=== PATIENT | male | born 1940 | race Caucasian/White ===

== ENCOUNTER 2016-09-21 11:23 | Inpatient (IN) | payer OTHER, BC ==
[2016-09-21 11:32] VITALS: BMI 24.7
--- NOTE | 2016-09-21 11:56 | PDOC ---
History of Present Illness - General Chief Complaint: Respiratory Stated Complaint: DIFFICULTY BREATHING (PCP SENT) Time Seen by Provider: 09/21/16 11:55 History Source: Patient, Primary Care Provider Exam Limitations: No Limitations - History of Present Illness Initial Comments: CHIEF COMPLAINT: 76 y/o afebrile male with PMH HTN, HLD, COPD (dependent on home O2 via NC), CHF, a-fib (on Xarelto), polycythemia sent in by Dr. Mccall for admission for increased SOB. HISTORY OF PRESENT ILLNESS: The patient states 2 weeks ago his doctor stopped his Spironalactone medication. He states since that time his legs have become more swollen and his belly is now swollen. He denies f/c, cough, n/v/d, CP, increased SOB, abd pain, back pain, hematuria, dysuria. He does have to sleep in a recliner but states that is normal for him. PCP is Dr. Mccall Vital signs on arrival are notable for pulse of 50 with 92% O2 sat on RA. REVIEW OF SYSTEMS: GENERAL/CONSTITUTIONAL: No fever/chills. No weakness. No weight change. HEAD, EYES, EARS, NOSE AND THROAT: No change in vision. No ear pain or discharge. No sore throat. CARDIOVASCULAR: No chest pain. +SOB RESPIRATORY: No cough, wheezing, or hemoptysis. GASTROINTESTINAL: +abdominal swelling. No nausea, vomiting, diarrhea or abdominal pain. GENITOURINARY: No dysuria, frequency, or change in urination. MUSCULOSKELETAL: +b/l leg swelling. No neck or back pain. SKIN: No rash or easy bruising. PHYSICAL EXAM: GENERAL: The patient is awake, alert, and fully oriented, in no acute distress. He speaks 3-4 words per breath with O2 via NC. Pt is legally blind HEAD: Normal with no signs of trauma. ENT: Pupils equal, round and reactive to light, extraocular movements intact, sclera anicteric, conjunctiva clear. Neck supple. LUNGS: Diminished breath sounds across all gill. Normal excursion. No respiratory distress or use of accessory muscles. CV: Slow rate/regular rhythm, S1/S2, no MRG. Cap refill < 2 sec. ABDOMEN: Soft, patient reported distention. No TTP. No rebound, guarding, rigidity. EXTREMITIES: Normal range of motion. Brawny, 3+ pitting edema b/l LEs up to knees. Open blister draining clear fluid on anterior right distal tibia NEUROLOGICAL: Normal speech, normal gait. CN II-XII grossly intact. PSYCH: Normal mood, normal affect. SKIN: Warm, dry, normal turgor, no rashes or lesions noted. Past History - Past Medical History Allergies/Adverse Reactions: Allergies Allergy/AdvReac Type Severity Reaction Status Date / Time codeine phosphate Allergy Intermediate Verified 09/21/16 11:32 [From Tylenol-Codeine #3] morphine Allergy Intermediate Verified 09/21/16 11:32 Home Medications: Ambulatory Orders Cholecalciferol (Vitamin D3) [Vitamin D] 1,000 unit PO DAILY 06/22/12 Metoprolol Tartrate [Lopressor -] 25 mg PO BID 06/22/12 Tiotropium [place] [Spiriva] 1 inh IH DAILY 06/22/12 Docusate Sodium [Colace -] 100 mg PO DAILY 06/05/14 Fluticasone/Vilanterol [Breo Ellipta 100-25 Mcg INH] 1 each IH DAILY 06/05/14 Nebulizer and Compressor [Comp-Air Elite Comp Nebulizer] 1 each MC DAILY #1 each 06/05/14 Sertraline HCl [Zoloft -] 50 mg PO DAILY 06/05/14 Sodium Chloride Nasal [place] [[place] Nasal [place] -] 2 spray NS BID spraybtl 06/11/14 Furosemide [Lasix -] 80 mg PO BID 09/21/16 Cardiac Disorders: Yes (A FIB) COPD: Yes HTN: Yes Hypercholesterolemia: Yes Liver Disease: Yes (CIRRHOSIS) Other medical history: LEGALLY BLIND - Surgical History Abdominal Surgery: Yes (HERNIA SURGERY) - Immunization History Immunization Up to Date: No - Psycho/Social/Smoking Cessation Hx Anxiety: Yes (depression/anxiety) Suicidal Ideation: No Smoking Status: No Smoking History: Former smoker Have you smoked in the past 12 months: No Number of Cigarettes Smoked Daily: 0 If you are a former smoker, when did you quit?: 5 YRS Information on smoking cessation initiated: No Hx Alcohol Use: No Drug/Substance Use Hx: No Substance Use Type: None Hx Substance Use Treatment: No *Physical Exam - Vital Signs Last Vital Signs Temp Pulse Resp BP Pulse Ox 98.3 F 50 L 20 122/57 92 L 09/21/16 11:27 09/21/16 11:27 09/21/16 11:27 09/21/16 11:27 09/21/16 11:27 Heart Score/ECG Review - History History: Moderately suspicious - Electrocardiogram EKG: Non specific repolarization disturbance - Age Age: >/= 65 - Risk Factors Risk Factors Heart Score: Yes Hx Hypertension, Yes Smoking History Based on the list above the patient has:: >/=3 risk factors or Hx atherosclerotic disease - Troponin Troponin: 1-3x normal limit - Score Heart Score - Total: 7 - ECG Intrepretation Comment:: Twelve-lead EKG was performed and reviewed by Dr. Deutsch. There is sinus bradycardia. The axis is normal. The intervals are normal. Nonspecific ST and T wave changes Impression: Abnormal twelve-lead EKG ED Treatment Course - LABORATORY CBC & Chemistry Diagram: 09/21/16 13:00 09/21/16 13:00 Medical Decision Making - Medical Decision Making A/P: 76 y/o male sent in by Dr. Mccall for admission for probably CHF exacerbation. Plan is as follows: 1. Labs 2. EKG 3. CXR 4. UA/culture Patient in acute CHF based on labs Ordered IV lasix Will admit tele to Dr. Mccall. Spoke with Dr. Mccall and he will admit. Will consult with [facility] for cardio. Patient is aware of the plan. *DC/Admit/Observation/Transfer Diagnosis at time of Disposition: Elevated troponin CHF exacerbation Qualifiers: Congestive heart failure type: unspecified congestive heart failure type Qualified Code(s): I50.9 - Heart failure, unspecified - Discharge Dispostion Admit: Yes - Referrals Referrals: Suraj Mccall MD [Primary Care Provider] -
[2016-09-21 13:22] LABS: BASOPHIL 0.3 % (0-2.0); EOSINOPHIL 0.1 % (0-4.5); MCH 30.1 pg (25.7-33.7); MEAN CELL VOLUME 94.2 fl (80-96); MEAN PLT VOLUME 9.8 fl (7.5-11.1); PLATELET COUNT 99 K/MM3 (134-434); WHITE BLOOD COUNT 8.7 K/mm3 (4.0-10.0)
[2016-09-21 13:24] LABS: URINE APPEARANCE CLEAR; URINE BILIRUBIN NEGATIVE (NEGATIVE); URINE BLOOD NEGATIVE (NEGATIVE); URINE COLOR STRAW; URINE GLUCOSE (UA) NEGATIVE (NEGATIVE); URINE KETONE NEGATIVE (NEGATIVE); URINE LEUK ESTERASE NEGATIVE (NEGATIVE); URINE NITRITE NEGATIVE (NEGATIVE); URINE PROTEIN NEGATIVE (NEGATIVE); URINE UROBILINOGEN NEGATIVE mg/dL (0.2-1.0)
[2016-09-21 13:55] LABS: ANION GAP 8 (8-16); BILIRUBIN,TOTAL 0.9 mg/dL (0.2-1.0); CALCIUM 9.1 mg/dL (8.5-10.1); CO2 33 mmol/L (21-32); CREATININE 1.9 mg/dL (0.7-1.3); GLUCOSE,RANDOM 87 mg/dL (74-106); SGOT/AST 32 U/L (15-37); SGPT/ALT 18 U/L (12-78); TOT PROT 7.8 g/dl (6.4-8.2)
[2016-09-21 13:58] LABS: ALK PHOS 74 U/L (45-117); CPK 78 IU/L (39-308); TROPONIN I 0.11 ng/ml (0.00-0.05)
[2016-09-21] MEDS ORDERED: FUROSEMIDE 40 MG/4 ML INJECTABLE VIAL IVPUSH ONE (14:27)
[2016-09-21] MEDS ORDERED: FUROSEMIDE 40 MG/4 ML INJECTABLE VIAL ONE (14:32)
[2016-09-21] MEDS ORDERED: BACITRACIN 0.9 GM PACKET ONE (16:02)
[2016-09-21 17:46] LABS: ARTERIAL BLD GAS O2 SATURATION 92.5 % (90-98.9); ARTERIAL BLOOD GAS BASE EXCESS 6.9 meq/l (-2-2); ARTERIAL BLOOD GAS HCO3 32.8 meq/L (22-26)
[2016-09-21 17:49] LABS: ALLENS TEST POSITIVE; ART PUNCT SITE RIGHT RADIAL; ARTERIAL BLOOD GAS PO2 64.4 mmHg (70-100); LPM/O2% 3LPM; PT. ON O2? YES; TYPE OF O2 NASAL
[2016-09-21 18:08] LABS: TROPONIN I 0.1 ng/ml (0.00-0.05)
[2016-09-21] MEDS ORDERED: PNEUMOC 13-VAL CONJ-DIP CRM/PF 0.5 ML DISP.SYRIN IM ONE (18:26)
[2016-09-21] MEDS: DEXTROSE 5% IVPB SCH ×2 (18:38→21:40)
[2016-09-21] MEDS: FUROSEMIDE IVPB SCH ×2 (18:38→21:40)
[2016-09-21] MEDS: WATER IVPB SCH ×2 (18:38→21:40)
--- NOTE | 2016-09-21 18:40 | CON.CARD ---
Consult Consult Specialty:: Cardiology Referred by:: Suraj Mccall MD Reason for Consultation:: Dyspnea and anasarca - History of Present Illness Chief Complaint: Dyspnea and anasarca History of Present Illness: Patient is a 76-year-old male with a history of home-O2 dependent COPD, VISHAL, hypertension hyperlipidemia, persistent afib on Xarelto. secondary polycythemia referred for increased dyspnea and anasarca in context of diuretic downtitration , reports progressive dyspnea, abdominal distension and LE edema, denies chest tightness, palpitations, near or true syncope, orthopnea, PND. PCP is Dr. Mccall - History Source History Provided By: Patient Limitations to Obtaining History: No Limitations - Past Medical History Cardio/Vascular: Yes: AFIB (?), CHF (Possibly diastolic), HTN, Murmur, Pulmonary Hypertension Pulmonary: Yes: COPD, O2 Dependent, Sleep Apnea Gastrointestinal: Yes: Constipation. No: Ascites, Cancer Psych: Yes: Depression ENT: Yes: Other (Epistaxis) - Alcohol/Substance Use Hx Alcohol Use: No - Smoking History Smoking history: Former smoker Have you smoked in the past 12 months: No Aproximately how many cigarettes per day: 0 If you are a former smoker, when did you quit?: 5 YRS Home Medications - Allergies Allergies/Adverse Reactions: Allergies Allergy/AdvReac Type Severity Reaction Status Date / Time codeine phosphate Allergy Intermediate Verified 09/21/16 11:32 [From Tylenol-Codeine #3] morphine Allergy Intermediate Verified 09/21/16 11:32 - Home Medications Home Medications: Ambulatory Orders Cholecalciferol (Vitamin D3) [Vitamin D] 1,000 unit PO DAILY 06/22/12 Metoprolol Tartrate [Lopressor -] 25 mg PO BID 06/22/12 Tiotropium [place] [Spiriva] 1 inh IH DAILY 06/22/12 Docusate Sodium [Colace -] 100 mg PO DAILY 06/05/14 Fluticasone/Vilanterol [Breo Ellipta 100-25 Mcg INH] 1 each IH DAILY 06/05/14 Nebulizer and Compressor [Comp-Air Elite Comp Nebulizer] 1 each MC DAILY #1 each 06/05/14 Sertraline HCl [Zoloft -] 50 mg PO DAILY 06/05/14 Sodium Chloride Nasal [place] [[place] Nasal [place] -] 2 spray NS BID spraybtl 06/11/14 Furosemide [Lasix -] 80 mg PO BID 09/21/16 Review of Systems - Review of Systems Cardiovascular: reports: Edema, Shortness of Breath Respiratory: reports: SOB Vital Signs: Vital Signs Temperature 98.2 F 09/21/16 17:55 Pulse Rate 50 L 09/21/16 15:36 Respiratory Rate 22 09/21/16 17:55 Blood Pressure 122/62 09/21/16 15:36 O2 Sat by Pulse Oximetry (%) 96 09/21/16 17:55 Constitutional: Yes: No Distress, Calm Neck: Yes: Supple Respiratory: Yes: Regular, Diminished, On Nasal O2 Gastrointestinal: Yes: Normal Bowel Sounds, Ascites, Distention Cardiovascular: Yes: Regular Rate and Rhythm JVD: Yes Carotid Bruit: No Heart Sounds: Yes: S1, S2 Murmur: Yes: Systolic Murmur, Grade 2 Edema: Yes Edema: LLE: 3+, RLE: 3+ - Other Data Labs, Other Data: Troponin, BNP 09/21/16 17:00 Troponin I 0.10 H B-Natriuretic Peptide 19167.70 H Troponin, BNP 09/21/16 17:00 Troponin I 0.10 H B-Natriuretic Peptide 25579.70 H Atrial tachycardia with 4:1 AV conduction Ejection Fraction %: LVEF > or = 40 % Imaging - Results Chest X-ray: Report Reviewed (No CHF) Problem List - Problems (1) Atrial fibrillation Code(s): I48.91 - UNSPECIFIED ATRIAL FIBRILLATION Qualifiers: Atrial fibrillation type: paroxysmal Qualified Code(s): I48.0 - Paroxysmal atrial fibrillation (2) Cirrhosis Code(s): K74.60 - UNSPECIFIED CIRRHOSIS OF LIVER Qualifiers: Hepatic cirrhosis type: unspecified hepatic cirrhosis Ascites presence : with ascites Qualified Code(s): K74.60 - Unspecified cirrhosis of liver (3) Oxygen dependent Code(s): Z99.81 - DEPENDENCE ON SUPPLEMENTAL OXYGEN (4) Pulmonary HTN Code(s): I27.2 - OTHER SECONDARY PULMONARY HYPERTENSION (5) Sleep apnea Code(s): G47.30 - SLEEP APNEA, UNSPECIFIED Qualifiers: Sleep apnea type: unspecified type Qualified Code(s): G47.30 - Sleep apnea, unspecified (6) Demand ischemia Code(s): I24.8 - OTHER FORMS OF ACUTE ISCHEMIC HEART DISEASE (7) Cor pulmonale (chronic) Code(s): I27.81 - COR PULMONALE (CHRONIC) (8) [id number] kidney injury Code(s): N17.9 - ACUTE KIDNEY FAILURE, UNSPECIFIED N18.9 - CHRONIC KIDNEY DISEASE, UNSPECIFIED (9) Anasarca Code(s): R60.1 - GENERALIZED EDEMA Assessment/Plan echo shows preserved LV fxn with significant RV dilatation and dysfunction, mod TR with RVSP>60 mmHg c/w cor pulmonale. 1. Acute on chronic hypercapneic, hypoxemic respiratory failure with cor pulmonale, severe pulm HTN and RV dysfunction and anasarca 2. 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 OSAS 4. Paroxysmal atrial fibrillation/flutter [id number] with slow ventricular response 5. HTN 7. Hypercholesterolemia 8. Thrombocytopenia 9. Cirrhosis 10. Acute on CKD 11. Demand ischemia PLAN: 1. Resume IV diuresis and aldactone 25 bid with monitor diuretic response, renal fxn and electrolytes 2. Lopressor 25 bid with hold parameters and observe for rate recovery, continue Eliquis 2.5 bid and Lipitor 10 qd 3. Bronchodilators, O2 for saO2>90%, CPAP nightly, f/u echo results 4. Thank you for consultative opportunity
[2016-09-21] MEDS: APIXABAN 2.5 MG TABLET PO SCH (21:39)
[2016-09-21] MEDS: ATORVASTATIN CA 10 MG TABLET (FP) PO SCH (21:39)
[2016-09-21] MEDS: METOPROLOL TARTRATE 25 MG TABLET (FP) PO SCH (21:39)
[2016-09-21] MEDS: SPIRONOLACTONE 25 MG TABLET (FP) PO SCH (21:39)
[2016-09-21] MEDS: ACLIDINIUM BROMIDE 400 MCG/INH AERO.POWD IH SCH (21:40)
[2016-09-21] MEDS: SODIUM CHLORIDE NASAL SPRAY 44 ML BOTTLE NS SCH (21:43)
[2016-09-21] MEDS ORDERED: METOPROLOL TARTRATE 25 MG TABLET (FP) PO SCH (22:00)
[2016-09-21] MEDS ORDERED: SENNOSIDES/DOCUSATE COMBO (SENNA PLUS) TABLET (UD) PO SCH (22:00)
[2016-09-22] MEDS: FUROSEMIDE IVPB SCH (06:02)
[2016-09-22] MEDS: DEXTROSE 5% IVPB SCH (06:02)
[2016-09-22] MEDS: WATER IVPB SCH (06:02)
--- NOTE | 2016-09-22 07:39 | HP ---
Admitting History and Physical - Admission Chief Complaint: 76 y.o M with hx of biventricular CHF, A.FIB, COPD on O2, CIRRHOSIS-was followed regularly in the office for control of CHF, fluid status , electrolytes, respiratory failure.. Within 2 weeks STONER OUT the pt started developing resistant worsening of peripheral edema, renal failure, respiratory status, hyperkalemia despite optimal outpt medical therapy. The patient was admitted to [facility] for further mangement. History of Present Illness: Chronic A.Fib with controlled V rate-on A/C Chronic CHF-predominantly RV Severe VISHAL. HTN. COPD on home O2/CPAP. LE swelling, PAH-severe, Thoracenthesis 2014 Chronic respiratory failure-ventilation, oxygenation. Polycytemia- Stable adrenal mass, Renal cysts. Depression. CKD. Cirrhosis liver with thrombocytopenia. Gout. Chronic back pain, kyphosis, healed compression fractures. History Source: Patient, Family Member, Medical Record Limitations to Obtaining History: No Limitations - Past Medical History Cardiovascular: Yes: AFIB (?), CHF (Possibly diastolic), HTN, Murmur, Pulmonary Hypertension Pulmonary: Yes: COPD, O2 Dependent, Sleep Apnea Gastrointestinal: Yes: Constipation. No: Ascites, Cancer Hepatobiliary: Yes: Cirrhosis Renal/: Yes: Renal Failure, Renal Inusuff Heme/Onc: Yes: Thrombocytopenia, Other (polycytemia-secondary). No: Anemia, B12 Deficiency, Bleeding Disorder, Cancer, Current Chemotherapy, Current Radiation Therapy, Hemochromatosis, Hypercoaguable State, Myeloproliferative Synd, Sickle Cell Disease, Sickle Cell Trait Infectious Disease: No: AIDS, C-Diff, Herpes Zoster, HIV, MRSA, STD's, Tuberculosis, VREF, Other Psych: Yes: Depression Musculoskeletal: Yes: Chronic low back pain Rheumatology: Yes: Gout ENT: Yes: Other (Epistaxis) Endocrine: Yes: Osteopenia - Smoking History Smoking history: Former smoker Have you smoked in the past 12 months: No Aproximately how many cigarettes per day: 0 If you are a former smoker, when did you quit?: 5 YRS - Alcohol/Substance Use Hx Alcohol Use: No History of Substance Use: denies: None, Cocaine, Heroin, Marijuana, Prescription , Tranquilizers - Social History Usual Living Arrangement: Yes: With Spouse ADL: Family Assistance History of Recent Travel: No Home Medications - Allergies Allergies/Adverse Reactions: Allergies Allergy/AdvReac Type Severity Reaction Status Date / Time codeine phosphate Allergy Intermediate Verified 09/21/16 11:32 [From Tylenol-Codeine #3] morphine Allergy Intermediate Verified 09/21/16 11:32 - Home Medications Home Medications: Ambulatory Orders Cholecalciferol (Vitamin D3) [Vitamin D] 1,000 unit PO DAILY 06/22/12 Metoprolol Tartrate [Lopressor -] 25 mg PO BID 06/22/12 Tiotropium [place] [Spiriva] 1 inh IH DAILY 06/22/12 Docusate Sodium [Colace -] 100 mg PO DAILY 06/05/14 Fluticasone/Vilanterol [Breo Ellipta 100-25 Mcg INH] 1 each IH DAILY 06/05/14 Nebulizer and Compressor [Comp-Air Elite Comp Nebulizer] 1 each MC DAILY #1 each 06/05/14 Sertraline HCl [Zoloft -] 50 mg PO DAILY 06/05/14 Sodium Chloride Nasal [place] [[place] Nasal [place] -] 2 spray NS BID spraybtl 06/11/14 Furosemide [Lasix -] 80 mg PO BID 09/21/16 Family Disease History - Family Disease History Family History: Unremarkable Review of Systems - Review of Systems Constitutional: reports: Weakness. denies: Chills, Diaphoresis, Fever, Lethargy , Loss of Appetite, Malaise, Night Sweats, Unintentional Wgt. Loss Eyes: denies: Blind Spots, Blurred Vision, Double Vision, Eye Pain, Floaters, Photophobia, Recent Change in Vision, Other HENT: denies: Difficult Swallowing, Ear Discharge, Ear Pain, Throat Pain, Ringing in Ears Neck: reports: Decreased ROM. denies: Pain on Movement, Swollen Glands, Tenderness Cardiovascular: reports: Edema, Shortness of Breath. denies: Chest Pain Gastrointestinal: reports: Constipation. denies: Abdominal Pain, Bloating, Diarrhea, Melena, Rectal Bleeding, Vomiting, Vomiting Blood Genitourinary: denies: Discharge, Dysuria, Flank Pain, Frequency Breasts: reports: No Symptoms Reported Musculoskeletal: reports: Back Pain, Muscle Weakness Integumentary: reports: Blister (broken right day), Bruising Neurological: denies: Change in LOC, Change in Speech, Confusion, Seizure Endocrine: denies: Excessive Sweating, Flushing, Increased Hunger, Intolerance to Heat Hematology/Lymphatic: denies: Excessive Bleeding, Swollen Glands Psychiatric: reports: Altered Sleep Pattern, Anxiety, Depression. denies: Hallucinations, Panic, Paranoia, Suicidal Physical Examination Vital Signs: Vital Signs Temperature 97.8 F 09/22/16 05:24 Pulse Rate 47 L 09/22/16 05:24 Respiratory Rate 20 09/22/16 05:24 Blood Pressure 137/60 09/22/16 05:24 O2 Sat by Pulse Oximetry (%) 96 09/21/16 21:00 Constitutional: Yes: Anxious, Moderate Distress. No: Pallor, Poor Hygeine Eyes: Yes: Conjunctiva Clear, EOM Intact HENT: Yes: Atraumatic, Normocephalic, Hoarseness. No: Drooling, Epistaxis, Pharyngeal Erythema Neck: Yes: Trachea Midline, Decreased ROM. No: Lymphadenopathy, Tenderness, Thyromegaly Cardiovascular: Yes: Bradycardia, Pulse Irregular, JVD, Murmur, S1, S2, S3 Respiratory: Yes: Accessory Muscle Use, Diminished (B/B), On Nasal O2, Rales (B/ B) Gastrointestinal: Yes: Normal Bowel Sounds, Soft, Ascites, Splenomegaly. No: Abdomen, Obese, Palpable Mass, Pulsatile Mass, Tenderness, Tenderness, Epigastrium, Vomiting ...Rectal Exam: Yes: Deferred Renal/: No: Anuria, Bladder Distention, CVA Tenderness - Left, CVA Tenderness - Right Breast(s): Yes: WNL Musculoskeletal: Yes: Back Pain. No: Joint Stiffness Extremities: Yes: Cool, Cyanosis, Delayed Capillary Refill. No: Amputation, Calf Tenderness Edema: LLE: 3+, RLE: 3+ Peripheral Pulses WNL: No Peripheral Pulses: Left Doralis Pedis: 0, Right Dorsalis Pedis: 0 Integumentary: Yes: Bruising, Petechiae Wound/Incision: Yes: Draining, Reddened (Right anterior day) Neurological: Yes: Alert, Oriented, Cran Nerves II-XII Intact, Unsteady Gait, Weakness. No: Aphasia, Ataxia, Paresthesia, Seizure, Unresponsive Psychiatric: Yes: Alert, Oriented. No: Agitated, Suicidal Ideation Labs: Laboratory Results - last 24 hr 09/21/16 09/21/16 09/21/16 13:00 13:00 13:00 WBC 8.7 RBC 4.47 Hgb 13.5 Hct 42.1 MCV 94.2 MCH 30.1 MCHC 32.0 RDW 16.0 H Plt Count 99 L D MPV 9.8 Neutrophils % 87.0 H Lymphocytes % 4.8 L D Monocytes % 7.8 Eosinophils % 0.1 Basophils % 0.3 Puncture Site ABG pH ABG pCO2 at Pt Temp ABG pO2 at Pt Temp ABG HCO3 ABG O2 Sat (Measured) ABG O2 Content ABG Base Excess [place] Test O2 Delivery Device Oxygen Flow Rate PEEP Sodium 138 Potassium 5.0 Chloride 97 L Carbon Dioxide 33 H Anion Gap 8 BUN 107 H* D Creatinine 1.9 H D Creat Clearance w eGFR 34.83 Random Glucose 87 Calcium 9.1 Total Bilirubin 0.9 AST 32 ALT 18 D Alkaline Phosphatase 74 D Creatine Kinase 78 Troponin I 0.11 H D B-Natriuretic Peptide 77234.86 H Total Protein 7.8 Albumin 4.0 D Urine Color Straw Urine Appearance Clear Urine pH 5.0 Ur Specific [place] 1.010 Urine Protein Negative Urine Glucose (UA) Negative Urine Ketones Negative Urine Blood Negative Urine Nitrite Negative Urine Bilirubin Negative Urine Urobilinogen Negative Ur Leukocyte Esterase Negative 09/21/16 09/21/16 09/22/16 17:00 17:40 05:35 WBC 7.2 RBC 4.38 Hgb 13.5 Hct 41.4 MCV 94.3 MCH 30.7 MCHC 32.5 RDW 15.7 Plt Count 93 L MPV 10.7 Neutrophils % 84.8 H Lymphocytes % 6.0 L D Monocytes % 8.6 Eosinophils % 0.3 D Basophils % 0.3 Puncture Site Right radial ABG pH 7.40 ABG pCO2 at Pt Temp 54.5 H ABG pO2 at Pt Temp 64.4 L ABG HCO3 32.8 H ABG O2 Sat (Measured) 92.5 ABG O2 Content 16.3 ABG Base Excess 6.9 H Gagan Test Positive O2 Delivery Device Nasal Oxygen Flow Rate 3lpm PEEP 0.0 Sodium Potassium Chloride Carbon Dioxide Anion Gap BUN Creatinine Creat Clearance w eGFR Random Glucose Calcium Total Bilirubin AST ALT Alkaline Phosphatase Creatine Kinase 62 Troponin I 0.10 H B-Natriuretic Peptide 03676.70 H Total Protein Albumin Urine Color Urine Appearance Urine pH Ur Specific [place] Urine Protein Urine Glucose (UA) Urine Ketones Urine Blood Urine Nitrite Urine Bilirubin Urine Urobilinogen Ur Leukocyte Esterase Imaging - Results Chest X-ray: Report Reviewed EKG: Image Reviewed (A.FIB/Flutter with VR 46/min, incomlete RBBB) Problem List - Problems (1) [id number] kidney injury Assessment/Plan: Mostly pre-renal on renal, r/o hepato-renal syndrome. Continue f/u labs, renal fx, observe for hyperkalemia Code(s): N17.9 - ACUTE KIDNEY FAILURE, UNSPECIFIED N18.9 - CHRONIC KIDNEY DISEASE, UNSPECIFIED Qualifiers: Acute renal failure type: unspecified Chronic kidney disease stage: stage 3 (moderate) Qualified Code(s): N17.9 - Acute kidney failure, unspecified; N18.3 - Chronic kidney disease, stage 3 (moderate) (2) Anasarca Assessment/Plan: IV diuretics. Spironolactone Daily weights I/s , O/s Code(s): R60.1 - GENERALIZED EDEMA (3) CHF exacerbation Assessment/Plan: F/u with cardiology IV diuretics. BAB with telemetry Code(s): I50.9 - HEART FAILURE, UNSPECIFIED Qualifiers: Congestive heart failure type: combined Qualified Code(s): I50.43 - Acute on chronic combined systolic (congestive) and diastolic (congestive) heart failure (4) Cor pulmonale (chronic) Code(s): I27.81 - COR PULMONALE (CHRONIC) (5) Demand ischemia Assessment/Plan: Follow HR, CHF, Code(s): I24.8 - OTHER FORMS OF ACUTE ISCHEMIC HEART DISEASE (6) Atrial fibrillation Assessment/Plan: AFIB/Flutter-continue NOAC-will change Xarelto to Eliquis due to renal insufficiency Code(s): I48.91 - UNSPECIFIED ATRIAL FIBRILLATION Qualifiers: Atrial fibrillation type: chronic Qualified Code(s): I48.2 - Chronic atrial fibrillation (7) Respiratory failure Assessment/Plan: CPAP, Pulmonary consult Follow O2SAT Code(s): J96.90 - RESPIRATORY FAILURE, UNSP, UNSP W HYPOXIA OR HYPERCAPNIA Qualifiers: Chronicity: acute on chronic
[2016-09-22 07:41] LABS: BASOPHIL 0.3 % (0-2.0); EOSINOPHIL 0.3 % (0-4.5); MCH 30.7 pg (25.7-33.7); MCHC 32.5 g/dl (32.0-35.9); MEAN CELL VOLUME 94.3 fl (80-96); MEAN PLT VOLUME 10.7 fl (7.5-11.1); NEUTROPHILS 84.8 % (42.8-82.8); PLATELET COUNT 93 K/MM3 (134-434); RDW 15.7 % (11.9-15.9); WHITE BLOOD COUNT 7.2 K/mm3 (4.0-10.0)
[2016-09-22 07:51] LABS: INR 1.51 (0.82-1.09); PROTHROMBIN TIME (PATIENT) 16.8 SEC (9.98-11.88)
[2016-09-22 08:41] LABS: ALBUMIN 3.8 g/dl (3.4-5.0); ALK PHOS 64 U/L (45-117); ANION GAP 8 (8-16); BILIRUBIN,TOTAL 1.2 mg/dL (0.2-1.0); CALCIUM 9.2 mg/dL (8.5-10.1); CO2 36 mmol/L (21-32); CREATININE 1.7 mg/dL (0.7-1.3); GLUCOSE,RANDOM 104 mg/dL (74-106); MAGNESIUM 2.6 mg/dL (1.8-2.4); PHOSPHOROUS 3.4 mg/dL (2.5-4.9); SGOT/AST 29 U/L (15-37); SGPT/ALT 15 U/L (12-78); TOT PROT 7.1 g/dl (6.4-8.2)
--- NOTE | 2016-09-22 10:02 | CONSULT ---
Consultation: REQUESTING PROVIDER: CONSULT REQUEST: We have been asked to medically evaluate this patient for ( Nephrology). HISTORY OF PRESENT ILLNESS:76 y.o M with PMH of biventricular CHF, A.FIB, COPD on home O2 2L, Cirrhosis, VISHAL came to ER with complaint of increase in swellining in b/l lower limbs, abdomen and increase in SOB. The patient states 2 weeks ago his doctor stopped his Spironalactone medication. He states since that time his legs have become more swollen and his belly is now swollen. Uses home oxygen and CPAP in night. PMH: HTN, HLD, copd, chf, afib, polycythemia, vishal former smoker Denies fever, chills, cough, orthopnea, paroxysmal nocturnal dyspnea. Denies diarrhoea, constipation. REVIEW OF SYSTEMS: CONSTITUTIONAL: Absent: fever, chills, diaphoresis, generalized weakness, HEENT: Absent: rhinorrhea, nasal congestion, throat pain, CARDIOVASCULAR: Absent: chest pain, syncope, palpitations, irregular heart rate, lightheadedness , peripheral edema RESPIRATORY: Absent: cough, shortness of breath, dyspnea with exertion, orthopnea, wheezing, stridor, hemoptysis GASTROINTESTINAL: Absent: abdominal pain, abdominal distension, nausea, vomiting, diarrhea, constipation, melena, hematochezia, increase in edema in abdominal wall GENITOURINARY: Absent: dysuria, frequency, urgency, hesitancy, hematuria, flank pain, genital pain SKIN: ruptured blister on right lower limb PHYSICAL EXAMINATION Vital Signs - 24 hr 09/21/16 09/21/16 09/21/16 15:36 17:55 18:00 Temperature 98.2 F 98.2 F 98.0 F Pulse Rate 46 L Pulse Rate [ 50 L Apical] Respiratory 22 22 20 Rate Blood Pressure 128/56 Blood Pressure 122/62 [Right Arm] O2 Sat by Pulse 93 L 96 Oximetry (%) 09/21/16 09/21/16 09/21/16 20:29 21:00 22:00 Temperature 97.7 F Pulse Rate 47 L Pulse Rate [ Apical] Respiratory 20 20 20 Rate Blood Pressure 127/58 Blood Pressure [Right Arm] O2 Sat by Pulse 96 96 Oximetry (%) 09/22/16 09/22/16 02:21 05:24 Temperature 97.6 F 97.8 F Pulse Rate 49 L 47 L Pulse Rate [ Apical] Respiratory 20 20 Rate Blood Pressure 134/62 137/60 Blood Pressure [Right Arm] O2 Sat by Pulse Oximetry (%) GENERAL: Awake, alert, and fully oriented, in no acute distress. EYES: sclera anicteric, conjunctiva clear. EARS, NOSE, THROAT: oropharynx clear without exudates. Moist mucous membranes. NECK: Normal range of motion, supple without lymphadenopathy, JVD, or masses. LUNGS: Breath sounds equal, b/l diminished, mild crackle at base, no wheezing HEART: normal S1 and S2 , murmur + ABDOMEN: Soft, nontender, not distended, normoactive bowel sounds, no guarding, no rebound, LOWER EXTREMITIES: 2+ pulses, warm, well-perfused. No calf tenderness. peripheral edema 1+ SKIN: Warm, Laboratory Results - last 24 hr 09/21/16 09/21/16 09/22/16 17:00 17:40 05:35 WBC 7.2 RBC 4.38 Hgb 13.5 Hct 41.4 MCV 94.3 MCH 30.7 MCHC 32.5 RDW 15.7 Plt Count 93 L MPV 10.7 Neutrophils % 84.8 H Lymphocytes % 6.0 L D Monocytes % 8.6 Eosinophils % 0.3 D Basophils % 0.3 INR Puncture Site Right radial ABG pH 7.40 ABG pCO2 at Pt Temp 54.5 H ABG pO2 at Pt Temp 64.4 L ABG HCO3 32.8 H ABG O2 Sat (Measured) 92.5 ABG O2 Content 16.3 ABG Base Excess 6.9 H Gagan Test Positive O2 Delivery Device Nasal Oxygen Flow Rate 3lpm PEEP 0.0 Sodium Potassium Chloride Carbon Dioxide Anion Gap BUN Creatinine Creat Clearance w eGFR Random Glucose Calcium Phosphorus Magnesium Total Bilirubin AST ALT Alkaline Phosphatase Creatine Kinase 62 Troponin I 0.10 H B-Natriuretic Peptide 92656.70 H Total Protein Albumin 09/22/16 09/22/16 05:35 05:35 WBC RBC Hgb Hct MCV MCH MCHC RDW Plt Count MPV Neutrophils % Lymphocytes % Monocytes % Eosinophils % Basophils % INR 1.51 H Puncture Site ABG pH ABG pCO2 at Pt Temp ABG pO2 at Pt Temp ABG HCO3 ABG O2 Sat (Measured) ABG O2 Content ABG Base Excess Gagan Test O2 Delivery Device Oxygen Flow Rate PEEP Sodium 141 Potassium 4.4 Chloride 97 L Carbon Dioxide 36 H Anion Gap 8 BUN 102 H Creatinine 1.7 H Creat Clearance w eGFR 39.60 Random Glucose 104 Calcium 9.2 Phosphorus 3.4 Magnesium 2.6 H D Total Bilirubin 1.2 H D AST 29 ALT 15 Alkaline Phosphatase 64 Creatine Kinase Troponin I B-Natriuretic Peptide Total Protein 7.1 Albumin 3.8 Active Medications Generic Name Dose Route Start Last Admin Trade Name Markq PRN Reason Stop Dose Admin Aclidinium [place] 1 puff 09/21/16 22:00 09/21/16 21:40 Tudorza - IH 1 puff BID TRICIA Administration Apixaban 2.5 mg 09/21/16 22:00 09/21/16 21:39 Eliquis - PO 2.5 mg BID TRICIA Administration Atorvastatin Calcium 10 mg 09/21/16 22:00 09/21/16 21:39 Lipitor - PO 10 mg HS TRICIA Administration Cholecalciferol 1,000 unit 09/22/16 10:00 Vitamin D3 - PO DAILY TRICIA Docusate Sodium 100 mg 09/22/16 10:00 Colace - PO DAILY TRICIA Febuxostat 40 mg 09/22/16 10:00 Uloric - PO DAILY TRICIA Furosemide 100 mg/ Dextrose 60 mls @ 60 mls/hr 09/21/16 18:00 09/22/16 06:02 IVPB 60 mls/hr Q12H TRICIA Administration 100 MG/HR Metoprolol Tartrate 25 mg 09/21/16 22:00 09/21/16 21:39 Lopressor - PO Not Given BID TRICIA Senna/Docusate Sodium 2 tablet 09/21/16 22:00 09/21/16 21:39 Pericolace - PO 09/22/16 16:44 2 tablet HS TRICIA Administration Sertraline HCl 50 mg 09/22/16 10:00 Zoloft - PO DAILY TRICIA Silver Sulfadiazine 1 applic 09/22/16 10:00 Silvadene - TP BID TRICIA Sodium Chloride 2 spray 09/21/16 22:00 09/21/16 21:43 [place] - NS 2 spray BID TRICIA Administration Spironolactone 25 mg 09/21/16 19:00 09/21/16 21:39 Aldactone - PO 25 mg DAILY TRICIA Administration ASSESSMENT/PLAN: [id number] kidney injury could be prerenal CHF exacerbation Cor pulmonale (chronic) Demand ischemia Atrial fibrillation Respiratory failure VISHAL HTN HLD Plan l Will urine electrolytes, pro: cret ration Repeat lab in morning will get renal usg Cr improved from 1.9 to 1.7 on IV lasix 100mg q12h, CR improved on diuretic on spironolatone 25mg daily Daily weight Monitor intake and output. Monitor electrolytes. Broncho dilator, o2 to keep spo2 over 90. Uses CPAP in night Dispo: We will continue to follow the patient. Thank you for this consultative opportunity. Visit type - Emergency Visit Emergency Visit: Yes ED Registration Date: 09/21/16 Care time: The patient presented to the Emergency Department on the above date and was hospitalized for further evaluation of their emergent condition. - New Patient This patient is new to me today: Yes Date on this admission: 09/22/16 - Critical Care Critical Care patient: No
[2016-09-22] MEDS: CHOLECALCIFEROL (VITAMIN D3) 1,000 UNIT TABLET (FP) PO SCH (10:29)
[2016-09-22] MEDS: SERTRALINE HCL 50 MG TABLET (FP) PO SCH (10:29)
[2016-09-22] MEDS: APIXABAN 2.5 MG TABLET PO SCH ×2 (10:30→22:02)
[2016-09-22] MEDS: SPIRONOLACTONE 25 MG TABLET (FP) PO SCH ×2 (10:30→22:02)
[2016-09-22] MEDS: DOCUSATE SODIUM 100 MG CAPSULE (FP) PO SCH (10:30)
[2016-09-22] MEDS: FEBUXOSTAT 40 MG TAB PO SCH (10:31)
[2016-09-22] MEDS: ACLIDINIUM BROMIDE 400 MCG/INH AERO.POWD IH SCH ×2 (10:32→22:13)
[2016-09-22] MEDS: METOPROLOL TARTRATE 25 MG TABLET (FP) PO SCH (10:33)
[2016-09-22] MEDS: SODIUM CHLORIDE NASAL SPRAY 44 ML BOTTLE NS SCH ×2 (10:33→23:11)
--- NOTE | 2016-09-22 10:54 | PN ---
Progress Note, Physician History of Present Illness: Dyspnea, abdominal distension and LE edema improving with diuresis, feels improved. PCP is Dr. Mccall - Current Medication List Current Medications: Active Medications Aclidinium [place] (Tudorza -) 1 puff IH BID [facility] Last Admin: 09/22/16 10:32 Dose: 1 puff Apixaban (Eliquis -) 2.5 mg PO BID [facility] Last Admin: 09/22/16 10:30 Dose: 2.5 mg Atorvastatin Calcium (Lipitor -) 10 mg PO [facility] Last Admin: 09/21/16 21:39 Dose: 10 mg Cholecalciferol (Vitamin D3 -) 1,000 unit PO DAILY [facility] Last Admin: 09/22/16 10:29 Dose: 1,000 unit Docusate Sodium (Colace -) 100 mg PO DAILY [facility] Last Admin: 09/22/16 10:30 Dose: 100 mg Febuxostat (Uloric -) 40 mg PO DAILY [facility] Last Admin: 09/22/16 10:31 Dose: 40 mg Furosemide 100 mg/ Dextrose 60 mls @ 60 mls/hr IVPB Q12H [facility] PRN Reason: 100 MG/HR Last Admin: 09/22/16 06:02 Dose: 60 mls/hr Metoprolol Tartrate (Lopressor -) 25 mg PO BID [facility] Last Admin: 09/22/16 10:33 Dose: Not Given Senna/Docusate Sodium (Pericolace -) 2 tablet PO [facility] Stop: 09/22/16 16:44 Last Admin: 09/21/16 21:39 Dose: 2 tablet Sertraline HCl (Zoloft -) 50 mg PO DAILY [facility] Last Admin: 09/22/16 10:29 Dose: 50 mg Silver Sulfadiazine (Silvadene -) 1 applic TP BID [facility] Sodium Chloride ([place] Nasal [place] -) 2 spray NS BID [facility] Last Admin: 09/22/16 10:33 Dose: 2 spray Spironolactone (Aldactone -) 25 mg PO DAILY [facility] Last Admin: 09/22/16 10:30 Dose: 25 mg - Objective Vital Signs: Vital Signs Temperature 98.2 F 09/22/16 10:00 Pulse Rate 58 L 09/22/16 10:00 Respiratory Rate 16 09/22/16 10:00 Blood Pressure 138/68 09/22/16 10:00 O2 Sat by Pulse Oximetry (%) 96 09/21/16 21:00 Constitutional: Yes: No Distress, Calm Neck: Yes: Supple Cardiovascular: Yes: Regular Rate and Rhythm Respiratory: Yes: Regular, Diminished Gastrointestinal: Yes: Normal Bowel Sounds, Soft, Distention Edema: Yes Edema: LLE: 2+, RLE: 2+ Labs: CBC, BMP 09/22/16 05:35 09/22/16 05:35 INR, PTT INR 1.51 (0.82-1.09) H 09/22/16 05:35 Problem List - Problems (1) Atrial fibrillation Code(s): I48.91 - UNSPECIFIED ATRIAL FIBRILLATION Qualifiers: Qualified Code(s): I48.2 - Chronic atrial fibrillation (2) Cirrhosis Code(s): K74.60 - UNSPECIFIED CIRRHOSIS OF LIVER Qualifiers: Qualified Code(s): K74.60 - Unspecified cirrhosis of liver (3) Oxygen dependent Code(s): Z99.81 - DEPENDENCE ON SUPPLEMENTAL OXYGEN (4) Pulmonary HTN Code(s): I27.2 - OTHER SECONDARY PULMONARY HYPERTENSION (5) Sleep apnea Code(s): G47.30 - SLEEP APNEA, UNSPECIFIED Qualifiers: Qualified Code(s): G47.30 - Sleep apnea, unspecified (6) Demand ischemia Code(s): I24.8 - OTHER FORMS OF ACUTE ISCHEMIC HEART DISEASE (7) Cor pulmonale (chronic) Code(s): I27.81 - COR PULMONALE (CHRONIC) (8) Gjlgd-ts-iuwfiqm kidney injury Code(s): N17.9 - ACUTE KIDNEY FAILURE, UNSPECIFIED N18.9 - CHRONIC KIDNEY DISEASE, UNSPECIFIED Qualifiers: Qualified Code(s): N17.9 - Acute kidney failure, unspecified; N18.9 - Chronic kidney disease, unspecified (9) Anasarca Code(s): R60.1 - GENERALIZED EDEMA Assessment/Plan echo shows preserved LV fxn with significant RV dilatation and dysfunction, mod TR with RVSP>60 mmHg c/w cor pulmonale. 1. Acute on chronic hypercapneic, hypoxemic respiratory failure with cor pulmonale, severe pulm HTN and RV dysfunction and anasarca improving 2. 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 OSAS 4. Paroxysmal atrial fibrillation/flutter [id number] with slow ventricular response 5. HTN 7. Hypercholesterolemia 8. Thrombocytopenia 9. Cirrhosis 10. Acute on CKD referable to #1 improving 11. Demand ischemia PLAN: 1. Decrease Lasix 80 IV bid and increase aldactone 25 bid with monitor diuretic response, renal fxn and electrolytes 2. Decrease Toprol XL 25 qd with hold parameters and observe for rate recovery, continue Eliquis 2.5 bid and Lipitor 10 qd 3. Bronchodilators, O2 for saO2>90%, CPAP nightly, f/u echo results
--- NOTE | 2016-09-22 10:54 | EKG ---
Test Reason : Blood Pressure : / mmHG Vent. Rate : 046 BPM Atrial Rate : 187 BPM P-R Int : 000 ms QRS Dur : 112 ms QT Int : 486 ms P-R-T Axes : 000 037 023 degrees QTc Int : 425 ms ATRIAL FIBRILLATION WITH SLOW VENTRICULAR RESPONSE INCOMPLETE RIGHT BUNDLE BRANCH BLOCK NONSPECIFIC ST AND T WAVE ABNORMALITY ABNORMAL ECG Confirmed by MG KOCH, DORINDA ([id number]) on 09/22/2016 10:54:28 AM Referred By: Confirmed By:DORINDA HOLLIDAY MD
--- NOTE | 2016-09-22 11:21 | EKG ---
Test Reason : Blood Pressure : / mmHG Vent. Rate : 052 BPM Atrial Rate : 241 BPM P-R Int : 000 ms QRS Dur : 112 ms QT Int : 474 ms P-R-T Axes : 000 005 063 degrees QTc Int : 440 ms ATRIAL FIBRILLATION WITH SLOW VENTRICULAR RESPONSE RIGHT BUNDLE BRANCH BLOCK ABNORMAL ECG WHEN COMPARED WITH ECG OF 21-SEP-2016 12:59, ATRIAL FIBRILLATION HAS REPLACED SINUS RHYTHM RIGHT BUNDLE BRANCH BLOCK IS NOW PRESENT Confirmed by MG KOCH, DORINDA ([id number]) on 09/22/2016 11:20:58 AM Referred By: NADEEM GONZALES Confirmed By:DORINDA HOLLIDAY MD
[2016-09-22] MEDS: SILVER SULFADIAZINE 1% TOP CREAM 50 GM JAR TP SCH ×2 (11:52→22:04)
[2016-09-22 12:44] LABS: URINE CREATININE 13.5 mg/dL (20-370)
--- NOTE | 2016-09-22 12:45 | CON.PULM ---
Consult Consult Specialty:: PULMONARY Referred by:: Dr. Mccall Reason for Consultation:: shortness of breath - History of Present Illness Chief Complaint: shortness of breath History of Present Illness: 76yo male with h/o HTN, hyperlipidemia, COPD, chronic hypoxic respiratory failure on home O2, pulmonary HTN, atrial fibrillation who was admitted with worsening shortness of breath and increasing leg swelling. He denies any cough or wheezing. No palpitations, nausea or vomiting but with increasing abdominal girth. No fevers or chills. - Past Medical History Cardio/Vascular: Yes: AFIB (?), CHF (Possibly diastolic), HTN, Murmur, Pulmonary Hypertension Pulmonary: Yes: COPD, O2 Dependent, Sleep Apnea Gastrointestinal: Yes: Constipation. No: Ascites, Cancer Hepatobiliary: Yes: Cirrhosis Renal/: Yes: Renal Failure, Renal Inusuff Infectious Disease: No: AIDS, C-Diff, Herpes Zoster, HIV, MRSA, STD's, Tuberculosis, VREF, Other Psych: Yes: Depression Musculoskeletal: Yes: Chronic low back pain Rheumatology: Yes: Gout ENT: Yes: Other (Epistaxis) Endocrine: Yes: Osteopenia - Alcohol/Substance Use Hx Alcohol Use: No History of Substance Use: denies: None, Cocaine, Heroin, Marijuana, Prescription , Tranquilizers - Smoking History Smoking history: Former smoker Have you smoked in the past 12 months: No Aproximately how many cigarettes per day: 0 If you are a former smoker, when did you quit?: 5 YRS - Social History ADL: Family Assistance History of Recent Travel: No Home Medications - Allergies Allergies/Adverse Reactions: Allergies Allergy/AdvReac Type Severity Reaction Status Date / Time codeine phosphate Allergy Intermediate Verified 09/21/16 11:32 [From Tylenol-Codeine #3] morphine Allergy Intermediate Verified 09/21/16 11:32 - Home Medications Home Medications: Ambulatory Orders Cholecalciferol (Vitamin D3) [Vitamin D] 1,000 unit PO DAILY 06/22/12 Metoprolol Tartrate [Lopressor -] 25 mg PO BID 06/22/12 Tiotropium [place] [Spiriva] 1 inh IH DAILY 06/22/12 Docusate Sodium [Colace -] 100 mg PO DAILY 06/05/14 Fluticasone/Vilanterol [Breo Ellipta 100-25 Mcg INH] 1 each IH DAILY 06/05/14 Nebulizer and Compressor [Comp-Air Elite Comp Nebulizer] 1 each MC DAILY #1 each 06/05/14 Sertraline HCl [Zoloft -] 50 mg PO DAILY 06/05/14 Sodium Chloride Nasal [place] Nas[place] -] 2 spray NS BID spraybtl 06/11/14 Furosemide [Lasix -] 80 mg PO BID 09/21/16 Review of Systems - Review of Systems Constitutional: denies: Chills, Fever Eyes: denies: Recent Change in Vision HENT: denies: Nasal Congestion, Throat Pain Neck: denies: Stiffness, Tenderness Cardiovascular: reports: Edema, Shortness of Breath. denies: Chest Pain, Palpitations Respiratory: reports: Exercise Intolerance, SOB, SOB on Exertion. denies: Cough , Hemoptysis, Wheezing Gastrointestinal: denies: Abdominal Pain, Nausea, Vomiting Genitourinary: denies: Dysuria, Hematuria Neurological: denies: Dizziness, Headache Physical Exam Vital Sings: Vital Signs Temperature 98.2 F 09/22/16 10:00 Pulse Rate 58 L 09/22/16 10:00 Respiratory Rate 16 09/22/16 10:00 Blood Pressure 138/68 09/22/16 10:00 O2 Sat by Pulse Oximetry (%) 96 09/21/16 21:00 Constitutional: Yes: Calm Eyes: Yes: Conjunctiva Clear, EOM Intact HENT: Yes: Atraumatic, Normocephalic Neck: Yes: Supple, Trachea Midline Cardiovascular: Yes: Pulse Irregular Respiratory: Yes: Rales (scattered basilar rales) ...Clubbing: No Gastrointestinal: Yes: Normal Bowel Sounds, Soft. No: Tenderness Edema: Yes Neurological: Yes: Alert, Oriented Labs: CBC, BMP 09/22/16 05:35 09/22/16 05:35 ABG Results ABG pH 7.40 (7.35-7.45) 09/21/16 17:40 ABG pCO2 at Pt Temp 54.5 mmHg (35-45) H 09/21/16 17:40 ABG pO2 at Pt Temp 64.4 mmHg (70-100) L 09/21/16 17:40 ABG HCO3 32.8 meq/L (22-26) H 09/21/16 17:40 ABG O2 Sat (Measured) 92.5 % (90-98.9) 09/21/16 17:40 ABG O2 Content 16.3 % vol (15-22) 09/21/16 17:40 ABG Base Excess 6.9 meq/l (-2-2) H 09/21/16 17:40 Imaging - Results Chest X-ray: Report Reviewed, Image Reviewed (cardiomegaly) Problem List - Problems (1) Vqcvl-[id number] kidney injury Code(s): N17.9 - ACUTE KIDNEY FAILURE, UNSPECIFIED N18.9 - CHRONIC KIDNEY DISEASE, UNSPECIFIED Qualifiers: Acute renal failure type: unspecified Chronic kidney disease stage: stage 3 (moderate) Qualified Code(s): N17.9 - Acute kidney failure, unspecified; N18.9 - Chronic kidney disease, unspecified (2) CHF exacerbation Code(s): I50.9 - HEART FAILURE, UNSPECIFIED Qualifiers: Congestive heart failure type: combined Qualified Code(s): I50.43 - Acute on chronic combined systolic (congestive) and diastolic (congestive) heart failure (3) Cor pulmonale (chronic) Code(s): I27.81 - COR PULMONALE (CHRONIC) (4) Elevated troponin Code(s): R74.8 - ABNORMAL LEVELS OF OTHER SERUM ENZYMES (5) Oxygen dependent Code(s): Z99.81 - DEPENDENCE ON SUPPLEMENTAL OXYGEN (6) Pleural effusion Code(s): J90 - PLEURAL EFFUSION, NOT ELSEWHERE CLASSIFIED (7) Pulmonary HTN Code(s): I27.2 - OTHER SECONDARY PULMONARY HYPERTENSION (8) Sleep apnea Code(s): G47.30 - SLEEP APNEA, UNSPECIFIED Qualifiers: Sleep apnea type: unspecified type Qualified Code(s): G47.30 - Sleep apnea, unspecified Assessment/Plan Chronic Hypoxic and Hypercapneic Respiratory Failure COPD Severe Pulmonary HTN Cor Pulmonale Atrial Fibrillation Acute on Chronic Renal Failure Obstructive Sleep Apnea +Troponins - IV lasix, aldactone - monitor urine output, creatinine - rate controlled - continue anticoagulation - inhaled bronchodilators - can defer systemic steroids at this time - CPAP at night - echocardiogram Thank you for this consult Octavio Graves MD
[2016-09-22] MEDS: FUROSEMIDE 100 MG/10 ML INJECTABLE VIAL IVPB SCH (15:00)
--- NOTE | 2016-09-22 17:44 | PN ---
Teaching Attending Note Name of Resident: Amol Sommer (Nephrology) ATTENDING PHYSICIAN STATEMENT I saw and evaluated the patient. I reviewed the resident's note and discussed the case with the resident. I agree with the resident's findings and plan as documented. Nephrology Consult Please see consult filled out by resident. Pt is a 76 year old male with pmhx of CHF, a-fib, liver cirrhosis and COPD who presents to the ER with increased shortness of breath. He also complains of lower extremity edema. He has gained over ten pounds over last several weeks. He was on diuretics which had been stopped. He denies dysuria or hematuria. He denies nsaid use. PMHx chf a fib copd cirrhosis allergies codein and morphine family hx denies ros lower ext edema Current Medications Generic Name Dose Route Start Last Admin Trade Name Freq PRN Reason Stop Dose Admin Aclidinium [place] 1 puff 09/21/16 22:00 09/22/16 10:32 [place]orza - IH 1 puff BID TRICIA Administration Apixaban 2.5 mg 09/21/16 22:00 09/22/16 10:30 Eliquis - PO 2.5 mg BID TRICIA Administration Atorvastatin Calcium 10 mg 09/21/16 22:00 09/21/16 21:39 Lipitor - PO 10 mg HS TRICIA Administration Cholecalciferol 1,000 unit 09/22/16 10:00 09/22/16 10:29 Vitamin D3 - PO 1,000 unit DAILY TRICIA Administration Docusate Sodium 100 mg 09/22/16 10:00 09/22/16 10:30 Colace - PO 100 mg DAILY TRICIA Administration Febuxostat 40 mg 09/22/16 10:00 09/22/16 10:31 Uloric - PO 40 mg DAILY TRICIA Administration Furosemide 80 mg 09/22/16 14:00 09/22/16 15:00 Lasix Injection - IVPB 80 mg BID@0600,1400 TRICIA Administration Metoprolol [place]cc[place] 25 mg 09/23/16 10:00 Toprol Xl - PO DAILY TRICIA Sertraline HCl 50 mg 09/22/16 10:00 09/22/16 10:29 Zoloft - PO 50 mg DAILY TRICIA Administration Silver Sulfadiazine 1 applic 09/22/16 10:00 09/22/16 11:52 Silvadene - TP 1 applic BID TRICIA Administration Sodium Chloride 2 spray 09/21/16 22:00 09/22/16 10:33 [place] Nasal [place] - NS 2 spray BID TRICIA Administration Spironolactone 25 mg 09/22/16 22:00 Aldactone - PO BID [facility] Last Vital Signs Temp Pulse Resp BP Pulse Ox 98.2 F 62 18 98/5 96 09/22/16 15:11 09/22/16 15:11 09/22/16 15:11 09/22/16 15:11 09/22/16 09:00 Current Active Problems [id number]-[id number] kidney injury (Acute) Anasarca (Acute) CHF exacerbation (Acute) Cor pulmonale (chronic) (Acute) Laboratory Tests 06/07/14 06/08/14 06/09/14 05:40 05:40 05:35 WBC Hgb Plt Count INR Sodium Potassium Chloride Carbon Dioxide Anion Gap BUN Creatinine 1.0 1.1 1.0 B-Natriuretic Peptide Urine Color Urine Appearance Urine pH Ur Specific [place] Urine Protein Urine Glucose (UA) Urine Ketones Urine Blood Urine Nitrite Urine Bilirubin Urine Urobilinogen Ur Leukocyte Esterase 06/10/14 08/13/14 09/21/16 05:35 10:30 13:00 WBC Hgb Plt Count 99 L D INR Sodium Potassium Chloride Carbon Dioxide Anion Gap BUN Creatinine 1.1 1.0 B-Natriuretic Peptide Urine Color Urine Appearance Urine pH Ur Specific [place] Urine Protein Urine Glucose (UA) Urine Ketones Urine Blood Urine Nitrite Urine Bilirubin Urine Urobilinogen Ur Leukocyte Esterase 09/21/16 09/21/16 09/21/16 13:00 13:00 17:00 WBC Hgb Plt Count INR Sodium 138 Potassium 5.0 Chloride 97 L Carbon Dioxide 33 H Anion Gap 8 BUN 107 H* D Creatinine 1.9 H D B-Natriuretic Peptide 07270.86 H 89388.70 H Urine Color Straw Urine Appearance Clear Urine pH 5.0 Ur Specific [place] 1.010 Urine Protein Negative Urine Glucose (UA) Negative Urine Ketones Negative Urine Blood Negative Urine Nitrite Negative Urine Bilirubin Negative Urine Urobilinogen Negative Ur Leukocyte Esterase Negative 09/22/16 09/22/16 09/22/16 05:35 05:35 05:35 WBC 7.2 Hgb 13.5 Plt Count 93 L INR 1.51 H Sodium 141 Potassium 4.4 Chloride 97 L Carbon Dioxide 36 H Anion Gap 8 BUN 102 H Creatinine 1.7 H B-Natriuretic Peptide Urine Color Urine Appearance Urine pH Ur Specific [place] Urine Protein Urine Glucose (UA) Urine Ketones Urine Blood Urine Nitrite Urine Bilirubin Urine Urobilinogen Ur Leukocyte Esterase cardio s1s2 pulm crackles GI soft ext plus 2 edema neuro awake skin venous stasis changes Impression 1. [place] 2. CHF 3. volume overload 4. a-fib 5. cirrhosis 6. VISHAL Plan - cont with diuretics - renal function is improving - follow renal ultrasound - likely cardiorenal - monitor lytes closely
[2016-09-22 17:45] LABS: TROPONIN I 0.11 ng/ml (0.00-0.05)
[2016-09-22] MEDS: ATORVASTATIN CA 10 MG TABLET (FP) PO SCH (22:02)
[2016-09-23] MEDS: FUROSEMIDE 100 MG/10 ML INJECTABLE VIAL IVPB SCH ×2 (06:49→14:24)
--- NOTE | 2016-09-23 07:41 | PN ---
Progress Note, Physician Chief Complaint: C/o SOB, LUGO, LE andriy. History of Present Illness: Chronic A.Fib with controlled V rate-on A/C Chronic CHF-predominantly RV. Cor pulmonale -chronic. Severe PAH. Severe VISHAL. HTN. COPD on home O2/CPAP. LE swelling, PAH-severe, Thoracenthesis 2015 Chronic respiratory failure-ventilation, oxygenation. Polycytemia- Stable adrenal mass, Renal cysts. Depression. CKD. Cirrhosis liver with thrombocytopenia. Gout. Chronic back pain, kyphosis, healed compression fractures. - Current Medication List Current Medications: Active Medications Aclidinium [place] (Tudorza -) 1 puff IH BID [facility] Last Admin: 09/22/16 22:13 Dose: 1 puff Apixaban (Eliquis -) 2.5 mg PO BID [facility] Last Admin: 09/22/16 22:02 Dose: 2.5 mg Atorvastatin Calcium (Lipitor -) 10 mg PO HS [facility] Last Admin: 09/22/16 22:02 Dose: 10 mg Cholecalciferol (Vitamin D3 -) 1,000 unit PO DAILY [facility] Last Admin: 09/22/16 10:29 Dose: 1,000 unit Docusate Sodium (Colace -) 100 mg PO DAILY [facility] Last Admin: 09/22/16 10:30 Dose: 100 mg Febuxostat (Uloric -) 40 mg PO DAILY [facility] Last Admin: 09/22/16 10:31 Dose: 40 mg Furosemide (Lasix Injection -) 80 mg IVPB BID@0600,1400 [facility] Last Admin: 09/23/16 06:49 Dose: 80 mg Metoprolol Succinate (Toprol Xl -) 25 mg PO DAILY [facility] Sertraline HCl (Zoloft -) 50 mg PO DAILY [facility] Last Admin: 09/22/16 10:29 Dose: 50 mg Silver Sulfadiazine (Silvadene -) 1 applic TP BID [facility] Last Admin: 09/22/16 22:04 Dose: 1 applic Sodium Chloride ([place] Nasal [place] -) 2 spray NS BID [facility] Last Admin: 09/22/16 23:11 Dose: Not Given Spironolactone (Aldactone -) 25 mg PO BID [facility] Last Admin: 09/22/16 22:02 Dose: 25 mg - Objective Vital Signs: Vital Signs Temperature 97.8 F 09/23/16 01:39 Pulse Rate 48 L 09/23/16 01:39 Respiratory Rate 18 09/23/16 01:39 Blood Pressure 163/82 09/23/16 01:39 O2 Sat by Pulse Oximetry (%) 90 L 09/23/16 03:49 Constitutional: Yes: Anxious, Moderate Distress Eyes: Yes: Conjunctiva Clear, EOM Intact HENT: Yes: Atraumatic, Normocephalic. No: Drooling, Epistaxis Neck: Yes: Supple, Trachea Midline. No: Decreased ROM, Lymphadenopathy Cardiovascular: Yes: Regular Rate and Rhythm, Bradycardia Respiratory: Yes: Regular, Diminished (RLL), Dullness (RLL), On Nasal O2, SOB, SOB on Exertion. No: Rhonchi Gastrointestinal: Yes: Normal Bowel Sounds, Soft. No: Abdomen, Obese, Distention, Tenderness, Tenderness, Epigastrium, Vomiting ...Rectal Exam: Yes: Deferred Genitourinary: No: Anuria, Bladder Distention, CVA Tenderness - Left, CVA Tenderness - Right Breast(s): Yes: WNL Musculoskeletal: Yes: Back Pain, Muscle Weakness. No: Joint Swelling Extremities: Yes: Cool, Cyanosis, Delayed Capillary Refill. No: Amputation, Calf Tenderness, Shortened Edema: Yes Edema: LLE: 3+, RLE: 3+ Peripheral Pulses WNL: No Peripheral Pulses: Left Doralis Pedis: 0, Right Dorsalis Pedis: 0 Integumentary: Yes: Bruising, Pressure Ulcer (Right anterior day) ...Motor Strength: WNL Labs: CBC, BMP 09/22/16 05:35 09/22/16 05:35 INR, PTT INR 1.51 (0.82-1.09) H 09/22/16 05:35 Problem List - Problems (1) Piquf-wo-sasbawk kidney injury Assessment/Plan: Mostly pre-renal on renal, r/o hepato-renal syndrome. Continue f/u labs, renal fx, observe for hyperkalemia Code(s): N17.9 - ACUTE KIDNEY FAILURE, UNSPECIFIED N18.9 - CHRONIC KIDNEY DISEASE, UNSPECIFIED Qualifiers: Acute renal failure type: unspecified Chronic kidney disease stage: stage 3 (moderate) Qualified Code(s): N17.9 - Acute kidney failure, unspecified; N18.9 - Chronic kidney disease, unspecified (2) Anasarca Assessment/Plan: IV diuretics. Spironolactone Daily weights I/s , O/s Code(s): R60.1 - GENERALIZED EDEMA (3) CHF exacerbation Assessment/Plan: F/u with cardiology IV diuretics. BAB with telemetry Code(s): I50.9 - HEART FAILURE, UNSPECIFIED Qualifiers: Congestive heart failure type: combined Qualified Code(s): I50.43 - Acute on chronic combined systolic (congestive) and diastolic (congestive) heart failure (4) Cor pulmonale (chronic) Code(s): I27.81 - COR PULMONALE (CHRONIC) (5) Demand ischemia Assessment/Plan: Follow HR, CHF, Code(s): I24.8 - OTHER FORMS OF ACUTE ISCHEMIC HEART DISEASE (6) Atrial fibrillation Assessment/Plan: AFIB/Flutter-continue NOAC-will change Xarelto to Eliquis due to renal insufficiency Code(s): I48.91 - UNSPECIFIED ATRIAL FIBRILLATION Qualifiers: Atrial fibrillation type: chronic Qualified Code(s): I48.2 - Chronic atrial fibrillation (7) Respiratory failure Assessment/Plan: CPAP, Pulmonary consult Follow O2SAT Code(s): J96.90 - RESPIRATORY FAILURE, UNSP, UNSP W HYPOXIA OR HYPERCAPNIA Qualifiers: Chronicity: acute on chronic (8) Pulmonary arterial hypertension Assessment/Plan: cONTINUE DIURETICS. Code(s): I27.2 - OTHER SECONDARY PULMONARY HYPERTENSION
[2016-09-23 08:36] LABS: ALBUMIN 3.9 g/dl (3.4-5.0); ANION GAP 5 (8-16); CALCIUM 9.7 mg/dL (8.5-10.1); CO2 41 mmol/L (21-32); GLUCOSE,RANDOM 91 mg/dL (74-106); SGPT/ALT 18 U/L (12-78)
[2016-09-23 08:39] LABS: ALK PHOS 72 U/L (45-117); BILIRUBIN,TOTAL 1.4 mg/dL (0.2-1.0); CREATININE 1.8 mg/dL (0.7-1.3); SGOT/AST 28 U/L (15-37); TOT PROT 7.5 g/dl (6.4-8.2)
[2016-09-23] MEDS ORDERED: PT OWN MED DRAWER 7, Y5N ONE (09:39)
[2016-09-23] MEDS: APIXABAN 2.5 MG TABLET PO SCH ×2 (09:52→21:13)
[2016-09-23] MEDS: CHOLECALCIFEROL (VITAMIN D3) 1,000 UNIT TABLET (FP) PO SCH (09:52)
[2016-09-23] MEDS: DOCUSATE SODIUM 100 MG CAPSULE (FP) PO SCH (09:52)
[2016-09-23] MEDS: SERTRALINE HCL 50 MG TABLET (FP) PO SCH (09:53)
[2016-09-23] MEDS: SPIRONOLACTONE 25 MG TABLET (FP) PO SCH ×2 (09:53→21:13)
[2016-09-23] MEDS: SILVER SULFADIAZINE 1% TOP CREAM 50 GM JAR TP SCH ×2 (09:59→21:18)
[2016-09-23] MEDS: SODIUM CHLORIDE NASAL SPRAY 44 ML BOTTLE NS SCH ×2 (09:59→21:18)
[2016-09-23] MEDS: METOPROLOL SUCCINATE 25 MG TAB.SR.24H (FP) PO SCH (10:01)
[2016-09-23] MEDS: ACLIDINIUM BROMIDE 400 MCG/INH AERO.POWD IH SCH ×2 (10:02→21:18)
[2016-09-23] MEDS: FEBUXOSTAT 40 MG TAB PO SCH (10:02)
--- NOTE | 2016-09-23 10:47 | PN ---
Progress Note, Physician History of Present Illness: Dyspnea, abdominal distension and LE edema improving with diuresis, feels improved, significant weight reduction achieved. PCP is Dr. Mccall - Current Medication List Current Medications: Active Medications Aclidinium [place] (Tudorza -) 1 puff IH BID [facility] Last Admin: 09/23/16 10:02 Dose: 1 puff Apixaban (Eliquis -) 2.5 mg PO BID [facility] Last Admin: 09/23/16 09:52 Dose: 2.5 mg Atorvastatin Calcium (Lipitor -) 10 mg PO HS [facility] Last Admin: 09/22/16 22:02 Dose: 10 mg Cholecalciferol (Vitamin D3 -) 1,000 unit PO DAILY [facility] Last Admin: 09/23/16 09:52 Dose: 1,000 unit Docusate Sodium (Colace -) 100 mg PO DAILY [facility] Last Admin: 09/23/16 09:52 Dose: 100 mg Febuxostat (Uloric -) 40 mg PO DAILY [facility] Last Admin: 09/23/16 10:02 Dose: 40 mg Furosemide (Lasix Injection -) 80 mg IVPB BID@0600,1400 [facility] Last Admin: 09/23/16 06:49 Dose: 80 mg Metoprolol Succinate (Toprol Xl -) 25 mg PO DAILY [facility] Last Admin: 09/23/16 10:01 Dose: Not Given Sertraline HCl (Zoloft -) 50 mg PO DAILY [facility] Last Admin: 09/23/16 09:53 Dose: 50 mg Silver Sulfadiazine (Silvadene -) 1 applic TP BID [facility] Last Admin: 09/23/16 09:59 Dose: 1 applic Sodium Chloride ([place] Nasal [place] -) 2 spray NS BID [facility] Last Admin: 09/23/16 09:59 Dose: 2 spray Spironolactone (Aldactone -) 25 mg PO BID [facility] Last Admin: 09/23/16 09:53 Dose: 25 mg - Objective Vital Signs: Vital Signs Temperature 98.2 F 09/23/16 08:20 Pulse Rate 60 09/23/16 08:20 Respiratory Rate 16 09/23/16 08:20 Blood Pressure 138/68 09/23/16 08:20 O2 Sat by Pulse Oximetry (%) 90 L 09/23/16 03:49 Constitutional: Yes: No Distress, Calm Neck: Yes: Supple Cardiovascular: Yes: Regular Rate and Rhythm, JVD Respiratory: Yes: Regular, Diminished Gastrointestinal: Yes: Normal Bowel Sounds, Soft, Ascites Edema: Yes Edema: LLE: Trace, RLE: Trace Labs: CBC, BMP 09/22/16 05:35 09/23/16 05:35 INR, PTT INR 1.51 (0.82-1.09) H 09/22/16 05:35 - ....Imaging Ultrasound: Report Reviewed (Bilateral renal cysts w/o hydronephrosis) EKG: Report Reviewed (Tele: SR 60's) Problem List - Problems (1) Atrial fibrillation Code(s): I48.91 - UNSPECIFIED ATRIAL FIBRILLATION Qualifiers: Atrial fibrillation type: chronic Qualified Code(s): I48.2 - Chronic atrial fibrillation (2) Cirrhosis Code(s): K74.60 - UNSPECIFIED CIRRHOSIS OF LIVER Qualifiers: Hepatic cirrhosis type: unspecified hepatic cirrhosis Ascites presence : with ascites Qualified Code(s): K74.60 - Unspecified cirrhosis of liver (3) Oxygen dependent Code(s): Z99.81 - DEPENDENCE ON SUPPLEMENTAL OXYGEN (4) Pulmonary HTN Code(s): I27.2 - OTHER SECONDARY PULMONARY HYPERTENSION (5) Sleep apnea Code(s): G47.30 - SLEEP APNEA, UNSPECIFIED Qualifiers: Sleep apnea type: unspecified type Qualified Code(s): G47.30 - Sleep apnea, unspecified (6) Demand ischemia Code(s): I24.8 - OTHER FORMS OF ACUTE ISCHEMIC HEART DISEASE (7) Cor pulmonale (chronic) Code(s): I27.81 - COR PULMONALE (CHRONIC) (8) [id number] kidney injury Code(s): N17.9 - ACUTE KIDNEY FAILURE, UNSPECIFIED N18.9 - CHRONIC KIDNEY DISEASE, UNSPECIFIED Qualifiers: Acute renal failure type: unspecified Chronic kidney disease stage: stage 3 (moderate) Qualified Code(s): N17.9 - Acute kidney failure, unspecified; N18.9 - Chronic kidney disease, unspecified (9) Anasarca Code(s): R60.1 - GENERALIZED EDEMA (10) Thrombocytopenia Code(s): D69.6 - THROMBOCYTOPENIA, UNSPECIFIED Assessment/Plan 09/22/16 Echo shows preserved LV fxn with significant RV dilatation and systolic dysfunction, mod TR with RVSP>60 mmHg c/w cor pulmonale 1. Acute on chronic hypercapneic, hypoxemic respiratory failure with cor pulmonale, severe pulm HTN and RV dysfunction and anasarca improving 2. 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 OSAS 4. Paroxysmal atrial fibrillation/flutter [id number] with improved ventricular response 5. HTN 7. Hypercholesterolemia 8. Thrombocytopenia 9. Cirrhosis 10. Acute on CKD referable to #1 improving 11. Demand ischemia PLAN: 1. Decrease Lasix 40 IV bid and continue aldactone 25 bid with monitor diuretic response, renal fxn and electrolytes 2. Continue Toprol XL 25 qd with hold parameters and observe for rate recovery, continue Eliquis 2.5 bid and Lipitor 10 qd 3. Bronchodilators, O2 for saO2>90%, CPAP nightly
--- NOTE | 2016-09-23 10:50 | PN ---
Progress Note, Physician History of Present Illness: pulmonary alert,feeling better,less dyspneic,-cp - Current Medication List Current Medications: Active Medications Aclidinium [place] (Tudorza -) 1 puff IH BID [facility] Last Admin: 09/23/16 10:02 Dose: 1 puff Apixaban (Eliquis -) 2.5 mg PO BID [facility] Last Admin: 09/23/16 09:52 Dose: 2.5 mg Atorvastatin Calcium (Lipitor -) 10 mg PO HS [facility] Last Admin: 09/22/16 22:02 Dose: 10 mg Cholecalciferol (Vitamin D3 -) 1,000 unit PO DAILY [facility] Last Admin: 09/23/16 09:52 Dose: 1,000 unit Docusate Sodium (Colace -) 100 mg PO DAILY [facility] Last Admin: 09/23/16 09:52 Dose: 100 mg Febuxostat (Uloric -) 40 mg PO DAILY [facility] Last Admin: 09/23/16 10:02 Dose: 40 mg Furosemide (Lasix Injection -) 80 mg IVPB BID@0600,1400 [facility] Last Admin: 09/23/16 06:49 Dose: 80 mg Metoprolol Succinate (Toprol Xl -) 25 mg PO DAILY [facility] Last Admin: 09/23/16 10:01 Dose: Not Given Sertraline HCl (Zoloft -) 50 mg PO DAILY [facility] Last Admin: 09/23/16 09:53 Dose: 50 mg Silver Sulfadiazine (Silvadene -) 1 applic TP BID [facility] Last Admin: 09/23/16 09:59 Dose: 1 applic Sodium Chloride ([place] Nasal [place] -) 2 spray NS BID [facility] Last Admin: 09/23/16 09:59 Dose: 2 spray Spironolactone (Aldactone -) 25 mg PO BID [facility] Last Admin: 09/23/16 09:53 Dose: 25 mg - Objective Vital Signs: Vital Signs Temperature 98.2 F 09/23/16 08:20 Pulse Rate 60 09/23/16 08:20 Respiratory Rate 16 09/23/16 08:20 Blood Pressure 138/68 09/23/16 08:20 O2 Sat by Pulse Oximetry (%) 90 L 09/23/16 03:49 Constitutional: Yes: Well Nourished, Calm Eyes: Yes: WNL HENT: Yes: WNL Neck: Yes: WNL Cardiovascular: Yes: Pulse Irregular, S1, S2 Respiratory: Yes: Rales (bibsilar rales) Gastrointestinal: Yes: Normal Bowel Sounds, Soft Extremities: Yes: WNL Edema: Yes Labs: CBC, BMP 09/22/16 05:35 09/23/16 05:35 INR, PTT INR 1.51 (0.82-1.09) H 09/22/16 05:35 Problem List - Problems (1) Chronic respiratory failure with hypoxia and hypercapnia Code(s): J96.11 - CHRONIC RESPIRATORY FAILURE WITH HYPOXIA J96.12 - CHRONIC RESPIRATORY FAILURE WITH HYPERCAPNIA Assessment/Plan Problem List - Problems (1) Rmcmu-sa-lwbgcqu kidney injury Code(s): N17.9 - ACUTE KIDNEY FAILURE, UNSPECIFIED N18.9 - CHRONIC KIDNEY DISEASE, UNSPECIFIED Qualifiers: Acute renal failure type: unspecified Chronic kidney disease stage: stage 3 (moderate) Qualified Code(s): N17.9 - Acute kidney failure, unspecified; N18.9 - Chronic kidney disease, unspecified (2) CHF exacerbation Code(s): I50.9 - HEART FAILURE, UNSPECIFIED Qualifiers: Congestive heart failure type: combined Qualified Code(s): I50.43 - Acute on chronic combined systolic (congestive) and diastolic (congestive) heart failure (3) Cor pulmonale (chronic) Code(s): I27.81 - COR PULMONALE (CHRONIC) (4) Elevated troponin Code(s): R74.8 - ABNORMAL LEVELS OF OTHER SERUM ENZYMES (5) Oxygen dependent Code(s): Z99.81 - DEPENDENCE ON SUPPLEMENTAL OXYGEN (6) Pleural effusion Code(s): J90 - PLEURAL EFFUSION, NOT ELSEWHERE CLASSIFIED (7) Pulmonary HTN Code(s): I27.2 - OTHER SECONDARY PULMONARY HYPERTENSION (8) Sleep apnea Code(s): G47.30 - SLEEP APNEA, UNSPECIFIED Qualifiers: Sleep apnea type: unspecified type Qualified Code(s): G47.30 - Sleep apnea, unspecified Assessment/Plan Chronic Hypoxic and Hypercapneic Respiratory Failure COPD Severe Pulmonary HTN Cor Pulmonale Atrial Fibrillation Acute on Chronic Renal Failure Obstructive Sleep Apnea +Troponins - IV lasix, aldactone - monitor urine output, creatinine - continue anticoagulation - inhaled bronchodilators - CPAP at night - daily wts DR OLGUIN
--- NOTE | 2016-09-23 14:37 | PN ---
Physical Exam: SUBJECTIVE: Patient seen and examined. sitting comfortably in bed states breathing has improved swelling in legs decreased. Creatinine increased from 1.7 to 1.8 OBJECTIVE: Vital Signs Period Temp Pulse Resp BP Sys/Gama Pulse Ox Last 24 Hr 97.8 F-98.2 F 48-62 16-18 98-163/5-82 90-96 GENERAL: Awake, alert, and fully oriented, in no acute distress. EYES: sclera anicteric, conjunctiva clear. EARS, NOSE, THROAT: oropharynx clear without exudates. Moist mucous membranes. NECK: Normal range of motion, supple without lymphadenopathy, JVD, or masses. LUNGS: Breath sounds equal, b/l diminished, mild crackle at base, no wheezing HEART: normal S1 and S2 , murmur + ABDOMEN: Soft, nontender, not distended, normoactive bowel sounds, no guarding, no rebound, LOWER EXTREMITIES: 2+ pulses, warm, well-perfused. No calf tenderness. peripheral edema 1+ SKIN: Warm, Laboratory Results - last 24 hr 09/22/16 09/23/16 16:55 05:35 Sodium 141 Potassium 4.7 Chloride 95 L Carbon Dioxide 41 H Anion Gap 5 L BUN 88 H Creatinine 1.8 H Creat Clearance w eGFR 37.07 Random Glucose 91 Calcium 9.7 Total Bilirubin 1.4 H AST 28 ALT 18 Alkaline Phosphatase 72 Creatine Kinase 58 Troponin I 0.11 H Total Protein 7.5 Albumin 3.9 Active Medications Generic Name Dose Route Start Last Admin Trade Name Freq PRN Reason Stop Dose Admin Aclidinium [place] 1 puff 09/21/16 22:00 09/23/16 10:02 Tudorza - IH 1 puff BID [facility] Administration Apixaban 2.5 mg 09/21/16 22:00 09/23/16 09:52 Eliquis - PO 2.5 mg BID [facility] Administration Atorvastatin Calcium 10 mg 09/21/16 22:00 09/22/16 22:02 Lipitor - PO 10 mg HS [facility] Administration Cholecalciferol 1,000 unit 09/22/16 10:00 09/23/16 09:52 Vitamin D3 - PO 1,000 unit DAILY [facility] Administration Docusate Sodium 100 mg 09/22/16 10:00 09/23/16 09:52 Colace - PO 100 mg DAILY [facility] Administration Febuxostat 40 mg 09/22/16 10:00 09/23/16 10:02 Uloric - PO 40 mg DAILY [facility] Administration Furosemide 40 mg 09/23/16 14:00 09/23/16 14:24 Lasix Injection - IVPB 40 mg BID@0600,1400 [facility] Administration Metoprolol Succinate 25 mg 09/23/16 10:00 09/23/16 10:01 Toprol Xl - PO Not Given DAILY [facility] Sertraline HCl 50 mg 09/22/16 10:00 09/23/16 09:53 Zoloft - PO 50 mg DAILY [facility] Administration Silver Sulfadiazine 1 applic 09/22/16 10:00 09/23/16 09:59 Silvadene - TP 1 applic BID [facility] Administration Sodium Chloride 2 spray 09/21/16 22:00 09/23/16 09:59 [place] Nasal [place] - NS 2 spray BID [facility] Administration Spironolactone 25 mg 09/22/16 22:00 09/23/16 09:53 Aldactone - PO 25 mg BID [facility] Administration Intake & Output 09/20/16 09/21/16 09/22/16 09/23/16 23:59 23:59 23:59 23:59 Intake Total 150 600 220 Output Total 600 2620 950 Balance -450 730 Weight 76.204 kg 73.142 kg 71.838 kg ASSESSMENT/PLAN: [id number]-lr-euaaxir kidney injury could be prerenal CHF exacerbation Cor pulmonale (chronic) Demand ischemia Atrial fibrillation Respiratory failure VISHAL HTN HLD Plan l Creatnine slightly increased to 1.8 from 1.7 Lasix decreased to 40 bid IV on spironolatone 25mg bid Repeat lab in morning Daily weight 73--> 71.8 Monitor intake and output. Monitor electrolytes. Dispo: We will continue to follow the patient. Thank you for this consultative opportunity. Visit type - Emergency Visit Emergency Visit: Yes ED Registration Date: 09/21/16 Care time: The patient presented to the Emergency Department on the above date and was hospitalized for further evaluation of their emergent condition. - New Patient This patient is new to me today: No - Critical Care Critical Care patient: No
--- NOTE | 2016-09-23 18:07 | PN ---
Teaching Attending Note Name of Resident: Amol Sommer (Nephrology) ATTENDING PHYSICIAN STATEMENT I saw and evaluated the patient. I reviewed the resident's note and discussed the case with the resident. I agree with the resident's findings and plan as documented. Nephrology Follow Up Pt seen and examined at bedside. He says his breathing is improving. Current Medications Generic Name Dose Route Start Last Admin Trade Name Freq PRN Reason Stop Dose Admin Aclidinium [place] 1 puff 09/21/16 22:00 09/23/16 10:02 [place]orza - IH 1 puff BID [facility] Administration Apixaban 2.5 mg 09/21/16 22:00 09/23/16 09:52 Eliquis - PO 2.5 mg BID [facility] Administration Atorvastatin Calcium 10 mg 09/21/16 22:00 09/22/16 22:02 Lipitor - PO 10 mg HS [facility] Administration Cholecalciferol 1,000 unit 09/22/16 10:00 09/23/16 09:52 Vitamin D3 - PO 1,000 unit DAILY [facility] Administration Docusate Sodium 100 mg 09/22/16 10:00 09/23/16 09:52 Colace - PO 100 mg DAILY [facility] Administration Febuxostat 40 mg 09/22/16 10:00 09/23/16 10:02 Uloric - PO 40 mg DAILY [facility] Administration Furosemide 40 mg 09/23/16 14:00 09/23/16 14:24 Lasix Injection - IVPB 40 mg BID@0600,1400 [facility] Administration Metoprolol Succinate 25 mg 09/23/16 10:00 09/23/16 10:01 Toprol Xl - PO Not Given DAILY [facility] Sertraline HCl 50 mg 09/22/16 10:00 09/23/16 09:53 Zoloft - PO 50 mg DAILY [facility] Administration Silver Sulfadiazine 1 applic 09/22/16 10:00 09/23/16 09:59 Silvadene - TP 1 applic BID [facility] Administration Sodium Chloride 2 spray 09/21/16 22:00 09/23/16 09:59 [place] Nasal [place] - NS 2 spray BID [facility] Administration Spironolactone 25 mg 09/22/16 22:00 09/23/16 09:53 Aldactone - PO 25 mg BID [facility] Administration Last Vital Signs Temp Pulse Resp BP Pulse Ox 98.2 F 60 16 138/68 93 L 09/23/16 08:20 09/23/16 08:20 09/23/16 09:00 09/23/16 08:20 09/23/16 17:28 cardio s1s2 pulm crackles, on o2 GI soft ext plus 2 edema neuro awake skin venous stasis changes Impression 1. [place]ACE 2. CHF 3. volume overload 4. a-fib 5. cirrhosis 6. VISHAL Plan - agree with decreasing dose of diuretics - monitor renal function closely - bicarb is rising, may need to adjust diuretics further in am - weight is improving, cont to monitor - bilateral renal cysts - likely cardiorenal - monitor lytes closely
[2016-09-23] MEDS: ATORVASTATIN CA 10 MG TABLET (FP) PO SCH (21:13)
--- NOTE | 2016-09-24 05:45 | PN ---
Progress Note, Physician Chief Complaint: C/o SOB on NC O2 now, cannot use CPAP due to nasal pressure-discussed with patient. Improvement of BUN noted. IV diuretics were decreased by nephrology. Bicarbonate level is being monitored. History of Present Illness: Chronic A.Fib with controlled V rate-on A/C Chronic CHF-predominantly RV. Cor pulmonale -chronic. Severe PAH. Severe VISHAL. HTN. COPD on home O2/CPAP. LE swelling, PAH-severe, Thoracenthesis 2015 Chronic respiratory failure-ventilation, oxygenation. Polycytemia- Stable adrenal mass, Renal cysts. Depression. CKD. Cirrhosis liver with thrombocytopenia. Gout. Chronic back pain, kyphosis, healed compression fractures. - Current Medication List Current Medications: Active Medications Aclidinium [place] (Tudorza -) 1 puff IH BID [facility] Last Admin: 09/23/16 21:18 Dose: 1 puff Apixaban (Eliquis -) 2.5 mg PO BID [facility] Last Admin: 09/23/16 21:13 Dose: 2.5 mg Atorvastatin Calcium (Lipitor -) 10 mg PO HS [facility] Last Admin: 09/23/16 21:13 Dose: 10 mg Cholecalciferol (Vitamin D3 -) 1,000 unit PO DAILY [facility] Last Admin: 09/23/16 09:52 Dose: 1,000 unit Docusate Sodium (Colace -) 100 mg PO DAILY [facility] Last Admin: 09/23/16 09:52 Dose: 100 mg Febuxostat (Uloric -) 40 mg PO DAILY [facility] Last Admin: 09/23/16 10:02 Dose: 40 mg Furosemide (Lasix Injection -) 40 mg IVPB BID@0600,1400 [facility] Last Admin: 09/23/16 14:24 Dose: 40 mg Metoprolol Succinate (Toprol Xl -) 25 mg PO DAILY [facility] Last Admin: 09/23/16 10:01 Dose: Not Given Sertraline HCl (Zoloft -) 50 mg PO DAILY [facility] Last Admin: 09/23/16 09:53 Dose: 50 mg Silver Sulfadiazine (Silvadene -) 1 applic TP BID [facility] Last Admin: 09/23/16 21:18 Dose: Not Given Sodium Chloride ([place] Nasal [place] -) 2 spray NS BID [facility] Last Admin: 09/23/16 21:18 Dose: Not Given Spironolactone (Aldactone -) 25 mg PO BID [facility] Last Admin: 09/23/16 21:13 Dose: 25 mg - Objective Vital Signs: Vital Signs Temperature 97.5 F L 09/24/16 02:00 Pulse Rate 645 H 09/24/16 02:00 Respiratory Rate 18 09/24/16 02:00 Blood Pressure 137/66 09/24/16 02:00 O2 Sat by Pulse Oximetry (%) 94 L 09/24/16 00:11 Constitutional: Yes: Anxious, Moderate Distress. No: Ashen, Cachectic, Diaphoresis, Pallor, Poor Hygeine Eyes: Yes: Conjunctiva Clear, EOM Intact, PERRL. No: Ptosis HENT: Yes: Atraumatic, Normocephalic. No: Drooling, Epistaxis, Pharyngeal Erythema Neck: Yes: Supple, Trachea Midline. No: Lymphadenopathy, Tenderness, Thyromegaly Cardiovascular: Yes: Bradycardia, Pulse Irregular, JVD, Murmur, S1, S2, S3. No : Rub Respiratory: Yes: Accessory Muscle Use, Diminished (b/b), On Nasal O2, SOB, SOB on Exertion Gastrointestinal: Yes: Normal Bowel Sounds, Soft. No: Abdomen, Obese, Distention, Hematemesis, Hyperactive Bowel Sounds, Palpable Mass, Tenderness, Tenderness, Rebound, Vomiting ...Rectal Exam: Yes: Deferred Genitourinary: No: Anuria, Bladder Distention, CVA Tenderness - Left, CVA Tenderness - Right Breast(s): Yes: WNL Musculoskeletal: Yes: Back Pain. No: Joint Stiffness, Joint Swelling Edema: LLE: 2+, RLE: 2+ Peripheral Pulses WNL: No Peripheral Pulses: Left Doralis Pedis: 0, Right Dorsalis Pedis: 0 Integumentary: Yes: Pressure Ulcer (right front day-) Neurological: Yes: Alert, Oriented. No: Aphasia, Confusion, Dysarthria, Facial Droop, Seizure ...Motor Strength: WNL Psychiatric: Yes: WNL Labs: CBC, BMP 09/22/16 05:35 09/23/16 05:35 INR, PTT INR 1.51 (0.82-1.09) H 09/22/16 05:35 Problem List - Problems (1) Abbul-fq-ltulysq kidney injury Assessment/Plan: Continue f/u labs, renal fx, observe for hyperkalemia Code(s): N17.9 - ACUTE KIDNEY FAILURE, UNSPECIFIED N18.9 - CHRONIC KIDNEY DISEASE, UNSPECIFIED Qualifiers: Acute renal failure type: unspecified Chronic kidney disease stage: stage 3 (moderate) Qualified Code(s): N17.9 - Acute kidney failure, unspecified; N18.9 - Chronic kidney disease, unspecified (2) Anasarca Assessment/Plan: IV diuretics. Spironolactone Daily weights I/s , O/s Code(s): R60.1 - GENERALIZED EDEMA (3) CHF exacerbation Assessment/Plan: Predominantly RV, PAH. Normal LV systolic function. F/u with cardiology IV diuretics. BAB with telemetry Code(s): I50.9 - HEART FAILURE, UNSPECIFIED Qualifiers: Congestive heart failure type: combined Qualified Code(s): I50.43 - Acute on chronic combined systolic (congestive) and diastolic (congestive) heart failure (4) Cor pulmonale (chronic) Code(s): I27.81 - COR PULMONALE (CHRONIC) (5) Demand ischemia Assessment/Plan: Follow HR, CHF, Code(s): I24.8 - OTHER FORMS OF ACUTE ISCHEMIC HEART DISEASE (6) Atrial fibrillation Assessment/Plan: AFIB/Flutter-continue NOAC-will change Xarelto to Eliquis due to renal insufficiency Code(s): I48.91 - UNSPECIFIED ATRIAL FIBRILLATION Qualifiers: Atrial fibrillation type: chronic Qualified Code(s): I48.2 - Chronic atrial fibrillation (7) Respiratory failure Assessment/Plan: CPAP, Pulmonary consult Follow O2SAT Code(s): J96.90 - RESPIRATORY FAILURE, UNSP, UNSP W HYPOXIA OR HYPERCAPNIA Qualifiers: Chronicity: acute on chronic (8) Pulmonary arterial hypertension Assessment/Plan: cONTINUE DIURETICS. Code(s): I27.2 - OTHER SECONDARY PULMONARY HYPERTENSION
[2016-09-24] MEDS: FUROSEMIDE 100 MG/10 ML INJECTABLE VIAL IVPB SCH ×2 (06:32→13:03)
--- NOTE | 2016-09-24 08:26 | PN ---
Progress Note, Physician History of Present Illness: PULMONARY ALERT ,FEELING BETTER LESS DYSPNEIC. - Current Medication List Current Medications: Active Medications Aclidinium [place] (Tudorza -) 1 puff IH BID [facility] Last Admin: 09/23/16 21:18 Dose: 1 puff Apixaban (Eliquis -) 2.5 mg PO BID [facility] Last Admin: 09/23/16 21:13 Dose: 2.5 mg Atorvastatin Calcium (Lipitor -) 10 mg PO HS [facility] Last Admin: 09/23/16 21:13 Dose: 10 mg Cholecalciferol (Vitamin D3 -) 1,000 unit PO DAILY [facility] Last Admin: 09/23/16 09:52 Dose: 1,000 unit Docusate Sodium (Colace -) 100 mg PO DAILY [facility] Last Admin: 09/23/16 09:52 Dose: 100 mg Febuxostat (Uloric -) 40 mg PO DAILY [facility] Last Admin: 09/23/16 10:02 Dose: 40 mg Furosemide (Lasix Injection -) 40 mg IVPB BID@0600,1400 [facility] Last Admin: 09/24/16 06:32 Dose: 40 mg Metoprolol Succinate (Toprol Xl -) 25 mg PO DAILY [facility] Last Admin: 09/23/16 10:01 Dose: Not Given Sertraline HCl (Zoloft -) 50 mg PO DAILY [facility] Last Admin: 09/23/16 09:53 Dose: 50 mg Silver Sulfadiazine (Silvadene -) 1 applic TP BID [facility] Last Admin: 09/23/16 21:18 Dose: Not Given Sodium Chloride ([place] Nasal [place] -) 2 spray NS BID [facility] Last Admin: 09/23/16 21:18 Dose: Not Given Spironolactone (Aldactone -) 25 mg PO BID [facility] Last Admin: 09/23/16 21:13 Dose: 25 mg - Objective Vital Signs: Vital Signs Temperature 98 F 09/24/16 06:00 Pulse Rate 57 L 09/24/16 06:00 Respiratory Rate 18 09/24/16 06:00 Blood Pressure 119/50 09/24/16 06:00 O2 Sat by Pulse Oximetry (%) 94 L 09/24/16 06:45 Constitutional: Yes: Well Nourished, Calm Eyes: Yes: WNL HENT: Yes: WNL Neck: Yes: WNL Cardiovascular: Yes: Pulse Irregular, S1, S2 Respiratory: Yes: Rales (BIBASILAR CRACKLES) Gastrointestinal: Yes: Normal Bowel Sounds, Soft Extremities: Yes: WNL Edema: Yes Problem List - Problems (1) Chronic respiratory failure with hypoxia and hypercapnia Code(s): J96.11 - CHRONIC RESPIRATORY FAILURE WITH HYPOXIA J96.12 - CHRONIC RESPIRATORY FAILURE WITH HYPERCAPNIA Assessment/Plan Problem List - Problems (1) Gfrlk-lt-nztqryy kidney injury Code(s): N17.9 - ACUTE KIDNEY FAILURE, UNSPECIFIED N18.9 - CHRONIC KIDNEY DISEASE, UNSPECIFIED Qualifiers: Acute renal failure type: unspecified Chronic kidney disease stage: stage 3 (moderate) Qualified Code(s): N17.9 - Acute kidney failure, unspecified; N18.9 - Chronic kidney disease, unspecified (2) CHF exacerbation Code(s): I50.9 - HEART FAILURE, UNSPECIFIED Qualifiers: Congestive heart failure type: combined Qualified Code(s): I50.43 - Acute on chronic combined systolic (congestive) and diastolic (congestive) heart failure (3) Cor pulmonale (chronic) Code(s): I27.81 - COR PULMONALE (CHRONIC) (4) Elevated troponin Code(s): R74.8 - ABNORMAL LEVELS OF OTHER SERUM ENZYMES (5) Oxygen dependent Code(s): Z99.81 - DEPENDENCE ON SUPPLEMENTAL OXYGEN (6) Pleural effusion Code(s): J90 - PLEURAL EFFUSION, NOT ELSEWHERE CLASSIFIED (7) Pulmonary HTN Code(s): I27.2 - OTHER SECONDARY PULMONARY HYPERTENSION (8) Sleep apnea Code(s): G47.30 - SLEEP APNEA, UNSPECIFIED Qualifiers: Sleep apnea type: unspecified type Qualified Code(s): G47.30 - Sleep apnea, unspecified Assessment/Plan Chronic Hypoxic and Hypercapneic Respiratory Failure COPD clinically improving Severe Pulmonary HTN Cor Pulmonale Atrial Fibrillation Acute on Chronic Renal Failure Obstructive Sleep Apnea +Troponins - continue IV lasix, aldactone - monitor urine output, creatinine - anticoagulation - inhaled bronchodilators - CPAP at night - daily wts DR OLGUIN
[2016-09-24 08:50] LABS: ALBUMIN 3.8 g/dl (3.4-5.0); ANION GAP 5 (8-16); CALCIUM 9.4 mg/dL (8.5-10.1); CO2 42 mmol/L (21-32); GLUCOSE,RANDOM 100 mg/dL (74-106)
[2016-09-24 09:00] LABS: ALK PHOS 73 U/L (45-117); BILIRUBIN,TOTAL 1.1 mg/dL (0.2-1.0); CREATININE 1.7 mg/dL (0.7-1.3); MAGNESIUM 2.6 mg/dL (1.8-2.4); SGOT/AST 29 U/L (15-37); SGPT/ALT 14 U/L (12-78); TOT PROT 7.5 g/dl (6.4-8.2)
[2016-09-24] MEDS: SERTRALINE HCL 50 MG TABLET (FP) PO SCH (09:25)
[2016-09-24] MEDS: APIXABAN 2.5 MG TABLET PO SCH ×2 (09:25→21:04)
[2016-09-24] MEDS: CHOLECALCIFEROL (VITAMIN D3) 1,000 UNIT TABLET (FP) PO SCH (09:25)
[2016-09-24] MEDS: SPIRONOLACTONE 25 MG TABLET (FP) PO SCH ×2 (09:25→21:06)
[2016-09-24] MEDS: DOCUSATE SODIUM 100 MG CAPSULE (FP) PO SCH (09:25)
[2016-09-24] MEDS: METOPROLOL SUCCINATE 25 MG TAB.SR.24H (FP) PO SCH (09:25)
[2016-09-24] MEDS: ACLIDINIUM BROMIDE 400 MCG/INH AERO.POWD IH SCH ×2 (09:29→21:06)
[2016-09-24] MEDS: SODIUM CHLORIDE NASAL SPRAY 44 ML BOTTLE NS SCH ×2 (09:30→21:06)
[2016-09-24] MEDS: SILVER SULFADIAZINE 1% TOP CREAM 50 GM JAR TP SCH ×2 (09:30→21:06)
--- NOTE | 2016-09-24 10:00 | PN ---
Progress Note, Physician History of Present Illness: Renal f/u Patient in no distress and states he feels better He did not use the BiPAP last night - Current Medication List Current Medications: Active Medications Aclidinium [place] (Tudorza -) 1 puff IH BID [facility] Last Admin: 09/24/16 09:29 Dose: 1 puff Apixaban (Eliquis -) 2.5 mg PO BID [facility] Last Admin: 09/24/16 09:25 Dose: 2.5 mg Atorvastatin Calcium (Lipitor -) 10 mg PO HS [facility] Last Admin: 09/23/16 21:13 Dose: 10 mg Cholecalciferol (Vitamin D3 -) 1,000 unit PO DAILY [facility] Last Admin: 09/24/16 09:25 Dose: 1,000 unit Docusate Sodium (Colace -) 100 mg PO DAILY [facility] Last Admin: 09/24/16 09:25 Dose: 100 mg Febuxostat (Uloric -) 40 mg PO DAILY [facility] Last Admin: 09/23/16 10:02 Dose: 40 mg Furosemide (Lasix Injection -) 40 mg IVPB BID@0600,1400 [facility] Last Admin: 09/24/16 06:32 Dose: 40 mg Metoprolol Succinate (Toprol Xl -) 25 mg PO DAILY [facility] Last Admin: 09/24/16 09:25 Dose: 25 mg Sertraline HCl (Zoloft -) 50 mg PO DAILY [facility] Last Admin: 09/24/16 09:25 Dose: 50 mg Silver Sulfadiazine (Silvadene -) 1 applic TP BID [facility] Last Admin: 09/24/16 09:30 Dose: 1 applic Sodium Chloride ([place] Nasal [place] -) 2 spray NS BID [facility] Last Admin: 09/24/16 09:30 Dose: 2 spray Spironolactone (Aldactone -) 25 mg PO BID [facility] Last Admin: 09/24/16 09:25 Dose: 25 mg - Objective Vital Signs: Vital Signs Temperature 98 F 09/24/16 06:00 Pulse Rate 57 L 09/24/16 06:00 Respiratory Rate 18 09/24/16 06:00 Blood Pressure 119/50 09/24/16 06:00 O2 Sat by Pulse Oximetry (%) 94 L 09/24/16 06:45 Constitutional: Yes: No Distress Cardiovascular: Yes: S1, S2 Respiratory: Yes: Diminished (Decreased BS bilaterally without wheezing or rales ) Gastrointestinal: Yes: Soft. No: Distention Extremities: Yes: Other (DRESSING WITH DISCHARGE OVER THE RIGHT ORDAZ) Edema: Yes Labs: CBC, BMP 09/22/16 05:35 09/24/16 05:55 INR, PTT INR 1.51 (0.82-1.09) H 09/22/16 05:35 Laboratory Tests 09/21/16 09/22/16 13:00 11:00 Urine Color Straw Urine Appearance Clear Urine pH 5.0 Ur Specific [place] 1.010 Urine Protein Negative Urine Glucose (UA) Negative Urine Ketones Negative Urine Blood Negative Urine Bilirubin Negative Urine Urobilinogen Negative Ur Leukocyte Esterase Negative Urine Creatinine 13.5 L Protein/Creatinin Ratio 0.36 - ....Imaging Chest X-ray: Report Reviewed Ultrasound: Report Reviewed Assessment/Plan Impression [facility]- Pre Renal and improving CHF Volume overload A-fib Cirrhosis VISHAL RLE wound Plan Consider reducing Lasix to once a day lonnie if the HCO3 continues to rise Daily WTs Rpt labs in am Dr Ivey
--- NOTE | 2016-09-24 11:13 | PN ---
Progress Note, Physician Chief Complaint: Events noted Feels better History of Present Illness: Patient was seen and examined. Awake and alert. Chart was reviewed Denies chest pain, less SOB and no palpitations - Current Medication List Current Medications: Active Medications Aclidinium [place] (Tudorza -) 1 puff IH BID [facility] Last Admin: 09/24/16 09:29 Dose: 1 puff Apixaban (Eliquis -) 2.5 mg PO BID [facility] Last Admin: 09/24/16 09:25 Dose: 2.5 mg Atorvastatin Calcium (Lipitor -) 10 mg PO HS [facility] Last Admin: 09/23/16 21:13 Dose: 10 mg Cholecalciferol (Vitamin D3 -) 1,000 unit PO DAILY [facility] Last Admin: 09/24/16 09:25 Dose: 1,000 unit Docusate Sodium (Colace -) 100 mg PO DAILY [facility] Last Admin: 09/24/16 09:25 Dose: 100 mg Febuxostat (Uloric -) 40 mg PO DAILY [facility] Last Admin: 09/23/16 10:02 Dose: 40 mg Furosemide (Lasix Injection -) 40 mg IVPB BID@0600,1400 [facility] Last Admin: 09/24/16 06:32 Dose: 40 mg Metoprolol Succinate (Toprol Xl -) 25 mg PO DAILY [facility] Last Admin: 09/24/16 09:25 Dose: 25 mg Sertraline HCl (Zoloft -) 50 mg PO DAILY [facility] Last Admin: 09/24/16 09:25 Dose: 50 mg Silver Sulfadiazine (Silvadene -) 1 applic TP BID [facility] Last Admin: 09/24/16 09:30 Dose: 1 applic Sodium Chloride ([place] Nasal [place] -) 2 spray NS BID [facility] Last Admin: 09/24/16 09:30 Dose: 2 spray Spironolactone (Aldactone -) 25 mg PO BID [facility] Last Admin: 09/24/16 09:25 Dose: 25 mg - Objective Vital Signs: Vital Signs Temperature 97.8 F 09/24/16 10:00 Pulse Rate 60 09/24/16 10:00 Respiratory Rate 22 09/24/16 10:00 Blood Pressure 125/58 09/24/16 10:00 O2 Sat by Pulse Oximetry (%) 94 L 09/24/16 06:45 Neck: Yes: Supple Cardiovascular: Yes: Regular Rate and Rhythm, S1, S2 Respiratory: Yes: Diminished Gastrointestinal: Yes: Normal Bowel Sounds, Soft. No: Tenderness Edema: Yes Edema: LLE: Trace, RLE: Trace Additional Findings/Remarks: - Review of Systems Constitutional: denies: Chills, Fever Cardiovascular: denies: Chest Pain, Palpitations, (+) Shortness of Breath Respiratory: denies: Cough, Hemoptysis, Orthopnea, (+) SOB, SOB on Exertion Gastrointestinal: denies: Abdominal Pain, Constipation, Diarrhea, Melena, Nausea , Rectal Bleeding, Vomiting Neurological: denies: Seizure, Syncope Labs: CBC, BMP 09/22/16 05:35 09/24/16 05:55 INR, PTT INR 1.51 (0.82-1.09) H 09/22/16 05:35 Problem List - Problems (1) Tbdqy-ed-xfteeay kidney injury Code(s): N17.9 - ACUTE KIDNEY FAILURE, UNSPECIFIED N18.9 - CHRONIC KIDNEY DISEASE, UNSPECIFIED Qualifiers: Acute renal failure type: unspecified Chronic kidney disease stage: stage 3 (moderate) Qualified Code(s): N17.9 - Acute kidney failure, unspecified; N18.9 - Chronic kidney disease, unspecified (2) Chronic respiratory failure with hypoxia and hypercapnia Code(s): J96.11 - CHRONIC RESPIRATORY FAILURE WITH HYPOXIA J96.12 - CHRONIC RESPIRATORY FAILURE WITH HYPERCAPNIA (3) Cor pulmonale (chronic) Code(s): I27.81 - COR PULMONALE (CHRONIC) (4) Demand ischemia Code(s): I24.8 - OTHER FORMS OF ACUTE ISCHEMIC HEART DISEASE (5) Pulmonary arterial hypertension Code(s): I27.2 - OTHER SECONDARY PULMONARY HYPERTENSION (6) Thrombocytopenia Code(s): D69.6 - THROMBOCYTOPENIA, UNSPECIFIED (7) Atrial fibrillation Code(s): I48.91 - UNSPECIFIED ATRIAL FIBRILLATION Qualifiers: Atrial fibrillation type: chronic Qualified Code(s): I48.2 - Chronic atrial fibrillation (8) Sleep apnea Code(s): G47.30 - SLEEP APNEA, UNSPECIFIED Qualifiers: Sleep apnea type: unspecified type Qualified Code(s): G47.30 - Sleep apnea, unspecified Assessment/Plan 1. Acute on chronic hypercapneic, hypoxemic respiratory failure with cor pulmonale, severe pulmonary HTN and RV dysfunction and anasarca 2. 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 OSAS 4. Paroxysmal atrial fibrillation/flutter [id number] score of 3 5. HTN 7. Hypercholesterolemia 8. Thrombocytopenia 9. Cirrhosis 10. Acute on CKD 11. Demand ischemia PLAN: 1. Continue Lasix 40 IV bid and continue Aldactone 25 bid with monitor renal function and electrolytes 2. Continue Toprol XL 25 qd and continue Eliquis 2.5 bid and Lipitor 10 qd 3. Continue bronchodilators, O2 and CPAP nightly Further plans are to follow Irineo Phipps MD
[2016-09-24] MEDS: FEBUXOSTAT 40 MG TAB PO SCH (13:03)
[2016-09-24] MEDS: ATORVASTATIN CA 10 MG TABLET (FP) PO SCH (21:04)
[2016-09-25] MEDS: FUROSEMIDE 100 MG/10 ML INJECTABLE VIAL IVPB SCH (05:47)
--- NOTE | 2016-09-25 05:49 | PN ---
Progress Note, Physician Chief Complaint: Still sits at night in bed, difficulty with CPAP. LUOG, SOB. Anasarca is improving. Isidra from 168 to [id number] History of Present Illness: Chronic A.Fib with controlled V rate-on A/C Chronic CHF-predominantly RV. Cor pulmonale -chronic. Severe PAH. Severe VISHAL. HTN. COPD on home O2/CPAP. LE swelling, PAH-severe, Thoracenthesis 2015 Chronic respiratory failure-ventilation, oxygenation. Polycytemia- Stable adrenal mass, Renal cysts. Depression. CKD. Cirrhosis liver with thrombocytopenia. Gout. Chronic back pain, kyphosis, healed compression fractures. - Current Medication List Current Medications: Active Medications Aclidinium [place] (Tudorza -) 1 puff IH BID [facility] Last Admin: 09/24/16 21:06 Dose: 1 puff Apixaban (Eliquis -) 2.5 mg PO BID [facility] Last Admin: 09/24/16 21:04 Dose: 2.5 mg Atorvastatin Calcium (Lipitor -) 10 mg PO HS [facility] Last Admin: 09/24/16 21:04 Dose: 10 mg Cholecalciferol (Vitamin D3 -) 1,000 unit PO DAILY [facility] Last Admin: 09/24/16 09:25 Dose: 1,000 unit Docusate Sodium (Colace -) 100 mg PO DAILY [facility] Last Admin: 09/24/16 09:25 Dose: 100 mg Febuxostat (Uloric -) 40 mg PO DAILY [facility] Last Admin: 09/24/16 13:03 Dose: 40 mg Furosemide (Lasix Injection -) 40 mg IVPB BID@0600,1400 [facility] Last Admin: 09/24/16 13:03 Dose: 40 mg Metoprolol Succinate (Toprol Xl -) 25 mg PO DAILY [facility] Last Admin: 09/24/16 09:25 Dose: 25 mg Sertraline HCl (Zoloft -) 50 mg PO DAILY [facility] Last Admin: 09/24/16 09:25 Dose: 50 mg Silver Sulfadiazine (Silvadene -) 1 applic TP BID [facility] Last Admin: 09/24/16 21:06 Dose: 1 applic Sodium Chloride ([place] Nasal [place] -) 2 spray NS BID [facility] Last Admin: 09/24/16 21:06 Dose: Not Given Spironolactone (Aldactone -) 25 mg PO BID [facility] Last Admin: 09/24/16 21:06 Dose: 25 mg - Objective Vital Signs: Vital Signs Temperature 97.7 F 09/25/16 02:00 Pulse Rate 42 L 09/25/16 02:00 Respiratory Rate 16 09/25/16 02:00 Blood Pressure 105/49 09/25/16 02:00 O2 Sat by Pulse Oximetry (%) 92 L 09/25/16 00:05 Constitutional: Yes: Anxious, Moderate Distress. No: Pallor Eyes: Yes: Conjunctiva Clear, EOM Intact, PERRL. No: Diplopia, Sclera Icterus, Tearing HENT: Yes: Atraumatic, Normocephalic, Nasal Congestion. No: Drooling, Epistaxis , Rhinnorhea, Thrush Neck: Yes: Supple, Trachea Midline. No: Lymphadenopathy, Rigid, Thyromegaly Cardiovascular: Yes: Bradycardia, Pulse Irregular Respiratory: Yes: Diminished (B/B), On Nasal O2, SOB, SOB on Exertion. No: Rales, Rhonchi, Stridor, Wheezes Gastrointestinal: Yes: Normal Bowel Sounds, Soft. No: Distention, Palpable Mass , Tenderness ...Rectal Exam: Yes: Deferred Genitourinary: No: Anuria, Bladder Distention, CVA Tenderness - Left, CVA Tenderness - Right Breast(s): Yes: WNL Musculoskeletal: Yes: Back Pain. No: Joint Stiffness, Joint Swelling Extremities: Yes: Cyanosis. No: Amputation, Calf Tenderness Edema: LLE: 1+, RLE: 1+ Peripheral Pulses WNL: No Peripheral Pulses: Left Doralis Pedis: 0, Right Dorsalis Pedis: 0 Integumentary: Yes: Bruising, Petechiae, Pressure Ulcer (right anterior day) Neurological: Yes: Alert, Oriented. No: Aphasia, Asterixis, Ataxia, Confusion, Dysarthria, Seizure, Tremors, Unresponsive ...Motor Strength: WNL Psychiatric: Yes: WNL Labs: CBC, BMP 09/22/16 05:35 09/24/16 05:55 INR, PTT INR 1.51 (0.82-1.09) H 09/22/16 05:35 Problem List - Problems (1) Emfia-gl-hwpradk kidney injury Assessment/Plan: Improving BUN/Creat Continue f/u labs, renal fx, observe for hyperkalemia Code(s): N17.9 - ACUTE KIDNEY FAILURE, UNSPECIFIED N18.9 - CHRONIC KIDNEY DISEASE, UNSPECIFIED Qualifiers: Acute renal failure type: unspecified Chronic kidney disease stage: stage 3 (moderate) Qualified Code(s): N17.9 - Acute kidney failure, unspecified; N18.9 - Chronic kidney disease, unspecified (2) Anasarca Assessment/Plan: Improving weight IV diuretics. Spironolactone Daily weights I/s , O/s Code(s): R60.1 - GENERALIZED EDEMA (3) CHF exacerbation Assessment/Plan: Predominantly RV, PAH. Normal LV systolic function. F/u with cardiology IV diuretics. BAB with telemetry-pt has AFIB/FLUTTER on monitor with slow Vrate Code(s): I50.9 - HEART FAILURE, UNSPECIFIED Qualifiers: Congestive heart failure type: combined Qualified Code(s): I50.43 - Acute on chronic combined systolic (congestive) and diastolic (congestive) heart failure (4) Cor pulmonale (chronic) Code(s): I27.81 - COR PULMONALE (CHRONIC) (5) Demand ischemia Assessment/Plan: Follow HR, CHF, Code(s): I24.8 - OTHER FORMS OF ACUTE ISCHEMIC HEART DISEASE (6) Atrial fibrillation Assessment/Plan: AFIB/Flutter-continue NOAC-continue Eliquis Code(s): I48.91 - UNSPECIFIED ATRIAL FIBRILLATION Qualifiers: Atrial fibrillation type: chronic Qualified Code(s): I48.2 - Chronic atrial fibrillation (7) Respiratory failure Assessment/Plan: CPAP, Pulmonary consult Follow O2SAT Code(s): J96.90 - RESPIRATORY FAILURE, UNSP, UNSP W HYPOXIA OR HYPERCAPNIA Qualifiers: Chronicity: acute on chronic (8) Pulmonary arterial hypertension Assessment/Plan: CONTINUE DIURETICS. Code(s): I27.2 - OTHER SECONDARY PULMONARY HYPERTENSION
[2016-09-25 07:54] LABS: BASOPHIL 0.5 % (0-2.0); EOSINOPHIL 0.8 % (0-4.5); MCH 30.6 pg (25.7-33.7); MCHC 32.1 g/dl (32.0-35.9); MEAN CELL VOLUME 95.4 fl (80-96); MEAN PLT VOLUME 10.2 fl (7.5-11.1); NEUTROPHILS 79.9 % (42.8-82.8); PLATELET COUNT 100 K/MM3 (134-434); RDW 16.6 % (11.9-15.9); WHITE BLOOD COUNT 7.3 K/mm3 (4.0-10.0)
[2016-09-25 08:36] LABS: ALBUMIN 3.8 g/dl (3.4-5.0); ALK PHOS 75 U/L (45-117); ANION GAP 6 (8-16); CALCIUM 9.1 mg/dL (8.5-10.1); CO2 42 mmol/L (21-32); CREATININE 1.7 mg/dL (0.7-1.3); GLUCOSE,RANDOM 121 mg/dL (74-106); SGOT/AST 26 U/L (15-37); SGPT/ALT 15 U/L (12-78); TOT PROT 7.4 g/dl (6.4-8.2)
--- NOTE | 2016-09-25 08:49 | PN ---
Progress Note, Physician History of Present Illness: PULMONARY ALERT,SITTING UP IN BED ,COMFORTABLE,SOB IMPROVED - Current Medication List Current Medications: Active Medications Aclidinium [place] (Tudorza -) 1 puff IH BID [facility] Last Admin: 09/24/16 21:06 Dose: 1 puff Apixaban (Eliquis -) 2.5 mg PO BID [facility] Last Admin: 09/24/16 21:04 Dose: 2.5 mg Atorvastatin Calcium (Lipitor -) 10 mg PO HS [facility] Last Admin: 09/24/16 21:04 Dose: 10 mg Cholecalciferol (Vitamin D3 -) 1,000 unit PO DAILY [facility] Last Admin: 09/24/16 09:25 Dose: 1,000 unit Docusate Sodium (Colace -) 100 mg PO DAILY [facility] Last Admin: 09/24/16 09:25 Dose: 100 mg Febuxostat (Uloric -) 40 mg PO DAILY [facility] Last Admin: 09/24/16 13:03 Dose: 40 mg Furosemide (Lasix Injection -) 40 mg IVPB BID@0600,1400 [facility] Last Admin: 09/25/16 05:47 Dose: 40 mg Metoprolol Succinate (Toprol Xl -) 25 mg PO DAILY [facility] Last Admin: 09/24/16 09:25 Dose: 25 mg Sertraline HCl (Zoloft -) 50 mg PO DAILY [facility] Last Admin: 09/24/16 09:25 Dose: 50 mg Silver Sulfadiazine (Silvadene -) 1 applic TP BID [facility] Last Admin: 09/24/16 21:06 Dose: 1 applic Sodium Chloride ([place] Nasal [place] -) 2 spray NS BID [facility] Last Admin: 09/24/16 21:06 Dose: Not Given Spironolactone (Aldactone -) 25 mg PO BID [facility] Last Admin: 09/24/16 21:06 Dose: 25 mg - Objective Vital Signs: Vital Signs Temperature 98.2 F 09/25/16 05:49 Pulse Rate 58 L 09/25/16 05:49 Respiratory Rate 18 09/25/16 05:49 Blood Pressure 144/59 09/25/16 05:49 O2 Sat by Pulse Oximetry (%) 92 L 09/25/16 00:05 Constitutional: Yes: Well Nourished, Calm Eyes: Yes: WNL HENT: Yes: WNL Neck: Yes: WNL Cardiovascular: Yes: Regular Rate and Rhythm, S1, S2 Respiratory: Yes: Rales (BIBASILAR CRACKLES) Gastrointestinal: Yes: Normal Bowel Sounds, Soft Extremities: Yes: WNL Edema: Yes Labs: CBC, BMP 09/25/16 05:50 09/25/16 05:50 INR, PTT INR 1.51 (0.82-1.09) H 09/22/16 05:35 Problem List - Problems (1) Chronic respiratory failure with hypoxia and hypercapnia Code(s): J96.11 - CHRONIC RESPIRATORY FAILURE WITH HYPOXIA J96.12 - CHRONIC RESPIRATORY FAILURE WITH HYPERCAPNIA Assessment/Plan Problem List - Problems (1) Bbkmo-fm-wdvulaf kidney injury Code(s): N17.9 - ACUTE KIDNEY FAILURE, UNSPECIFIED N18.9 - CHRONIC KIDNEY DISEASE, UNSPECIFIED Qualifiers: Acute renal failure type: unspecified Chronic kidney disease stage: stage 3 (moderate) Qualified Code(s): N17.9 - Acute kidney failure, unspecified; N18.9 - Chronic kidney disease, unspecified (2) CHF exacerbation Code(s): I50.9 - HEART FAILURE, UNSPECIFIED Qualifiers: Congestive heart failure type: combined Qualified Code(s): I50.43 - Acute on chronic combined systolic (congestive) and diastolic (congestive) heart failure (3) Cor pulmonale (chronic) Code(s): I27.81 - COR PULMONALE (CHRONIC) (4) Elevated troponin Code(s): R74.8 - ABNORMAL LEVELS OF OTHER SERUM ENZYMES (5) Oxygen dependent Code(s): Z99.81 - DEPENDENCE ON SUPPLEMENTAL OXYGEN (6) Pleural effusion Code(s): J90 - PLEURAL EFFUSION, NOT ELSEWHERE CLASSIFIED (7) Pulmonary HTN Code(s): I27.2 - OTHER SECONDARY PULMONARY HYPERTENSION (8) Sleep apnea Code(s): G47.30 - SLEEP APNEA, UNSPECIFIED Qualifiers: Sleep apnea type: unspecified type Qualified Code(s): G47.30 - Sleep apnea, unspecified Assessment/Plan Chronic Hypoxic and Hypercapneic Respiratory Failure clinically improving COPD clinically improving Severe Pulmonary HTN Cor Pulmonale Atrial Fibrillation Acute on Chronic Renal Failure Obstructive Sleep Apnea +Troponins - continue IV lasix, aldactone - monitor urine output, creatinine - anticoagulation - inhaled bronchodilators - CPAP at night - daily wts - chest x-ray am DR OLGUIN
--- NOTE | 2016-09-25 09:06 | PN ---
Progress Note, Physician Chief Complaint: Not in distress Feels better History of Present Illness: Patient was seen and examined. Awake and alert. Chart was reviewed Denies chest pain, less SOB and no palpitations - Current Medication List Current Medications: Active Medications Aclidinium [place] (Tudorza -) 1 puff IH BID [facility] Last Admin: 09/24/16 21:06 Dose: 1 puff Apixaban (Eliquis -) 2.5 mg PO BID [facility] Last Admin: 09/24/16 21:04 Dose: 2.5 mg Atorvastatin Calcium (Lipitor -) 10 mg PO HS [facility] Last Admin: 09/24/16 21:04 Dose: 10 mg Cholecalciferol (Vitamin D3 -) 1,000 unit PO DAILY [facility] Last Admin: 09/24/16 09:25 Dose: 1,000 unit Docusate Sodium (Colace -) 100 mg PO DAILY [facility] Last Admin: 09/24/16 09:25 Dose: 100 mg Febuxostat (Uloric -) 40 mg PO DAILY [facility] Last Admin: 09/24/16 13:03 Dose: 40 mg Furosemide (Lasix Injection -) 40 mg IVPB BID@0600,1400 [facility] Last Admin: 09/25/16 05:47 Dose: 40 mg Metoprolol Succinate (Toprol Xl -) 25 mg PO DAILY [facility] Last Admin: 09/24/16 09:25 Dose: 25 mg Sertraline HCl (Zoloft -) 50 mg PO DAILY [facility] Last Admin: 09/24/16 09:25 Dose: 50 mg Silver Sulfadiazine (Silvadene -) 1 applic TP BID [facility] Last Admin: 09/24/16 21:06 Dose: 1 applic Sodium Chloride ([place] Nasal [place] -) 2 spray NS BID [facility] Last Admin: 09/24/16 21:06 Dose: Not Given Spironolactone (Aldactone -) 25 mg PO BID [facility] Last Admin: 09/24/16 21:06 Dose: 25 mg - Objective Vital Signs: Vital Signs Temperature 98.2 F 09/25/16 05:49 Pulse Rate 58 L 09/25/16 05:49 Respiratory Rate 18 09/25/16 05:49 Blood Pressure 144/59 09/25/16 05:49 O2 Sat by Pulse Oximetry (%) 92 L 09/25/16 00:05 Neck: Yes: Supple Cardiovascular: Yes: Regular Rate and Rhythm, S1, S2 Respiratory: Yes: Diminished Gastrointestinal: Yes: Normal Bowel Sounds, Soft. No: Tenderness Edema: Yes Edema: LLE: Trace, RLE: Trace Additional Findings/Remarks: - Review of Systems Constitutional: denies: Chills, Fever Cardiovascular: denies: Chest Pain, Palpitations, (+) Shortness of Breath Respiratory: denies: Cough, Hemoptysis, Orthopnea, (+) SOB, SOB on Exertion Gastrointestinal: denies: Abdominal Pain, Constipation, Diarrhea, Melena, Nausea , Rectal Bleeding, Vomiting Neurological: denies: Seizure, Syncope Labs: CBC, BMP 09/25/16 05:50 09/25/16 05:50 Problem List - Problems (1) Yfokx-ak-cocnrer kidney injury Code(s): N17.9 - ACUTE KIDNEY FAILURE, UNSPECIFIED N18.9 - CHRONIC KIDNEY DISEASE, UNSPECIFIED Qualifiers: Acute renal failure type: unspecified Chronic kidney disease stage: stage 3 (moderate) Qualified Code(s): N17.9 - Acute kidney failure, unspecified; N18.9 - Chronic kidney disease, unspecified (2) Chronic respiratory failure with hypoxia and hypercapnia Code(s): J96.11 - CHRONIC RESPIRATORY FAILURE WITH HYPOXIA J96.12 - CHRONIC RESPIRATORY FAILURE WITH HYPERCAPNIA (3) Cor pulmonale (chronic) Code(s): I27.81 - COR PULMONALE (CHRONIC) (4) Demand ischemia Code(s): I24.8 - OTHER FORMS OF ACUTE ISCHEMIC HEART DISEASE (5) Pulmonary arterial hypertension Code(s): I27.2 - OTHER SECONDARY PULMONARY HYPERTENSION (6) Thrombocytopenia Code(s): D69.6 - THROMBOCYTOPENIA, UNSPECIFIED (7) Atrial fibrillation Code(s): I48.91 - UNSPECIFIED ATRIAL FIBRILLATION Qualifiers: Atrial fibrillation type: chronic Qualified Code(s): I48.2 - Chronic atrial fibrillation (8) Sleep apnea Code(s): G47.30 - SLEEP APNEA, UNSPECIFIED Qualifiers: Sleep apnea type: unspecified type Qualified Code(s): G47.30 - Sleep apnea, unspecified Assessment/Plan 1. Acute on chronic hypercapneic, hypoxemic respiratory failure with cor pulmonale, severe pulmonary HTN and RV dysfunction and anasarca 2. 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 OSAS 4. Paroxysmal atrial fibrillation/flutter [id number] score of 3 5. HTN 7. Hypercholesterolemia 8. Thrombocytopenia 9. Cirrhosis 10. Acute on CKD 11. Demand ischemia PLAN: 1. Switch Lasix to 40 PO bid and then reduce dose as needed and continue Aldactone 25 bid with monitor renal function and electrolytes 2. Continue Toprol XL 25 qd and continue Eliquis 2.5 bid and Lipitor 10 qd 3. Continue bronchodilators, O2 and CPAP nightly Further plans are to follow Irineo Phipps MD
--- NOTE | 2016-09-25 10:13 | PN ---
Progress Note, Physician History of Present Illness: Renal f/u He did not use the BiPAP last night again because of the pain the mask causes He is in no distress with the NC O2 in place Wt has decreased from 155 to 147 since yesterday - Current Medication List Current Medications: Active Medications Aclidinium [place] (Tudorza -) 1 puff IH BID [facility] Last Admin: 09/24/16 21:06 Dose: 1 puff Apixaban (Eliquis -) 2.5 mg PO BID [facility] Last Admin: 09/24/16 21:04 Dose: 2.5 mg Atorvastatin Calcium (Lipitor -) 10 mg PO HS [facility] Last Admin: 09/24/16 21:04 Dose: 10 mg Cholecalciferol (Vitamin D3 -) 1,000 unit PO DAILY [facility] Last Admin: 09/24/16 09:25 Dose: 1,000 unit Docusate Sodium (Colace -) 100 mg PO DAILY [facility] Last Admin: 09/24/16 09:25 Dose: 100 mg Febuxostat (Uloric -) 40 mg PO DAILY [facility] Last Admin: 09/24/16 13:03 Dose: 40 mg Furosemide (Lasix Injection -) 40 mg IVPB BID@0600,1400 [facility] Last Admin: 09/25/16 05:47 Dose: 40 mg Metoprolol Succinate (Toprol Xl -) 25 mg PO DAILY [facility] Last Admin: 09/24/16 09:25 Dose: 25 mg Sertraline HCl (Zoloft -) 50 mg PO DAILY [facility] Last Admin: 09/24/16 09:25 Dose: 50 mg Silver Sulfadiazine (Silvadene -) 1 applic TP BID [facility] Last Admin: 09/24/16 21:06 Dose: 1 applic Sodium Chloride ([place] Nasal [place] -) 2 spray NS BID [facility] Last Admin: 09/24/16 21:06 Dose: Not Given Spironolactone (Aldactone -) 25 mg PO BID [facility] Last Admin: 09/24/16 21:06 Dose: 25 mg - Objective Vital Signs: Vital Signs Temperature 98.2 F 09/25/16 05:49 Pulse Rate 58 L 09/25/16 05:49 Respiratory Rate 18 09/25/16 05:49 Blood Pressure 144/59 09/25/16 05:49 O2 Sat by Pulse Oximetry (%) 92 L 09/25/16 00:05 Selected Entries 09/24/16 09/25/16 06:00 06:00 Weight 155 lb 3.2 oz 147 lb Constitutional: Yes: No Distress Cardiovascular: Yes: S1, S2 Respiratory: Yes: Diminished Gastrointestinal: Yes: Soft. No: Tenderness, Rebound Edema: Yes (Dressing over the RLE) Labs: CBC, BMP 09/25/16 05:50 09/25/16 05:50 INR, PTT INR 1.51 (0.82-1.09) H 09/22/16 05:35 Assessment/Plan Impression PEACE- Pre Renal and from reduced EF CHF Volume overload A-fib Cirrhosis VISHAL RLE wound Plan Consider reducing Lasix Daily WTs Wound care for the RLE as per PMD Rpt labs in am Discussed with cardiology Dr Ivey
[2016-09-25] MEDS ORDERED: PT OWN MED DRAWER 7, Y5N ONE (10:16)
[2016-09-25] MEDS: SERTRALINE HCL 50 MG TABLET (FP) PO SCH (10:17)
[2016-09-25] MEDS: SPIRONOLACTONE 25 MG TABLET (FP) PO SCH ×2 (10:17→22:59)
[2016-09-25] MEDS: SODIUM CHLORIDE NASAL SPRAY 44 ML BOTTLE NS SCH ×2 (10:17→22:59)
[2016-09-25] MEDS: DOCUSATE SODIUM 100 MG CAPSULE (FP) PO SCH (10:17)
[2016-09-25] MEDS: APIXABAN 2.5 MG TABLET PO SCH ×2 (10:17→23:00)
[2016-09-25] MEDS: METOPROLOL SUCCINATE 25 MG TAB.SR.24H (FP) PO SCH (10:18)
[2016-09-25] MEDS: CHOLECALCIFEROL (VITAMIN D3) 1,000 UNIT TABLET (FP) PO SCH (10:18)
[2016-09-25] MEDS: SILVER SULFADIAZINE 1% TOP CREAM 50 GM JAR TP SCH ×2 (10:18→23:01)
[2016-09-25] MEDS: FEBUXOSTAT 40 MG TAB PO SCH (10:18)
[2016-09-25] MEDS: ACLIDINIUM BROMIDE 400 MCG/INH AERO.POWD IH SCH ×2 (10:21→22:59)
[2016-09-25] MEDS: FUROSEMIDE 40 MG TABLET (FP) PO SCH (16:10)
[2016-09-25] MEDS: ATORVASTATIN CA 10 MG TABLET (FP) PO SCH (22:59)
[2016-09-26] MEDS: FUROSEMIDE 40 MG TABLET (FP) PO SCH (06:14)
--- NOTE | 2016-09-26 07:01 | PN ---
Progress Note, Physician Chief Complaint: Wt 147-? error. C/o leaky wound right day. SOB, LUGO. History of Present Illness: Chronic A.Fib with controlled V rate-on A/C Chronic CHF-predominantly RV. Cor pulmonale -chronic. Severe PAH. Severe VISHAL. HTN. COPD on home O2/CPAP. LE swelling, PAH-severe, Thoracenthesis 2015 Chronic respiratory failure-ventilation, oxygenation. Polycytemia- Stable adrenal mass, Renal cysts. Depression. CKD. Cirrhosis liver with thrombocytopenia. Gout. Chronic back pain, kyphosis, healed compression fractures. - Current Medication List Current Medications: Active Medications Aclidinium [place] (Tudorza -) 1 puff IH BID [facility] Last Admin: 09/25/16 22:59 Dose: 1 puff Apixaban (Eliquis -) 2.5 mg PO BID [facility] Last Admin: 09/25/16 23:00 Dose: 2.5 mg Atorvastatin Calcium (Lipitor -) 10 mg PO HS [facility] Last Admin: 09/25/16 22:59 Dose: 10 mg Cholecalciferol (Vitamin D3 -) 1,000 unit PO DAILY [facility] Last Admin: 09/25/16 10:18 Dose: 1,000 unit Docusate Sodium (Colace -) 100 mg PO DAILY [facility] Last Admin: 09/25/16 10:17 Dose: 100 mg Febuxostat (Uloric -) 40 mg PO DAILY [facility] Last Admin: 09/25/16 10:18 Dose: 40 mg Furosemide (Lasix -) 40 mg PO BIDLASIX [facility] Last Admin: 09/26/16 06:14 Dose: 40 mg Metoprolol Succinate (Toprol Xl -) 25 mg PO DAILY [facility] Last Admin: 09/25/16 10:18 Dose: 25 mg Sertraline HCl (Zoloft -) 50 mg PO DAILY [facility] Last Admin: 09/25/16 10:17 Dose: 50 mg Silver Sulfadiazine (Silvadene -) 1 applic TP BID [facility] Last Admin: 09/25/16 23:01 Dose: 1 applic Sodium Chloride ([place] Nasal [place] -) 2 spray NS BID [facility] Last Admin: 09/25/16 22:59 Dose: 2 spray Spironolactone (Aldactone -) 25 mg PO BID [facility] Last Admin: 09/25/16 22:59 Dose: 25 mg - Objective Vital Signs: Vital Signs Temperature 98.4 F 09/26/16 02:00 Pulse Rate 43 L 09/26/16 02:00 Respiratory Rate 18 09/26/16 02:00 Blood Pressure 120/54 09/26/16 02:00 O2 Sat by Pulse Oximetry (%) 98 09/25/16 22:44 Constitutional: Yes: Anxious, Moderate Distress. No: Cachectic, Pallor, Thin Eyes: Yes: Conjunctiva Clear, EOM Intact, Other (Decreased vision) HENT: Yes: Atraumatic, Normocephalic. No: Drooling Neck: Yes: Supple, Trachea Midline. No: Lymphadenopathy, Tenderness, Thyromegaly Cardiovascular: Yes: Bradycardia, Pulse Irregular, JVD, S1, S2, S3 (RV S3) Respiratory: Yes: Accessory Muscle Use, Diminished (B/B), On Nasal O2, Rales ( LLL), SOB, SOB on Exertion Gastrointestinal: Yes: Normal Bowel Sounds, Soft, Hepatomegaly. No: Abdomen, Obese, Distention, Hyperactive Bowel Sounds, Hypoactive Bowel Sounds, Tenderness , Epigastrium, Tenderness, Rebound, Vomiting ...Rectal Exam: Yes: Deferred Genitourinary: No: Anuria, Bladder Distention, CVA Tenderness - Left, CVA Tenderness - Right Breast(s): Yes: WNL Musculoskeletal: Yes: WNL Extremities: Yes: Cyanosis Edema: Yes Edema: LLE: 1+, RLE: 2+ Peripheral Pulses WNL: No Integumentary: Yes: Pressure Ulcer (Unterior day after broken blister) Neurological: Yes: Alert, Oriented. No: Aphasia, Asterixis, Ataxia, Dysarthria ...Motor Strength: WNL Psychiatric: Yes: WNL Labs: CBC, BMP 09/25/16 05:50 09/25/16 05:50 INR, PTT INR 1.51 (0.82-1.09) H 09/22/16 05:35 Problem List - Problems (1) Mymsw-cr-mdmnjyw kidney injury Assessment/Plan: Slowly Improving BUN/Creat. Previously poor response to oral diouretics-continue IV diuretics and follow lytes, BUN, Cr Continue f/u labs, renal fx, observe for hyperkalemia Code(s): N17.9 - ACUTE KIDNEY FAILURE, UNSPECIFIED N18.9 - CHRONIC KIDNEY DISEASE, UNSPECIFIED Qualifiers: Acute renal failure type: unspecified Chronic kidney disease stage: stage 3 (moderate) Qualified Code(s): N17.9 - Acute kidney failure, unspecified; N18.9 - Chronic kidney disease, unspecified (2) Anasarca Assessment/Plan: Improving weight IV diuretics. Spironolactone Daily weights I/s , O/s Code(s): R60.1 - GENERALIZED EDEMA (3) CHF exacerbation Assessment/Plan: Predominantly RV, PAH. Normal LV systolic function. F/u with cardiology IV diuretics. BAB with telemetry-pt has AFIB/FLUTTER on monitor with slow Vrate Code(s): I50.9 - HEART FAILURE, UNSPECIFIED Qualifiers: Congestive heart failure type: combined Qualified Code(s): I50.43 - Acute on chronic combined systolic (congestive) and diastolic (congestive) heart failure (4) Cor pulmonale (chronic) Code(s): I27.81 - COR PULMONALE (CHRONIC) (5) Demand ischemia Assessment/Plan: Follow HR, CHF, Code(s): I24.8 - OTHER FORMS OF ACUTE ISCHEMIC HEART DISEASE (6) Atrial fibrillation Assessment/Plan: AFIB/Flutter-continue NOAC-continue Eliquis Code(s): I48.91 - UNSPECIFIED ATRIAL FIBRILLATION Qualifiers: Atrial fibrillation type: chronic Qualified Code(s): I48.2 - Chronic atrial fibrillation (7) Respiratory failure Assessment/Plan: CPAP, Pulmonary consult Follow O2SAT Code(s): J96.90 - RESPIRATORY FAILURE, UNSP, UNSP W HYPOXIA OR HYPERCAPNIA Qualifiers: Chronicity: acute on chronic (8) Pulmonary arterial hypertension Assessment/Plan: CONTINUE DIURETICS. Code(s): I27.2 - OTHER SECONDARY PULMONARY HYPERTENSION
[2016-09-26 07:20] LABS: BASOPHIL 0.4 % (0-2.0); MCH 30.6 pg (25.7-33.7); MCHC 32.2 g/dl (32.0-35.9); MEAN CELL VOLUME 95.3 fl (80-96); MEAN PLT VOLUME 10.4 fl (7.5-11.1); NEUTROPHILS 80.2 % (42.8-82.8); PLATELET COUNT 93 K/MM3 (134-434); RDW 16.1 % (11.9-15.9); WHITE BLOOD COUNT 6.8 K/mm3 (4.0-10.0)
[2016-09-26 07:30] LABS: ALBUMIN 3.6 g/dl (3.4-5.0); ANION GAP 1 (8-16); BILIRUBIN,TOTAL 1.1 mg/dL (0.2-1.0); CALCIUM 8.9 mg/dL (8.5-10.1); CO2 42 mmol/L (21-32); CREATININE 1.8 mg/dL (0.7-1.3); GLUCOSE,RANDOM 98 mg/dL (74-106); SGPT/ALT 13 U/L (12-78); TOT PROT 7.1 g/dl (6.4-8.2)
[2016-09-26 07:32] LABS: ALK PHOS 73 U/L (45-117)
[2016-09-26 07:42] LABS: SGOT/AST 29 U/L (15-37)
--- NOTE | 2016-09-26 09:15 | PN ---
Physical Exam: SUBJECTIVE: Patient seen and examined Renal follow up. Sitting comfortably in bed. states breathing has improved. Did not use CPAP in night due to discomfort from mask. Creatnine is stable between 1.7 to 1.9 Intake & Output 09/23/16 09/24/16 09/25/16 09/26/16 23:59 23:59 23:59 23:59 Intake Total 520 790 420 250 Output Total 3350 2195 375 450 Balance -2830 -1405 45 -200 Weight 71.838 kg 70.398 kg 71.214 kg 71.486 kg OBJECTIVE: GENERAL: Awake, alert, and fully oriented, in no acute distress. EYES: sclera anicteric, conjunctiva clear. EARS, NOSE, THROAT: oropharynx clear without exudates. Moist mucous membranes. NECK: Normal range of motion, supple without lymphadenopathy, JVD, or masses. LUNGS: Breath sounds equal, b/l diminished, no crackles, no wheezing HEART: normal S1 and S2 , murmur + ABDOMEN: Soft, nontender, not distended, normoactive bowel sounds, no guarding, no rebound, LOWER EXTREMITIES: 2+ pulses, warm, well-perfused. No calf tenderness. wrinkles present on b/l lower extremity skin. SKIN: Warm, Vital Signs Period Temp Pulse Resp BP Sys/Gama Pulse Ox Last 24 Hr 98.1 F-98.7 F 43-67 18-22 109-149/54-66 92-98 Laboratory Results - last 24 hr 09/26/16 09/26/16 09/26/16 05:35 05:35 05:35 WBC 6.8 RBC 4.38 Hgb 13.4 Hct 41.7 MCV 95.3 MCH 30.6 MCHC 32.2 RDW 16.1 H Plt Count 93 L MPV 10.4 Neutrophils % 80.2 Lymphocytes % 8.3 Monocytes % 10.1 Eosinophils % 1.0 Basophils % 0.4 Sodium 139 Cancelled Potassium 5.0 Cancelled Chloride 96 L Cancelled Carbon Dioxide 42 H Cancelled Anion Gap 1 L Cancelled BUN 88 H Cancelled Creatinine 1.8 H Cancelled Creat Clearance w eGFR 37.07 Random Glucose 98 Cancelled Calcium 8.9 Cancelled Total Bilirubin 1.1 H AST 29 ALT 13 Alkaline Phosphatase 73 B-Natriuretic Peptide 89755.44 H Cancelled Total Protein 7.1 Albumin 3.6 Active Medications Generic Name Dose Route Start Last Admin Trade Name Paul PRN Reason Stop Dose Admin Aclidinium [place] 1 puff 09/21/16 22:00 09/25/16 22:59 Tudorza - IH 1 puff BID [facility] Administration Apixaban 2.5 mg 09/21/16 22:00 09/25/16 23:00 Eliquis - PO 2.5 mg BID [facility] Administration Atorvastatin Calcium 10 mg 09/21/16 22:00 09/25/16 22:59 Lipitor - PO 10 mg HS [facility] Administration Cholecalciferol 1,000 unit 09/22/16 10:00 09/25/16 10:18 Vitamin D3 - PO 1,000 unit DAILY [facility] Administration Docusate Sodium 100 mg 09/22/16 10:00 09/25/16 10:17 Colace - PO 100 mg DAILY [facility] Administration Febuxostat 40 mg 09/22/16 10:00 09/25/16 10:18 Uloric - PO 40 mg DAILY [facility] Administration Furosemide 40 mg 09/25/16 15:15 09/26/16 06:14 Lasix - PO 40 mg BIDLASIX [facility] Administration Metoprolol Succinate 25 mg 09/23/16 10:00 09/25/16 10:18 Toprol Xl - PO 25 mg DAILY [facility] Administration Sertraline HCl 50 mg 09/22/16 10:00 09/25/16 10:17 Zoloft - PO 50 mg DAILY [facility] Administration Silver Sulfadiazine 1 applic 09/22/16 10:00 09/25/16 23:01 Silvadene - TP 1 applic BID [facility] Administration Sodium Chloride 2 spray 09/21/16 22:00 09/25/16 22:59 [place] Nasal [place] - NS 2 spray BID [facility] Administration Spironolactone 25 mg 09/22/16 22:00 09/25/16 22:59 Aldactone - PO 25 mg BID [facility] Administration ASSESSMENT/PLAN: 1. PEACE 2. CHF 3. volume overload 4. a-fib 5. cirrhosis 6. VISHAL Plan - Continue with diuretics. - Monitor renal function - bicarb has increased from 33 to 42, consider adjusting dose of diuretic. - weight monitor - bilateral renal cysts - likely cardiorenal - monitor electrolytes. - Monitor intake and output. - Avoid nephrotoxic drugs Visit type - Emergency Visit Emergency Visit: Yes ED Registration Date: 09/21/16 Care time: The patient presented to the Emergency Department on the above date and was hospitalized for further evaluation of their emergent condition. - New Patient This patient is new to me today: No - Critical Care Critical Care patient: No
[2016-09-26] MEDS: CHOLECALCIFEROL (VITAMIN D3) 1,000 UNIT TABLET (FP) PO SCH (09:16)
[2016-09-26] MEDS: APIXABAN 2.5 MG TABLET PO SCH ×2 (09:16→22:13)
[2016-09-26] MEDS: SODIUM CHLORIDE NASAL SPRAY 44 ML BOTTLE NS SCH ×2 (09:17→22:12)
[2016-09-26] MEDS: SILVER SULFADIAZINE 1% TOP CREAM 50 GM JAR TP SCH ×2 (09:17→22:12)
[2016-09-26] MEDS: SERTRALINE HCL 50 MG TABLET (FP) PO SCH (09:17)
[2016-09-26] MEDS: DOCUSATE SODIUM 100 MG CAPSULE (FP) PO SCH (09:17)
[2016-09-26] MEDS: METOPROLOL SUCCINATE 25 MG TAB.SR.24H (FP) PO SCH (09:17)
[2016-09-26] MEDS: SPIRONOLACTONE 25 MG TABLET (FP) PO SCH ×2 (09:17→22:13)
[2016-09-26] MEDS: FEBUXOSTAT 40 MG TAB PO SCH (09:19)
[2016-09-26] MEDS: ACLIDINIUM BROMIDE 400 MCG/INH AERO.POWD IH SCH ×2 (09:22→22:13)
--- NOTE | 2016-09-26 10:05 | PN ---
Progress Note, Physician Chief Complaint: Not in distress Not in distress History of Present Illness: Patient was seen and examined. Awake and alert. Chart was reviewed Denies chest pain, less SOB and no palpitations Lasix switched back to IV as per PMD - Current Medication List Current Medications: Active Medications Aclidinium [place] (Tudorza -) 1 puff IH BID [facility] Last Admin: 09/26/16 09:22 Dose: 1 puff Apixaban (Eliquis -) 2.5 mg PO BID [facility] Last Admin: 09/26/16 09:16 Dose: 2.5 mg Atorvastatin Calcium (Lipitor -) 10 mg PO HS [facility] Last Admin: 09/25/16 22:59 Dose: 10 mg Cholecalciferol (Vitamin D3 -) 1,000 unit PO DAILY [facility] Last Admin: 09/26/16 09:16 Dose: 1,000 unit Docusate Sodium (Colace -) 100 mg PO DAILY [facility] Last Admin: 09/26/16 09:17 Dose: 100 mg Febuxostat (Uloric -) 40 mg PO DAILY [facility] Last Admin: 09/26/16 09:19 Dose: 40 mg Furosemide (Lasix -) 40 mg PO BIDLASIX [facility] Last Admin: 09/26/16 06:14 Dose: 40 mg Metoprolol Succinate (Toprol Xl -) 25 mg PO DAILY [facility] Last Admin: 09/26/16 09:17 Dose: 25 mg Sertraline HCl (Zoloft -) 50 mg PO DAILY [facility] Last Admin: 09/26/16 09:17 Dose: 50 mg Silver Sulfadiazine (Silvadene -) 1 applic TP BID [facility] Last Admin: 09/26/16 09:17 Dose: 1 applic Sodium Chloride ([place] Nasal [place] -) 2 spray NS BID [facility] Last Admin: 09/26/16 09:17 Dose: 2 spray Spironolactone (Aldactone -) 25 mg PO BID [facility] Last Admin: 09/26/16 09:17 Dose: 25 mg - Objective Vital Signs: Vital Signs Temperature 98.7 F 09/26/16 06:00 Pulse Rate 50 L 09/26/16 06:00 Respiratory Rate 19 09/26/16 06:00 Blood Pressure 109/65 09/26/16 06:00 O2 Sat by Pulse Oximetry (%) 98 09/25/16 22:44 Cardiovascular: Yes: Regular Rate and Rhythm, S1, S2 Respiratory: Yes: Diminished Gastrointestinal: Yes: Normal Bowel Sounds, Soft. No: Palpable Mass Edema: Yes Edema: LLE: Trace, RLE: Trace Additional Findings/Remarks: - Review of Systems Constitutional: denies: Chills, Fever Cardiovascular: denies: Chest Pain, Palpitations, (+) Shortness of Breath - improving Respiratory: denies: Cough, Hemoptysis, Orthopnea, (+) SOB, SOB on Exertion Gastrointestinal: denies: Abdominal Pain, Constipation, Diarrhea, Melena, Nausea , Rectal Bleeding, Vomiting Neurological: denies: Seizure, Syncope Labs: CBC, BMP 09/26/16 05:35 09/26/16 05:35 Problem List - Problems (1) Xiknk-[id number] kidney injury Code(s): N17.9 - ACUTE KIDNEY FAILURE, UNSPECIFIED N18.9 - CHRONIC KIDNEY DISEASE, UNSPECIFIED Qualifiers: Acute renal failure type: unspecified Chronic kidney disease stage: stage 3 (moderate) Qualified Code(s): N17.9 - Acute kidney failure, unspecified; N18.9 - Chronic kidney disease, unspecified (2) Chronic respiratory failure with hypoxia and hypercapnia Code(s): J96.11 - CHRONIC RESPIRATORY FAILURE WITH HYPOXIA J96.12 - CHRONIC RESPIRATORY FAILURE WITH HYPERCAPNIA (3) Cor pulmonale (chronic) Code(s): I27.81 - COR PULMONALE (CHRONIC) (4) Demand ischemia Code(s): I24.8 - OTHER FORMS OF ACUTE ISCHEMIC HEART DISEASE (5) Pulmonary arterial hypertension Code(s): I27.2 - OTHER SECONDARY PULMONARY HYPERTENSION (6) Thrombocytopenia Code(s): D69.6 - THROMBOCYTOPENIA, UNSPECIFIED (7) Atrial fibrillation Code(s): I48.91 - UNSPECIFIED ATRIAL FIBRILLATION Qualifiers: Atrial fibrillation type: chronic Qualified Code(s): I48.2 - Chronic atrial fibrillation (8) Sleep apnea Code(s): G47.30 - SLEEP APNEA, UNSPECIFIED Qualifiers: Sleep apnea type: unspecified type Qualified Code(s): G47.30 - Sleep apnea, unspecified Assessment/Plan 1. Acute on chronic hypercapneic, hypoxemic respiratory failure with cor pulmonale, severe pulmonary HTN and RV dysfunction and anasarca 2. 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 OSAS 4. Paroxysmal atrial fibrillation/flutter [id number] score of 3 5. HTN 7. Hypercholesterolemia 8. Thrombocytopenia 9. Cirrhosis 10. Acute on CKD 11. Demand ischemia PLAN: 1. Continue Lasix 40 IV bid and then reduce dose when deemed appropriate and continue Aldactone 25 bid with monitor renal function and electrolytes. Will follow with PMD recommendation 2. Continue Toprol XL 25 qd and continue Eliquis 2.5 bid and Lipitor 10 qd 3. Continue bronchodilators, O2 and CPAP nightly Further plans are to follow Irineo Phipps MD
[2016-09-26] MEDS ORDERED: FUROSEMIDE 40 MG/4 ML INJECTABLE VIAL ONE (10:30)
[2016-09-26] MEDS: FUROSEMIDE 40 MG/4 ML INJECTABLE VIAL IVPUSH SCH ×2 (10:33→15:19)
--- NOTE | 2016-09-26 10:56 | PN ---
Progress Note, Physician History of Present Illness: pulmonary alert,feelng better dyspnea improving, oob-chair. - Current Medication List Current Medications: Active Medications Aclidinium [place] (Tudorza -) 1 puff IH BID [facility] Last Admin: 09/26/16 09:22 Dose: 1 puff Apixaban (Eliquis -) 2.5 mg PO BID [facility] Last Admin: 09/26/16 09:16 Dose: 2.5 mg Atorvastatin Calcium (Lipitor -) 10 mg PO HS [facility] Last Admin: 09/25/16 22:59 Dose: 10 mg Cholecalciferol (Vitamin D3 -) 1,000 unit PO DAILY [facility] Last Admin: 09/26/16 09:16 Dose: 1,000 unit Docusate Sodium (Colace -) 100 mg PO DAILY [facility] Last Admin: 09/26/16 09:17 Dose: 100 mg Febuxostat (Uloric -) 40 mg PO DAILY [facility] Last Admin: 09/26/16 09:19 Dose: 40 mg Furosemide (Lasix Injection -) 40 mg IVPUSH BIDLASIX [facility] Last Admin: 09/26/16 10:33 Dose: 40 mg Metoprolol Succinate (Toprol Xl -) 25 mg PO DAILY [facility] Last Admin: 09/26/16 09:17 Dose: 25 mg Sertraline HCl (Zoloft -) 50 mg PO DAILY [facility] Last Admin: 09/26/16 09:17 Dose: 50 mg Silver Sulfadiazine (Silvadene -) 1 applic TP BID [facility] Last Admin: 09/26/16 09:17 Dose: 1 applic Sodium Chloride ([place] Nasal [place] -) 2 spray NS BID [facility] Last Admin: 09/26/16 09:17 Dose: 2 spray Spironolactone (Aldactone -) 25 mg PO BID [facility] Last Admin: 09/26/16 09:17 Dose: 25 mg - Objective Vital Signs: Vital Signs Temperature 98.7 F 09/26/16 06:00 Pulse Rate 50 L 09/26/16 06:00 Respiratory Rate 19 09/26/16 06:00 Blood Pressure 109/65 09/26/16 06:00 O2 Sat by Pulse Oximetry (%) 98 09/25/16 22:44 Constitutional: Yes: Well Nourished, Calm Eyes: Yes: WNL HENT: Yes: WNL Neck: Yes: WNL Cardiovascular: Yes: Pulse Irregular, S1, S2 Respiratory: Yes: Rales (crackles left base) Gastrointestinal: Yes: Normal Bowel Sounds, Soft Extremities: Yes: WNL Edema: Yes Labs: CBC, BMP 09/26/16 05:35 09/26/16 05:35 INR, PTT INR 1.51 (0.82-1.09) H 09/22/16 05:35 Problem List - Problems (1) Chronic respiratory failure with hypoxia and hypercapnia Code(s): J96.11 - CHRONIC RESPIRATORY FAILURE WITH HYPOXIA J96.12 - CHRONIC RESPIRATORY FAILURE WITH HYPERCAPNIA Assessment/Plan Problem List - Problems (1) Emkoa-wr-jqetfhd kidney injury Code(s): N17.9 - ACUTE KIDNEY FAILURE, UNSPECIFIED N18.9 - CHRONIC KIDNEY DISEASE, UNSPECIFIED Qualifiers: Acute renal failure type: unspecified Chronic kidney disease stage: stage 3 (moderate) Qualified Code(s): N17.9 - Acute kidney failure, unspecified; N18.9 - Chronic kidney disease, unspecified (2) CHF exacerbation Code(s): I50.9 - HEART FAILURE, UNSPECIFIED Qualifiers: Congestive heart failure type: combined Qualified Code(s): I50.43 - Acute on chronic combined systolic (congestive) and diastolic (congestive) heart failure (3) Cor pulmonale (chronic) Code(s): I27.81 - COR PULMONALE (CHRONIC) (4) Elevated troponin Code(s): R74.8 - ABNORMAL LEVELS OF OTHER SERUM ENZYMES (5) Oxygen dependent Code(s): Z99.81 - DEPENDENCE ON SUPPLEMENTAL OXYGEN (6) Pleural effusion Code(s): J90 - PLEURAL EFFUSION, NOT ELSEWHERE CLASSIFIED (7) Pulmonary HTN Code(s): I27.2 - OTHER SECONDARY PULMONARY HYPERTENSION (8) Sleep apnea Code(s): G47.30 - SLEEP APNEA, UNSPECIFIED Qualifiers: Sleep apnea type: unspecified type Qualified Code(s): G47.30 - Sleep apnea, unspecified Assessment/Plan Chronic Hypoxic and Hypercapneic Respiratory Failure clinically improving COPD clinically improving Severe Pulmonary HTN Cor Pulmonale Atrial Fibrillation Acute on Chronic Renal Failure Obstructive Sleep Apnea +Troponins - continue IV lasix, aldactone - monitor urine output, creatinine - anticoagulation - inhaled bronchodilators - CPAP at night - daily wts DR OLGUIN
--- NOTE | 2016-09-26 12:22 | PN ---
Teaching Attending Note Name of Resident: Amol Sommer (Nephrology) ATTENDING PHYSICIAN STATEMENT I saw and evaluated the patient. I reviewed the resident's note and discussed the case with the resident. I agree with the resident's findings and plan as documented. Renal Follow up Current Medications Generic Name Dose Route Start Last Admin Trade Name Paul PRN Reason Stop Dose Admin Aclidinium [place] 1 puff 09/21/16 22:00 09/26/16 09:22 Tudorza - IH 1 puff BID [facility] Administration Apixaban 2.5 mg 09/21/16 22:00 09/26/16 09:16 Eliquis - PO 2.5 mg BID [facility] Administration Atorvastatin Calcium 10 mg 09/21/16 22:00 09/25/16 22:59 Lipitor - PO 10 mg HS [facility] Administration Cholecalciferol 1,000 unit 09/22/16 10:00 09/26/16 09:16 Vitamin D3 - PO 1,000 unit DAILY [facility] Administration Docusate Sodium 100 mg 09/22/16 10:00 09/26/16 09:17 Colace - PO 100 mg DAILY [facility] Administration Febuxostat 40 mg 09/22/16 10:00 09/26/16 09:19 Uloric - PO 40 mg DAILY [facility] Administration Furosemide 40 mg 09/26/16 14:00 09/26/16 10:33 Lasix Injection - IVPUSH 40 mg BIDLASIX [facility] Administration Metoprolol Succinate 25 mg 09/23/16 10:00 09/26/16 09:17 Toprol Xl - PO 25 mg DAILY [facility] Administration Sertraline HCl 50 mg 09/22/16 10:00 09/26/16 09:17 Zoloft - PO 50 mg DAILY [facility] Administration Silver Sulfadiazine 1 applic 09/22/16 10:00 09/26/16 09:17 Silvadene - TP 1 applic BID [facility] Administration Sodium Chloride 2 spray 09/21/16 22:00 09/26/16 09:17 [place] Nasal [place] - NS 2 spray BID [facility] Administration Spironolactone 25 mg 09/22/16 22:00 09/26/16 09:17 Aldactone - PO 25 mg BID [facility] Administration Last Vital Signs Temp Pulse Resp BP Pulse Ox 97.8 F 56 L 22 127/49 98 09/26/16 10:00 09/26/16 10:00 09/26/16 10:00 09/26/16 10:00 09/25/16 22:44 Selected Entries 09/21/16 09/26/16 11:27 06:00 Weight 168 lb 157 lb 9.6 oz Laboratory Tests 09/23/16 05:35 Carbon Dioxide 41 H Creatinine 1.8 H cardio s1s2 pulm crackles, on o2 GI soft ext edema neuro awake skin venous stasis changes Impression 1. PEACE 2. CHF 3. volume overload 4. a-fib 5. cirrhosis 6. VISHAL 7. bilateral renal cysts Plan - pt has lost about 11 pounds so far - consider decreasing dose of diuretics - monitor bicarb as it is rising - cont to monitor renal function - bilateral renal cysts - likely cardiorenal - monitor lytes closely Dr Barajas
[2016-09-26] MEDS: ATORVASTATIN CA 10 MG TABLET (FP) PO SCH (22:13)
[2016-09-27] MEDS: FUROSEMIDE 40 MG/4 ML INJECTABLE VIAL IVPUSH SCH ×2 (06:54→13:58)
[2016-09-27 07:49] LABS: ALBUMIN 3.7 g/dl (3.4-5.0); ALK PHOS 75 U/L (45-117); ANION GAP 3 (8-16); BILIRUBIN,TOTAL 0.9 mg/dL (0.2-1.0); CALCIUM 8.9 mg/dL (8.5-10.1); CO2 40 mmol/L (21-32); CREATININE 1.8 mg/dL (0.7-1.3); GLUCOSE,RANDOM 101 mg/dL (74-106); SGOT/AST 27 U/L (15-37); SGPT/ALT 14 U/L (12-78); TOT PROT 7.4 g/dl (6.4-8.2)
--- NOTE | 2016-09-27 08:59 | PN ---
Progress Note (short form) - Note Progress Note: Chief Complaint: Seen and examined. Denies any chest pain or dyspnea History of Present Illness: Seen and examined on telemetry. Denies any chest pain or dyspnea - Current Medication List Current Medications Aclidinium [place] (Tudorza -) 1 puff IH BID [facility] Last Admin: 09/26/16 22:13 Dose: 1 puff Apixaban (Eliquis -) 2.5 mg PO BID [facility] Last Admin: 09/26/16 22:13 Dose: 2.5 mg Atorvastatin Calcium (Lipitor -) 10 mg PO HS [facility] Last Admin: 09/26/16 22:13 Dose: 10 mg Cholecalciferol (Vitamin D3 -) 1,000 unit PO DAILY [facility] Last Admin: 09/26/16 09:16 Dose: 1,000 unit Docusate Sodium (Colace -) 100 mg PO DAILY [facility] Last Admin: 09/26/16 09:17 Dose: 100 mg Febuxostat (Uloric -) 40 mg PO DAILY [facility] Last Admin: 09/26/16 09:19 Dose: 40 mg Furosemide (Lasix Injection -) 40 mg IVPUSH BIDLASIX [facility] Last Admin: 09/27/16 06:54 Dose: 40 mg Metoprolol Succinate (Toprol Xl -) 25 mg PO DAILY [facility] Last Admin: 09/26/16 09:17 Dose: 25 mg Sertraline HCl (Zoloft -) 50 mg PO DAILY [facility] Last Admin: 09/26/16 09:17 Dose: 50 mg Silver Sulfadiazine (Silvadene -) 1 applic TP BID [facility] Last Admin: 09/26/16 22:12 Dose: 1 applic Sodium Chloride ([place] Nasal [place] -) 2 spray NS BID [facility] Last Admin: 09/26/16 22:12 Dose: 2 spray Spironolactone (Aldactone -) 25 mg PO BID [facility] Last Admin: 09/26/16 22:13 Dose: 25 mg Review of Systems Cardiovascular: As noted above Respiratory: denies: Cough or Sputum Production Gastrointestinal: denies: Nausea, Vomiting, Diarrhea, Constipation or Abdominal Discomfort Musculoskeletal: No Symptoms Reported Endocrine: No Symptoms Reported - Objective Vital Signs: Last Vital Signs Temp Pulse Resp BP Pulse Ox 98.5 F 57 L 19 156/61 97 09/27/16 06:00 09/27/16 06:00 09/27/16 06:00 09/27/16 06:00 09/26/16 21:00 Intake & Output 09/24/16 09/25/16 09/26/16 09/27/16 23:59 23:59 23:59 23:59 Intake Total 790 420 470 250 Output Total 2195 375 1250 300 Balance -1405 45 -780 -50 Weight 155 lb 3.2 oz 157 lb 157 lb 9.6 oz 156 lb 2 oz Neck: Supple Negative JVD No Bruit Cardiovascular: S1 S2 Regular Rate and Rhythm Respiratory: Diminished at the Bases Gastrointestinal: Soft Benign Normal Bowel Sounds Ext: Trace Edema Labs: CBC, BMP 09/26/16 05:35 09/27/16 05:35 Hepatic Panel Total Bilirubin 0.9 mg/dL (0.2-1.0) 09/27/16 05:35 AST 27 U/L (15-37) 09/27/16 05:35 ALT 14 U/L (12-78) 09/27/16 05:35 Alkaline Phosphatase 75 U/L (45-117) 09/27/16 05:35 Albumin 3.7 g/dl (3.4-5.0) 09/27/16 05:35 Assessment/Plan ASSESSMENT: 1. Acute on chronic hypercapneic, hypoxemic respiratory failure with cor pulmonale, severe pulmonary HTN and RV dysfunction 2. 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 OSAS 4. CAD angina pectoris with evidence of demand ischemic injury 5. Diastolic LV dysfunction with chronic class I-II NYHA classification LV failure, compensated 6. Paroxysmal atrial fibrillation/flutter [id number] score of 3 on NOAC's 7. HTN 8. Hypercholesterolemia 9. Thrombocytopenia 10. Cirrhosis 11. Acute on CKD PLAN: 1. Continue Lasix with close monitoring of renal function 2. Continue Aldactone with close monitoring of renal function 3. Continue Toprol XL 4. Continue Eliquis with caution considering the above noted chronic liver disease and thrombocytopenia 5. Continue Lipitor 6. Continue bronchodilators, O2 and CPAP nightly as per the primary team Rita Montero MD
[2016-09-27] MEDS ORDERED: PT OWN MED DRAWER 7, Y5N ONE (09:48)
[2016-09-27] MEDS: SILVER SULFADIAZINE 1% TOP CREAM 50 GM JAR TP SCH ×2 (09:52→21:33)
[2016-09-27] MEDS: ACLIDINIUM BROMIDE 400 MCG/INH AERO.POWD IH SCH ×2 (09:52→21:33)
[2016-09-27] MEDS: DOCUSATE SODIUM 100 MG CAPSULE (FP) PO SCH (09:52)
[2016-09-27] MEDS: SPIRONOLACTONE 25 MG TABLET (FP) PO SCH (09:52)
[2016-09-27] MEDS: APIXABAN 2.5 MG TABLET PO SCH ×2 (09:52→21:32)
[2016-09-27] MEDS: METOPROLOL SUCCINATE 25 MG TAB.SR.24H (FP) PO SCH (09:52)
[2016-09-27] MEDS: SERTRALINE HCL 50 MG TABLET (FP) PO SCH (09:52)
[2016-09-27] MEDS: SODIUM CHLORIDE NASAL SPRAY 44 ML BOTTLE NS SCH ×2 (09:52→21:33)
[2016-09-27] MEDS: CHOLECALCIFEROL (VITAMIN D3) 1,000 UNIT TABLET (FP) PO SCH (09:52)
[2016-09-27] MEDS: FEBUXOSTAT 40 MG TAB PO SCH (09:53)
--- NOTE | 2016-09-27 11:18 | PN ---
Progress Note, Physician History of Present Illness: PULMONARY ALERT,FEELING BETTER,COMFORTABLE,-RESP DISTRESS - Current Medication List Current Medications: Active Medications Aclidinium [place] (Tudorza -) 1 puff IH BID [facility] Last Admin: 09/27/16 09:52 Dose: 1 puff Apixaban (Eliquis -) 2.5 mg PO BID [facility] Last Admin: 09/27/16 09:52 Dose: 2.5 mg Atorvastatin Calcium (Lipitor -) 10 mg PO HS [facility] Last Admin: 09/26/16 22:13 Dose: 10 mg Cholecalciferol (Vitamin D3 -) 1,000 unit PO DAILY [facility] Last Admin: 09/27/16 09:52 Dose: 1,000 unit Docusate Sodium (Colace -) 100 mg PO DAILY [facility] Last Admin: 09/27/16 09:52 Dose: 100 mg Febuxostat (Uloric -) 40 mg PO DAILY [facility] Last Admin: 09/27/16 09:53 Dose: 40 mg Furosemide (Lasix Injection -) 40 mg IVPUSH BIDLASIX [facility] Last Admin: 09/27/16 06:54 Dose: 40 mg Metoprolol Succinate (Toprol Xl -) 25 mg PO DAILY [facility] Last Admin: 09/27/16 09:52 Dose: 25 mg Sertraline HCl (Zoloft -) 50 mg PO DAILY [facility] Last Admin: 09/27/16 09:52 Dose: 50 mg Silver Sulfadiazine (Silvadene -) 1 applic TP BID [facility] Last Admin: 09/27/16 09:52 Dose: 1 applic Sodium Chloride ([place] Nasal [place] -) 2 spray NS BID [facility] Last Admin: 09/27/16 09:52 Dose: Not Given Spironolactone (Aldactone -) 25 mg PO BID [facility] Last Admin: 09/27/16 09:52 Dose: 25 mg - Objective Vital Signs: Vital Signs Temperature 98.5 F 09/27/16 06:00 Pulse Rate 57 L 09/27/16 06:00 Respiratory Rate 19 09/27/16 06:00 Blood Pressure 156/61 09/27/16 06:00 O2 Sat by Pulse Oximetry (%) 97 09/26/16 21:00 Constitutional: Yes: Well Nourished, Calm Eyes: Yes: WNL HENT: Yes: WNL Neck: Yes: WNL Cardiovascular: Yes: Pulse Irregular, S1, S2 Respiratory: Yes: Rales (BIBASILAR RALES) Gastrointestinal: Yes: Normal Bowel Sounds, Soft Labs: 09/27/16 05:35 INR, PTT INR 1.51 (0.82-1.09) H 09/22/16 05:35 - ....Imaging Chest X-ray: Report Reviewed, Image Reviewed (MILD CONGESTION ,PLEURAL EFFUSION) Problem List - Problems (1) Chronic respiratory failure with hypoxia and hypercapnia Code(s): J96.11 - CHRONIC RESPIRATORY FAILURE WITH HYPOXIA J96.12 - CHRONIC RESPIRATORY FAILURE WITH HYPERCAPNIA Assessment/Plan Problem List - Problems (1) Djyhw-it-pmhqolh kidney injury Code(s): N17.9 - ACUTE KIDNEY FAILURE, UNSPECIFIED N18.9 - CHRONIC KIDNEY DISEASE, UNSPECIFIED Qualifiers: Acute renal failure type: unspecified Chronic kidney disease stage: stage 3 (moderate) Qualified Code(s): N17.9 - Acute kidney failure, unspecified; N18.9 - Chronic kidney disease, unspecified (2) CHF exacerbation Code(s): I50.9 - HEART FAILURE, UNSPECIFIED Qualifiers: Congestive heart failure type: combined Qualified Code(s): I50.43 - Acute on chronic combined systolic (congestive) and diastolic (congestive) heart failure (3) Cor pulmonale (chronic) Code(s): I27.81 - COR PULMONALE (CHRONIC) (4) Elevated troponin Code(s): R74.8 - ABNORMAL LEVELS OF OTHER SERUM ENZYMES (5) Oxygen dependent Code(s): Z99.81 - DEPENDENCE ON SUPPLEMENTAL OXYGEN (6) Pleural effusion Code(s): J90 - PLEURAL EFFUSION, NOT ELSEWHERE CLASSIFIED (7) Pulmonary HTN Code(s): I27.2 - OTHER SECONDARY PULMONARY HYPERTENSION (8) Sleep apnea Code(s): G47.30 - SLEEP APNEA, UNSPECIFIED Qualifiers: Sleep apnea type: unspecified type Qualified Code(s): G47.30 - Sleep apnea, unspecified Assessment/Plan Chronic Hypoxic and Hypercapneic Respiratory Failure clinically improving COPD clinically improving Severe Pulmonary HTN Cor Pulmonale Atrial Fibrillation Acute on Chronic Renal Failure Obstructive Sleep Apnea +Troponins - continue IV lasix, aldactone - monitor urine output, creatinine - anticoagulation - inhaled bronchodilators - CPAP at night - daily wts DR OLGUIN
--- NOTE | 2016-09-27 12:41 | PN ---
Progress Note (short form) - Note Progress Note: C/o SOB, LE swelling. Hyperkalemia noted. Intake & Output 09/25/16 09/26/16 09/27/16 09/28/16 11:59 11:59 11:59 11:59 Intake Total 570 500 710 Output Total 7672 189 1038 Balance -850 -125 -565 Weight 157 lb 157 lb 9.6 oz 156 lb 2 oz Vital Signs - 24 hr 09/26/16 09/26/16 09/26/16 18:00 21:00 22:00 Temperature 98.4 F 98.2 F Pulse Rate 55 L 53 L Respiratory 19 19 Rate Blood Pressure 128/57 123/57 O2 Sat by Pulse 97 Oximetry (%) 09/27/16 09/27/16 02:45 06:00 Temperature 97.4 F L 98.5 F Pulse Rate 55 L 57 L Respiratory 20 19 Rate Blood Pressure 140/79 156/61 O2 Sat by Pulse Oximetry (%) Awake, alert JVD Lungs b/l diminished.Few crackles Heart S1s2S3 irregular irregular abdome soft, NT RLE wound dressing clean. Laboratory Results - last 24 hr 09/27/16 05:35 Sodium 139 Potassium 5.3 H Chloride 96 L Carbon Dioxide 40 H Anion Gap 3 L BUN 88 H Creatinine 1.8 H Creat Clearance w eGFR 37.07 Random Glucose 101 Calcium 8.9 Total Bilirubin 0.9 AST 27 ALT 14 Alkaline Phosphatase 75 Total Protein 7.4 Albumin 3.7 Current Active Problems Problem Status Diagnosed Cifti-ae-xhupmdi kidney injury Acute Anasarca Acute CHF exacerbation Acute Chronic respiratory failure with hypoxia and hypercapnia Acute Cor pulmonale (chronic) Acute Demand ischemia Acute Elevated troponin Acute Pulmonary arterial hypertension Acute Respiratory failure Acute Thrombocytopenia Acute Plan D/C Spironolactone due to Hyperkalemia. Increase Lasix 80 mg BID IV Follow CMP, mg Problem List - Problems (1) Yjpdn-js-opvswjh kidney injury Code(s): N17.9 - ACUTE KIDNEY FAILURE, UNSPECIFIED N18.9 - CHRONIC KIDNEY DISEASE, UNSPECIFIED Qualifiers: Qualified Code(s): N17.9 - Acute kidney failure, unspecified; N18.9 - Chronic kidney disease, unspecified (2) Anasarca Code(s): R60.1 - GENERALIZED EDEMA (3) CHF exacerbation Code(s): I50.9 - HEART FAILURE, UNSPECIFIED Qualifiers: Qualified Code(s): I50.43 - Acute on chronic combined systolic ( congestive) and diastolic (congestive) heart failure (4) Cor pulmonale (chronic) Code(s): I27.81 - COR PULMONALE (CHRONIC) (5) Demand ischemia Code(s): I24.8 - OTHER FORMS OF ACUTE ISCHEMIC HEART DISEASE (6) Atrial fibrillation Code(s): I48.91 - UNSPECIFIED ATRIAL FIBRILLATION Qualifiers: Qualified Code(s): I48.2 - Chronic atrial fibrillation (7) Respiratory failure Code(s): J96.90 - RESPIRATORY FAILURE, UNSP, UNSP W HYPOXIA OR HYPERCAPNIA (8) Pulmonary arterial hypertension Code(s): I27.2 - OTHER SECONDARY PULMONARY HYPERTENSION
--- NOTE | 2016-09-27 14:05 | PN ---
Physical Exam: SUBJECTIVE: Patient seen and examined Nephrology follow up. patient sitting comfortably in chair. Having lunch. states that his swelling in leg has increased. Denies sob, chest pain OBJECTIVE: Vital Signs Period Temp Pulse Resp BP Sys/Gama Pulse Ox Last 24 Hr 97.4 F-98.5 F 53-57 19-20 123-156/57-79 97 GENERAL: Awake, alert, and fully oriented, in no acute distress. EYES: sclera anicteric, conjunctiva clear. EARS, NOSE, THROAT: oropharynx clear without exudates. Moist mucous membranes. LUNGS: Breath sounds equal b/l , no crackles, no wheezing HEART: normal S1 and S2 , murmur + ABDOMEN: Soft, nontender, not distended, normoactive bowel sounds, no guarding, no rebound, LOWER EXTREMITIES: , warm, well-perfused. No calf tenderness. SKIN: Warm, Laboratory Results - last 24 hr 09/27/16 05:35 Sodium 139 Potassium 5.3 H Chloride 96 L Carbon Dioxide 40 H Anion Gap 3 L BUN 88 H Creatinine 1.8 H Creat Clearance w eGFR 37.07 Random Glucose 101 Calcium 8.9 Total Bilirubin 0.9 AST 27 ALT 14 Alkaline Phosphatase 75 Total Protein 7.4 Albumin 3.7 Active Medications Generic Name Dose Route Start Last Admin Trade Name Freq PRN Reason Stop Dose Admin Aclidinium [place] 1 puff 09/21/16 22:00 09/27/16 09:52 Tudorza - IH 1 puff BID [facility] Administration Apixaban 2.5 mg 09/21/16 22:00 09/27/16 09:52 Eliquis - PO 2.5 mg BID [facility] Administration Atorvastatin Calcium 10 mg 09/21/16 22:00 09/26/16 22:13 Lipitor - PO 10 mg HS [facility] Administration Cholecalciferol 1,000 unit 09/22/16 10:00 09/27/16 09:52 Vitamin D3 - PO 1,000 unit DAILY [facility] Administration Docusate Sodium 100 mg 09/22/16 10:00 09/27/16 09:52 Colace - PO 100 mg DAILY [facility] Administration Febuxostat 40 mg 09/22/16 10:00 09/27/16 09:53 Uloric - PO 40 mg DAILY [facility] Administration Furosemide 80 mg 09/27/16 12:21 09/27/16 13:58 Lasix Injection - IVPUSH 80 mg BIDLASIX [facility] Administration Metoprolol Succinate 25 mg 09/23/16 10:00 09/27/16 09:52 Toprol Xl - PO 25 mg DAILY [facility] Administration Sertraline HCl 50 mg 09/22/16 10:00 09/27/16 09:52 Zoloft - PO 50 mg DAILY [facility] Administration Silver Sulfadiazine 1 applic 09/22/16 10:00 09/27/16 09:52 Silvadene - TP 1 applic BID [facility] Administration Sodium Chloride 2 spray 09/21/16 22:00 09/27/16 09:52 [place] - NS Not Given BID [facility] ASSESSMENT/PLAN: 1. PEACE 2. CHF 3. volume overload 4. a-fib 5. cirrhosis 6. VISHAL Plan - On iV lasix 80 mg bid - Spironolactone stopped due to hyperkalemia. - Monitor renal function - weight monitor, wt decreased from 76kg to 70.8 - bilateral renal cysts - likely cardiorenal - monitor electrolytes. - Monitor intake and output. - Avoid nephrotoxic drugs Visit type - Emergency Visit Emergency Visit: Yes ED Registration Date: 09/21/16 Care time: The patient presented to the Emergency Department on the above date and was hospitalized for further evaluation of their emergent condition. - New Patient This patient is new to me today: No - Critical Care Critical Care patient: No
--- NOTE | 2016-09-27 16:17 | PN ---
Teaching Attending Note Name of Resident: Amol Sommer (Nephrology) ATTENDING PHYSICIAN STATEMENT I saw and evaluated the patient. I reviewed the resident's note and discussed the case with the resident. I agree with the resident's findings and plan as documented. Renal Follow Up Pt seen and examined at bedside. He feels that his breathing is improving. Current Medications Generic Name Dose Route Start Last Admin Trade Name Freq PRN Reason Stop Dose Admin Aclidinium [place] 1 puff 09/21/16 22:00 09/27/16 09:52 Tudorza - IH 1 puff BID TRICIA Administration Apixaban 2.5 mg 09/21/16 22:00 09/27/16 09:52 Eliquis - PO 2.5 mg BID TRICIA Administration Atorvastatin Calcium 10 mg 09/21/16 22:00 09/26/16 22:13 Lipitor - PO 10 mg HS TRICIA Administration Cholecalciferol 1,000 unit 09/22/16 10:00 09/27/16 09:52 Vitamin D3 - PO 1,000 unit DAILY TRICIA Administration Docusate Sodium 100 mg 09/22/16 10:00 09/27/16 09:52 Colace - PO 100 mg DAILY TRICIA Administration Febuxostat 40 mg 09/22/16 10:00 09/27/16 09:53 Uloric - PO 40 mg DAILY TRICIA Administration Furosemide 80 mg 09/27/16 12:21 09/27/16 13:58 Lasix Injection - IVPUSH 80 mg BIDLASIX TRICIA Administration Metoprolol Succinate 25 mg 09/23/16 10:00 09/27/16 09:52 Toprol Xl - PO 25 mg DAILY TRICIA Administration Sertraline HCl 50 mg 09/22/16 10:00 09/27/16 09:52 Zoloft - PO 50 mg DAILY TRICIA Administration Silver Sulfadiazine 1 applic 09/22/16 10:00 09/27/16 09:52 Silvadene - TP 1 applic BID TRICIA Administration Sodium Chloride 2 spray 09/21/16 22:00 09/27/16 09:[address] [place] Nasal [place] - NS Not Given BID TRICIA Last Vital Signs Temp Pulse Resp BP Pulse Ox 98.3 F 55 L 19 144/61 97 09/27/16 15:49 09/27/16 15:49 09/27/16 06:00 09/27/16 15:49 09/26/16 21:00 Selected Entries 09/21/16 09/27/16 11:27 06:00 Weight 168 lb 156 lb 2 oz cardio s1s2 pulm crackles, on o2 GI soft ext edema neuro awake skin venous stasis changes Impression 1. PEACE 2. CHF 3. volume overload 4. a-fib 5. cirrhosis 6. VISHAL 7. bilateral renal cysts Plan - stop spironolactone as potassium is elevatd - cont lasix - repeat labs in am, - weight is decreasing - bilateral renal cysts - monitor lytes closely
[2016-09-27] MEDS: ATORVASTATIN CA 10 MG TABLET (FP) PO SCH (21:32)
[2016-09-28] MEDS: FUROSEMIDE 40 MG/4 ML INJECTABLE VIAL IVPUSH SCH (06:42)
[2016-09-28 08:03] LABS: ALBUMIN 3.7 g/dl (3.4-5.0); ANION GAP 4 (8-16); BILIRUBIN,TOTAL 0.9 mg/dL (0.2-1.0); CALCIUM 9.2 mg/dL (8.5-10.1); CO2 41 mmol/L (21-32); CREATININE 1.8 mg/dL (0.7-1.3); GLUCOSE,RANDOM 99 mg/dL (74-106); SGOT/AST 27 U/L (15-37); SGPT/ALT 13 U/L (12-78); TOT PROT 7.4 g/dl (6.4-8.2)
[2016-09-28 08:04] LABS: ALK PHOS 77 U/L (45-117)
--- NOTE | 2016-09-28 08:07 | PN ---
Progress Note (short form) - Note Progress Note: Feels better , less swelling LE. LUGO improved. Intake & Output 09/25/16 09/26/16 09/27/16 09/28/16 11:59 11:59 11:59 11:59 Intake Total 570 500 710 270 Output Total 7990 680 7339 375 Balance -850 -125 -565 -105 Weight 157 lb 157 lb 9.6 oz 156 lb 2 oz 154 lb Vital Signs - 24 hr 09/27/16 09/27/16 09/27/16 09:00 10:00 15:49 Temperature 97.4 F L 98.3 F Pulse Rate 52 L 55 L Respiratory 19 22 Rate Blood Pressure 111/46 144/61 O2 Sat by Pulse 93 L Oximetry (%) 09/27/16 09/27/16 09/28/16 21:00 22:00 02:12 Temperature 98.5 F 97.8 F Pulse Rate 58 L 44 L Respiratory 20 20 Rate Blood Pressure 138/68 119/55 O2 Sat by Pulse 97 Oximetry (%) 09/28/16 06:00 Temperature 97.9 F Pulse Rate 59 L Respiratory 20 Rate Blood Pressure 131/74 O2 Sat by Pulse Oximetry (%) Lungs-B/L BS, LLL rales. Heart s1s2 regular. Monitor episode of asymptomatic bradicardia, no meds change advised by cardiology today. Abdomen soft, NT Ex- improved LE edema Current Active Problems Problem Status Diagnosed Fklye-jx-chkzppr kidney injury Acute Anasarca Acute CHF exacerbation Acute Chronic respiratory failure with hypoxia and hypercapnia Acute Cor pulmonale (chronic) Acute Demand ischemia Acute Elevated troponin Acute Pulmonary arterial hypertension Acute Respiratory failure Acute Thrombocytopenia Acute Plan D/c Home on PO Furosemide 80 mg BID Close f/u in the office OFF spironolactone for now. Fluid restriction discussed. Problem List - Problems (1) Gqych-xv-nzlyqmb kidney injury Code(s): N17.9 - ACUTE KIDNEY FAILURE, UNSPECIFIED N18.9 - CHRONIC KIDNEY DISEASE, UNSPECIFIED Qualifiers: Acute renal failure type: unspecified Chronic kidney disease stage: stage 3 (moderate) Qualified Code(s): N17.9 - Acute kidney failure, unspecified; N18.9 - Chronic kidney disease, unspecified (2) Anasarca Code(s): R60.1 - GENERALIZED EDEMA (3) CHF exacerbation Code(s): I50.9 - HEART FAILURE, UNSPECIFIED Qualifiers: Congestive heart failure type: combined Qualified Code(s): I50.43 - Acute on chronic combined systolic (congestive) and diastolic (congestive) heart failure (4) Cor pulmonale (chronic) Code(s): I27.81 - COR PULMONALE (CHRONIC) (5) Demand ischemia Code(s): I24.8 - OTHER FORMS OF ACUTE ISCHEMIC HEART DISEASE (6) Atrial fibrillation Code(s): I48.91 - UNSPECIFIED ATRIAL FIBRILLATION Qualifiers: Atrial fibrillation type: chronic Qualified Code(s): I48.2 - Chronic atrial fibrillation (7) Respiratory failure Code(s): J96.90 - RESPIRATORY FAILURE, UNSP, UNSP W HYPOXIA OR HYPERCAPNIA Qualifiers: Chronicity: acute on chronic (8) Pulmonary arterial hypertension Code(s): I27.2 - OTHER SECONDARY PULMONARY HYPERTENSION
--- NOTE | 2016-09-28 08:10 | DS ---
Physical Examination Vital Signs: Vital Signs Temperature 97.9 F 09/28/16 06:00 Pulse Rate 59 L 09/28/16 06:00 Respiratory Rate 20 09/28/16 06:00 Blood Pressure 131/74 09/28/16 06:00 O2 Sat by Pulse Oximetry (%) 97 09/27/16 21:00 Constitutional: Yes: Calm, Mild Distress Eyes: Yes: Conjunctiva Clear, EOM Intact HENT: Yes: Atraumatic, Normocephalic Neck: Yes: Supple, Trachea Midline. No: Lymphadenopathy Cardiovascular: Yes: Regular Rate and Rhythm Respiratory: Yes: Regular, Diminished (B/B), On Nasal O2, Rales (LLL), SOB Gastrointestinal: Yes: Normal Bowel Sounds, Soft. No: Abdomen, Obese ...Rectal Exam: Yes: Deferred Renal/: No: Anuria, Bladder Distention, CVA Tenderness - Left, CVA Tenderness - Right Musculoskeletal: Yes: Back Pain Edema: LLE: 1+, RLE: 1+ Peripheral Pulses WNL: No Integumentary: Yes: Pressure Ulcer (Right anterior day) ...Motor Strength: WNL Psychiatric: Yes: Alert, Oriented. No: Agitated, Suicidal Ideation Labs: CBC, BMP 09/26/16 05:35 09/28/16 05:48 Discharge Summary Reason For Visit: ACUTE ON CHRONIC CHF,ELEVATED TROPONIN LEVEL Current Active Problems Upecp-qh-tnjafgk kidney injury (Acute) Anasarca (Acute) CHF exacerbation (Acute) Chronic respiratory failure with hypoxia and hypercapnia (Acute) Cor pulmonale (chronic) (Acute) Demand ischemia (Acute) Elevated troponin (Acute) Pulmonary arterial hypertension (Acute) Respiratory failure (Acute) Thrombocytopenia (Acute) Condition: Improved - Instructions Referrals: Suraj Mccall MD [Primary Care Provider] - Disposition: HOME - Home Medications Comprehensive Discharge Medication List: Ambulatory Orders Cholecalciferol (Vitamin D3) [Vitamin D] 1,000 unit PO DAILY 06/22/12 Metoprolol Tartrate [Lopressor -] 25 mg PO BID 06/22/12 Tiotropium [place] [Spiriva] 1 inh IH DAILY 06/22/12 Docusate Sodium [Colace -] 100 mg PO DAILY 06/05/14 Fluticasone/Vilanterol [Breo Ellipta 100-25 Mcg INH] 1 each IH DAILY 06/05/14 Nebulizer and Compressor [Comp-Air Elite Comp Nebulizer] 1 each MC DAILY #1 each 06/05/14 Sertraline HCl [Zoloft -] 50 mg PO DAILY 06/05/14 Sodium Chloride Nasal [place] [[place] Nas[place] -] 2 spray NS BID spraybtl 06/11/14 Furosemide [Lasix -] 80 mg PO BID 09/21/16
--- NOTE | 2016-09-28 09:22 | PN ---
Progress Note (short form) - Note Progress Note: Chief Complaint: Events noted notes reviewed. Denies any chest pain or dyspnea, [facility] office with Dr. Venkatesh Multani History of Present Illness: Seen and examined on telemetry. Events noted notes reviewed. Denies any chest pain or dyspnea, [facility]U in the office with Dr. Venkatesh Multani Recommend decreasing dose of Lasix and continuation of Aldactone therapy Asymptomatic bradycardia noted - Current Medication List Current Medications Aclidinium [place] (Tudorza -) 1 puff IH BID [facility] Last Admin: 09/27/16 21:33 Dose: 1 puff Apixaban (Eliquis -) 2.5 mg PO BID [facility] Last Admin: 09/27/16 21:32 Dose: 2.5 mg Atorvastatin Calcium (Lipitor -) 10 mg PO HS [facility] Last Admin: 09/27/16 21:32 Dose: 10 mg Cholecalciferol (Vitamin D3 -) 1,000 unit PO DAILY [facility] Last Admin: 09/27/16 09:52 Dose: 1,000 unit Docusate Sodium (Colace -) 100 mg PO DAILY [facility] Last Admin: 09/27/16 09:52 Dose: 100 mg Febuxostat (Uloric -) 40 mg PO DAILY [facility] Last Admin: 09/27/16 09:53 Dose: 40 mg Furosemide (Lasix Injection -) 80 mg IVPUSH BIDLASIX [facility] Last Admin: 09/28/16 06:42 Dose: 80 mg Metoprolol Succinate (Toprol Xl -) 25 mg PO DAILY [facility] Last Admin: 09/27/16 09:52 Dose: 25 mg Sertraline HCl (Zoloft -) 50 mg PO DAILY [facility] Last Admin: 09/27/16 09:52 Dose: 50 mg Silver Sulfadiazine (Silvadene -) 1 applic TP BID [facility] Last Admin: 09/27/16 21:33 Dose: 1 applic Sodium Chloride ([place] Nasal [place] -) 2 spray NS BID [facility] Last Admin: 09/27/16 21:33 Dose: 2 spray Review of Systems Cardiovascular: As noted above Respiratory: denies: Cough or Sputum Production Gastrointestinal: denies: Nausea, Vomiting, Diarrhea, Constipation or Abdominal Discomfort Musculoskeletal: No Symptoms Reported Endocrine: No Symptoms Reported - Objective Vital Signs: Last Vital Signs Temp Pulse Resp BP Pulse Ox 97.9 F 59 L 20 131/74 97 09/28/16 06:00 09/28/16 06:00 09/28/16 06:00 09/28/16 06:00 09/27/16 21:00 Intake & Output 09/25/16 09/26/16 09/27/16 09/28/16 23:59 23:59 23:59 23:59 Intake Total 420 470 610 150 Output Total 375 1250 675 175 Balance 45 -780 -65 -25 Weight 157 lb 157 lb 9.6 oz 156 lb 2 oz 154 lb Neck: Supple Negative JVD No Bruit Cardiovascular: S1 S2 Regular Rate and Rhythm Respiratory: Diminished at the Bases Gastrointestinal: Soft Benign Normal Bowel Sounds Ext: Trace Edema Labs: CBC, BMP 09/26/16 05:35 09/28/16 05:48 Hepatic Panel Total Bilirubin 0.9 mg/dL (0.2-1.0) 09/28/16 05:48 AST 27 U/L (15-37) 09/28/16 05:48 ALT 13 U/L (12-78) 09/28/16 05:48 Alkaline Phosphatase 77 U/L (45-117) 09/28/16 05:48 Albumin 3.7 g/dl (3.4-5.0) 09/28/16 05:48 INR, PTT INR 1.51 (0.82-1.09) H 09/22/16 05:35 Assessment/Plan ASSESSMENT: 1. Acute on chronic hypercapneic, hypoxemic respiratory failure with cor pulmonale, severe pulmonary HTN and RV dysfunction, resolved 2. 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 OSAS 4. CAD angina pectoris with evidence of demand ischemic injury 5. Diastolic LV dysfunction with chronic class I-II NYHA classification LV failure, compensated 6. Paroxysmal atrial fibrillation/flutter [id number] score of 3 on NOAC's, asymptomatic bradycardia noted 7. HTN 8. Hypercholesterolemia 9. Thrombocytopenia 10. Cirrhosis 11. Acute on CKD PLAN: 1. Continue Lasix with close monitoring of renal function, decrease dosage as outlined above 2. Continue Aldactone with close monitoring of renal function 3. Continue Toprol XL with caution 4. Continue Eliquis with caution considering the above noted chronic liver disease and thrombocytopenia 5. Continue Lipitor 6. Continue bronchodilators, O2 and CPAP nightly as per the primary team 7. Plan to D/C home and F/U in the office Rita Montero MD
[2016-09-28] MEDS: DOCUSATE SODIUM 100 MG CAPSULE (FP) PO SCH (09:27)
[2016-09-28] MEDS: ACLIDINIUM BROMIDE 400 MCG/INH AERO.POWD IH SCH (09:28)
[2016-09-28] MEDS: SERTRALINE HCL 50 MG TABLET (FP) PO SCH (09:28)
[2016-09-28] MEDS: APIXABAN 2.5 MG TABLET PO SCH (09:28)
[2016-09-28] MEDS: METOPROLOL SUCCINATE 25 MG TAB.SR.24H (FP) PO SCH (09:28)
[2016-09-28] MEDS: CHOLECALCIFEROL (VITAMIN D3) 1,000 UNIT TABLET (FP) PO SCH (09:28)
[2016-09-28] MEDS: FEBUXOSTAT 40 MG TAB PO SCH (09:29)
[2016-09-28] MEDS: SODIUM CHLORIDE NASAL SPRAY 44 ML BOTTLE NS SCH (12:06)
[2016-09-28] MEDS: SILVER SULFADIAZINE 1% TOP CREAM 50 GM JAR TP SCH (12:06)
[2016-09-28 12:29] VITALS: BP 128/59; PULSE 58; TEMP 98.2
--- NOTE | 2016-09-28 13:46 | PN ---
Progress Note, Physician History of Present Illness: Pt seen and examined at bedside. He is awake and alert. He says he feels his breathing is improved. - Current Medication List Current Medications: Active Medications Aclidinium [place] (Tudorza -) 1 puff IH BID [facility] Last Admin: 09/28/16 09:28 Dose: 1 puff Apixaban (Eliquis -) 2.5 mg PO BID [facility] Last Admin: 09/28/16 09:28 Dose: 2.5 mg Atorvastatin Calcium (Lipitor -) 10 mg PO HS [facility] Last Admin: 09/27/16 21:32 Dose: 10 mg Cholecalciferol (Vitamin D3 -) 1,000 unit PO DAILY [facility] Last Admin: 09/28/16 09:28 Dose: 1,000 unit Docusate Sodium (Colace -) 100 mg PO DAILY [facility] Last Admin: 09/28/16 09:27 Dose: 100 mg Febuxostat (Uloric -) 40 mg PO DAILY [facility] Last Admin: 09/28/16 09:29 Dose: 40 mg Furosemide (Lasix Injection -) 80 mg IVPUSH BIDLASIX [facility] Last Admin: 09/28/16 06:42 Dose: 80 mg Metoprolol Succinate (Toprol Xl -) 25 mg PO DAILY [facility] Last Admin: 09/28/16 09:28 Dose: Not Given Sertraline HCl (Zoloft -) 50 mg PO DAILY [facility] Last Admin: 09/28/16 09:28 Dose: 50 mg Silver Sulfadiazine (Silvadene -) 1 applic TP BID [facility] Last Admin: 09/28/16 12:06 Dose: 1 applic Sodium Chloride ([place] Nasal [place] -) 2 spray NS BID [facility] Last Admin: 09/28/16 12:06 Dose: 2 spray - Objective Vital Signs: Vital Signs Temperature 98.2 F 09/28/16 10:00 Pulse Rate 58 L 09/28/16 10:00 Respiratory Rate 20 09/28/16 10:00 Blood Pressure 128/59 09/28/16 10:00 O2 Sat by Pulse Oximetry (%) 96 09/28/16 10:00 Constitutional: Yes: Calm Eyes: Yes: Conjunctiva Clear HENT: Yes: Atraumatic Cardiovascular: Yes: S1, S2 Respiratory: Yes: On Nasal O2 Gastrointestinal: Yes: Soft Genitourinary: Yes: WNL Edema: Yes Edema: LLE: 1+, RLE: 1+ Integumentary: Yes: Skin Tear Neurological: Yes: Oriented Psychiatric: Yes: Oriented Labs: CBC, BMP 09/26/16 05:35 09/28/16 05:48 INR, PTT INR 1.51 (0.82-1.09) H 09/22/16 05:35 Problem List - Problems (1) Ggrmk-lv-rlwgido kidney injury Code(s): N17.9 - ACUTE KIDNEY FAILURE, UNSPECIFIED N18.9 - CHRONIC KIDNEY DISEASE, UNSPECIFIED Qualifiers: Acute renal failure type: unspecified Chronic kidney disease stage: stage 3 (moderate) Qualified Code(s): N17.9 - Acute kidney failure, unspecified; N18.9 - Chronic kidney disease, unspecified (2) Anasarca Code(s): R60.1 - GENERALIZED EDEMA (3) CHF exacerbation Code(s): I50.9 - HEART FAILURE, UNSPECIFIED Qualifiers: Congestive heart failure type: combined Qualified Code(s): I50.43 - Acute on chronic combined systolic (congestive) and diastolic (congestive) heart failure Assessment/Plan Impression 1. [place] 2. CHF 3. volume overload 4. a-fib 5. cirrhosis 6. VISHAL 7. bilateral renal cysts Plan - potassium improved - cont with lasix - can restart lower dose spironolactone of potassium improves further - will need monitoring of lytes - can see in office - monitor daily weights at home - bilateral renal cysts - monitor lytes closely
== END 2016-09-28 13:42 | disposition home or self-care (01) | DRG 189 ==
LOC: JER 11:23 → JERBED 14:31 → J4W 16:38
PROVIDERS: ADMIT Internal Medicine; ATTEND Internal Medicine
PROC: 3E0F7GC Introduction of Other Therapeutic Substance into Respiratory Tract, Via Natural or Artificial Opening (ICD-10-PCS; principal; 2016-09-21)
PROC: 5A09557 Assistance with Respiratory Ventilation, Greater than 96 Consecutive Hours, Continuous Positive Airway Pressure (ICD-10-PCS; 2016-09-21)
DX: J96.22 Acute and chronic respiratory failure with hypercapnia (principal); I50.43 Acute on chronic combined systolic (congestive) and diastolic (congestive) heart failure; N17.9 Acute kidney failure, unspecified; I13.0 Hypertensive heart and chronic kidney disease with heart failure and stage 1 through stage 4 chronic kidney disease, or unspecified chronic kidney disease; I48.92 Unspecified atrial flutter; I48.0 Paroxysmal atrial fibrillation; K74.60 Unspecified cirrhosis of liver; I27.2 Other secondary pulmonary hypertension; E87.70 Fluid overload, unspecified; G47.33 Obstructive sleep apnea (adult) (pediatric); N28.1 Cyst of kidney, acquired; J96.21 Acute and chronic respiratory failure with hypoxia; J44.9 Chronic obstructive pulmonary disease, unspecified; R60.1 Generalized edema; I27.81 Cor pulmonale (chronic); Z99.81 Dependence on supplemental oxygen; Z87.891 Personal history of nicotine dependence; E78.5 Hyperlipidemia, unspecified; D69.6 Thrombocytopenia, unspecified; I25.119 Atherosclerotic heart disease of native coronary artery with unspecified angina pectoris
CPT/HCPCS: 36415; 36600; 71010-TC; 71020-TC; 76775-TC; 80048; 80053; 81003; 82436; 82570; 82803; 83735; 83880; 84100; 84133; 84156; 84300; 84484; 85025; 85610; 93005; 93010; 93306-TC; 94660; 97116-GP; 97161-GP; 99283-25

== ENCOUNTER 2017-10-16 18:38 | Inpatient (IN) | payer OTHER, BC ==
--- NOTE | 2017-10-16 18:54 | PDOC ---
History of Present Illness - General Stated Complaint: SYNCOPE Time Seen by Provider: 10/16/17 18:53 - History of Present Illness Initial Comments: 10/16/17 20:00 The patient is a 77 year old male with a history of HTN, HLD, CHF, COPD, Afib who presents for evaluation of syncope. The patient is accompanied by family and EMS who assist in providing the history. They note that the patient was in the bathroom when he was found squating and then fell over caught by his family with a short episode of LOC lasting a few seconds. The patient reports that he is asymptomatic on presentation to the ED. He otherwise denies fevers, chills, chest pain, nausea, vomiting, abdominal pain, or changes with urination or bowel movements. The patient uses home O2 and has SOB at baseline associated with his severe COPD and CHF. Past History - Past Medical History Allergies/Adverse Reactions: Allergies Allergy/AdvReac Type Severity Reaction Status Date / Time codeine phosphate Allergy Intermediate Verified 10/16/17 18:56 [From Tylenol-Codeine #3] morphine Allergy Intermediate Verified 10/16/17 18:56 Home Medications: Ambulatory Orders Cholecalciferol (Vitamin D3) [Vitamin D] 1,000 unit PO DAILY 06/22/12 Tiotropium [place] [Spiriva] 1 inh IH DAILY 06/22/12 Fluticasone/Vilanterol [Breo Ellipta 100-25 Mcg INH] 1 each IH DAILY 06/05/14 Sertraline HCl [Zoloft -] 50 mg PO DAILY 06/05/14 Sodium Chloride Nasal [place] [[place] Nasal [place] -] 2 spray NS BID spraybtl 06/11/14 Furosemide [Lasix -] 80 mg PO BID 09/21/16 Febuxostat [Uloric] 40 mg PO DAILY 10/16/17 Rivaroxaban [Xarelto -] 15 mg PO DAILY 10/16/17 Sertraline HCl [Zoloft -] 50 mg PO DAILY 10/16/17 Spironolactone [Aldactone] 25 mg PO BID 10/16/17 Metolazone 2.5 mg PO WEEKLY 10/17/17 Cardiac Disorders: Yes (A FIB (XARELTO)) COPD: Yes CHF: Yes HTN: Yes Hypercholesterolemia: Yes Liver Disease: Yes (CIRRHOSIS) - Surgical History Abdominal Surgery: Yes (HERNIA SURGERY) - Immunization History Immunization Up to Date: No - Suicide/Smoking/Psychosocial Hx Smoking Status: No Smoking History: Former smoker Have you smoked in the past 12 months: No Number of Cigarettes Smoked Daily: 0 If you are a former smoker, when did you quit?: 5 YRS Hx Alcohol Use: No Drug/Substance Use Hx: No Substance Use Type: None Hx Substance Use Treatment: No Review of Systems - Review of Systems Comments:: 10/16/17 20:06 Constitutional: No fevers, chills, fatigue, malaise HEENT: No Rhinorrhea, nasal congestion, visual changes Cardiovascular: Syncope. No chest pain, palpitations, lightheadedness Respiratory: SOB. No Cough, Hemoptysis, Gastrointestinal: No Abdominal pain, Nausea, Vomiting, Constipation, Diarrhea, Melena Genitourinary: No Dysuria, Frequency, Urgency, Hesitancy, Hematuria, Flank pain Musculoskeletal: No Myalgia, arthralgia Skin: No rashes, itching, bruising, pallor Neurologic: No Headache, Dizziness, Numbness, Weakness, or Tingling Psychiatric: No Hallucinations. No SI or HI *Physical Exam - Physical Exam Comments: 10/16/17 20:06 General Appearance: Nourished. No Apparent Distress HEENT: EOMI, MARISA. No Pharyngeal Erythema, Tonsillar Exudate, Tonsillar Erythema Neck: No Cervical Lymphadenopathy Respiratory/Chest: Lungs Clear, Normal Breath Sounds. No Crackles, Rales, Rhonchi, Cardiovascular: Regular Rhythm, Regular Rate. 3/6 Systolic murmur noted on exam. No Gallops, Rubs Gastrointestinal/Abdominal: Normal Bowel Sounds, Soft. No Guarding, Rebound, Tenderness Musculoskeletal: No CVA Tenderness Extremity: 2+ pitting edema in the lower extremities bilaterally. 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 Differential includes but is not limited to: ACS, COPD, CHF, Arrhythmia, Infections, Metabolic Derangement. Given the patient's history and physical exam, we will obtain a cbc, cmp, troponin, bnp, ekg, chest plain film, head ct to evaluate further for possible etiologies. We will treat the patient with duonebs here in the ED and continue to monitor and reassess in the meantime. He will likely require observation admission given this episode the patient experienced and his significant co- morbidities. 10/16/17 22:35 CBC, cmp are unremarkable. BNP is elevated. Head CT is unremarkable as read by our radiologist. We discussed the case with the admitting team who accepted the patient for admission. *DC/Admit/Observation/Transfer Diagnosis at time of Disposition: CHF exacerbation Qualifiers: Heart failure type: unspecified Qualified Code(s): I50.9 - Heart failure, unspecified Syncope Qualifiers: Syncope type: unspecified Qualified Code(s): R55 - Syncope and collapse - Discharge Dispostion Condition at time of disposition: Stable Decision to Admit order: Yes - Referrals - Patient Instructions - Post Discharge Activity
[2017-10-16] MEDS ORDERED: ALBUTEROL SO4 2.5/IPRATROPIUM 0.5 INH SOL 3 ML VIAL.NEB. NEB ONE ×2 (19:34→19:46)
[2017-10-16 19:46] LABS: BASO % 0.4 % (0-2.0); EOS % 0.1 % (0-4.5); HEMATOCRIT 32.1 % (35.4-49); LYMPH % 3.7 % (8-40); MCHC 31.2 g/dl (32.0-35.9); MEAN CELL VOLUME 83.4 fl (80-96); MEAN PLT VOLUME 8.4 fl (7.5-11.1); MONO % 7.8 % (3.8-10.2); PLATELET COUNT 131 K/MM3 (134-434); RBC 3.85 M/mm3 (4.00-5.60); RDW 16.3 % (11.9-15.9); WHITE BLOOD COUNT 7.4 K/mm3 (4.0-10.0)
[2017-10-16 19:57] LABS: ARTERIAL BLOOD GAS BASE EXCESS 8.7 meq/l (-2-2); ARTERIAL BLOOD GAS pH 7.32 (7.35-7.45); CARBOXYHEMOGLOBIN 3.1 gm% (0.5-2.0)
[2017-10-16 19:58] LABS: ALLENS TEST POSITIVE
[2017-10-16 20:00] LABS: ARTERIAL BLOOD GAS PCO2 73.4 mmHg (35-45)
[2017-10-16 20:01] LABS: ARTERIAL BLD GAS O2 SATURATION 99.7 % (90-98.9)
[2017-10-16 20:13] LABS: ALBUMIN 3.6 g/dl (3.4-5.0); ANION GAP 7 MMOL/L (8-16); BLOOD UREA NITROGEN 91 mg/dL (7-18); CALCIUM 8.9 mg/dL (8.5-10.1); CHLORIDE 98 mmol/L (98-107); CO2 38 mmol/L (21-32); CREATININE 2.3 mg/dL (0.7-1.3); GLUCOSE,RANDOM 126 mg/dL (74-106); POTASSIUM 4.8 mmol/L (3.5-5.1); SGOT/AST 26 U/L (15-37); SGPT/ALT 13 U/L (12-78); SODIUM 143 mmol/L (136-145)
[2017-10-16 20:17] LABS: ALK PHOS 71 U/L (45-117); BILIRUBIN,TOTAL 0.5 mg/dL (0.2-1.0); N-TERMINAL BNP 23386.17 pg/ml (5-450); TOT PROT 7.1 g/dl (6.4-8.2)
[2017-10-16] MEDS ORDERED: FUROSEMIDE 40 MG/4 ML INJECTABLE VIAL IVPUSH ONE (20:53)
--- NOTE | 2017-10-16 21:23 | PN ---
Teaching Attending Note Name of Resident: Jael Hanna ATTENDING PHYSICIAN STATEMENT I saw and evaluated the patient. I reviewed the resident's note and discussed the case with the resident. I agree with the resident's findings and plan as documented. SUBJECTIVE: Patient is a 77 year old man with a history of HTN, HLD, CHF (?right heart failure), COPD, Afib (on Xarelto), VISHAL and Gout who presents for evaluation of syncope. The family notes that the patient was in the bathroom when he was found squatting and then fell over and caught by his family with a short episode of LOC lasting a few seconds. The patient reports that he is asymptomatic on presentation to the ER. He otherwise denies fevers, chills, chest pain, nausea, vomiting, abdominal pain, or changes with urination or bowel movements. The patient uses home O2/CPAP and has SOB at baseline associated with his severe COPD and CHF. OBJECTIVE: Alert. Not orthostatic. Vital Signs Period Temp Pulse Resp BP Sys/Gama Pulse Ox Last 24 Hr 98.2 F 62 20 121/64 85-100 HEENT: No Jaundice, eye redness or discharge, PERRLA, EOMI. Normocephalic, atraumatic. External ears are normal and hearing is grossly intact. No nasal discharge. Neck: Supple, nontender. No palpable adenopathy or thyromegaly. No JVD Chest: Good effort. Clear to auscultation and percussion. Heart: Regular. No S3, rub or murmur Abdomen: Not distended, soft, nontender and no HSM. No rebound or guarding. Normoactive bowel sounds. Ext: Peripheral pulses intact. Leg edema. Skin: Warm and dry. No petechiae, rash or ecchymosis. Neuro: Alert. Oriented x3. CN 2-12 grossly intact. Sensation grossly intact in all four extremities and DTR are symmetric. Home Medications Medication Instructions Recorded Cholecalciferol (Vitamin D3) 1,000 unit PO DAILY 06/22/12 [Vitamin D] Tiotropium [place] [Spiriva] 1 inh IH DAILY 06/22/12 Fluticasone/Vilanterol [Breo 1 each IH DAILY 06/05/14 Ellipta 100-25 Mcg INH] Sertraline HCl [Zoloft -] 50 mg PO DAILY 04/16/15 Sodium Chloride Nasal [place] [[place] 2 spray NS BID spraybtl 06/11/14 [place] Nasal [place] -] Furosemide [Lasix -] 80 mg PO BID 09/21/16 Febuxostat [Uloric] 40 mg PO DAILY 10/16/17 Rivaroxaban [Xarelto -] 15 mg PO DAILY 10/16/17 Sertraline HCl [Zoloft -] 50 mg PO DAILY 10/16/17 Spironolactone [Aldactone] 25 mg PO BID 10/16/17 Abnormal Lab Results 10/16/17 10/16/17 10/16/17 19:27 19:27 19:49 RBC 3.85 L Hgb 10.0 L Hct 32.1 L D MCHC 31.2 L RDW 16.3 H Plt Count 131 L D Neutrophils % 88.0 H Lymphocytes % 3.7 L D ABG pH 7.32 L ABG pCO2 at Pt Temp 73.4 H* D ABG pO2 at Pt Temp 158.0 H* D ABG HCO3 36.4 H ABG O2 Sat (Measured) 99.7 H* ABG O2 Content 13.8 L ABG Base Excess 8.7 H Carboxyhemoglobin 3.1 H Methemoglobin 1.6 H Carbon Dioxide 38 H Anion Gap 7 L BUN 91 H Creatinine 2.3 H Random Glucose 126 H D Troponin I 0.12 H B-Natriuretic Peptide 67823.17 H ASSESSMENT AND PLAN: 1. Syncope - Etiology is unclear. Metolazone was added to his regimen by his PCP today, so he may have had a bout of hypotension. Patient had LVEF of 55% and normal LV function on ECHO from 09/22/16, but poor RV function. Peripheral edema may be multifactorial including contributions from hypercarbia, CKD, venous stasis and cirrhosis - so escalating doses of oral "diuretics" may not be accomplishing the desired goal of reducing leg edema. Will give 80 mg IV lasix and guage his response. Treat with inhalational bronchodilators. UA pending. Consult cardiology and pulmonary. Serial EKG and troponin to rule out ACS - monitor on telemetry. Consider therapeutic and diagnostic thoracentesis of right pleural effusion - no new infiltrates on CXR. Get brain MRI, ECHO and carotid doppler to complete syncope work up. Implement fall precautions. 2. CKD - Cause unclear. Will consult nephrology and avoid nephrotoxic agents such as NSAIDS, aminoglycosides, contrast dyes and certain Alternative medicine products. 3. Anemia - Likely multifactorial. Do basic anemia work up including serial stool guaiacs, reticulocyte count and iron studies. Would benefit from Procrit therapy once iron replete. 4. Afib - rate controlled and on xarelto. 5. DVT prophylaxis - On xarelto 6. Advance directives - Full code
[2017-10-16] MEDS ORDERED: FUROSEMIDE 40 MG/4 ML INJECTABLE VIAL ONE (21:36)
--- NOTE | 2017-10-17 01:44 | PDOC ---
Attending Attestation - [facility] HPI: 10/17/17 01:50 Patient is a 77 year old female with a significant past medical history of HTN, HLD, CHF, COPD, Afib, who presents to the ED with complaints of a syncopal episode. As per EMS patient was found by his family in the restroom, squatting in a corner when he suddenly fell forward onto the floor and loss consciousness that they states lasted a few seconds. Patient denies experiencing any symptoms while in the ED. Denies chest pain, Sob. Denies nausea, vomiting. Denies fevers, chills. Denies contact with sick individuals, out of state travelling. Denies any other symptoms. Allergies: codeine phosphate, morphine. Social history: No smoking. No alcohol. No illicit drugs. Surgical history: Hernia Surgery. PMD: Dr. Mccall. - Physicial Exam PE: 10/17/17 01:50 GENERAL: +Mild distress. +Cachectic. +Thin. Awake and alert. In no acute distress. HEENT: Normocephalic, atraumatic. PERRLA, EOMI. No conjunctival pallor. Sclerae are non -icteric. Moist mucous membranes. Oropharynx is clear. NECK: Supple. Full ROM. No JVD. Carotid pulses 2+ and symmetric, without bruits. No thyromegaly. No lymphadenopathy. CARDIOVASCULAR: Regular rate and rhythm. No murmurs, rubs, or gallops. Distal pulses are 2+ and symmetric. PULMONARY: +tachypnea. +chronic supplemental O2 No evidence of respiratory distress. Lungs clear to auscultation bilaterally. No wheezing, rales or rhonchi. ABDOMINAL: Soft. Non-tender. Non-distended. No rebound or guarding. No organomegaly. Normoactive bowel sounds. MUSCULOSKELETAL Normal range of motion at all joints. No bony deformities or tenderness. No CVA tenderness. EXTREMITIES: +Mild pitting edema. No cyanosis. No clubbing. No calf tenderness. SKIN: Warm and dry. Normal capillary refill. No rashes. No jaundice. NEUROLOGICAL: Alert, awake, appropriate. Cranial nerves 2-12 intact. No deficits to light touch and temperature in face, upper extremities and lower extremities. No motor deficits in the in face, upper extremities and lower extremities. Normoreflexic in the upper and lower extremities. Normal speech. Toes are downgoing bilaterally. Gait is normal without ataxia. PSYCHIATRIC: Cooperative. Good eye contact. Appropriate mood and affect. <Evgeny Griggs - Last Filed: 10/17/17 01:50> - Resident Resident Name: Blaze Marshall - ED Attending Attestation I have performed the following: I have examined & evaluated the patient, The case was reviewed & discussed with the resident, I agree w/resident's findings & plan, Exceptions are as noted - HPI HPI: 10/17/17 01:43 77 yo male BIBA for syncopal episode - Physicial Exam PE: pt admitte imp syncope,copd 10/17/17 23:25 - Medical Decision Making 10/17/17 23:25 pr admitted for syncope,copd <Carla Baker - Last Filed: 10/17/17 23:26>
--- NOTE | 2017-10-17 01:56 | HP ---
CHIEF COMPLAINT: Syncopal episode at home and CHF exacerbation PCP: Dr Mccall HISTORY OF PRESENT ILLNESS: Mr. Garcia is a 77 y/o male with a PMH of HTN, HLD, CHF, COPD, Afib (on xarelto ), cirrhosis, gout, presents to the ED after a syncopal episode at home. He was at home wiht his when she heard a thump in the bathroom and found him crouched over and he was not responding to her voice.. He began to respond shortly before the ambulance had came. Of note, patient had went to his PCP Dr. Mccall today who added metolazone to his medication regimen as he has been much more dyspneic lately and has been retaining more fluids in his extremities. Patient is also on home O2 and uses CPAP at night for VISHAL Patient uses In the ED patient was given 40 IV push of lasix in addition to duonebs . ER course was notable for: (1)Hgb 10.0, which is a drop from 13.4 it was a year ago (2)Cr 2.3, which is elevated from the 1.8 it was a year ago (3)Troponin 0.12, BNP 23,386 Recent Travel: none PAST MEDICAL HISTORY: see HPI PAST SURGICAL HISTORY: hernia surgery does not recall year Social History: Smoking: denies Alcohol:denies Drugs: denies Family History:unknown Allergies codeine phosphate [From Tylenol-Codeine #3] Allergy (Intermediate, Verified 18:56) morphine Allergy (Intermediate, Verified 10/16/17 18:56) HOME MEDICATIONS: Home Medications Medication Instructions Recorded Cholecalciferol (Vitamin D3) 1,000 unit PO DAILY 06/22/12 [Vitamin D] Tiotropium [place] [Spiriva] 1 inh IH DAILY 06/22/12 Fluticasone/Vilanterol [Breo 1 each IH DAILY 06/05/14 Ellipta 100-25 Mcg INH] Sertraline HCl [Zoloft -] 50 mg PO DAILY 06/05/14 Sodium Chloride Nasal [place] [[place] 2 spray NS BID spraybtl 06/11/14 [place] Nasal [place] -] Furosemide [Lasix -] 80 mg PO BID 09/21/16 Febuxostat [Uloric] 40 mg PO DAILY 10/16/17 Rivaroxaban [Xarelto -] 15 mg PO DAILY 10/16/17 Sertraline HCl [Zoloft -] 50 mg PO DAILY 10/16/17 Spironolactone [Aldactone] 25 mg PO BID 10/16/17 REVIEW OF SYSTEMS CONSTITUTIONAL: Absent: fever, chills, diaphoresis, generalized weakness, malaise, loss of appetite, weight change HEENT: Absent: rhinorrhea, nasal congestion, throat pain, throat swelling, difficulty swallowing, mouth swelling, ear pain, eye pain, visual changes CARDIOVASCULAR: Absent: chest pain, syncope, palpitations, irregular heart rate, lightheadedness , peripheral edema RESPIRATORY: Present: cough, shortness of breath, dyspnea with exertion, Absent: orthopnea, wheezing, stridor, hemoptysis GASTROINTESTINAL: Absent: abdominal pain, abdominal distension, nausea, vomiting, diarrhea, constipation, melena, hematochezia GENITOURINARY: Absent: dysuria, frequency, urgency, hesitancy, hematuria, flank pain, genital pain MUSCULOSKELETAL: Absent: myalgia, arthralgia, joint swelling, back pain, neck pain SKIN: Absent: rash, itching, pallor HEMATOLOGIC/IMMUNOLOGIC: Absent: easy bleeding, easy bruising, lymphadenopathy, frequent infections ENDOCRINE: Absent: unexplained weight gain, unexplained weight loss, heat intolerance, cold intolerance NEUROLOGIC: Absent: headache, focal weakness or paresthesias, dizziness, unsteady gait, seizure, mental status changes, bladder or bowel incontinence PSYCHIATRIC: Absent: anxiety, depression, suicidal or homicidal ideation, hallucinations. PHYSICAL EXAMINATION Vital Signs - 24 hr 10/16/17 10/16/17 10/16/17 18:54 19:51 22:33 Temperature 98.2 F Pulse Rate 62 Pulse Rate [ 65 Apical] Respiratory 20 24 Rate Blood Pressure 121/64 Blood Pressure 146/60 [Right Arm] O2 Sat by Pulse 85 L 100 100 Oximetry (%) GENERAL: Awake, alert, tachypneic. NECK: no lymphadenopathy or JVD appreciated, slight abrasion on bottom of chin LUNGS: clear to auscultation B/L; no rales,rhonchi, wheezing, tachypneic on non -rebreather . HEART: irregularly irregular, normal S1 and S2 without murmur, rub or gallop. ABDOMEN: Soft, nontender, not distended, normoactive bowel sounds, no guarding, no rebound, no masses. No hepatomegaly or splenomegaly. EXTREMITIES: abrasion on right knee; 2+ pitting edema B/L; cool extremities PSYCHIATRIC: Cooperative. Good eye contact. Appropriate mood and affect. SKIN: cool, dry, normal turgor, no rashes or lesions noted, normal capillary refill. Laboratory Results - last 24 hr 10/16/17 10/16/17 10/16/17 19:27 19:27 19:49 WBC 7.4 RBC 3.85 L Hgb 10.0 L Hct 32.1 L D MCV 83.4 MCH 26.0 D MCHC 31.2 L RDW 16.3 H Plt Count 131 L D MPV 8.4 D Absolute Neuts (auto) 6.5 Neutrophils % 88.0 H Lymphocytes % 3.7 L D Monocytes % 7.8 Eosinophils % 0.1 D Basophils % 0.4 Nucleated RBC % 0 Anticoagulation Therapy No Result Required. Puncture Site Right radial ABG pH 7.32 L ABG pCO2 at Pt Temp 73.4 H* D ABG pO2 at Pt Temp 158.0 H* D ABG HCO3 36.4 H ABG O2 Sat (Measured) 99.7 H* ABG O2 Content 13.8 L ABG Base Excess 8.7 H Gagan Test Positive Carboxyhemoglobin 3.1 H Methemoglobin 1.6 H O2 Delivery Device Nm breather Oxygen Flow Rate Yes Vent Mode No Result Required. Vent Rate No Result Required. Mechanical Rate No Result Required. Pressure Support Vent No Result Required. Sodium 143 Potassium 4.8 Chloride 98 Carbon Dioxide 38 H Anion Gap 7 L BUN 91 H Creatinine 2.3 H Creat Clearance w eGFR 27.86 Random Glucose 126 H D Calcium 8.9 Total Bilirubin 0.5 AST 26 ALT 13 Alkaline Phosphatase 71 Creatine Kinase 80 Troponin I 0.12 H B-Natriuretic Peptide 89787.17 H Total Protein 7.1 Albumin 3.6 ASSESSMENT/PLAN: 77 y/o male with PMH of HTN, HLD, CHF, COPD, Afib(on xarelto), cirrhosis who presents to the ED after having a syncopal episode at home in addition to having an exacerbation of his heart failure. Syncope: possibly 2/2 vasovagal vs. orthostatic hypotension or taking too much BP medications or poor RV function -repeat echo -trend troponins- possibly 2/2 CKD - fall precautions -monitor on telemetry -carotid dopplers -cardiology consulted CHF: pateints most recent echo showed LVEF 55%, normal LV function, poor RV function -patient was given 40 IV push of lasix in the ED -ordered for lasix 80 IV BID -possible diagnostic thoracocentesis -repeat echo -inhaled bronchodilators -monitor I's and O's -daily weights -pulmonology consulted CKD: patients most Cr was 2.3 and was 1.8 a year ago possibly 2/2 demand ischemia/ poor perfusion -U/A pending -nephrology consult -avoid nephrotoxic agents Anemia: patient Hgb dropped from 13.4 to 10.0 possibly 2/2 chronic inflammation -FOBT -anemia workup pending Afib: on xarelto DVT Prophyalxis: xarelto Problem List - Problem (1) CHF exacerbation Code(s): I50.9 - HEART FAILURE, UNSPECIFIED Qualifiers: Heart failure type: unspecified Qualified Code(s): I50.9 - Heart failure, unspecified (2) Syncope Code(s): R55 - SYNCOPE AND COLLAPSE Qualifiers: Syncope type: unspecified Qualified Code(s): R55 - Syncope and collapse (3) Hrrqd-te-ezucwmt kidney injury Code(s): N17.9 - ACUTE KIDNEY FAILURE, UNSPECIFIED; N18.9 - CHRONIC KIDNEY DISEASE, UNSPECIFIED Qualifiers: Acute renal failure type: unspecified Chronic kidney disease stage: stage 3 (moderate) Qualified Code(s): N17.9 - Acute kidney failure, unspecified Visit type - Emergency Visit Emergency Visit: Yes ED Registration Date: 10/16/17 Care time: The patient presented to the Emergency Department on the above date and was hospitalized for further evaluation of their emergent condition. - New Patient This patient is new to me today: Yes Date on this admission: 10/17/17 - Critical Care Critical Care patient: No Hospitalist Screening - Colonoscopy Questionnaire Colonoscopy Questionnaire: Colonoscopy Questionnaire - Patient: 50 - 75 years old and never had a screening colonoscopy: Unknown History of colon or rectal polyps, or CA: Unknown History of IBD, Crohn's disease or UC: Unknown History of abdominal radiation therapy as a child: Unknown - Relative: 1 with colon or rectal CA, or polyps at age 60 or younger: Unknown Colon or rectal CA diagnosed at age 45 or younger: Unknown Multiple relatives with colon or rectal CA: Unknown - Outcome: Screening Result: Negative Screen
[2017-10-17 07:01] LABS: HEMATOCRIT 33.5 % (35.4-49); HEMOGLOBIN 10.2 GM/dL (11.7-16.9); MCH 25.5 pg (25.7-33.7); MCHC 30.5 g/dl (32.0-35.9); MEAN CELL VOLUME 83.6 fl (80-96); MEAN PLT VOLUME 9.7 fl (7.5-11.1); PLATELET COUNT 124 K/MM3 (134-434); RBC 4.01 M/mm3 (4.00-5.60); RDW 16.3 % (11.9-15.9); WHITE BLOOD COUNT 11.1 K/mm3 (4.0-10.0)
[2017-10-17 07:19] LABS: INR 1.32 (0.83-1.09); PROTHROMBIN TIME (PATIENT) 14.9 SEC (9.7-13.0)
[2017-10-17 07:48] LABS: CHLORIDE 97 mmol/L (98-107); POTASSIUM 4.9 mmol/L (3.5-5.1); SODIUM 141 mmol/L (136-145)
[2017-10-17 07:58] LABS: ANION GAP 6 MMOL/L (8-16); BLOOD UREA NITROGEN 91 mg/dL (7-18); CALCIUM 8.9 mg/dL (8.5-10.1); CO2 38 mmol/L (21-32); CREATININE 2.3 mg/dL (0.7-1.3); GLUCOSE,RANDOM 127 mg/dL (74-106); PHOSPHOROUS 5.6 mg/dL (2.5-4.9)
--- NOTE | 2017-10-17 09:34 | CON.CARD ---
Consult Consult Specialty:: Cardiology Reason for Consultation:: CHF exacerbation - History of Present Illness Chief Complaint: syncope History of Present Illness: 77M h/o home-O2 dependent COPD, VISHAL, HTN, HLD, afib on Xarelto, cirrhosis p/w syncope. Was found unresponsive by after hearing him fall. Has had more dyspnea as well, lower ext edema, saw PCP Dr. Mccall who added metolazone and spironolactone day of admission, which were taken a few hours before syncopal episode. He had been taking those before but were held for a couple of weeks. In ED was given lasix 40 mg IV x 1, trop 0.12->0.64, BNP 23,386, Cr 2.3 (1.3 in 09/2016). Healthcare Receptionist Dr. Lindsey. Patient with this morning, said he was unconscious for a few minutes. Prior to blacking out he felt short of breath. - Past Medical History Cardio/Vascular: Yes: AFIB (?), CHF (Possibly diastolic), HTN, Murmur, Pulmonary Hypertension Pulmonary: Yes: COPD, O2 Dependent, Sleep Apnea Gastrointestinal: Yes: Constipation. No: Ascites, Cancer Hepatobiliary: Yes: Cirrhosis Renal/: Yes: Renal Failure, Renal Inusuff Psych: Yes: Depression Musculoskeletal: Yes: Chronic low back pain Rheumatology: Yes: Gout ENT: Yes: Other (Epistaxis) Endocrine: Yes: Osteopenia - Alcohol/Substance Use Hx Alcohol Use: No - Smoking History Smoking history: Former smoker Have you smoked in the past 12 months: No Aproximately how many cigarettes per day: 0 If you are a former smoker, when did you quit?: 5 YRS - Social History ADL: Family Assistance History of Recent Travel: No Home Medications - Allergies Allergies/Adverse Reactions: Allergies Allergy/AdvReac Type Severity Reaction Status Date / Time codeine phosphate Allergy Intermediate Verified 10/16/17 18:56 [From Tylenol-Codeine #3] morphine Allergy Intermediate Verified 10/16/17 18:56 - Home Medications Home Medications: Ambulatory Orders Cholecalciferol (Vitamin D3) [Vitamin D] 1,000 unit PO DAILY 06/22/12 Tiotropium [place] [Spiriva] 1 inh IH DAILY 06/22/12 Fluticasone/Vilanterol [Breo Ellipta 100-25 Mcg INH] 1 each IH DAILY 06/05/14 Sertraline HCl [Zoloft -] 50 mg PO DAILY 06/05/14 Sodium Chloride Nasal [place] [[place] Nasal [place] -] 2 spray NS BID spraybtl 06/11/14 Furosemide [Lasix -] 80 mg PO BID 09/21/16 Febuxostat [Uloric] 40 mg PO DAILY 10/16/17 Rivaroxaban [Xarelto -] 15 mg PO DAILY 10/16/17 Sertraline HCl [Zoloft -] 50 mg PO DAILY 10/16/17 Spironolactone [Aldactone] 25 mg PO BID 10/16/17 Family Disease History - Family Disease History Family History: Unremarkable Review of Systems - Review of Systems Constitutional: reports: No Symptoms Eyes: reports: No Symptoms HENT: reports: No Symptoms Neck: reports: No Symptoms Cardiovascular: reports: Shortness of Breath Respiratory: reports: No Symptoms Gastrointestinal: reports: No Symptoms Genitourinary: reports: No Symptoms Musculoskeletal: reports: No Symptoms Integumentary: reports: No Symptoms Neurological: reports: No Symptoms Endocrine: reports: No Symptoms Hematology/Lymphatic: reports: No Symptoms Psychiatric: reports: No Symptoms Vital Signs: Vital Signs Temperature 97.2 F L 10/17/17 09:19 Pulse Rate 57 L 10/17/17 09:19 Respiratory Rate 22 10/17/17 09:19 Blood Pressure 131/59 10/17/17 09:19 O2 Sat by Pulse Oximetry (%) 98 10/17/17 06:31 Constitutional: Yes: Well Nourished, No Distress, Calm Eyes: Yes: Conjunctiva Clear, EOM Intact HENT: Yes: Atraumatic, Normocephalic Neck: Yes: Supple, Trachea Midline Respiratory: Yes: Regular, Rales (bilateral bases) Gastrointestinal: Yes: Normal Bowel Sounds, Soft Cardiovascular: Yes: Regular Rate and Rhythm Heart Sounds: Yes: S1, S2 Edema: No Peripheral Pulses: 2+ Left Doralis Pedis, 2+ Right Dorsalis Pedis Neurological: Yes: Alert, Oriented Psychiatric: Yes: Alert, Oriented - Other Data Labs, Other Data: CBC, BMP 10/17/17 05:30 10/17/17 05:30 INR, PTT INR 1.32 (0.83-1.09) H 10/17/17 05:30 Troponin, BNP 10/16/17 10/17/17 10/17/17 19:27 05:30 05:30 Troponin I 0.12 H 0.64 H* D Cancelled B-Natriuretic Peptide 61347.17 H Troponin, BNP 10/16/17 10/17/17 10/17/17 19:27 05:30 05:30 Troponin I 0.12 H 0.64 H* D Cancelled B-Natriuretic Peptide 89229.17 H Assessment/Plan echo 09/2016 shows preserved LV fxn with significant RV dilatation and dysfunction, mod TR with RVSP>60 mmHg c/w cor pulmonale. Tele junctional rhythm, RBBB 77M h/o home-O2 dependent COPD, VISHAL, HTN, HLD, afib on Xarelto, cirrhosis p/w syncope, CHF exacerbation syncope - may have been in setting of feeling short of breath, vasovagal (felt very hot) - monitoring on tele, managing CHF exac as below - repeat echo acute on chronic diastolic HF - per patient's he has gained weight, she thinks about 10 lbs, had edema which has improved since yesterday, breathing improved with IV lasix - diuresis with IV lasix - holding spironolactone - received metolazone yesterday - echo - monitor daily standing weight, I/O COPD - receiving nebs, CPAP at night - appreciate Dr. Samuel shane HTN - controlled afib - continue xarelto PEACE on CKD - 1.8 a year ago, now 2.3 - diuresis as above
--- NOTE | 2017-10-17 09:46 | EKG ---
Test Reason : Blood Pressure : / mmHG Vent. Rate : 061 BPM Atrial Rate : 062 BPM P-R Int : 000 ms QRS Dur : 118 ms QT Int : 436 ms P-R-T Axes : 000 047 078 degrees QTc Int : 438 ms POOR DATA QUALITY, INTERPRETATION MAY BE ADVERSELY AFFECTED JUNCTIONAL RHYTHM RIGHT BUNDLE BRANCH BLOCK ABNORMAL ECG Confirmed by Lane Munguia MD ([id number]) on 10/17/2017 9:46:16 AM Referred By: Confirmed By:Lane Munguia MD
[2017-10-17] MEDS ORDERED: FUROSEMIDE 40 MG/4 ML INJECTABLE VIAL IVPUSH SCH (11:15)
--- NOTE | 2017-10-17 11:29 | PN ---
Progress Note (short form) - Note Progress Note: PULMONARY CONSULTATION DICTATED 10/17/17 IMP ACUTE ON CHRONIC HYPOXEMIC/HYPERCAPNEIC RESPIRATORY FAILURE ACUTE ON CHRONIC CHF COPD O2 DEPENDENT AFIB SEVERE PULMONARY HTN SYNCOPE ACUTE ON CHRONIC KIDNEY FAILURE OSAS HTN ANEMIA GOUT + TROPONIN PLAN LASIX O2 TO MAINTAIN O2 SAT 90% OR GREATER BIPAP AT NIGHT AND PRN FOR INCREASED RESPIRATORY DISTRESS MONITOR LYTES,RENAL FUNCTION,H+H DAILY WT F/U CHEST X-RAYS AC ECHO TREND TROPONIN DR OLGUIN Problem List - Problems (1) Acute on chronic respiratory failure with hypoxia and hypercapnia Code(s): J96.21 - ACUTE AND CHRONIC RESPIRATORY FAILURE WITH HYPOXIA; J96.22 - ACUTE AND CHRONIC RESPIRATORY FAILURE WITH HYPERCAPNIA (2) CHF exacerbation Code(s): I50.9 - HEART FAILURE, UNSPECIFIED Qualifiers: Heart failure type: unspecified Qualified Code(s): I50.9 - Heart failure, unspecified (3) Syncope Code(s): R55 - SYNCOPE AND COLLAPSE Qualifiers: Syncope type: unspecified Qualified Code(s): R55 - Syncope and collapse (4) [id number] kidney injury Code(s): N17.9 - ACUTE KIDNEY FAILURE, UNSPECIFIED; N18.9 - CHRONIC KIDNEY DISEASE, UNSPECIFIED Qualifiers: Acute renal failure type: unspecified Chronic kidney disease stage: stage 3 (moderate) Qualified Code(s): N17.9 - Acute kidney failure, unspecified; N18.3 - Chronic kidney disease, stage 3 (moderate) (5) Atrial fibrillation Code(s): I48.91 - UNSPECIFIED ATRIAL FIBRILLATION Qualifiers: Atrial fibrillation type: chronic Qualified Code(s): I48.2 - Chronic atrial fibrillation (6) Cirrhosis Code(s): K74.60 - UNSPECIFIED CIRRHOSIS OF LIVER Qualifiers: Hepatic cirrhosis type: unspecified hepatic cirrhosis Ascites presence: with ascites Qualified Code(s): K74.60 - Unspecified cirrhosis of liver; R18.8 - Other ascites (7) Cor pulmonale (chronic) Code(s): I27.81 - COR PULMONALE (CHRONIC) (8) Pulmonary arterial hypertension Code(s): I27.2 - OTHER SECONDARY PULMONARY HYPERTENSION * DO NOT USE * (9) Respiratory failure Code(s): J96.90 - RESPIRATORY FAILURE, UNSP, UNSP W HYPOXIA OR HYPERCAPNIA Qualifiers: Chronicity: acute on chronic (10) Sleep apnea Code(s): G47.30 - SLEEP APNEA, UNSPECIFIED Qualifiers: Sleep apnea type: unspecified type Qualified Code(s): G47.30 - Sleep apnea , unspecified (11) COPD (chronic obstructive pulmonary disease) Code(s): J44.9 - CHRONIC OBSTRUCTIVE PULMONARY DISEASE, UNSPECIFIED (12) Troponin I above reference range Code(s): R74.8 - ABNORMAL LEVELS OF OTHER SERUM ENZYMES
[2017-10-17] MEDS: TIOTROPIUM BROMIDE 2.5 MCG (SPIRIVA) RESPIMAT INHALER IH SCH (12:05)
--- NOTE | 2017-10-17 12:17 | CONS ---
DATE OF CONSULTATION: 10/17/2017 REFERRING PHYSICIAN: Lima Layton MD HISTORY: The patient is a 77-year-old male known to me from previous hospitalizations as well as office follow up with a past medical history of COPD on home O2 with chronic hypoxemic respiratory failure, hyperlipidemia, hypertension , pulmonary hypertension, atrial fibrillation, chronic right pleural effusion, gout, epistaxis, osteopenia admitted to [facility] on October 16 status post an episode of unresponsiveness. Apparently, the patient had a syncopal episode. The patient was at home with his when she heard a thump in the bathroom and found him crouched over and not responding to voice. EMS was called. Shortly after the ambulance arrived, the patient started responding. The patient apparently stopped his diuretics and resumed them yesterday taking metolazone and Aldactone. He also was noted recently to have increasing shortness of breath with exertion, increasing lower extremity edema. He denied any chest pain, nausea, vomiting, diaphoresis. Denied any hemoptysis. He was sent to the emergency room as above. In the emergency room, he was given IV Lasix and DuoNebs and transferred to the medical floor for further management. He was also placed on BiPAP secondary to hypercapnic, hypoxemic respiratory failure. The patient denies any recent travel. There is no history of DVT or PE in the past. He has a longstanding history of tobacco use , 1-2 packs a day for many years. He quit 12 years ago. He was previously employed by [employer]. PAST MEDICAL HISTORY: Again, includes atrial fibrillation on Xarelto, cirrhosis , gout, COPD, CHF, hyperlipidemia, hypertension, chronic hypoxemic respiratory failure on O2, obstructive sleep apnea on CPAP. REVIEW OF SYSTEMS: Positive orthopnea, positive dyspnea, positive syncope. No chest pain, no palpitations. Positive cough. No sputum, no hemoptysis, no abdominal pain. Positive lower extremity edema. CURRENT MEDICATIONS: Include Xarelto, Breo Ellipta, Spiriva, and Lasix. PHYSICAL EXAMINATION: General: The patient is a well-developed, well-nourished male awake, alert mildly dyspneic in no acute distress. Vital Signs: He is currently afebrile. Heart rate is 62, blood pressure 131/59 , O2 saturation is 100%. HEENT: Normocephalic and atraumatic. Neck: Supple. Heart: Irregular S1, S2. Chest: Bibasilar crackles as well as diminished breath sounds at the right base. Abdomen: Soft. Bowel sounds are positive. Extremities: Trace right lower extremity edema. LABORATORIES: WBC is 11.1, hemoglobin 10.2, hematocrit 33.5 with a platelet count of 124,000. INR 1.32. Blood gas: PH 7.32, PCO2 of 73, PO2 of 158, bicarbonate of 36, and a saturation at 99. That was on 100% nonrebreather. Chemistries: BUN 91, creatinine 2.3. Head CT reveals moderate T3 vertebral compression. There is no evidence on CT of acute intracranial pathology. Chest x-ray reveals chronic right pleural effusion, atelectasis right base. IMPRESSION: 1. Acute on chronic hypoxemic, hypercapnic respiratory failure secondary to progressive decompensated congestive heart failure. 2. Chronic obstructive pulmonary disease. 3. Syncope possibly secondary to medications. 4. Atrial fibrillation on Xarelto. 5. Pulmonary hypertension. 6. Chronic right pleural effusion. 7. Obstructive sleep apnea. 8. Hyperlipidemia. 9. Hypertension. 10. Gout. 11. Acute on chronic kidney disease. 12. + Troponin PLAN: Lasix. Supplemental O2. Inhaled bronchodilators. BiPAP at night as well as during the day as neede for increasing shortness of breath. Follow up arterial blood gas. Daily weights. Monitor renal function. Nephrology evaluation. Trend troponins,Echo ANGEL OLGUIN M.D. PRAVIN/[id number] MTDD
--- NOTE | 2017-10-17 14:43 | PN ---
Teaching Attending Note Name of Resident: Rylan Middleton ATTENDING PHYSICIAN STATEMENT I saw and evaluated the patient. I reviewed the resident's note and discussed the case with the resident. I agree with the resident's findings and plan as documented. SUBJECTIVE: No fever or chills . No CP or SOB. potter snot have any palpitations . does remember having any SOB, PC , or palpitations befor eor after the event. he remembers feeling dizzy, getting on his knees and calling his . Now he feels his breathing is much better after lasix last night OBJECTIVE: NAD. awake, alert and cooperative CV: RRR, 3/6 Sm at [place], with possible radiation to L axilla . JVD Lungs: L base crackles ,. R base decreased breath sounds. Abd: soft, NT, ND , NL BS Ext: trace pitting edema , varicose veins . eschar on Lateral aspect of L 5th toe. D p2+ R, can't feel it on R ASSESSMENT AND PLAN: 77 y/o man with h/o CHF, cirrhosis, gout , COPD, VISHAL, cor pulmonale, a fib, HTN , HLP, and CKD who presented after a syncopal episode 1- Syncope: hypoxia, vs vasovagal, vs arrhythmias - monitor on tele - EKG reviewed .RBBB with no acute ischemic changes - carotid US 2- Acute on chronic hypoxi hypercapnic resp failure , due to acute diastolic CHF exacerbation. - give lasix 60 dailly - echo pending - will likely resume spironolactone tomorrow - appreciate card eval - Nebs and inhalers for CopD - CT of neck with pulm view and Cxray reviewed. R pleural effusion . Monitor at this time with diuresis ( chronic ) . No evidence of PNA - Off BIAPP , cont face mask and then NC if possible 3- H/O COPD: cont Nebs and inhalers. - appreciate pulm Recs 4- PEACE on CKD: likely due to heart failure - cont to monitor renal function with diuresis - BL 1.8 5- A fib: on xarelto at home. - cont dose now, withclose monitoring of his renal function. if worse , might need to change 6- HLOC
[2017-10-17] MEDS ORDERED: ALBUTEROL SO4 2.5/IPRATROPIUM 0.5 INH SOL 3 ML VIAL.NEB. NEB PRN (14:44)
--- NOTE | 2017-10-17 15:04 | CONSULT ---
- Consultation REQUESTING PROVIDER: CONSULT REQUEST: We have been asked to surgically evaluate this patient for ( specify). PCP: MD Cal HPI: 77 yo male with PMHx noted below. BIBA secondary to unwitnessed syncopal episode at home. Asked to evaluate patient for LE ischemia. Patient in bed resting comfortably without complaint. at bedside. Patient states his legs never bother him. Denies rest pain, numbness, tingling. Denies rash, itching or pallor to LE. PMHx: MAT VS A.Fib with controlled V rate., Severe VISHAL. HTN. COPD. LE swelling, pulm HTN. COPD on home O2/CPAP. Polycythemia-on periodic phlebotomy-followed by Dr. Orta. Stable adrenal mass. Depression. CHF (RV). CKD. Cirrhosis liver with thrombocytopenia. Gout. Chronic back pain, kyphosis, healed compression fractures. PSHx: Thoracenthesis 2014. Hernia surgery ( doesn't remember when) Home Meds: Cholecalciferol (Vitamin D3) [Vitamin D] 1,000 unit PO DAILY 06/22/12 Metoprolol Tartrate [Lopressor -] 25 mg PO BID 06/22/12 Tiotropium [place] [Spiriva] 1 inh IH DAILY 06/22/12 Docusate Sodium [Colace -] 100 mg PO DAILY 06/05/14 Fluticasone/Vilanterol [Breo Ellipta 100-25 Mcg INH] 1 each IH DAILY 06/05/14 Nebulizer and Compressor [Comp-Air Elite Comp Nebulizer] 1 each MC DAILY #1 each 06/05/14 Sertraline HCl [Zoloft -] 50 mg PO DAILY 06/05/14 Sodium Chloride Nasal [place] [[place] Nasal [place] -] 2 spray NS BID spraybtl 06/11/14 Furosemide [Lasix -] 80 mg PO BID 09/21/16 Allergies: Codeine (Intermediate, Verified 10/16/17 18:56) Morphine (Intermediate, Verified 10/16/17 18:56) ROS: CONSTITUTIONAL: Absent: generalized weakness, malaise, loss of appetite, weight change CARDIOVASCULAR: Absent: palpitations, irregular heart rate, lightheadedness, peripheral edema RESPIRATORY: Absent: cough, shortness of breath, dyspnea with exertion, wheezing , stridor, hemoptysis GASTROINTESTINAL:Absent: abdominal pain, abdominal distension, nausea, vomiting , diarrhea, constipation, melena, hematochezia GENITOURINARY: Absent: hesitancy, hematuria, flank pain, genital pain MUSCULOSKELETAL: Absent: myalgia, arthralgia, joint swelling, neck pain SKIN: Absent: HEMATOLOGIC/IMMUNOLOGIC: Absent: easy bleeding, easy bruising, lymphadenopathy NEUROLOGIC: Absent: headache, focal weakness, dizziness, unsteady gait, seizure , mental status changes, bladder or bowel incontinence PSYCHIATRIC: Absent: anxiety, suicidal or homicidal ideation, hallucinations. PE: GENERAL: Awake, alert, nad. HEAD: NC. AT. EYES: PERRL, sclera anicteric, conjunctiva clear. NECK: Normal ROM, supple without lymphadenopathy, JVD, or masses. HEART: afib ABD: Soft, NT. ND MUSCULOSKELETAL: No CVAT bilat. UE: 2+ pulses, warm, well-perfused. No cyanosis. Cap refill <2 seconds. No peripheral edema. LE: Chronic venous stasis (bronzing of tissues from mid-calf down). Negative pain with movement of toes. Dopplerable DP & PT bilat. Feet cool bilat. No calf tenderness. No peripheral edema. Heels intact. Left foot/ 5th digit with eschar to lateral aspect (not infected) PSYCH: Cooperative. Last Vital Signs Temp Pulse Resp BP Pulse Ox 97.2 F L 62 22 131/59 99 10/17/17 09:19 10/17/17 09:53 10/17/17 09:19 10/17/17 09:19 10/17/17 09:53 CBC, BMP 10/17/17 05:30 10/17/17 05:30 INR, PTT INR 1.32 (0.83-1.09) H 10/17/17 05:30 Problem List - Problems (1) Chronic venous stasis Assessment/Plan: No evidence of ischemic rest pain. Patient and instructed to have patient f/u with Dr. Pichardo in [facility] as out-patient. No further vascualr work-up warranted Compression stockings bilat. Offload all pressure sensitive areas. Frequent repositioning. Cont care per medicine. Above plan discussed with Dr. Pichardo and agrees. On behalf of Dr. Pichardo, thank you for the opportunity to participate in your patient's care Code(s): I87.8 - OTHER SPECIFIED DISORDERS OF VEINS (2) CHF exacerbation Code(s): I50.9 - HEART FAILURE, UNSPECIFIED Qualifiers: Heart failure type: unspecified Qualified Code(s): I50.9 - Heart failure, unspecified (3) COPD (chronic obstructive pulmonary disease) Code(s): J44.9 - CHRONIC OBSTRUCTIVE PULMONARY DISEASE, UNSPECIFIED (4) Syncope Code(s): R55 - SYNCOPE AND COLLAPSE Qualifiers: Syncope type: unspecified Qualified Code(s): R55 - Syncope and collapse Visit type - Case Type Case Type: ED Admission - Emergency Emergency Visit: Yes ED Registration Date: 10/16/17 Care time: The patient presented to the Emergency Department on the above date and was hospitalized for further evaluation of their emergent condition. - New patient This patient is new to me today: Yes Date on this admission: 10/17/17
--- NOTE | 2017-10-17 15:45 | CONSULT ---
Consult Consult Specialty:: Nephrology Reason for Consultation:: CKD - History of Present Illness Chief Complaint: syncope History of Present Illness: Pt is a 77 year old male with pmhx of CKD, HTN, CHF, COPD and a-fib who presented to the ER after an episode of syncope. He did have LOC for a few seconds. He went to the doctor earlier in the day as he had increased edema. He was restarted on diuretics. He does have history of CKD and follows with Dr Dave. He is awake but appears fatigued. His family are at bedside and assisted with history. He does have chronic SOB and used home oxygen. 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 His basline is about 1.8 and he was found to be at about 2.3. 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 - History Source History Provided By: Patient, Family Member, Medical Record Limitations to Obtaining History: Clinical Condition - Past Medical History Cardio/Vascular: Yes: AFIB (?), CHF (Possibly diastolic), HTN, Murmur, Pulmonary Hypertension Pulmonary: Yes: COPD, O2 Dependent, Sleep Apnea Gastrointestinal: Yes: Constipation Hepatobiliary: Yes: Cirrhosis Renal/: Yes: Renal Failure, Renal Inusuff Psych: Yes: Depression Musculoskeletal: Yes: Chronic low back pain Rheumatology: Yes: Gout ENT: Yes: Other (Epistaxis) Endocrine: Yes: Osteopenia - Alcohol/Substance Use Hx Alcohol Use: No - Smoking History Smoking history: Former smoker Have you smoked in the past 12 months: No Aproximately how many cigarettes per day: 0 If you are a former smoker, when did you quit?: 5 YRS - Social History ADL: Family Assistance History of Recent Travel: No Home Medications - Allergies Allergies/Adverse Reactions: Allergies Allergy/AdvReac Type Severity Reaction Status Date / Time codeine phosphate Allergy Intermediate Verified 10/16/17 18:56 [From Tylenol-Codeine #3] morphine Allergy Intermediate Verified 10/16/17 18:56 - Home Medications Home Medications: Ambulatory Orders Cholecalciferol (Vitamin D3) [Vitamin D] 1,000 unit PO DAILY 06/22/12 Tiotropium [place] [Spiriva] 1 inh IH DAILY 06/22/12 Fluticasone/Vilanterol [Breo Ellipta 100-25 Mcg INH] 1 each IH DAILY 06/05/14 Sertraline HCl [Zoloft -] 50 mg PO DAILY 06/05/14 Sodium Chloride Nasal [place] [[place] Nasal [place] -] 2 spray NS BID spraybtl 06/11/14 Furosemide [Lasix -] 80 mg PO BID 09/21/16 Febuxostat [Uloric] 40 mg PO DAILY 10/16/17 Rivaroxaban [Xarelto -] 15 mg PO DAILY 10/16/17 Sertraline HCl [Zoloft -] 50 mg PO DAILY 10/16/17 Spironolactone [Aldactone] 25 mg PO BID 10/16/17 Metolazone 2.5 mg PO WEEKLY 10/17/17 Family Disease History - Family Disease History Family History: Denies Review of Systems - Review of Systems Constitutional: reports: Malaise, Weakness Eyes: reports: No Symptoms HENT: reports: No Symptoms Neck: reports: No Symptoms Cardiovascular: reports: Edema, Shortness of Breath Respiratory: reports: SOB, SOB on Exertion Genitourinary: reports: No Symptoms Musculoskeletal: reports: No Symptoms Integumentary: reports: No Symptoms Neurological: reports: Change in LOC, Syncope Endocrine: reports: No Symptoms Hematology/Lymphatic: reports: No Symptoms Psychiatric: reports: No Symptoms Physical Exam Vital Signs: Vital Signs Temperature 98.1 F 10/17/17 14:00 Pulse Rate 58 L 10/17/17 14:00 Respiratory Rate 22 10/17/17 09:19 Blood Pressure 130/51 10/17/17 14:00 O2 Sat by Pulse Oximetry (%) 98 10/17/17 15:00 Constitutional: Yes: Calm Eyes: Yes: Conjunctiva Clear HENT: Yes: Atraumatic Cardiovascular: Yes: S1, S2 Respiratory: Yes: On Venti-Mask, Rhonchi Gastrointestinal: Yes: Soft Renal/: Yes: WNL Musculoskeletal: Yes: WNL Edema: Yes Edema: LLE: 1+, RLE: 1+ Neurological: Yes: Oriented Psychiatric: Yes: Oriented Labs: CBC, BMP 10/17/17 05:30 10/17/17 05:30 Laboratory Tests 09/27/16 09/28/16 10/16/17 05:35 05:48 19:27 Creatinine 1.8 H 1.8 H 2.3 H 10/17/17 05:30 Creatinine 2.3 H Imaging - Results Chest X-ray: Report Reviewed Cat Scan: Report Reviewed Problem List - Problems (1) CKD (chronic kidney disease) Code(s): N18.9 - CHRONIC KIDNEY DISEASE, UNSPECIFIED (2) COPD (chronic obstructive pulmonary disease) Code(s): J44.9 - CHRONIC OBSTRUCTIVE PULMONARY DISEASE, UNSPECIFIED (3) Syncope Code(s): R55 - SYNCOPE AND COLLAPSE Qualifiers: Syncope type: unspecified Qualified Code(s): R55 - Syncope and collapse Assessment/Plan Current Medications Generic Name Dose Route Start Last Admin Trade Name Freq PRN Reason Stop Dose Admin Albuterol/Ipratropium 1 amp 10/17/17 14:44 Duoneb - NEB Q6H PRN SHORTNESS OF BREATH Albuterol/Ipratropium 1 amp 10/17/17 16:00 10/17/17 16:40 Duoneb - NEB 1 amp RQID TRICIA Administration Furosemide 80 mg 10/18/17 10:00 Lasix Injection - IVPUSH DAILY TRICIA Rivaroxaban 15 mg 10/17/17 18:00 10/17/17 18:06 Xarelto - PO Not Given DAILY@1800 TRICIA Fluticasone/Salmeterol 1 puff 10/17/17 22:00 Advair 100mcg/50mcg - IH BID TRICIA Sertraline HCl 50 mg 10/18/17 10:00 Zoloft - PO DAILY TRICIA Tiotropium [place] 2 puff 10/17/17 10:00 10/17/17 12:05 Spiriva Respimat IH 2 puff DAILY TRICIA Administration Impression 1. PEACE 2. CHF 3. volume overload 4. a-fib 5. cirrhosis 6. VISHAL 7. bilateral renal cysts 8. syncope 9. hypoxia Plan - check ua - check renal ultrasound - obtain outpt labs, peace vs progression of kidney disease - cont lasix - monitor volume status - monitor pulse ox - syncope workup in progress
[2017-10-17] MEDS: ALBUTEROL SO4 2.5/IPRATROPIUM 0.5 INH SOL 3 ML VIAL.NEB. NEB SCH ×2 (16:40→20:33)
[2017-10-17] MEDS ORDERED: FUROSEMIDE 20 MG TABLET (FP) PO ONE (16:41)
[2017-10-17 17:11] LABS: ARTERIAL BLD GAS O2 SATURATION 96.1 % (90-98.9); ARTERIAL BLOOD GAS PO2 84.2 mmHg (70-100); ARTERIAL BLOOD GAS pH 7.29 (7.35-7.45)
[2017-10-17 17:18] LABS: ARTERIAL BLOOD GAS PCO2 80.1 mmHg (35-45)
--- NOTE | 2017-10-17 17:26 | ECHO ---
Name: JAROD LICONA Exam:Adult Echocardiogram Study Date: 10/17/2017 01:15 PM Age: 77 yrs Reason For Study: CHF Height: 66 in Weight: 153 lb BSA: 1.8 m2 MMode/2D Measurements & Calculations IVSd: 0.79 cm Ao root diam: 2.4 cm LVIDd: 4.7 cm LA dimension: 4.8 cm LVIDs: 3.5 cm LVPWd: 0.80 cm EDV(Teich): 101.8 ml TAPSE: 1.8 cm ESV(Teich): 49.3 ml RV S Jamal: 8.3 cm/sec Doppler Measurements & Calculations MV E max jaaml: 69.6 cm/sec Ao V2 max: 171.6 cm/sec MV A max jamal: 59.2 cm/sec Ao max P.8 mmHg MV E/A: 1.2 AI P1/2t: 592.1 msec MV dec time: 0.12 sec AI max jamal: 392.6 cm/sec LV V1 max P.6 mmHg AI max P.7 mmHg LV V1 mean P.2 mmHg LV V1 max: 81.4 cm/sec AI dec slope: 194.2 cm/sec2 LV V1 mean: 50.9 cm/sec LV V1 VTI: 15.9 cm MR max jamal: 353.1 cm/sec TR max jamal: 383.0 cm/sec MR max P.5 mmHg TR max P.3 mmHg PI end-d jamal: 63.9 cm/sec Med Peak E' Jamal: 6.2 cm/sec Med E/e': 11.2 Lat Peak E' Jamal: 12.2 cm/sec Lat E/e': 5.7 Procedure A complete two-dimensional transthoracic echocardiogram was performed (2D, M-mode, Doppler and color flow Doppler). Study Quality: Fair. Left Ventricle The left ventricular size, thickness and function are normal. Flattened septum is consistent with RV volume overload. Right Ventricle The right ventricle is normal size. The right ventricular systolic function is moderately reduced. Atria The left atrial size is normal. Right atrial size is normal. Mitral Valve The mitral valve is normal. Tricuspid Valve The tricuspid valve is normal in structure and function. There is moderate tricuspid regurgitation. R ight ventricular systolic pressure is elevated at 90 mmhg. There is severe pulmonary hypertension. Assumin g the RA pressure is 20 mmHg. Aortic Valve There is mild aortic sclerosis.;. Pulmonic Valve The pulmonic valve is not well seen, but is grossly normal. Great Vessels The aortic root is normal size. Pericardium/Pleura There is no pericardial effusion. Interpretation Summary The left ventricular size, thickness and function are normal Flattened septum is consistent with RV volume overload. The right ventricular systolic function is moderately reduced. There is moderate tricuspid regurgitation. There is severe pulmonary hypertension. Luis Ramirez 10/17/2017 04:16 PM
[2017-10-17] MEDS: RIVAROXABAN 15 MG TABLET PO SCH (18:06)
--- NOTE | 2017-10-17 19:19 | PN ---
Physical Exam: SUBJECTIVE: Patient is a 77 year old male with history of hypertension, hyperlipidemia, congestive heart failure, Afib (on xarelto) COPD,cirrhosis, presents after an unwitnessed syncopal episode. Occurred in the bathroom and was heard by who found him unresponsive until EMS arrival. On day of arrival he had taken Metolazone and Spironolactone together for first time today as per his PCP Dr. Mccall. Today denies any acute complaints. Seen at bedside around 6Am comfortably sleeping with CPAP. Deneis headaches, dizziness, changes in vision, fevers, chills, shortness of breath, chest pain, palpitaitons, abdominal pain, nausea, vomiting, diarrhea. OBJECTIVE: Vital Signs Period Temp Pulse Resp BP Sys/Gama Pulse Ox Last 24 Hr 97.2 F-98.2 F 57-65 20-25 128-146/51-73 95-100 GENERAL: The patient is awake, alert, and fully oriented, in no acute distress. HEAD: Normocephalic atraumatic EYES: PERRL, extraocular movements intact, sclera anicteric. ENT: Oropharynx clear without exudates, moist mucous membranes. NECK: Supple without lymphadenopathy LUNGS: On CPAP, mechanical breath sounds auscultated. equal. unable to appreciate any wheezing or rhonchi. HEART: S1, S2 auscultated, holosystolic murmur auscultated at left sternal border, without rub or gallop. ABDOMEN: Soft, nontender, nondistended, normoactive bowel sounds X4 quadrants, no guarding, no rebound, no hepatosplenomegaly. EXTREMITIES: 2+ pulses, 1+ B/L lower extremity pitting edema. Bandaged wound noted at left 5th toe. B/L lower extremity discoloration with hemosiderin deposts. NEUROLOGICAL: No gross focal deficits. PSYCH: Appropriate mood and affect. Laboratory Results - last 24 hr 10/16/17 10/16/17 10/16/17 19:27 19:27 19:49 WBC 7.4 RBC 3.85 L Hgb 10.0 L Hct 32.1 L D MCV 83.4 MCH 26.0 D MCHC 31.2 L RDW 16.3 H Plt Count 131 L D MPV 8.4 D Absolute Neuts (auto) 6.5 Neutrophils % 88.0 H Lymphocytes % 3.7 L D Monocytes % 7.8 Eosinophils % 0.1 D Basophils % 0.4 Nucleated RBC % 0 Retic Count PT with INR INR Anticoagulation Therapy No Result Required. Puncture Site Right radial ABG pH 7.32 L ABG pCO2 at Pt Temp 73.4 H* D ABG pO2 at Pt Temp 158.0 H* D ABG HCO3 36.4 H ABG O2 Sat (Measured) 99.7 H* ABG O2 Content 13.8 L ABG Base Excess 8.7 H Gagan Test Positive Carboxyhemoglobin 3.1 H Methemoglobin 1.6 H O2 Delivery Device Nm breather Oxygen Flow Rate Yes Vent Mode No Result Required. Vent Rate No Result Required. Mechanical Rate No Result Required. Pressure Support Vent No Result Required. Sodium 143 Potassium 4.8 Chloride 98 Carbon Dioxide 38 H Anion Gap 7 L BUN 91 H Creatinine 2.3 H Creat Clearance w eGFR 27.86 Random Glucose 126 H D Calcium 8.9 Phosphorus Magnesium Ferritin Total Bilirubin 0.5 AST 26 ALT 13 Alkaline Phosphatase 71 Creatine Kinase 80 Troponin I 0.12 H B-Natriuretic Peptide 25236.17 H Total Protein 7.1 Albumin 3.6 10/17/17 10/17/17 10/17/17 05:30 05:30 05:30 WBC 11.1 H RBC 4.01 Hgb 10.2 L Hct 33.5 L MCV 83.6 MCH 25.5 L MCHC 30.5 L RDW 16.3 H Plt Count 124 L MPV 9.7 D Absolute Neuts (auto) Neutrophils % Lymphocytes % Monocytes % Eosinophils % Basophils % Nucleated RBC % Retic Count PT with INR 14.90 H INR 1.32 H Anticoagulation Therapy Puncture Site ABG pH ABG pCO2 at Pt Temp ABG pO2 at Pt Temp ABG HCO3 ABG O2 Sat (Measured) ABG O2 Content ABG Base Excess Gagan Test Carboxyhemoglobin Methemoglobin O2 Delivery Device Oxygen Flow Rate Vent Mode Vent Rate Mechanical Rate Pressure Support Vent Sodium 141 Potassium 4.9 Chloride 97 L Carbon Dioxide 38 H Anion Gap 6 L BUN 91 H Creatinine 2.3 H Creat Clearance w eGFR 27.86 Random Glucose 127 H Calcium 8.9 Phosphorus 5.6 H D Magnesium 3.0 H Ferritin 26.5 Total Bilirubin AST ALT Alkaline Phosphatase Creatine Kinase Troponin I 0.64 H* D B-Natriuretic Peptide Total Protein Albumin 10/17/17 10/17/17 10/17/17 05:30 05:30 05:30 WBC RBC Hgb Hct MCV MCH MCHC RDW Plt Count MPV Absolute Neuts (auto) Neutrophils % Lymphocytes % Monocytes % Eosinophils % Basophils % Nucleated RBC % Retic Count 1.78 H PT with INR INR Anticoagulation Therapy Puncture Site ABG pH ABG pCO2 at Pt Temp ABG pO2 at Pt Temp ABG HCO3 ABG O2 Sat (Measured) ABG O2 Content ABG Base Excess Gagan Test Carboxyhemoglobin Methemoglobin O2 Delivery Device Oxygen Flow Rate Vent Mode Vent Rate Mechanical Rate Pressure Support Vent Sodium Potassium Chloride Carbon Dioxide Anion Gap BUN Creatinine Creat Clearance w eGFR Random Glucose Calcium Phosphorus Magnesium Ferritin Cancelled Total Bilirubin AST ALT Alkaline Phosphatase Creatine Kinase Troponin I Cancelled B-Natriuretic Peptide Total Protein Albumin 10/17/17 10/17/17 16:00 16:53 WBC RBC Hgb Hct MCV MCH MCHC RDW Plt Count MPV Absolute Neuts (auto) Neutrophils % Lymphocytes % Monocytes % Eosinophils % Basophils % Nucleated RBC % Retic Count PT with INR INR Anticoagulation Therapy No Result Required. Puncture Site No Result Required. ABG pH 7.29 L ABG pCO2 at Pt Temp 80.1 H* ABG pO2 at Pt Temp 84.2 D ABG HCO3 37.3 H ABG O2 Sat (Measured) 96.1 ABG O2 Content 13.0 L ABG Base Excess 9.0 H Gagan Test No Result Required. Carboxyhemoglobin Methemoglobin O2 Delivery Device No Result Required. Oxygen Flow Rate No Result Required. Vent Mode No Result Required. Vent Rate No Result Required. Mechanical Rate No Result Required. Pressure Support Vent No Result Required. Sodium Potassium Chloride Carbon Dioxide Anion Gap BUN Creatinine Creat Clearance w eGFR Random Glucose Calcium Phosphorus Magnesium Ferritin Total Bilirubin AST ALT Alkaline Phosphatase Creatine Kinase Troponin I 0.72 H* B-Natriuretic Peptide Total Protein Albumin Active Medications Generic Name Dose Route Start Last Admin Trade Name Freq PRN Reason Stop Dose Admin Albuterol/Ipratropium 1 amp 10/17/17 14:44 Duoneb - NEB Q6H PRN SHORTNESS OF BREATH Albuterol/Ipratropium 1 amp 10/17/17 16:00 10/17/17 16:40 Duoneb - NEB 1 amp RQID TRICIA Administration Furosemide 80 mg 10/18/17 10:00 Lasix Injection - IVPUSH DAILY TRICIA Rivaroxaban 15 mg 10/17/17 18:00 10/17/17 18:06 Xarelto - PO Not Given DAILY@1800 [facility] Fluticasone/Salmeterol 1 puff 10/17/17 22:00 Advair 100mcg/50mcg - IH BID TRICIA Sertraline HCl 50 mg 10/18/17 10:00 Zoloft - PO DAILY [facility] Tiotropium [place] 2 puff 10/17/17 10:00 10/17/17 12:05 Spiriva Respimat IH 2 puff DAILY [facility] Administration ASSESSMENT/PLAN: Patient is a 77 year old male with history of hypertension, hyperlipidemia, congestive heart failure, Afib (on xarelto) COPD,cirrhosis, presents after an unwitnessed syncopal episode. Syncopal Episode -Considering vasovagal d/t combined use of spironolactone and metolazone vs. arrhythmia. -CXR showed chronic pleural fluid with atelectasis/ infiltrate at right lung base -EKG showed junctional rhythm with RBBB. No ischemic ST changes noted. -ECHO showed normal LV function and size, moderately diminished RV function, moderate tricuspid insufficiency, severe pulmonary hypertension. -CT head was negative for intracranial injury or cerebral fracture -Cervical CT showed no cervical vertebral fractures, and degenerative C4-C5 stenosis. -Carotid US showed moderate atherosclerosis left > right stenosis 60-79% with internal carotid involvement. -Arterial Duplex showed extensive atherosclerotic disease without occlusion or stenosis. -Cardiology consult appreciated: may be vasovagal as patient felt hot and short of breath before passing out. Diuresis with IV lasix, holding spironolactone for now, monitor daily weights intake and output. -F/U MRA neck -F/U vascular surgery consult- Dr. Pichardo -Telemetry monitoring to R/O arrhythmia Acute Hypoxemic Respiratory Distress -Patient received Lasix 60mg IV today. -Lasix 80mg IV tomorrow. -Duonebs 1amp Q6H PRn, Tiotropium 2 puffs IH daily, Advair 1 puff BID, -Pulmonary consult appreciated: Will maintain O2 saturation at greater than 90% . Continue BiPAP at night. -CXR showed chronic pleural fluid with atelectasis/ infiltrate at right lung base Acute on Chronic kidney disease -Cr 2.3 increased from 1.8 a year ago on previous admission. -Nephrology consult appreciated: will F/U UA, urine electrolytes, renal US, bladder US, and obtain outpatient information to obtain baseline kidney function. Afib -Continue Xarelto FEN -No IV fluids -Will follow CMP -Sodium controlled diet. Prophylaxis -On Xarelto Disposition: Continue monitoring on telemetry floor. Visit type - Emergency Visit Emergency Visit: No - New Patient This patient is new to me today: Yes Date on this admission: 10/17/17 - Critical Care Critical Care patient: No - Discharge Referral Referred to [facility] Med P.C.: No
[2017-10-17 23:03] LABS: ARTERIAL BLOOD GAS pH 7.15 (7.35-7.45)
[2017-10-17 23:04] LABS: ALLENS TEST POSITIVE; ARTERIAL BLD GAS O2 SATURATION 83.5 % (90-98.9); ARTERIAL BLOOD GAS BASE EXCESS 1.6 meq/l (-2-2); ARTERIAL BLOOD GAS PO2 62.8 mmHg (70-100)
[2017-10-17 23:05] LABS: ARTERIAL BLOOD GAS PCO2 98.4 mmHg (35-45)
[2017-10-17] MEDS ORDERED: PROPOFOL 1,000,000 MCG/100 ML VIAL ONE (23:23)
[2017-10-17] MEDS ORDERED: PROPOFOL 20 ML ONE (23:23)
[2017-10-17] MEDS ORDERED: PHENYLEPHRINE HCL 10 MG/1 ML SINGLE DOSE VIAL ONE (23:30)
[2017-10-17] MEDS ORDERED: FUROSEMIDE 40 MG/4 ML INJECTABLE VIAL IVPUSH ONE (23:30)
--- NOTE | 2017-10-17 23:37 | PN ---
Progress Note (short form) - Note Progress Note: Called to intubate this 77y/o male in respiratory distress. After sedating with 30mg of propofol in divided doses, patient was intubated under direct laryngoscopy using a #8.0 endotracheal tube. Endotracheal tube position confirmed and secured. Continue current critical care management.
[2017-10-18] MEDS ORDERED: SODIUM CHLORIDE 250 ML IV STA (00:01)
[2017-10-18 00:33] LABS: ALLENS TEST POSITIVE; ARTERIAL BLD GAS O2 SATURATION 97.8 % (90-98.9); ARTERIAL BLOOD GAS BASE EXCESS 5.6 meq/l (-2-2)
[2017-10-18 00:35] LABS: ARTERIAL BLOOD GAS PCO2 79.7 mmHg (35-45); ARTERIAL BLOOD GAS pH 7.26 (7.35-7.45)
[2017-10-18] MEDS: PHENYLEPHRINE HCL 20,000 MCG in SODIUM CHLORIDE 248 ML IVPB SCH (01:00)
[2017-10-18] MEDS: PROPOFOL 1,000,000 MCG/100 ML VIAL IVPB SCH (01:02)
[2017-10-18] MEDS: FLUTICASONE/SALMETEROL 100 MCG/50 MCG DISKUS IH SCH ×3 (01:03→21:34)
--- NOTE | 2017-10-18 01:27 | CONSULT ---
Consultation: CONSULT REQUEST: We have been asked to medically evaluate this patient for critical care. HISTORY OF PRESENT ILLNESS: 77 y/o M w/PMH of HTN, HLD, CHF, COPD (on home O2), Afib (on xarelto), cirrhosis , gout initially presented to ER with syncope. Pt was being investigated for cause of syncope and being treated for acute on chronic diastolic CHF exacerbation. Pt was coming up from [facility]S and was noted to be unresponsive and rapid response was called. Pt was brought to his room and was noted to be pulseless and code 99 was called and ROSC was achieved in approximately 1 min w / CPR before initial rhythm could be determined. Pt was subsequently brought to the ICU and intubated in the ICU. Pt was able to follow basic commands while intubated in ICU. Propofol was initiated and pt became hypotensive into the 60s and 250 cc bolus NS was given and phenylepherine was started with good effect and phenylephrine soon after was titrated off with MAP staying at approximately 70. Labs ordered (CBC, CMP, Mg, Phos, Lactic acid, Trops). ABG s/p intubation ordered. Of note ABGs leading up to today showed increasing pCO2 (with last pCO2 at 98.4). Initial vent settings: 100% FiO2/ 14 RR/ PEEP 0/ TV 450 and ABG showing: pH 7.26, pCO2 79.7, pO2 113. Vent settings changed to FiO2 50%/ 16 RR/ PEEP 5/ TV 450. REVIEW OF SYSTEMS: Unable to perform. Pt currently intubated and sedated. PHYSICAL EXAMINATION Vital Signs Temperature 97.6 F 10/17/17 21:00 Pulse Rate 66 10/18/17 00:00 Respiratory Rate 14 10/18/17 00:00 Blood Pressure 123/55 10/18/17 00:00 O2 Sat by Pulse Oximetry (%) 100 10/17/17 23:37 GENERAL: Sedated and intubated. Was following basic commands while intubated before sedation. HEAD: Normal with no signs of trauma. EYES: Pupils equal, round and reactive to light but miotic. EARS, NOSE, THROAT: Ears normal, nares patent. OG tube in place. Intubated. LUNGS:Decreased breath sounds at R base compared to L. HEART: Regular rate and rhythm, normal S1 and S2. Systolic murmur best heard at L sternal border tricuspid region. ABDOMEN: Soft, nontender, not distended, normoactive bowel sounds. LOWER EXTREMITIES: warm, well-perfused. No peripheral edema. NEUROLOGICAL: Sedated. PSYCHIATRIC: Sedated. SKIN: Warm, dry Laboratory Results - last 24 hr 10/17/17 10/17/17 10/17/17 05:30 05:30 05:30 WBC 11.1 H RBC 4.01 Hgb 10.2 L Hct 33.5 L MCV 83.6 MCH 25.5 L MCHC 30.5 L RDW 16.3 H Plt Count 124 L MPV 9.7 D Retic Count PT with INR 14.90 H INR 1.32 H Anticoagulation Therapy Puncture Site ABG pH ABG pCO2 at Pt Temp ABG pO2 at Pt Temp ABG HCO3 ABG O2 Sat (Measured) ABG O2 Content ABG Base Excess Gagan Test O2 Delivery Device Oxygen Flow Rate Vent Mode Vent Rate Mechanical Rate PEEP Pressure Support Vent Sodium 141 Potassium 4.9 Chloride 97 L Carbon Dioxide 38 H Anion Gap 6 L BUN 91 H Creatinine 2.3 H Creat Clearance w eGFR 27.86 Random Glucose 127 H Calcium 8.9 Phosphorus 5.6 H D Magnesium 3.0 H Ferritin 26.5 Troponin I 0.64 H* D 10/17/17 10/17/17 10/17/17 05:30 05:30 05:30 WBC RBC Hgb Hct MCV MCH MCHC RDW Plt Count MPV Retic Count 1.78 H PT with INR INR Anticoagulation Therapy Puncture Site ABG pH ABG pCO2 at Pt Temp ABG pO2 at Pt Temp ABG HCO3 ABG O2 Sat (Measured) ABG O2 Content ABG Base Excess Gagan Test O2 Delivery Device Oxygen Flow Rate Vent Mode Vent Rate Mechanical Rate PEEP Pressure Support Vent Sodium Potassium Chloride Carbon Dioxide Anion Gap BUN Creatinine Creat Clearance w eGFR Random Glucose Calcium Phosphorus Magnesium Ferritin Cancelled Troponin I Cancelled 10/17/17 10/17/17 10/17/17 16:00 16:53 20:30 WBC RBC Hgb Hct MCV MCH MCHC RDW Plt Count MPV Retic Count PT with INR INR Anticoagulation Therapy No Result Required. Puncture Site No Result Required. ABG pH 7.29 L ABG pCO2 at Pt Temp 80.1 H* ABG pO2 at Pt Temp 84.2 D ABG HCO3 37.3 H ABG O2 Sat (Measured) 96.1 ABG O2 Content 13.0 L ABG Base Excess 9.0 H Gagan Test No Result Required. O2 Delivery Device No Result Required. Oxygen Flow Rate No Result Required. Vent Mode No Result Required. Vent Rate No Result Required. Mechanical Rate No Result Required. PEEP Pressure Support Vent No Result Required. Sodium Potassium Chloride Carbon Dioxide Anion Gap BUN Creatinine Creat Clearance w eGFR Random Glucose Calcium Phosphorus Magnesium Ferritin Troponin I 0.72 H* 0.63 H* 10/17/17 22:49 WBC RBC Hgb Hct MCV MCH MCHC RDW Plt Count MPV Retic Count PT with INR INR Anticoagulation Therapy No Result Required. Puncture Site Right radial ABG pH 7.15 L* ABG pCO2 at Pt Temp 98.4 H* D ABG pO2 at Pt Temp 62.8 L D ABG HCO3 32.7 H ABG O2 Sat (Measured) 83.5 L ABG O2 Content 12.2 L ABG Base Excess 1.6 Gagan Test Positive O2 Delivery Device Ambu bag Oxygen Flow Rate 100% Vent Mode No Result Required. Vent Rate No Result Required. Mechanical Rate No Result Required. PEEP 0.0 Pressure Support Vent No Result Required. Sodium Potassium Chloride Carbon Dioxide Anion Gap BUN Creatinine Creat Clearance w eGFR Random Glucose Calcium Phosphorus Magnesium Ferritin Troponin I Active Medications Generic Name Dose Route Start Last Admin Trade Name Freq PRN Reason Stop Dose Admin Albuterol/Ipratropium 1 amp 10/17/17 14:44 Duoneb - NEB Q6H PRN SHORTNESS OF BREATH Albuterol/Ipratropium 1 amp 10/17/17 16:00 10/17/17 20:33 Duoneb - NEB 1 amp RQID [facility] Administration Furosemide 80 mg 10/18/17 10:00 Lasix Injection - IVPUSH DAILY [facility] Phenylephrine HCl 20,000 mcg/ 250 mls @ 75 mls/hr 10/18/17 00:15 Sodium Chloride IVPB ASDIR [facility] Protocol 100 MCG/MIN Propofol 1,000,000 mcg in 100 mls @ 2.082 mls/hr 10/18/17 00:15 Diprivan - IVPB TITR [facility] Protocol 5 MCG/KG/MIN Sodium Chloride 250 mls @ 250 mls/hr 10/18/17 00:01 Normal Saline - IV 10/18/17 01:00 ASDIR STA Rivaroxaban 15 mg 10/17/17 18:00 10/17/17 18:06 Xarelto - PO Not Given DAILY@1800 [facility] Fluticasone/Salmeterol 1 puff 10/17/17 22:00 Advair 100mcg/50mcg - IH BID [facility] Sertraline HCl 50 mg 10/18/17 10:00 Zoloft - PO DAILY [facility] Tiotropium [place] 2 puff 10/17/17 10:00 10/17/17 12:05 Spiriva Respimat IH 2 puff DAILY [facility] Administration ASSESSMENT/PLAN: 77 y/o M w/PMH of HTN, HLD, CHF, COPD (on home O2), Afib (on xarelto), cirrhosis , gout initially presented to ER with syncope and was being treated for CHF exacerbation. Admitted to ICU after code 99 called and ROSC achieved in approximately 1 min and pt subsequently intubated. -s/p Cardiac arrest -possibly due to hypoxia/hypercapenia vs NM -will not initiate hypothermia protocol at this time as pt was following basic commands and ROSC achieved in 1 min -f/u labs - CBC, CMP, Mg, Phos, Lactic acid, Trops -sedated with propofol -daily sedation vacations to assess mental status -Acute on chronic hypercapneic respiratory failure -sedated with propofol -intubated 10/17 (at approx 11:30 pm) -likely secondary to CHF exacerbation and COPD -Vent currently at FiO2 50%, PEEP 5, RR 16, TV 450. (ideal/predicted body weight is approx 64 kg and is currently at TV of 7 mL/kg) -wean as tolerated. Keep O2 sat >90% -Syncope -vasovagal vs orthostatics (from diuretic use) vs arrhythmia -ECHO 10/[address] head neg (10/16), Carotid US - L>R stenosis at 60 -79% with internal carotid involvement -vascular surgery consulted -cardio consulted -can do neck MRA once off vent -Acute on chronic diastolic CHF exacerbation -c/w lasix iv 80 mg qd -f/u cxr in AM -monitor I/Os -to keep at net negative -COPD -c/w spiriva, advair, duonebs qid standing, duonebs q6h prn -Acute on chronic kidney disease -f/u renal u/s -f/u UA, calculate fractional excretion of urea for better picture of cause of PEACE (as pt is on lasix), UCx -nephrology consulted -Afib -c/w xarelto (pt has OG tube, med can be crushed) -DVT ppx -on xarelto -FEN -no fluids at this time -monitor lytes -NPO currently Dispo: We will continue to follow the patient. Thank you for this consultative opportunity. Visit type - Emergency Visit Emergency Visit: Yes ED Registration Date: 10/17/17 Care time: The patient presented to the Emergency Department on the above date and was hospitalized for further evaluation of their emergent condition. - New Patient This patient is new to me today: Yes Date on this admission: 10/18/17 - Critical Care Critical Care patient: Yes Total Critical Care Time (in minutes): 75 Critical Care Statement: The care of this patient involved high complexity decision making to prevent further life threatening deterioration of the patient 's condition and/or to evaluate & treat vital organ system(s) failure or risk of failure.
[2017-10-18 01:42] LABS: BASO % 0.3 % (0-2.0); HEMATOCRIT 31.7 % (35.4-49); HEMOGLOBIN 9.6 GM/dL (11.7-16.9); LYMPH % 1.2 % (8-40); MCH 25.5 pg (25.7-33.7); MCHC 30.2 g/dl (32.0-35.9); MEAN CELL VOLUME 84.3 fl (80-96); MEAN PLT VOLUME 9.9 fl (7.5-11.1); MONO % 8.5 % (3.8-10.2); PLATELET COUNT 149 K/MM3 (134-434); RBC 3.76 M/mm3 (4.00-5.60); RDW 16.4 % (11.9-15.9)
[2017-10-18 01:46] LABS: URINE APPEARANCE SLCLOUDY; URINE BILIRUBIN NEGATIVE (<2.0 mg/dL); URINE COLOR LTYELLOW; URINE GLUCOSE (UA) NEGATIVE (NEGATIVE); URINE KETONE NEGATIVE (NEGATIVE); URINE LEUK ESTERASE NEGATIVE (NEGATIVE); URINE NITRITE NEGATIVE (NEGATIVE); URINE PROTEIN NEGATIVE (NEGATIVE); URINE UROBILINOGEN NEGATIVE mg/dL (0.2-1.0)
[2017-10-18 01:48] LABS: EPI CELLS RARE /HPF (FEW); URINE HYALINE CAST 4 /lpf; URINE MUCUS RARE
[2017-10-18 01:49] LABS: URINE SPERM RARE
--- NOTE | 2017-10-18 01:51 | RAPID ---
Physical Examination Vital Signs: Vital Signs Temperature 98.2 F 10/18/17 00:22 Pulse Rate 70 10/18/17 01:00 Respiratory Rate 20 10/18/17 01:06 Blood Pressure 114/59 10/18/17 01:00 O2 Sat by Pulse Oximetry (%) 100 10/17/17 23:37 Constitutional: Yes: Moderate Distress Cardiovascular: Yes: Tachycardia Respiratory: Yes: Accessory Muscle Use, On Venti-Mask, Tachypnea Labs: CBC, BMP 10/18/17 01:25 Rapid Response - Rapid Response Assessment: At approx. 10:40 PM, Code 99 was called. On arrival, patient was apneic and being ventilated via BVM. No pulses could be felt and compressions were in progress. ACLS protocol was followed. ROSC was achieved after 1 minute prior to administration of medications. Patient noted to be desaturating to mid 70's on 100% NRB. Patient transferred to ICU and intubated. Please see code sheet for full details. Critical Care Total Critical Care Time (in minutes): 60 Critical Care Statement: The care of this patient involved high complexity decision making to prevent further life threatening deterioration of the patient 's condition and/or to evaluate & treat vital organ system(s) failure or risk of failure.
[2017-10-18 02:05] LABS: MAGNESIUM 2.8 mg/dL (1.8-2.4); PHOSPHOROUS 6.9 mg/dL (2.5-4.9)
[2017-10-18 02:07] LABS: ALBUMIN 3.3 g/dl (3.4-5.0); ALK PHOS 68 U/L (45-117); ANION GAP 9 MMOL/L (8-16); BILIRUBIN,TOTAL 0.9 mg/dL (0.2-1.0); BLOOD UREA NITROGEN 96 mg/dL (7-18); CALCIUM 8.7 mg/dL (8.5-10.1); CHLORIDE 98 mmol/L (98-107); CO2 36 mmol/L (21-32); CREATININE 2.5 mg/dL (0.7-1.3); GLUCOSE,RANDOM 146 mg/dL (74-106); SGOT/AST 35 U/L (15-37); SGPT/ALT 15 U/L (12-78); SODIUM 143 mmol/L (136-145); TOT PROT 6.6 g/dl (6.4-8.2)
[2017-10-18 06:17] LABS: BASO % 0.3 % (0-2.0); HEMATOCRIT 30.3 % (35.4-49); HEMOGLOBIN 9.1 GM/dL (11.7-16.9); LYMPH % 1.5 % (8-40); MCH 25.4 pg (25.7-33.7); MCHC 30.2 g/dl (32.0-35.9); MEAN PLT VOLUME 9.2 fl (7.5-11.1); MONO % 8.5 % (3.8-10.2); NEUT % 89.7 % (42.8-82.8); PLATELET COUNT 107 K/MM3 (134-434); RBC 3.61 M/mm3 (4.00-5.60); RDW 16.5 % (11.9-15.9)
[2017-10-18 06:21] LABS: INR 1.28 (0.83-1.09); PROTHROMBIN TIME (PATIENT) 14.5 SEC (9.7-13.0)
[2017-10-18 06:24] LABS: ACTIVATED PTT 29.1 SECONDS (25.2-36.5)
[2017-10-18 06:49] LABS: ALBUMIN 3.2 g/dl (3.4-5.0); ANION GAP 8 MMOL/L (8-16); BLOOD UREA NITROGEN 97 mg/dL (7-18); CALCIUM 8.8 mg/dL (8.5-10.1); CHLORIDE 98 mmol/L (98-107); CO2 37 mmol/L (21-32); GLUCOSE,RANDOM 116 mg/dL (74-106); MAGNESIUM 2.9 mg/dL (1.8-2.4); POTASSIUM 5.1 mmol/L (3.5-5.1); SODIUM 143 mmol/L (136-145)
[2017-10-18 07:00] LABS: ALK PHOS 62 U/L (45-117); BILIRUBIN,TOTAL 0.7 mg/dL (0.2-1.0); CREATININE 2.4 mg/dL (0.7-1.3); PHOSPHOROUS 5.1 mg/dL (2.5-4.9); SGOT/AST 32 U/L (15-37); SGPT/ALT 13 U/L (12-78); TOT PROT 6.2 g/dl (6.4-8.2)
[2017-10-18 08:08] LABS: SERUM IRON SATURATION 6 % (15-55); TOTAL IRON BINDING CAPACITY 423 ug/dL (250-450); UIBC 396 ug/dL (111-343)
[2017-10-18] MEDS: ALBUTEROL SO4 2.5/IPRATROPIUM 0.5 INH SOL 3 ML VIAL.NEB. NEB SCH ×4 (08:15→20:18)
[2017-10-18 08:49] LABS: ARTERIAL BLD GAS O2 SATURATION 95.5 % (90-98.9); ARTERIAL BLOOD GAS BASE EXCESS 9.9 meq/l (-2-2); ARTERIAL BLOOD GAS PCO2 58.5 mmHg (35-45); ARTERIAL BLOOD GAS PO2 74.7 mmHg (70-100)
[2017-10-18 08:51] LABS: ALLENS TEST POSITIVE
--- NOTE | 2017-10-18 09:12 | PN ---
Progress Note (short form) - Note Progress Note: cc: CHF exacerbation, syncope s: had respiratory distress after ultrasound, tachycardia, patient was intubated , CPR for two min with ROSC, following commands. pt intubated, alert off sedation, responds to commands Current Medications Albuterol/Ipratropium (Duoneb -) 1 amp NEB Q6H PRN PRN Reason: SHORTNESS OF BREATH Albuterol/Ipratropium (Duoneb -) 1 amp NEB RQID [facility] Last Admin: 10/17/17 20:33 Dose: 1 amp Furosemide (Lasix Injection -) 80 mg IVPUSH DAILY [facility] Phenylephrine HCl 20,000 mcg/ (Sodium Chloride) 250 mls @ 75 mls/hr IVPB TITR [facility]; Protocol Last Admin: 10/18/17 01:00 Dose: 100 mcg/min, 75 mls/hr Propofol (Diprivan -) 1,000,000 mcg in 100 mls @ 2.082 mls/hr IVPB TITR [facility]; Protocol Last Admin: 10/18/17 01:02 Dose: 5 mcg/kg/min, 2.082 mls/hr Rivaroxaban (Xarelto -) 15 mg PO DAILY@1800 [facility] Last Admin: 10/17/17 18:06 Dose: Not Given Fluticasone/Salmeterol (Advair 100mcg/50mcg -) 1 puff IH BID [facility] Last Admin: 10/18/17 01:03 Dose: Not Given Sertraline HCl (Zoloft -) 50 mg PO DAILY [facility] Tiotropium [place] (Spiriva Respimat) 2 puff IH DAILY [facility] Last Admin: 10/17/17 12:05 Dose: 2 puff Vital Signs Period Temp Pulse Resp BP Sys/Gama Pulse Ox Last 24 Hr 97.2 F-98.6 F 52-71 14-27 106-145/44-96 90-100 Constitutional: Yes:intubated, sedated Eyes: Yes: Conjunctiva Clear, EOM Intact HENT: Yes: Atraumatic, Normocephalic Neck: Yes: Supple, Trachea Midline Respiratory: Yes: Regular, Rales (bilateral bases) Gastrointestinal: Yes: Normal Bowel Sounds, Soft Cardiovascular: Yes: Regular Rate and Rhythm Heart Sounds: Yes: S1, S2 Edema: No Peripheral Pulses: 2+ Left Doralis Pedis, 2+ Right Dorsalis Pedis Neurological: Yes: Alert, Oriented Psychiatric: Yes: Alert, Oriented Assessment/Plan echo 09/2016 shows preserved LV fxn with significant RV dilatation and dysfunction, mod TR with RVSP>60 mmHg c/w cor pulmonale. echo 09/2017 nl LV size/function, RV function moderately reduced, moderate TR, severe pulm HTN carotid u/s 09/2017 mod atherosclerotic dz L>R 60-79% internal carotids, rec CTA or MRA neck for further eval Tele junctional rhythm, RBBB 77M h/o home-O2 dependent COPD, VISHAL, HTN, HLD, afib on Xarelto, cirrhosis p/w syncope, CHF exacerbation Acute respiratory distress - likely in setting of COPD, CHF exacerbation - intubated, on vent, manage per ICU - treatment of CHF exac as below syncope - may have been in setting of feeling short of breath, vasovagal, receiving spironolactone/metolazone - monitoring on tele, managing CHF exac/ COPD as below - trop trend c/w demand - echo stable compared to prior - carotid ultrasound with bilateral stenosis, vascular consulted (+) troponin - 0.12->0.64->0.72 - trend consistent with demand, less likely ACS acute on chronic diastolic HF - per patient's he has gained weight, she thinks about 10 lbs, had edema which has improved since yesterday, breathing improved with IV lasix - diuresis with IV lasix, increase to 80 mg IV BID - holding spironolactone, metolazone - monitor daily standing weight, I/O - echo stable, nl LV function with cor pulmonale, severe pulm HTN COPD - receiving nebs, now intubated - appreciate pulm recs, Dr. Baker HTN - controlled afib - continue xarelto PEACE on CKD - 1.8 a year ago, 2.4 now - diuresis as above - nephrology consulted
--- NOTE | 2017-10-18 09:30 | PN ---
Teaching Attending Note Name of Resident: Blaze Pierce ATTENDING PHYSICIAN STATEMENT I saw and evaluated the patient. I reviewed the resident's note and discussed the case with the resident. I agree with the resident's findings and plan as documented. SUBJECTIVE: pATIENT IS INTUBATED IN icu, ONE pHENYLEPHERINE CONTINUE OBJECTIVE: Vital Signs Temperature 98.6 F 10/18/17 06:00 Pulse Rate 52 L 10/18/17 08:00 Respiratory Rate 27 H 10/18/17 08:00 Blood Pressure 117/44 10/18/17 08:00 O2 Sat by Pulse Oximetry (%) 100 10/17/17 23:37 CBCD WBC 13.0 K/mm3 (4.0-10.0) H 10/18/17 05:30 RBC 3.61 M/mm3 (4.00-5.60) L 10/18/17 05:30 Hgb 9.1 GM/dL (11.7-16.9) L 10/18/17 05:30 Hct 30.3 % (35.4-49) L 10/18/17 05:30 MCV 84.0 fl (80-96) 10/18/17 05:30 MCHC 30.2 g/dl (32.0-35.9) L 10/18/17 05:30 RDW 16.5 % (11.9-15.9) H 10/18/17 05:30 Plt Count 107 K/MM3 (134-434) L D 10/18/17 05:30 MPV 9.2 fl (7.5-11.1) 10/18/17 05:30 CMP Sodium 143 mmol/L (136-145) 10/18/17 05:30 Potassium 5.1 mmol/L (3.5-5.1) 10/18/17 05:30 Chloride 98 mmol/L (98-107) 10/18/17 05:30 Carbon Dioxide 37 mmol/L (21-32) H 10/18/17 05:30 Anion Gap 8 MMOL/L (8-16) 10/18/17 05:30 BUN 97 mg/dL (7-18) H 10/18/17 05:30 Creatinine 2.4 mg/dL (0.7-1.3) H 10/18/17 05:30 Creat Clearance w eGFR 26.52 (>60) 10/18/17 05:30 Random Glucose 116 mg/dL (74-106) H D 10/18/17 05:30 Calcium 8.8 mg/dL (8.5-10.1) 10/18/17 05:30 Total Bilirubin 0.7 mg/dL (0.2-1.0) 10/18/17 05:30 AST 32 U/L (15-37) 10/18/17 05:30 ALT 13 U/L (12-78) 10/18/17 05:30 Alkaline Phosphatase 62 U/L (45-117) 10/18/17 05:30 Total Protein 6.2 g/dl (6.4-8.2) L 10/18/17 05:30 Albumin 3.2 g/dl (3.4-5.0) L 10/18/17 05:30 CARDIAC ENZYMES Creatine Kinase 146 IU/L (39-308) 10/18/17 05:30 Troponin I 1.45 ng/ml (0.00-0.05) H* D 10/18/17 05:30 Current Medications Generic Name Dose Route Start Last Admin Trade Name Freq PRN Reason Stop Dose Admin Albuterol/Ipratropium 1 amp 10/17/17 14:44 Duoneb - NEB Q6H PRN SHORTNESS OF BREATH Albuterol/Ipratropium 1 amp 10/17/17 16:00 10/17/17 20:33 Duoneb - NEB 1 amp RQID [facility] Administration Furosemide 80 mg 10/18/17 10:00 Lasix Injection - IVPUSH DAILY [facility] Phenylephrine HCl 20,000 mcg/ 250 mls @ 75 mls/hr 10/18/17 00:15 10/18/17 01: 00 Sodium Chloride IVPB 100 mcg/min TITR [facility] 75 mls/hr Administration Protocol 100 MCG/MIN Propofol 1,000,000 mcg in 100 mls @ 2.082 mls/hr 10/18/17 00:15 10/18/17 01: 02 Diprivan - IVPB 5 mcg/kg/min TITR [facility] 2.082 mls/hr Administration Protocol 5 MCG/KG/MIN Rivaroxaban 15 mg 10/17/17 18:00 10/17/17 18:06 Xarelto - PO Not Given DAILY@1800 [facility] Fluticasone/Salmeterol 1 puff 08/28/18 22:00 10/18/17 01:03 Advair 100mcg/50mcg - IH Not Given BID [facility] Sertraline HCl 50 mg 10/18/17 10:00 Zoloft - PO DAILY [facility] Tiotropium [place] 2 puff 10/17/17 10:00 10/17/17 12:05 Spiriva Respimat IH 2 puff DAILY [facility] Administration Home Medications Medication Instructions Recorded Cholecalciferol (Vitamin D3) 1,000 unit PO DAILY 06/22/12 [Vitamin D] Tiotropium [place] [Spiriva] 1 inh IH DAILY 06/22/12 Fluticasone/Vilanterol [Breo 1 each IH DAILY 06/05/14 Ellipta 100-25 Mcg INH] Sertraline HCl [Zoloft -] 50 mg PO DAILY 06/05/14 Sodium Chloride Nasal [place] [[place] 2 spray NS BID spraybtl 06/11/14 [place] Nasal [place] -] Furosemide [Lasix -] 80 mg PO BID 09/21/16 Febuxostat [Uloric] 40 mg PO DAILY 10/16/17 Rivaroxaban [Xarelto -] 15 mg PO DAILY 10/16/17 Sertraline HCl [Zoloft -] 50 mg PO DAILY 10/16/17 Spironolactone [Aldactone] 25 mg PO BID 10/16/17 Metolazone 2.5 mg PO WEEKLY 10/17/17 Intake & Output 10/15/17 10/16/17 10/17/17 10/18/17 23:59 23:59 23:59 23:59 Intake Total 785 340 Output Total 850 100 Balance -65 240 Weight 69.4 kg 66.2 kg PE:intubated sedated. in ICu rest of PE per resident's note EKG reviewed .RBBB with no acute ischemic changes ASSESSMENT AND PLAN: Patient is a 77 y/o man with PMHx of CHF,liver cirrhosis, gout , COPD, VISHAL, cor pulmonale, a fib, HTN, HLP, and CKD who presented to ED after having a syncopal episode. # Acute on chronic hypoxic hypercapnic respiratory failure with hx of COPD: patient is intubated sedated in ICU further care per ICU team. Continue nebs treatment. # H/O COPD: cont Nebs and inhalers : continue nebulizer treatments. # acute diastolic CHF exacerbation on IV Lasix continue, follow Echo, # Syncope: hypoxia, vs vasovagal, vs arrhythmias ; carotid US # PEACE on CKD: likely due to heart failure ,continue to monitor renal function # A fib: on xarelto at home. monitor renal function, if worsens will adjust the dose accordingly DVT Px: Xarelto
[2017-10-18] MEDS ORDERED: FUROSEMIDE 40 MG/4 ML INJECTABLE VIAL IVPUSH SCH (10:00)
[2017-10-18] MEDS: SERTRALINE HCL 50 MG TABLET (FP) PO SCH (10:40)
--- NOTE | 2017-10-18 10:46 | EKG ---
Test Reason : Blood Pressure : / mmHG Vent. Rate : 075 BPM Atrial Rate : 075 BPM P-R Int : 366 ms QRS Dur : 112 ms QT Int : 342 ms P-R-T Axes : 000 098 -29 degrees QTc Int : 381 ms SINUS RHYTHM WITH 1ST DEGREE A-V BLOCK RIGHTWARD AXIS ABNORMAL ECG WHEN COMPARED WITH ECG OF 16-OCT-2017 19:00, SINUS RHYTHM HAS REPLACED JUNCTIONAL RHYTHM RIGHT BUNDLE BRANCH BLOCK IS NO LONGER PRESENT Confirmed by SANDRINE KOCH, CAILIN ([id number]) on 10/18/2017 10:46:29 AM Referred By: Confirmed By:CAILIN DELUCA MD
--- NOTE | 2017-10-18 10:46 | EKG ---
Test Reason : Blood Pressure : / mmHG Vent. Rate : 056 BPM Atrial Rate : 079 BPM P-R Int : 000 ms QRS Dur : 112 ms QT Int : 454 ms P-R-T Axes : 000 067 -41 degrees QTc Int : 438 ms NORMAL SINUS RHYTHM WITH 1ST DEGREE A-V BLOCK RIGHT BUNDLE BRANCH BLOCK ABNORMAL ECG Confirmed by CAILIN DELUCA MD ([id number]) on 10/18/2017 10:46:00 AM Referred By: Confirmed By:CAILIN DELUCA MD
[2017-10-18] MEDS: TIOTROPIUM BROMIDE 2.5 MCG (SPIRIVA) RESPIMAT INHALER IH SCH (10:48)
--- NOTE | 2017-10-18 12:26 | PN ---
Teaching Attending Note Name of Resident: Janet Sparks ATTENDING PHYSICIAN STATEMENT I saw and evaluated the patient. I reviewed the resident's note and discussed the case with the resident. I agree with the resident's findings and plan as documented. SUBJECTIVE: Pt seen and examined in the ICU. Remains intubated, sedated. Off phenylephrine gtt. OBJECTIVE: Vital Signs Period Temp Pulse Resp BP Sys/Gama Pulse Ox Last 24 Hr 97.6 F-98.6 F 52-71 14-27 106-145/44-96 90-100 Intake & Output 10/15/17 10/16/17 10/17/17 10/18/17 23:59 23:59 23:59 23:59 Intake Total 785 340 Output Total 850 100 Balance -65 240 Weight 69.4 kg 66.2 kg Gen: intubated, sedated Heart: RRR Lung: decreased breath sounds at the bases Abd: soft, nontender Ext: no edema CBC, BMP 10/18/17 05:30 10/18/17 05:30 Active Medications Albuterol/Ipratropium (Duoneb -) 1 amp NEB Q6H PRN PRN Reason: SHORTNESS OF BREATH Albuterol/Ipratropium (Duoneb -) 1 amp NEB RQID [facility] Last Admin: 10/18/17 12:03 Dose: 1 amp Furosemide (Lasix Injection -) 80 mg IVPB BID@0600,1400 [facility] Phenylephrine HCl 20,000 mcg/ (Sodium Chloride) 250 mls @ 75 mls/hr IVPB TITR [facility]; Protocol Last Admin: 10/18/17 01:00 Dose: 100 mcg/min, 75 mls/hr Propofol (Diprivan -) 1,000,000 mcg in 100 mls @ 2.082 mls/hr IVPB TITR [facility]; Protocol Last Titration: 10/18/17 10:00 Dose: 0 mcg/kg/min, 0 mls/hr Rivaroxaban (Xarelto -) 15 mg PO DAILY@1800 [facility] Last Admin: 10/17/17 18:06 Dose: Not Given Fluticasone/Salmeterol (Advair 100mcg/50mcg -) 1 puff IH BID [facility] Last Admin: 10/18/17 10:47 Dose: Not Given Sertraline HCl (Zoloft -) 50 mg PO DAILY [facility] Last Admin: 10/18/17 10:40 Dose: 50 mg Tiotropium [place] (Spiriva Respimat) 2 puff IH DAILY [facility] Last Admin: 10/18/17 10:48 Dose: Not Given ASSESSMENT AND PLAN: s/p Cardiopulmonary Arrest Acute on Chronic Hypoxic and Hypercapneic Respiratory Failure Acute on Chronic Diastolic Heart Failure Acute on Chronic Renal Failure Severe Pulmonary HTN Atrial Fibrillation Carotid Stenosis Syncope HTN Hyperlipidemia - continue lasix - monitor urine output, creatinine - inhaled bronchodilators - taper FiO2 to keep SpO2>90% - LE dopplers - trend lactate, cardiac enzymes - send urine studies - rate control - continue anticoagulation - monitor telemetry for pauses - hold sedation to assess mental status - spontaneous breathing trials as tolerated - DVT/GI prophylaxis - continue ICU monitoring critical care time spent in reviewing chart, evaluating patient and formulating plan 35 min
--- NOTE | 2017-10-18 13:14 | PN ---
Progress Note, Physician History of Present Illness: Pt seen and examined at bedside. Pt is now in the ICU. He had a cardiopulmonary arrest yesterday. CPR was administered for about 1 minute. He is now intubated. Pt was hypotensive and required fluids and pressors. - Current Medication List Current Medications: Active Medications Albuterol/Ipratropium (Duoneb -) 1 amp NEB Q6H PRN PRN Reason: SHORTNESS OF BREATH Albuterol/Ipratropium (Duoneb -) 1 amp NEB RQID [facility] Last Admin: 10/18/17 12:03 Dose: 1 amp Furosemide (Lasix Injection -) 80 mg IVPB BID@0600,1400 [facility] Phenylephrine HCl 20,000 mcg/ (Sodium Chloride) 250 mls @ 75 mls/hr IVPB TITR [facility]; Protocol Last Admin: 10/18/17 01:00 Dose: 100 mcg/min, 75 mls/hr Propofol (Diprivan -) 1,000,000 mcg in 100 mls @ 2.082 mls/hr IVPB TITR [facility]; Protocol Last Titration: 10/18/17 12:47 Dose: 10 mcg/kg/min, 4.164 mls/hr Rivaroxaban (Xarelto -) 15 mg PO DAILY@1800 [facility] Last Admin: 10/17/17 18:06 Dose: Not Given Fluticasone/Salmeterol (Advair 100mcg/50mcg -) 1 puff IH BID [facility] Last Admin: 10/18/17 10:47 Dose: Not Given Sertraline HCl (Zoloft -) 50 mg PO DAILY [facility] Last Admin: 10/18/17 10:40 Dose: 50 mg Tiotropium Chrisman (Spiriva Respimat) 2 puff IH DAILY [facility] Last Admin: 10/18/17 10:48 Dose: Not Given - Objective Vital Signs: Vital Signs Temperature 98.6 F 10/18/17 06:00 Pulse Rate 52 L 10/18/17 08:00 Respiratory Rate 16 10/18/17 09:30 Blood Pressure 117/44 10/18/17 08:00 O2 Sat by Pulse Oximetry (%) 100 10/17/17 23:37 Constitutional: Yes: Calm Eyes: Yes: Conjunctiva Clear Cardiovascular: Yes: S1, S2 Respiratory: Yes: Mechanically Ventilated Gastrointestinal: Yes: Soft Genitourinary: Yes: Briceno Present Musculoskeletal: Yes: Muscle Weakness Edema: Yes Edema: LLE: Trace, RLE: Trace Integumentary: Yes: Venous Stasis Changes Neurological: Yes: Lethargy Labs: CBC, BMP 10/18/17 05:30 10/18/17 05:30 INR, PTT INR 1.28 (0.83-1.09) H 10/18/17 05:30 - ....Imaging Chest X-ray: Report Reviewed Ultrasound: Report Reviewed Problem List - Problems (1) CKD (chronic kidney disease) Code(s): N18.9 - CHRONIC KIDNEY DISEASE, UNSPECIFIED (2) COPD (chronic obstructive pulmonary disease) Code(s): J44.9 - CHRONIC OBSTRUCTIVE PULMONARY DISEASE, UNSPECIFIED (3) Syncope Code(s): R55 - SYNCOPE AND COLLAPSE Qualifiers: Syncope type: unspecified Qualified Code(s): R55 - Syncope and collapse Assessment/Plan Current Medications Generic Name Dose Route Start Last Admin Trade Name Freq PRN Reason Stop Dose Admin Albuterol/Ipratropium 1 amp 10/17/17 14:44 Duoneb - NEB Q6H PRN SHORTNESS OF BREATH Albuterol/Ipratropium 1 amp 10/17/17 16:00 10/18/17 12:03 Duoneb - NEB 1 amp RQID [facility] Administration Furosemide 80 mg 10/18/17 14:00 Lasix Injection - IVPB BID@0600,1400 [facility] Phenylephrine HCl 20,000 mcg/ 250 mls @ 75 mls/hr 10/18/17 00:15 10/18/17 01: 00 Sodium Chloride IVPB 100 mcg/min TITR [facility] 75 mls/hr Administration Protocol 100 MCG/MIN Propofol 1,000,000 mcg in 100 mls @ 2.082 mls/hr 10/18/17 00:15 10/18/17 12: 47 Diprivan - IVPB 10 mcg/kg/min TITR [facility] 4.164 mls/hr Titration Protocol 5 MCG/KG/MIN Rivaroxaban 15 mg 10/17/17 18:00 10/17/17 18:06 Xarelto - PO Not Given DAILY@1800 [facility] Fluticasone/Salmeterol 1 puff 10/17/17 22:00 10/18/17 10:47 Advair 100mcg/50mcg - IH Not Given BID [facility] Sertraline HCl 50 mg 10/18/17 10:00 10/18/17 10:40 Zoloft - PO 50 mg DAILY [facility] Administration Tiotropium Chrisman 2 puff 10/17/17 10:00 10/18/17 10:48 Spiriva Respimat IH Not Given DAILY [facility] Impression 1. PEACE 2. CHF 3. volume overload 4. a-fib 5. cirrhosis 6. VISHAL 7. bilateral renal cysts 8. syncope 9. hypoxia 10. cardiopulmonary arrest 11. congesion on cxr 12. severe pulmonary HTN Plan - vent support - cont pressors to a map of 65 - monitor urine output - cxr reviewed - maintain briceno - discussed with ICU team - renal function may worsen as he had an episode of hypotension - monitor pulse ox - pt presented with syncope, workup in progress - cardiology follow up - monitor in ICU
--- NOTE | 2017-10-18 13:38 | EKG ---
Test Reason : Blood Pressure : / mmHG Vent. Rate : 062 BPM Atrial Rate : 288 BPM P-R Int : 000 ms QRS Dur : 114 ms QT Int : 502 ms P-R-T Axes : 000 070 022 degrees QTc Int : 509 ms a fluter with 5;1 block INCOMPLETE RIGHT BUNDLE BRANCH BLOCK NONSPECIFIC ST AND T WAVE ABNORMALITY PROLONGED QT ABNORMAL ECG Confirmed by CAILIN DELUCA MD ([id number]) on 10/18/2017 1:37:48 PM Referred By: SHAYLEE HARVEY Confirmed By:CAILIN DELUCA MD
[2017-10-18] MEDS ORDERED: ASPIRIN 325 MG TABLET PO ONE (13:43)
--- NOTE | 2017-10-18 14:19 | PN ---
Physical Exam: SUBJECTIVE: Patient is a 77 y/o male with a history of HTN, HLD, CHF, COPD, afib, and cirrhosis who came to the ICU after being found pulseless. Patient is admitted for CHF exacerbation. One minute of cardiac compressions was done and ROSC was obtained. Patient intubated and saturating well. Patient responsive to name. OBJECTIVE: Vital Signs Temperature 98.6 F 10/18/17 06:00 Pulse Rate 59 L 10/18/17 12:00 Respiratory Rate 16 10/18/17 13:00 Blood Pressure 169/52 10/18/17 12:00 O2 Sat by Pulse Oximetry (%) 100 10/17/17 23:37 GENERAL: The patient somolent and intubated and on vent EYES: PERRL LUNGS: Breath sounds equal, clear to auscultation bilaterally HEART: regular rate and rhythm , no murmurs, rubs, or gallops ABDOMEN: Soft, nontender, nondistended, normoactive bowel sounds EXTREMITIES: 2+ dp pulses, warm, well-perfused, no edema. SKIN: Warm, dry, normal turgor, no rashes or lesions noted CBCD WBC 13.0 K/mm3 (4.0-10.0) H 10/18/17 05:30 RBC 3.61 M/mm3 (4.00-5.60) L 10/18/17 05:30 Hgb 9.1 GM/dL (11.7-16.9) L 10/18/17 05:30 Hct 30.3 % (35.4-49) L 10/18/17 05:30 MCV 84.0 fl (80-96) 10/18/17 05:30 MCHC 30.2 g/dl (32.0-35.9) L 10/18/17 05:30 RDW 16.5 % (11.9-15.9) H 10/18/17 05:30 Plt Count 107 K/MM3 (134-434) L D 10/18/17 05:30 MPV 9.2 fl (7.5-11.1) 10/18/17 05:30 CMP Sodium 143 mmol/L (136-145) 10/18/17 05:30 Potassium 5.1 mmol/L (3.5-5.1) 10/18/17 05:30 Chloride 98 mmol/L (98-107) 10/18/17 05:30 Carbon Dioxide 37 mmol/L (21-32) H 10/18/17 05:30 Anion Gap 8 MMOL/L (8-16) 10/18/17 05:30 BUN 97 mg/dL (7-18) H 10/18/17 05:30 Creatinine 2.4 mg/dL (0.7-1.3) H 10/18/17 05:30 Creat Clearance w eGFR 26.52 (>60) 10/18/17 05:30 Calcium 8.8 mg/dL (8.5-10.1) 10/18/17 05:30 Total Bilirubin 0.7 mg/dL (0.2-1.0) 10/18/17 05:30 AST 32 U/L (15-37) 10/18/17 05:30 ALT 13 U/L (12-78) 10/18/17 05:30 Alkaline Phosphatase 62 U/L (45-117) 10/18/17 05:30 Total Protein 6.2 g/dl (6.4-8.2) L 10/18/17 05:30 Albumin 3.2 g/dl (3.4-5.0) L 10/18/17 05:30 ABG Results ABG pH 7.40 (7.35-7.45) 10/18/17 08:20 ABG pCO2 at Pt Temp 58.5 mmHg (35-45) H D 10/18/17 08:20 ABG pO2 at Pt Temp 74.7 mmHg (70-100) D 10/18/17 08:20 ABG HCO3 35.7 meq/L (22-26) H 10/18/17 08:20 ABG O2 Sat (Measured) 95.5 % (90-98.9) 10/18/17 08:20 ABG O2 Content 12.0 % vol (15-22) L 10/18/17 08:20 ABG Base Excess 9.9 meq/l (-2-2) H 10/18/17 08:20 Active Medications Albuterol/Ipratropium (Duoneb -) 1 amp NEB Q6H PRN PRN Reason: SHORTNESS OF BREATH Albuterol/Ipratropium (Duoneb -) 1 amp NEB RQID [facility] Last Admin: 10/18/17 12:03 Dose: 1 amp Aspirin (Asa -) 325 mg PO ONCE ONE Stop: 10/18/17 13:44 Furosemide (Lasix Injection -) 80 mg IVPB BID@0600,1400 [facility] Phenylephrine HCl 20,000 mcg/ (Sodium Chloride) 250 mls @ 75 mls/hr IVPB TITR [facility]; Protocol Last Admin: 10/18/17 01:00 Dose: 100 mcg/min, 75 mls/hr Propofol (Diprivan -) 1,000,000 mcg in 100 mls @ 2.082 mls/hr IVPB TITR [facility]; Protocol Last Titration: 10/18/17 12:47 Dose: 10 mcg/kg/min, 4.164 mls/hr Rivaroxaban (Xarelto -) 15 mg PO DAILY@1800 [facility] Last Admin: 10/17/17 18:06 Dose: Not Given Fluticasone/Salmeterol (Advair 100mcg/50mcg -) 1 puff IH BID [facility] Last Admin: 10/18/17 10:47 Dose: Not Given Sertraline HCl (Zoloft -) 50 mg PO DAILY [facility] Last Admin: 10/18/17 10:40 Dose: 50 mg Tiotropium Keene (Spiriva Respimat) 2 puff IH DAILY [facility] Last Admin: 10/18/17 10:48 Dose: Not Given ASSESSMENT/PLAN: Patient is a 77 y/o male with a history of HTN, HLD, CHF, COPD, afib, and cirrhosis who came to the ICU after being found pulseless. Patient is admitted for CHF exacerbation. #Neurology syncope - vasovagal vs osthostatic vs arrythmia - EKG non specific st changes, aflutter 5:1 blcok, incomplete RBB - Echo: LV size thickness and function normal, flattened septum with RV overload, RV systolic fxn reduced, severe pulmonary htn, moderate tricuspid regurg, EF : 55% from echo one year ago - carotid doppler: moderate atherosclerotic disease 60-70 %, left greater then right - cervical spine CT: moderate chronic T 3 compression #Cardiology demand ischemia - troponin increasing 1.45> 2.23 - per cardio Dr. Vogel, give aspiring now, if repeat troponin @ 6 increases start heparin drip - f/u LE doppler - CXR: large heart, unfolded aorta, increasing pleural effusion, congestive changes diatolic CHF - furosemide 80 mg IV afib - Xarelto 15 mg po daily #Pulmonology acute on chronic hypercapnic respiratory failure - patient intubated - on propofol drip - ABG ph : 7.40 CO2:58.5 O 2: 74.7 HCO3: 35.7 - Vent TV: 450, Rate 16, PF 50, PEEP 5 O2 60% COPD - duonebs 1 amp q6h - spiriva 2 puff daily #Nephrology PEACE on CKD - f/u Dr. Dave for baseline Cr - f/u Urine lytes - f/u Dr. Barajas for acute management FEN - NPO Dispo: monitor, add GI ppx if intubated tomorrow Visit type - Emergency Visit Emergency Visit: No - New Patient This patient is new to me today: No - Critical Care Critical Care patient: No
[2017-10-18] MEDS: FUROSEMIDE 100 MG/10 ML INJECTABLE VIAL IVPB SCH (15:00)
[2017-10-18] MEDS ORDERED: PT OWN MED DRAWER 7, Y5N ONE (17:28)
[2017-10-18] MEDS: RIVAROXABAN 15 MG TABLET PO SCH (18:22)
--- NOTE | 2017-10-18 19:53 | PN ---
Physical Exam: SUBJECTIVE: Patient is a 77 year old male with history of hypertension, hyperlipidemia, congestive heart failure, Afib (on xarelto) COPD,cirrhosis, presents after an unwitnessed syncopal episode. Occurred in the bathroom and was heard by who found him unresponsive until EMS arrival. On day of arrival he had taken Metolazone and Spironolactone together for first time today as per his PCP Dr. Mccall. Overnight Code 99 was called. Patient achieved ROSC in approx. 1 minute with chest compression and bag valve mask ventilation. Patient was intubated and transferred to ICU. Patient seen in ICU this morning. Patient is intubated, opens his eyes responding to name and nods to answer questions. Denies any pain today. OBJECTIVE: Vital Signs Period Temp Pulse Resp BP Sys/Gama Pulse Ox Last 24 Hr 97.6 F-99.1 F 52-71 14-29 106-169/44-96 98-100 GENERAL: The patient is sedated, no acute distress. HEAD: Normal with no signs of trauma. EYES: PERRL, sclera anicteric, conjunctiva clear. NECK: Supple. LUNGS: Intubated. Breath sounds equal, clear to auscultation bilaterally, no wheezes, faint crackles auscultated B/L HEART: Regular rate and rhythm, S1, S2 with murmur auscultated over left sternal border ABDOMEN: Soft, nontender, nondistended, hypoactive bowel sounds. EXTREMITIES: 2+ pulses, warm, well-perfused, 1+ pitting edema NEUROLOGICAL: Unable to assess as patient is sedated. SKIN: Warm, dry. Laboratory Results - last 24 hr 10/17/17 10/17/17 10/17/17 05:30 20:30 22:49 WBC RBC Hgb Hct MCV MCH MCHC RDW Plt Count MPV Absolute Neuts (auto) Neutrophils % Lymphocytes % Monocytes % Eosinophils % Basophils % Nucleated RBC % PT with INR INR PTT (Actin FS) Anticoagulation Therapy No Result Required. Puncture Site Right radial ABG pH 7.15 L* ABG pCO2 at Pt Temp 98.4 H* D ABG pO2 at Pt Temp 62.8 L D ABG HCO3 32.7 H ABG O2 Sat (Measured) 83.5 L ABG O2 Content 12.2 L ABG Base Excess 1.6 Gagan Test Positive O2 Delivery Device Ambu bag Oxygen Flow Rate 100% Vent Mode No Result Required. Vent Rate No Result Required. Mechanical Rate No Result Required. PEEP 0.0 Pressure Support Vent No Result Required. Sodium Potassium Chloride Carbon Dioxide Anion Gap BUN Creatinine Creat Clearance w eGFR Random Glucose Lactic Acid Calcium Phosphorus Magnesium Iron 27 L TIBC 423 Iron Saturation 6 L Total Bilirubin AST ALT Alkaline Phosphatase Creatine Kinase CK-MB (CK-2) Troponin I 0.63 H* Total Protein Albumin TSH Urine Color Urine Appearance Urine pH Ur Specific [place] Urine Protein Urine Glucose (UA) Urine Ketones Urine Blood Urine Nitrite Urine Bilirubin Urine Urobilinogen Ur Leukocyte Esterase Urine WBC (Auto) Urine RBC (Auto) Ur Epithelial Cells Hyaline Casts Urine Mucus Ur Random Sodium Ur Random Potassium Ur Random Chloride Urine Creatinine 10/18/17 10/18/17 10/18/17 00:14 01:25 01:25 WBC RBC Hgb Hct MCV MCH MCHC RDW Plt Count MPV Absolute Neuts (auto) Neutrophils % Lymphocytes % Monocytes % Eosinophils % Basophils % Nucleated RBC % PT with INR INR PTT (Actin FS) Anticoagulation Therapy No Result Required. Puncture Site Right radial ABG pH 7.26 L ABG pCO2 at Pt Temp 79.7 H* ABG pO2 at Pt Temp 113.0 H D ABG HCO3 34.2 H ABG O2 Sat (Measured) 97.8 ABG O2 Content 13.1 L ABG Base Excess 5.6 H Gagan Test Positive O2 Delivery Device Vent Oxygen Flow Rate 100 Vent Mode 100 Vent Rate 14 Mechanical Rate Yes PEEP 0.0 Pressure Support Vent 450 Sodium Potassium Chloride Carbon Dioxide Anion Gap BUN Creatinine Creat Clearance w eGFR Random Glucose Lactic Acid Calcium Phosphorus Magnesium Iron TIBC Iron Saturation Total Bilirubin AST ALT Alkaline Phosphatase Creatine Kinase CK-MB (CK-2) Troponin I Total Protein Albumin TSH Urine Color Ltyellow Urine Appearance Slcloudy Urine pH 5.0 Ur Specific [place] 1.009 Urine Protein Negative Urine Glucose (UA) Negative Urine Ketones Negative Urine Blood 1+ H Urine Nitrite Negative Urine Bilirubin Negative Urine Urobilinogen Negative Ur Leukocyte Esterase Negative Urine WBC (Auto) 1 Urine RBC (Auto) 21 Ur Epithelial Cells Rare Hyaline Casts 4 Urine Mucus Rare Ur Random Sodium 62 Ur Random Potassium 33.1 Ur Random Chloride 79 Urine Creatinine 10/18/17 10/18/17 10/18/17 01:25 01:25 01:25 WBC 14.0 H RBC 3.76 L Hgb 9.6 L Hct 31.7 L MCV 84.3 MCH 25.5 L MCHC 30.2 L RDW 16.4 H Plt Count 149 D MPV 9.9 Absolute Neuts (auto) 12.6 H Neutrophils % 90.0 H Lymphocytes % 1.2 L D Monocytes % 8.5 Eosinophils % 0.0 D Basophils % 0.3 Nucleated RBC % 0 PT with INR INR PTT (Actin FS) Anticoagulation Therapy Puncture Site ABG pH ABG pCO2 at Pt Temp ABG pO2 at Pt Temp ABG HCO3 ABG O2 Sat (Measured) ABG O2 Content ABG Base Excess Gagan Test O2 Delivery Device Oxygen Flow Rate Vent Mode Vent Rate Mechanical Rate PEEP Pressure Support Vent Sodium 143 Potassium 5.0 Chloride 98 Carbon Dioxide 36 H Anion Gap 9 BUN 96 H Creatinine 2.5 H Creat Clearance w eGFR 25.30 Random Glucose 146 H Lactic Acid Calcium 8.7 Phosphorus Magnesium Iron TIBC Iron Saturation Total Bilirubin 0.9 AST 35 D ALT 15 Alkaline Phosphatase 68 Creatine Kinase CK-MB (CK-2) Troponin I Total Protein 6.6 Albumin 3.3 L TSH Urine Color Urine Appearance Urine pH Ur Specific [place] Urine Protein Urine Glucose (UA) Urine Ketones Urine Blood Urine Nitrite Urine Bilirubin Urine Urobilinogen Ur Leukocyte Esterase Urine WBC (Auto) Urine RBC (Auto) Ur Epithelial Cells Hyaline Casts Urine Mucus Ur Random Sodium Ur Random Potassium Ur Random Chloride Urine Creatinine 54.6 10/18/17 10/18/17 10/18/17 01:25 01:25 01:25 WBC RBC Hgb Hct MCV MCH MCHC RDW Plt Count MPV Absolute Neuts (auto) Neutrophils % Lymphocytes % Monocytes % Eosinophils % Basophils % Nucleated RBC % PT with INR INR PTT (Actin FS) Anticoagulation Therapy Puncture Site ABG pH ABG pCO2 at Pt Temp ABG pO2 at Pt Temp ABG HCO3 ABG O2 Sat (Measured) ABG O2 Content ABG Base Excess Gagan Test O2 Delivery Device Oxygen Flow Rate Vent Mode Vent Rate Mechanical Rate PEEP Pressure Support Vent Sodium Potassium Chloride Carbon Dioxide Anion Gap BUN Creatinine Creat Clearance w eGFR Random Glucose Lactic Acid 2.3 H* Calcium Phosphorus 6.9 H D Magnesium 2.8 H Iron TIBC Iron Saturation Total Bilirubin AST ALT Alkaline Phosphatase Creatine Kinase CK-MB (CK-2) Troponin I 0.83 H* D Total Protein Albumin TSH Urine Color Urine Appearance Urine pH Ur Specific [place] Urine Protein Urine Glucose (UA) Urine Ketones Urine Blood Urine Nitrite Urine Bilirubin Urine Urobilinogen Ur Leukocyte Esterase Urine WBC (Auto) Urine RBC (Auto) Ur Epithelial Cells Hyaline Casts Urine Mucus Ur Random Sodium Ur Random Potassium Ur Random Chloride Urine Creatinine 10/18/17 10/18/17 10/18/17 05:30 05:30 05:30 WBC 13.0 H RBC 3.61 L Hgb 9.1 L Hct 30.3 L MCV 84.0 MCH 25.4 L MCHC 30.2 L RDW 16.5 H Plt Count 107 L D MPV 9.2 Absolute Neuts (auto) 11.6 H Neutrophils % 89.7 H Lymphocytes % 1.5 L D Monocytes % 8.5 Eosinophils % 0.0 Basophils % 0.3 Nucleated RBC % 0 PT with INR 14.50 H INR 1.28 H PTT (Actin FS) 29.1 Anticoagulation Therapy Puncture Site ABG pH ABG pCO2 at Pt Temp ABG pO2 at Pt Temp ABG HCO3 ABG O2 Sat (Measured) ABG O2 Content ABG Base Excess Gagan Test O2 Delivery Device Oxygen Flow Rate Vent Mode Vent Rate Mechanical Rate PEEP Pressure Support Vent Sodium 143 Potassium 5.1 Chloride 98 Carbon Dioxide 37 H Anion Gap 8 BUN 97 H Creatinine 2.4 H Creat Clearance w eGFR 26.52 Random Glucose 116 H D Lactic Acid Calcium 8.8 Phosphorus 5.1 H D Magnesium 2.9 H Iron TIBC Iron Saturation Total Bilirubin 0.7 AST 32 ALT 13 Alkaline Phosphatase 62 Creatine Kinase 146 CK-MB (CK-2) 9.58 H Troponin I 1.45 H* D Total Protein 6.2 L Albumin 3.2 L TSH 1.30 Urine Color Urine Appearance Urine pH Ur Specific [place] Urine Protein Urine Glucose (UA) Urine Ketones Urine Blood Urine Nitrite Urine Bilirubin Urine Urobilinogen Ur Leukocyte Esterase Urine WBC (Auto) Urine RBC (Auto) Ur Epithelial Cells Hyaline Casts Urine Mucus Ur Random Sodium Ur Random Potassium Ur Random Chloride Urine Creatinine 10/18/17 10/18/17 10/18/17 05:30 08:20 12:09 WBC RBC Hgb Hct MCV MCH MCHC RDW Plt Count MPV Absolute Neuts (auto) Neutrophils % Lymphocytes % Monocytes % Eosinophils % Basophils % Nucleated RBC % PT with INR INR PTT (Actin FS) Anticoagulation Therapy Puncture Site Right radial ABG pH 7.40 ABG pCO2 at Pt Temp 58.5 H D ABG pO2 at Pt Temp 74.7 D ABG HCO3 35.7 H ABG O2 Sat (Measured) 95.5 ABG O2 Content 12.0 L ABG Base Excess 9.9 H Gagan Test Positive O2 Delivery Device Oxygen Flow Rate Yes Vent Mode Vent Rate Mechanical Rate PEEP Pressure Support Vent Sodium Potassium Chloride Carbon Dioxide Anion Gap BUN Creatinine Creat Clearance w eGFR Random Glucose Lactic Acid 2.1 H Calcium Phosphorus Magnesium Iron TIBC Iron Saturation Total Bilirubin AST ALT Alkaline Phosphatase Creatine Kinase CK-MB (CK-2) Troponin I 2.23 H* D Total Protein Albumin TSH Urine Color Urine Appearance Urine pH Ur Specific [place] Urine Protein Urine Glucose (UA) Urine Ketones Urine Blood Urine Nitrite Urine Bilirubin Urine Urobilinogen Ur Leukocyte Esterase Urine WBC (Auto) Urine RBC (Auto) Ur Epithelial Cells Hyaline Casts Urine Mucus Ur Random Sodium Ur Random Potassium Ur Random Chloride Urine Creatinine 10/18/17 10/18/17 12:09 17:00 WBC RBC Hgb Hct MCV MCH MCHC RDW Plt Count MPV Absolute Neuts (auto) Neutrophils % Lymphocytes % Monocytes % Eosinophils % Basophils % Nucleated RBC % PT with INR INR PTT (Actin FS) Anticoagulation Therapy Puncture Site ABG pH ABG pCO2 at Pt Temp ABG pO2 at Pt Temp ABG HCO3 ABG O2 Sat (Measured) ABG O2 Content ABG Base Excess Gagan Test O2 Delivery Device Oxygen Flow Rate Vent Mode Vent Rate Mechanical Rate PEEP Pressure Support Vent Sodium Potassium Chloride Carbon Dioxide Anion Gap BUN Creatinine Creat Clearance w eGFR Random Glucose Lactic Acid 1.6 Calcium Phosphorus Magnesium Iron TIBC Iron Saturation Total Bilirubin AST ALT Alkaline Phosphatase Creatine Kinase CK-MB (CK-2) Troponin I 2.60 H* Total Protein Albumin TSH Urine Color Urine Appearance Urine pH Ur Specific [place] Urine Protein Urine Glucose (UA) Urine Ketones Urine Blood Urine Nitrite Urine Bilirubin Urine Urobilinogen Ur Leukocyte Esterase Urine WBC (Auto) Urine RBC (Auto) Ur Epithelial Cells Hyaline Casts Urine Mucus Ur Random Sodium Ur Random Potassium Ur Random Chloride Urine Creatinine Active Medications Generic Name Dose Route Start Last Admin Trade Name Freq PRN Reason Stop Dose Admin Albuterol/Ipratropium 1 amp 10/17/17 14:44 Duoneb - NEB Q6H PRN SHORTNESS OF BREATH Albuterol/Ipratropium 1 amp 10/17/17 16:00 10/18/17 15:37 Duoneb - NEB 1 amp RQID TRICIA Administration Chlorhexidine Gluconate 15 ml 10/18/17 22:00 Peridex - MM BID TRICIA Furosemide 80 mg 10/18/17 14:00 10/18/17 15:00 Lasix Injection - IVPB 80 mg BID@0600,1400 TRICIA Administration Phenylephrine HCl 20,000 mcg/ 250 mls @ 75 mls/hr 10/18/17 00:15 10/18/17 01: 00 Sodium Chloride IVPB 100 mcg/min TITR TRICIA 75 mls/hr Administration Protocol 100 MCG/MIN Propofol 1,000,000 mcg in 100 mls @ 2.082 mls/hr 10/18/17 00:15 10/18/17 14: 35 Diprivan - IVPB 15 mcg/kg/min TITR TRICIA 6.246 mls/hr Titration Protocol 5 MCG/KG/MIN Mupirocin 1 applic 10/18/17 22:00 Bactroban Ointment (For Decolonization) - NS 10/23/17 21:59 BID TRICIA Rivaroxaban 15 mg 10/17/17 18:00 10/18/17 18:22 Xarelto - PO 15 mg DAILY@1800 TRICIA Administration Fluticasone/Salmeterol 1 puff 10/17/17 22:00 10/18/17 10:47 Advair 100mcg/50mcg - IH Not Given BID TRICIA Sertraline HCl 50 mg 10/18/17 10:00 10/18/17 10:40 Zoloft - PO 50 mg DAILY TRICIA Administration Tiotropium [place] 2 puff 10/17/17 10:00 10/18/17 10:48 Spiriva Respimat IH Not Given DAILY [facility] ASSESSMENT/PLAN: Patient is a 77 year old male with history of hypertension, hyperlipidemia, congestive heart failure, Afib (on xarelto) COPD,cirrhosis, presents after an unwitnessed syncopal episode. Code 99 was called overnight, achieved ROSC in approx. 1 minute with chest compressions and BVM. Acute Hypoxemic Respiratory Distress -Patient intubated, in ICU -Lasix 80mg IV QD -Duonebs 1amp Q6H PRn, Tiotropium 2 puffs IH daily, Advair 1 puff BID, -CXR showed chronic pleural fluid with atelectasis/ infiltrate at right lung base, with worsening congestion Troponinemia -(Dr. Vogel) Cardiology consult appreciated: Likely demand ischemia d/t hypotensive episode overnight. -Troponins increasing 0.83 -> 1.45 -> 2.23 -Will trend troponins. Syncopal Episode -Considering vasovagal d/t combined use of spironolactone and metolazone vs. arrhythmia. -CXR showed chronic pleural fluid with atelectasis/ infiltrate at right lung base -EKG done today showed atrial flutter with 5:1 block, incomplete RBBB with nonspecific ST and T wave abnormalities. -ECHO showed normal LV function and size, moderately diminished RV function, moderate tricuspid insufficiency, severe pulmonary hypertension. -CT head was negative for intracranial injury or cerebral fracture -Cervical CT showed no cervical vertebral fractures, and degenerative C4-C5 stenosis. -Carotid US showed moderate atherosclerosis left > right stenosis 60-79% with internal carotid involvement. -Arterial Duplex showed extensive atherosclerotic disease without occlusion or stenosis. -Cardiology consult appreciated: may be vasovagal as patient felt hot and short of breath before passing out. Diuresis with IV lasix, holding spironolactone for now, monitor daily weights intake and output. -F/U MRA neck -Lower extremity doppler: shows no DVT in either leg. Notable for 2.7 x 1.7 x 1cm left popliteal cyst. Acute on Chronic kidney disease -Cr 2.4 today, increased from 1.8 a year ago on previous admission. -Nephrology consult appreciated: Renal function may worsen d/t episode of hypotension. Will F/U UA, urine electrolytes, renal US, bladder US. Afib -Continue Xarelto FEN -No IV fluids -Will follow CMP -NPO, patient is intubated. Prophylaxis -On Xarelto Disposition: Continue care in ICU Visit type - Emergency Visit Emergency Visit: No - New Patient This patient is new to me today: No - Critical Care Critical Care patient: Yes Total Critical Care Time (in minutes): 35 Critical Care Statement: The care of this patient involved high complexity decision making to prevent further life threatening deterioration of the patient 's condition and/or to evaluate & treat vital organ system(s) failure or risk of failure. - Discharge Referral Referred to [facility] Med [facility].C.: No
--- NOTE | 2017-10-18 21:20 | CON.NEURO ---
Consult Consult Specialty:: NEUROLOGY-[facility] Reason for Consultation:: Syncope - History of Present Illness History of Present Illness: Patient is a 77 year old male with history of hypertension, hyperlipidemia, congestive heart failure, Afib (on xarelto) COPD,cirrhosis, presents after an unwitnessed syncopal episode. Occurred in the bathroom and was heard by who found him unresponsive until EMS arrival. On day of arrival he had taken Metolazone and Spironolactone together for first time today as per his PCP Dr. Mccall. Overnight Code 99 was called. Patient achieved ROSC in approx. 1 minute with chest compression and bag valve mask ventilation. Patient was intubated and transferred to ICU.He is unable to relate hx-follows simple commands by squeezing hands/nods. - Past Medical History Cardio/Vascular: Yes: AFIB (?), CHF (Possibly diastolic), HTN, Murmur, Pulmonary Hypertension Pulmonary: Yes: COPD, O2 Dependent, Sleep Apnea Gastrointestinal: Yes: Constipation Hepatobiliary: Yes: Cirrhosis Renal/: Yes: Renal Failure, Renal Inusuff Psych: Yes: Depression Musculoskeletal: Yes: Chronic low back pain Rheumatology: Yes: Gout ENT: Yes: Other (Epistaxis) Endocrine: Yes: Osteopenia - Alcohol/Substance Use Hx Alcohol Use: No - Smoking History Smoking history: Former smoker Have you smoked in the past 12 months: No Aproximately how many cigarettes per day: 0 If you are a former smoker, when did you quit?: 5 YRS - Social History ADL: Family Assistance History of Recent Travel: No Home Medications - Allergies Allergies/Adverse Reactions: Allergies Allergy/AdvReac Type Severity Reaction Status Date / Time codeine phosphate Allergy Intermediate Verified 10/16/17 18:56 [From Tylenol-Codeine #3] morphine Allergy Intermediate Verified 10/16/17 18:56 - Home Medications Home Medications: Ambulatory Orders Cholecalciferol (Vitamin D3) [Vitamin D] 1,000 unit PO DAILY 06/22/12 Tiotropium [place] [Spiriva] 1 inh IH DAILY 06/22/12 Fluticasone/Vilanterol [Breo Ellipta 100-25 Mcg INH] 1 each IH DAILY 06/05/14 Sertraline HCl [Zoloft -] 50 mg PO DAILY 06/05/14 Sodium Chloride Nasal [place] [[place] Nasal [place] -] 2 spray NS BID spraybtl 06/11/14 Furosemide [Lasix -] 80 mg PO BID 09/21/16 Febuxostat [Uloric] 40 mg PO DAILY 10/16/17 Rivaroxaban [Xarelto -] 15 mg PO DAILY 10/16/17 Sertraline HCl [Zoloft -] 50 mg PO DAILY 10/16/17 Spironolactone [Aldactone] 25 mg PO BID 10/16/17 Metolazone 2.5 mg PO WEEKLY 10/17/17 Physical Exam-Neuro Vital Signs: Vital Signs Temperature 99.1 F 10/18/17 16:00 Pulse Rate 66 10/18/17 18:00 Respiratory Rate 22 10/18/17 18:00 Blood Pressure 169/60 10/18/17 18:00 O2 Sat by Pulse Oximetry (%) 100 10/17/17 23:37 Labs: CBC, BMP 10/18/17 05:30 10/18/17 05:30 INR, PTT INR 1.28 (0.83-1.09) H 10/18/17 05:30 - Neuro Exam Level Of Consciousness: Yes: Alert (Follows simple commands, nods"yes", turns eyes towards examiner. Intubated) Eyes: Yes: PERRL Mini Mental Exam: Unable to communicate vexcept for following simple commands Cranial Nerves II-XII Intact: No (+diminished left NLF?? old) DTR's: 0 Left Brachioradialis, 0 Right Brachioradialis, 0 Left Achilles, 0 Right Achilles, 1+ Left Bicep, 1+ Right Bicep, 1+ Left Tricep, 1+ Right Tricep Babinski: Present (Bilat.upgoing toes) Response to light touch: Normal (moves all 4 ext equally to pain but left leg less so) Motor Strength: 1/5: Left Leg, 2/5: Left Arm, Right Arm, Right Leg (LLE moves less than others) Gait: Other (Unable to test) Assessment/Plan Patient is a 77 y/o male with a history of HTN, HLD, CHF, COPD, afib, and cirrhosis who came to the ICU after being found pulseless. Patient is admitted for CHF exacerbation. One minute of cardiac compressions was done and ROSC was obtained. Patient intubated and saturating well. Patient responsive to name, follows simple commands but his left leg appears to move less and there may be a left central facial nerve deficit-i am not sure these are new findings on exam or old. I suggest a CT head when patient is able to be transported for one , if there has been cerebral ischemia it is likely subcortical or watershed ischemia, requires non-urget neuroimaging. Would maintain BP at current levels. Thank you, Sylvain Andujar MD
[2017-10-18] MEDS: CHLORHEXIDINE GLUCONATE 0.12% 15ML CUP MM SCH (21:34)
[2017-10-18] MEDS: MUPIROCIN 2% TOPICAL OINTMENT FOR DECOLONIZATION NS SCH (21:34)
[2017-10-19] MEDS: FUROSEMIDE 100 MG/10 ML INJECTABLE VIAL IVPB SCH ×2 (05:45→15:15)
[2017-10-19] MEDS: PROPOFOL 1,000,000 MCG/100 ML VIAL IVPB SCH (05:46)
[2017-10-19] MEDS: PHENYLEPHRINE HCL 20,000 MCG in SODIUM CHLORIDE 248 ML IVPB SCH (05:46)
[2017-10-19 06:31] LABS: HEMOGLOBIN 9.4 GM/dL (11.7-16.9); MCHC 30.4 g/dl (32.0-35.9); MEAN CELL VOLUME 82.3 fl (80-96); MEAN PLT VOLUME 9.7 fl (7.5-11.1); PLATELET COUNT 100 K/MM3 (134-434); RBC 3.77 M/mm3 (4.00-5.60); RDW 16.3 % (11.9-15.9); WHITE BLOOD COUNT 14.4 K/mm3 (4.0-10.0)
[2017-10-19 06:49] LABS: ALBUMIN 3.2 g/dl (3.4-5.0); ANION GAP 7 MMOL/L (8-16); CALCIUM 8.7 mg/dL (8.5-10.1); CHLORIDE 97 mmol/L (98-107); CO2 38 mmol/L (21-32); GLUCOSE,RANDOM 105 mg/dL (74-106); MAGNESIUM 2.7 mg/dL (1.8-2.4); POTASSIUM 4.5 mmol/L (3.5-5.1); SGOT/AST 35 U/L (15-37); SODIUM 142 mmol/L (136-145)
[2017-10-19 06:52] LABS: ALK PHOS 60 U/L (45-117); BILIRUBIN,TOTAL 0.9 mg/dL (0.2-1.0); CREATININE 2.7 mg/dL (0.7-1.3); SGPT/ALT 12 U/L (12-78); TOT PROT 6.4 g/dl (6.4-8.2)
[2017-10-19 06:58] LABS: BLOOD UREA NITROGEN 116 mg/dL (7-18)
[2017-10-19] MEDS: ALBUTEROL SO4 2.5/IPRATROPIUM 0.5 INH SOL 3 ML VIAL.NEB. NEB SCH (07:30)
--- NOTE | 2017-10-19 08:06 | PN ---
Teaching Attending Note Name of Resident: Rylan Middleton ATTENDING PHYSICIAN STATEMENT I saw and evaluated the patient. I reviewed the resident's note and discussed the case with the resident. I agree with the resident's findings and plan as documented. SUBJECTIVE: Patient is in ICU still intubated. OBJECTIVE: Vital Signs Temperature 99.5 F 10/19/17 06:00 Pulse Rate 61 10/19/17 06:00 Respiratory Rate 18 10/19/17 06:54 Blood Pressure 168/64 10/19/17 06:00 O2 Sat by Pulse Oximetry (%) 100 10/18/17 22:00 CBCD WBC 14.4 K/mm3 (4.0-10.0) H 10/19/17 05:30 RBC 3.77 M/mm3 (4.00-5.60) L 10/19/17 05:30 Hgb 9.4 GM/dL (11.7-16.9) L 10/19/17 05:30 Hct 31.0 % (35.4-49) L 10/19/17 05:30 MCV 82.3 fl (80-96) 10/19/17 05:30 MCHC 30.4 g/dl (32.0-35.9) L 10/19/17 05:30 RDW 16.3 % (11.9-15.9) H 10/19/17 05:30 Plt Count 100 K/MM3 (134-434) L 10/19/17 05:30 MPV 9.7 fl (7.5-11.1) 10/19/17 05:30 CMP Sodium 142 mmol/L (136-145) 10/19/17 05:30 Potassium 4.5 mmol/L (3.5-5.1) 10/19/17 05:30 Chloride 97 mmol/L (98-107) L 10/19/17 05:30 Carbon Dioxide 38 mmol/L (21-32) H 10/19/17 05:30 Anion Gap 7 MMOL/L (8-16) L 10/19/17 05:30 BUN 116 mg/dL (7-18) H* 10/19/17 05:30 Creatinine 2.7 mg/dL (0.7-1.3) H 10/19/17 05:30 Creat Clearance w eGFR 23.15 (>60) 10/19/17 05:30 Random Glucose 105 mg/dL (74-106) 10/19/17 05:30 Calcium 8.7 mg/dL (8.5-10.1) 10/19/17 05:30 Total Bilirubin 0.9 mg/dL (0.2-1.0) 10/19/17 05:30 AST 35 U/L (15-37) 10/19/17 05:30 ALT 12 U/L (12-78) 10/19/17 05:30 Alkaline Phosphatase 60 U/L (45-117) 10/19/17 05:30 Total Protein 6.4 g/dl (6.4-8.2) 10/19/17 05:30 Albumin 3.2 g/dl (3.4-5.0) L 10/19/17 05:30 CARDIAC ENZYMES Creatine Kinase 146 IU/L (39-308) 10/18/17 05:30 Troponin I 2.34 ng/ml (0.00-0.05) H* 10/18/17 23:00 Current Medications Generic Name Dose Route Start Last Admin Trade Name Freq PRN Reason Stop Dose Admin Albuterol/Ipratropium 1 amp 10/17/17 14:44 Duoneb - NEB Q6H PRN SHORTNESS OF BREATH Albuterol/Ipratropium 1 amp 10/17/17 16:00 10/18/17 20:18 Duoneb - NEB 1 amp RQID TRICIA Administration Chlorhexidine Gluconate 15 ml 10/18/17 22:00 10/18/17 21:34 Peridex - MM 15 ml BID TRICIA Administration Furosemide 80 mg 10/18/17 14:00 10/19/17 05:45 Lasix Injection - IVPB 80 mg BID@0600,1400 TRICIA Administration Phenylephrine HCl 20,000 mcg/ 250 mls @ 75 mls/hr 10/18/17 00:15 10/19/17 05: 46 Sodium Chloride IVPB Not Given TITR TRICIA Protocol 100 MCG/MIN Propofol 1,000,000 mcg in 100 mls @ 2.082 mls/hr 10/18/17 00:15 10/19/17 05: 46 Diprivan - IVPB 15 mcg/kg/min TITR TRICIA 6.246 mls/hr Administration Protocol 5 MCG/KG/MIN Mupirocin 1 applic 10/18/17 22:00 08/29/18 21:34 Bactroban Ointment (For Decolonization) - NS 10/23/17 21:59 1 applic BID TRICIA Administration Rivaroxaban 15 mg 10/17/17 18:00 10/18/17 18:22 Xarelto - PO 15 mg DAILY@1800 TRICIA Administration Fluticasone/Salmeterol 1 puff 10/17/17 22:00 10/18/17 21:34 Advair 100mcg/50mcg - IH Not Given BID TRICIA Sertraline HCl 50 mg 10/18/17 10:00 10/18/17 10:40 Zoloft - PO 50 mg DAILY TRICIA Administration Tiotropium [place] 2 puff 10/17/17 10:00 10/18/17 10:48 Spiriva Respimat IH Not Given DAILY [facility] Home Medications Medication Instructions Recorded Cholecalciferol (Vitamin D3) 1,000 unit PO DAILY 06/22/12 [Vitamin D] Tiotropium [place] [Spiriva] 1 inh IH DAILY 06/22/12 Fluticasone/Vilanterol [Breo 1 each IH DAILY 06/05/14 Ellipta 100-25 Mcg INH] Sertraline HCl [Zoloft -] 50 mg PO DAILY 06/05/14 Sodium Chloride Nasal [place] [[place] 2 spray NS BID spraybtl 06/11/14 Drain Nasal Drain -] Furosemide [Lasix -] 80 mg PO BID 09/21/16 Febuxostat [Uloric] 40 mg PO DAILY 10/16/17 Rivaroxaban [Xarelto -] 15 mg PO DAILY 10/16/17 Sertraline HCl [Zoloft -] 50 mg PO DAILY 10/16/17 Spironolactone [Aldactone] 25 mg PO BID 10/16/17 Metolazone 2.5 mg PO WEEKLY 10/17/17 IMPRESSION: No cervical spine fracture is identified. A moderate chronic T3 vertebral body compression fracture is noted without bony retropulsion. PE:intubated sedated. in ICu rest of PE per resident's note EKG reviewed .RBBB with no acute ischemic changes ASSESSMENT AND PLAN: Patient is a 77 y/o man with PMHx of CHF,liver cirrhosis, gout , COPD, VISHAL, cor pulmonale, a fib, HTN, HLP, and CKD who presented to ED after having a syncopal episode. # Acute on chronic hypoxic hypercapnic respiratory failure with hx of COPD: in ICU intubated sedated in ICU further care per ICU team. Continue nebs treatment. Patient is unable to weaned off the vent. #H/o COPD: cont Nebs and inhalers: continue nebulizer treatments. # acute diastolic CHF exacerbation on IV Lasix continue, follow Echo. # Syncope: hypoxia, vs vasovagal, vs arrhythmias ; carotid US: Moderate atherosclerotic disease, left greater than right, with stenoses in the 60-79% range involving the internal carotid arteries. Clinical correlation and follow- up studies recommended. Please see above discussion. # PECAE on CKD: likely due to heart failure ,continue to monitor renal function # A fib: on xarelto at home. monitor renal function, if worsens will adjust the dose accordingly DVT Px: Xarelto
[2017-10-19] MEDS ORDERED: PT OWN MED DRAWER 7, Y5N ONE ×2 (10:55→18:04)
--- NOTE | 2017-10-19 11:04 | PN ---
Progress Note (short form) - Note Progress Note: - Note Progress Note: cc: CHF exacerbation, syncope s: intubated, lethargic off sedation Current Medications Generic Name Dose Route Start Last Admin Trade Name Paul PRN Reason Stop Dose Admin Albuterol/Ipratropium 1 amp 10/17/17 14:44 Duoneb - NEB Q6H PRN SHORTNESS OF BREATH Albuterol/Ipratropium 1 amp 10/17/17 16:00 10/19/17 07:30 Duoneb - NEB 1 amp RQID [facility] Administration Aspirin 81 mg 10/19/17 10:00 Asa - PO DAILY [facility] Chlorhexidine Gluconate 15 ml 10/18/17 22:00 10/18/17 21:34 Peridex - MM 15 ml BID [facility] Administration Furosemide 80 mg 10/18/17 14:00 10/19/17 05:45 Lasix Injection - IVPB 80 mg BID@0600,1400 [facility] Administration Propofol 1,000,000 mcg in 100 mls @ 2.082 mls/hr 10/18/17 00:15 10/19/17 07: 40 Diprivan - IVPB 0 mcg/kg/min TITR [facility] 0 mls/hr Titration Protocol 5 MCG/KG/MIN Mupirocin 1 applic 10/18/17 22:00 10/18/17 21:34 Bactroban Ointment (For Decolonization) - NS 10/23/17 21:59 1 applic BID [facility] Administration Rivaroxaban 15 mg 10/17/17 18:00 10/18/17 18:22 Xarelto - PO 15 mg DAILY@1800 [facility] Administration Fluticasone/Salmeterol 1 puff 10/17/17 22:00 10/18/17 21:34 Advair 100mcg/50mcg - IH Not Given BID [facility] Sertraline HCl 50 mg 10/18/17 10:00 10/18/17 10:40 Zoloft - PO 50 mg DAILY [facility] Administration Tiotropium Cascade 2 puff 10/17/17 10:00 10/18/17 10:48 Spiriva Respimat IH Not Given DAILY [facility] o: Vital Signs Temp 99.5 F 10/19/17 06:00 Pulse 65 10/19/17 08:24 Resp 26 H 10/19/17 08:24 BP 162/66 10/19/17 08:00 Pulse Ox 94 L 10/19/17 08:24 Intake & Output 10/18/17 10/18/17 10/19/17 11:59 23:59 11:59 Intake Total 340 150 50 Output Total 100 1150 600 Balance 240 -1000 -550 Weight 145 lb 15.136 oz 146 lb 148 lb Intake: IV 340 50 DIPRIVAN - 1,000,000 mcg 90 50 In 100 ml @ 5 MCG/KG/MIN 2.082 mls/hr IVPB TITR [facility] Rx#:[id number] saline lock 250 Oral 150 Output: Urine 100 1150 600 Ruiz 100 1150 600 Other: Voiding Method Indwelling Catheter Indwelling Catheter Bowel Movement No No No Height 5 ft 6 in Body Mass Index (BMI) 23.6 Weight Measurement Method Stated by Caregiver Built in [facility] Constitutional: Yes:intubated, Eyes: Yes: Conjunctiva Clear Neck: Yes: Supple, Trachea Midline Respiratory: Yes: Regular, Rales (bilateral bases), vented Gastrointestinal: Yes: Normal Bowel Sounds, Soft Cardiovascular: Yes: Regular Rate and Rhythm Heart Sounds: Yes: S1, S2 Edema: No Peripheral Pulses: 2+ Left Doralis Pedis, 2+ Right Dorsalis Pedis lethargic no jaundice diaphoresis Laboratory Last Values WBC 14.4 K/mm3 (4.0-10.0) H 10/19/17 05:30 RBC 3.77 M/mm3 (4.00-5.60) L 10/19/17 05:30 Hgb 9.4 GM/dL (11.7-16.9) L 10/19/17 05:30 Hct 31.0 % (35.4-49) L 10/19/17 05:30 MCV 82.3 fl (80-96) 10/19/17 05:30 MCH 25.0 pg (25.7-33.7) L 10/19/17 05:30 MCHC 30.4 g/dl (32.0-35.9) L 10/19/17 05:30 RDW 16.3 % (11.9-15.9) H 10/19/17 05:30 Plt Count 100 K/MM3 (134-434) L 10/19/17 05:30 MPV 9.7 fl (7.5-11.1) 10/19/17 05:30 Absolute Neuts (auto) 11.6 K/mm3 (1.5-8.0) H 10/18/17 05:30 Neutrophils % 89.7 % (42.8-82.8) H 10/18/17 05:30 Lymphocytes % 1.5 % (8-40) L D 10/18/17 05:30 Monocytes % 8.5 % (3.8-10.2) 10/18/17 05:30 Eosinophils % 0.0 % (0-4.5) 10/18/17 05:30 Basophils % 0.3 % (0-2.0) 10/18/17 05:30 Nucleated RBC % 0 % (0-0) 10/18/17 05:30 Retic Count 1.78 % (0.5-1.5) H 10/17/17 05:30 PT with INR 14.50 SEC (9.7-13.0) H 10/18/17 05:30 INR 1.28 (0.83-1.09) H 10/18/17 05:30 PTT (Actin FS) 29.1 SECONDS (25.2-36.5) 10/18/17 05:30 Anticoagulation Therapy No Result Required. 10/18/17 00:14 Puncture Site Right radial 10/18/17 08:20 ABG pH 7.40 (7.35-7.45) 10/18/17 08:20 ABG pCO2 at Pt Temp 58.5 mmHg (35-45) H D 10/18/17 08:20 ABG pO2 at Pt Temp 74.7 mmHg (70-100) D 10/18/17 08:20 ABG HCO3 35.7 meq/L (22-26) H 10/18/17 08:20 ABG O2 Sat (Measured) 95.5 % (90-98.9) 10/18/17 08:20 ABG O2 Content 12.0 % vol (15-22) L 10/18/17 08:20 ABG Base Excess 9.9 meq/l (-2-2) H 10/18/17 08:20 Gagan Test Positive 10/18/17 08:20 Carboxyhemoglobin 3.1 gm% (0.5-2.0) H 10/16/17 19:49 Methemoglobin 1.6 % (0.4-1.5) H 10/16/17 19:49 O2 Delivery Device Vent 10/18/17 00:14 Oxygen Flow Rate Yes 10/18/17 08:20 Vent Mode 100 10/18/17 00:14 Vent Rate 14 10/18/17 00:14 Mechanical Rate Yes 10/18/17 00:14 PEEP 0.0 cmH2O 10/18/17 00:14 Pressure Support Vent 450 10/18/17 00:14 Sodium 142 mmol/L (136-145) 10/19/17 05:30 Potassium 4.5 mmol/L (3.5-5.1) 10/19/17 05:30 Chloride 97 mmol/L (98-107) L 10/19/17 05:30 Carbon Dioxide 38 mmol/L (21-32) H 10/19/17 05:30 Anion Gap 7 MMOL/L (8-16) L 10/19/17 05:30 BUN 116 mg/dL (7-18) H* 10/19/17 05:30 Creatinine 2.7 mg/dL (0.7-1.3) H 10/19/17 05:30 Creat Clearance w eGFR 23.15 (>60) 10/19/17 05:30 Random Glucose 105 mg/dL (74-106) 10/19/17 05:30 Lactic Acid 1.6 mmol/L (0.0-2.0) 10/18/17 12:09 Calcium 8.7 mg/dL (8.5-10.1) 10/19/17 05:30 Phosphorus 4.0 mg/dL (2.5-4.9) D 10/19/17 05:30 Magnesium 2.7 mg/dL (1.8-2.4) H 10/19/17 05:30 Iron 27 ug/dL (38-169) L 10/17/17 05:30 TIBC 423 ug/dL (250-450) 10/17/17 05:30 Iron Saturation 6 % (15-55) L 10/17/17 05:30 Ferritin 26.5 ng/ml (16.4-293.9) 10/17/17 05:30 Total Bilirubin 0.9 mg/dL (0.2-1.0) 10/19/17 05:30 AST 35 U/L (15-37) 10/19/17 05:30 ALT 12 U/L (12-78) 10/19/17 05:30 Alkaline Phosphatase 60 U/L (45-117) 10/19/17 05:30 Creatine Kinase 146 IU/L (39-308) 10/18/17 05:30 CK-MB (CK-2) 9.58 ng/mL (0.5-3.6) H 10/18/17 05:30 Troponin I 2.34 ng/ml (0.00-0.05) H* 10/18/17 23:00 B-Natriuretic Peptide 59517.17 pg/ml (5-450) H 10/16/17 19:27 Total Protein 6.4 g/dl (6.4-8.2) 10/19/17 05:30 Albumin 3.2 g/dl (3.4-5.0) L 10/19/17 05:30 TSH 1.30 uIU/ml (0.358-3.74) 10/18/17 05:30 Urine Color Ltyellow 10/18/17 01:25 Urine Appearance Slcloudy 10/18/17 01:25 Urine pH 5.0 (5.0-8.0) 10/18/17 01:25 Ur Specific [place] 1.009 (1.001-1.035) 10/18/17 01:25 Urine Protein Negative (NEGATIVE) 10/18/17 01:25 Urine Glucose (UA) Negative (NEGATIVE) 10/18/17 01:25 Urine Ketones Negative (NEGATIVE) 10/18/17 01:25 Urine Blood 1+ (NEGATIVE) H 10/18/17 01:25 Urine Nitrite Negative (NEGATIVE) 10/18/17 01:25 Urine Bilirubin Negative (<2.0 mg/dL) 10/18/17 01:25 Urine Urobilinogen Negative mg/dL (0.2-1.0) 10/18/17 01:25 Ur Leukocyte Esterase Negative (NEGATIVE) 10/18/17 01:25 Urine WBC (Auto) 1 /hpf (3-5) 10/18/17 01:25 Urine RBC (Auto) 21 /hpf (0-3) 10/18/17 01:25 Ur Epithelial Cells Rare /HPF (FEW) 10/18/17 01:25 Hyaline Casts 4 /lpf 10/18/17 01:25 Urine Mucus Rare 10/18/17 01:25 Ur Random Sodium 62 MMOL/L 10/18/17 01:25 Ur Random Potassium 33.1 MMOL/L 10/18/17 01:25 Ur Random Chloride 79 MMOL/L 10/18/17 01:25 Urine Creatinine 54.6 mg/dL (20-370) 10/18/17 01:25 echo 09/2016 shows preserved LV fxn with significant RV dilatation and dysfunction, mod TR with RVSP>60 mmHg c/w cor pulmonale. echo 09/2017 nl LV size/function, RV function moderately reduced, moderate TR, severe pulm HTN carotid u/s 09/2017 mod atherosclerotic dz L>R 60-79% internal carotids, rec CTA or MRA neck for further eval tele: aflutter/afib, rate ok cxr: no sig change, +congestion est cct 35 mins Assessment/Plan 77M h/o home-O2 dependent COPD, VISHAL, HTN, HLD, afib on Xarelto, cirrhosis p/w syncope, CHF exacerbation Acute respiratory distress - likely in setting of COPD, CHF exacerbation - intubated, on vent, manage per ICU - treatment of CHF exac as below syncope - may have been in setting of feeling short of breath, vasovagal, receiving spironolactone/metolazone - monitoring on tele, managing CHF exac/ COPD as below - echo stable compared to prior - carotid ultrasound with bilateral stenosis, vascular consulted (+) troponin - likely demand in setting of chf, then further demand after ACLS, trop down trending now, cont to trend - cont ac, asa acute on chronic diastolic HF - per patient's he has gained weight, she thinks about 10 lbs - cont diuresis with IV lasix, 80 mg IV BID - holding spironolactone, metolazone - monitor daily standing weight, I/O, chem7 - echo stable, nl LV function with cor pulmonale, severe pulm HTN COPD - receiving nebs, now intubated - appreciate pulm recs HTN - controlled afib - continue xarelto -rate ok for now PEACE on CKD - 1.8 a year ago, 2.4 now - diuresis as above - nephrology consulted
[2017-10-19] MEDS: ASPIRIN 81 MG CHEWABLE TABLETS PO SCH (11:08)
[2017-10-19] MEDS: SERTRALINE HCL 50 MG TABLET (FP) PO SCH (11:10)
[2017-10-19] MEDS: FLUTICASONE/SALMETEROL 100 MCG/50 MCG DISKUS IH SCH (11:11)
[2017-10-19] MEDS: TIOTROPIUM BROMIDE 2.5 MCG (SPIRIVA) RESPIMAT INHALER IH SCH (11:11)
[2017-10-19] MEDS: CHLORHEXIDINE GLUCONATE 0.12% 15ML CUP MM SCH ×2 (11:11→21:36)
--- NOTE | 2017-10-19 11:49 | EKG ---
Test Reason : Blood Pressure : / mmHG Vent. Rate : 060 BPM Atrial Rate : 058 BPM P-R Int : 000 ms QRS Dur : 114 ms QT Int : 436 ms P-R-T Axes : 000 054 240 degrees QTc Int : 436 ms POOR DATA QUALITY, INTERPRETATION MAY BE ADVERSELY AFFECTED JUNCTIONAL RHYTHM WITH PREMATURE VENTRICULAR COMPLEXES OR FUSION COMPLEXES RIGHT BUNDLE BRANCH BLOCK T WAVE ABNORMALITY, CONSIDER LATERAL ISCHEMIA ABNORMAL ECG WHEN COMPARED WITH ECG OF 18-OCT-2017 13:22, PREVIOUS ECG HAS UNDETERMINED RHYTHM, NEEDS REVIEW T WAVE INVERSION MORE EVIDENT IN ANTERIOR LEADS QT HAS SHORTENED Confirmed by DORINDA HOLLIDAY MD ([id number]) on 10/19/2017 11:49:22 AM Referred By: Confirmed By:DORINDA HOLLIDAY MD
[2017-10-19] MEDS: ALBUTEROL SO4 0.083% IH SOL 2.5 MG/3 ML VIAL.NEB. NEB PRN (12:04)
--- NOTE | 2017-10-19 12:18 | PN ---
Teaching Attending Note Name of Resident: Janet Sparks ATTENDING PHYSICIAN STATEMENT I saw and evaluated the patient. I reviewed the resident's note and discussed the case with the resident. I agree with the resident's findings and plan as documented. SUBJECTIVE: Pt seen and examined in the ICU. Remains intubated, arousable off sedation. No fevers recorded. Peak pressures 25, plateau pressures 23. Flow volume loops without obstruction. OBJECTIVE: Vital Signs Period Temp Pulse Resp BP Sys/Gama Pulse Ox Last 24 Hr 98.2 F-99.5 F 60-93 16-29 107-169/58-81 94-100 Intake & Output 10/16/17 10/17/17 10/18/17 10/19/17 23:59 23:59 23:59 23:59 Intake Total 785 490 50 Output Total 850 1250 600 Balance -65 760 -550 Weight 69.4 kg 66.224 kg 67.132 kg Gen: intubated, arousable Heart: RRR Lung: scattered rhonchi Abd: soft, nontender Ext: no edema CBC, BMP 10/19/17 05:30 10/19/17 05:30 Active Medications Albuterol Sulfate (Ventolin 0.083% Nebulizer Soln -) 1 amp NEB Q6H PRN PRN Reason: SHORTNESS OF BREATH Last Admin: 10/19/17 12:04 Dose: 1 amp Aspirin (Asa -) 81 mg PO DAILY [facility] Last Admin: 10/19/17 11:08 Dose: 81 mg Chlorhexidine Gluconate (Peridex -) 15 ml MM BID [facility] Last Admin: 10/19/17 11:11 Dose: 15 ml Furosemide (Lasix Injection -) 80 mg IVPB BID@0600,1400 [facility] Last Admin: 10/19/17 05:45 Dose: 80 mg Propofol (Diprivan -) 1,000,000 mcg in 100 mls @ 2.082 mls/hr IVPB TITR [facility]; Protocol Last Titration: 10/19/17 07:40 Dose: 0 mcg/kg/min, 0 mls/hr Mupirocin (Bactroban Ointment (For Decolonization) -) 1 applic NS BID [facility] Stop: 10/23/17 21:59 Last Admin: 10/18/17 21:34 Dose: 1 applic Pantoprazole Sodium (Protonix Iv) 40 mg IVPUSH DAILY [facility] Rivaroxaban (Xarelto -) 15 mg PO DAILY@1800 [facility] Last Admin: 10/18/17 18:22 Dose: 15 mg ASSESSMENT AND PLAN: s/p Cardiopulmonary Arrest Acute on Chronic Hypoxic and Hypercapneic Respiratory Failure Acute on Chronic Diastolic Heart Failure Acute on Chronic Renal Failure Severe Pulmonary HTN Atrial Fibrillation Carotid Stenosis Syncope HTN Hyperlipidemia - continue lasix - monitor urine output, creatinine - inhaled bronchodilators - taper FiO2 to keep SpO2>90% - rate control - continue anticoagulation - monitor telemetry for pauses - minimize sedation to assess mental status - spontaneous breathing trials as tolerated, placed on SIMV - DVT/GI prophylaxis - continue ICU monitoring critical care time spent in reviewing chart, evaluating patient and formulating plan 35 min
--- NOTE | 2017-10-19 13:14 | PN ---
Physical Exam: SUBJECTIVE: Patient is a 77 year old male with history of hypertension, hyperlipidemia, congestive heart failure, Afib (on xarelto) COPD,cirrhosis, presents after an unwitnessed syncopal episode. Occurred in the bathroom and was heard by who found him unresponsive until EMS arrival. On day of arrival he had taken Metolazone and Spironolactone together for first time today as per his PCP Dr. Mccall. Patient seen in ICU this morning. No acute overnight events. Patient is intubated, no longer on Propofol sedation, opens his eyes responding to name and nods to answer questions. OBJECTIVE: Vital Signs Period Temp Pulse Resp BP Sys/Gama Pulse Ox Last 24 Hr 98.2 F-99.5 F 60-93 16-29 107-169/58-81 94-100 GENERAL: The patient is sedated, no acute distress. HEAD: Normal with no signs of trauma. EYES: PERRL, sclera anicteric, conjunctiva clear. NECK: Supple. LUNGS: Intubated. Breath sounds equal, clear to auscultation bilaterally, no wheezes, faint crackles auscultated B/L HEART: Regular rate and rhythm, S1, S2 with murmur auscultated over left sternal border ABDOMEN: Soft, nontender, nondistended, hypoactive bowel sounds. EXTREMITIES: 2+ pulses, warm, well-perfused, 1+ pitting edema NEUROLOGICAL: Unable to assess as patient is sedated. SKIN: Warm, dry. Laboratory Results - last 24 hr 10/18/17 10/18/17 10/19/17 17:00 23:00 05:30 WBC 14.4 H RBC 3.77 L Hgb 9.4 L Hct 31.0 L MCV 82.3 MCH 25.0 L MCHC 30.4 L RDW 16.3 H Plt Count 100 L MPV 9.7 Sodium Potassium Chloride Carbon Dioxide Anion Gap BUN Creatinine Creat Clearance w eGFR Random Glucose Calcium Phosphorus Magnesium Total Bilirubin AST ALT Alkaline Phosphatase Troponin I 2.60 H* 2.34 H* Total Protein Albumin 10/19/17 05:30 WBC RBC Hgb Hct MCV MCH MCHC RDW Plt Count MPV Sodium 142 Potassium 4.5 Chloride 97 L Carbon Dioxide 38 H Anion Gap 7 L BUN 116 H* Creatinine 2.7 H Creat Clearance w eGFR 23.15 Random Glucose 105 Calcium 8.7 Phosphorus 4.0 D Magnesium 2.7 H Total Bilirubin 0.9 AST 35 ALT 12 Alkaline Phosphatase 60 Troponin I Total Protein 6.4 Albumin 3.2 L Active Medications Generic Name Dose Route Start Last Admin Trade Name Freq PRN Reason Stop Dose Admin Albuterol Sulfate 1 amp 10/19/17 11:11 10/19/17 12:04 Ventolin 0.083% Nebulizer Soln - NEB 1 amp Q6H PRN Administration SHORTNESS OF BREATH Aspirin 81 mg 10/19/17 10:00 10/19/17 11:08 Asa - PO 81 mg DAILY [facility] Administration Chlorhexidine Gluconate 15 ml 10/18/17 22:00 10/19/17 11:11 Peridex - MM 15 ml BID [facility] Administration Furosemide 80 mg 10/18/17 14:00 10/19/17 05:45 Lasix Injection - IVPB 80 mg BID@0600,1400 [facility] Administration Propofol 1,000,000 mcg in 100 mls @ 2.082 mls/hr 10/18/17 00:15 10/19/17 07: 40 Diprivan - IVPB 0 mcg/kg/min TITR [facility] 0 mls/hr Titration Protocol 5 MCG/KG/MIN Mupirocin 1 applic 10/18/17 22:00 10/18/17 21:34 Bactroban Ointment (For Decolonization) - NS 10/23/17 21:59 1 applic BID [facility] Administration Pantoprazole Sodium 40 mg 10/19/17 11:30 Protonix Iv IVPUSH DAILY [facility] Rivaroxaban 15 mg 10/17/17 18:00 10/18/17 18:22 Xarelto - PO 15 mg DAILY@1800 [facility] Administration ASSESSMENT/PLAN: Patient is a 77 year old male with history of hypertension, hyperlipidemia, congestive heart failure, Afib (on xarelto) COPD,cirrhosis, presents after an unwitnessed syncopal episode. Code 99 was called overnight, achieved ROSC in approx. 1 minute with chest compressions and BVM. Acute Hypoxemic Respiratory Distress -Patient intubated, in ICU. Today he is off propofol. -Lasix 80mg IV QD -Duonebs 1amp Q6H PRn, Tiotropium 2 puffs IH daily, Advair 1 puff BID, -CXR still shows chronic pleural fluid with atelectasis/ infiltrate at right lung base, without significant changes from yesterdays chest xray. Troponinemia -(Dr. Vogel) Cardiology consult appreciated: Likely demand ischemia d/t hypotensive episode overnight. -Troponins trending down 2.60 -> 2.34 Syncopal Episode -Considering vasovagal d/t combined use of spironolactone and metolazone vs. arrhythmia. -CXR showed chronic pleural fluid with atelectasis/ infiltrate at right lung base -EKG showed atrial flutter with 5:1 block, incomplete RBBB with nonspecific ST and T wave abnormalities. -ECHO showed normal LV function and size, moderately diminished RV function, moderate tricuspid insufficiency, severe pulmonary hypertension. -CT head was negative for intracranial injury or cerebral fracture -Cervical CT showed no cervical vertebral fractures, and degenerative C4-C5 stenosis. -Carotid US showed moderate atherosclerosis left > right stenosis 60-79% with internal carotid involvement. -Arterial Duplex showed extensive atherosclerotic disease without occlusion or stenosis. -Abdominal Us shows: small ascites B/L without cholelithiasis, cholecystitis. Distension of hepatic veins suggesting right cardiac dysfunction. -Cardiology consult appreciated: may be vasovagal as patient felt hot and short of breath before passing out. Diuresis with IV Lasix 80mg QD, holding spironolactone for now, monitor daily weights intake and output. -Lower extremity doppler: shows no DVT in either leg. Notable for 2.7 x 1.7 x 1cm left popliteal cyst. -(Dr. Andujar) Neurology consult appreciated: Left leg moves less than right leg, and ?left sided facial nerve defecit. Unable to determine if these changes are acute. Can follow up with CT head. Acute on Chronic kidney disease -Cr 2.7 today, increased from 2.4 yesterday. -Nephrology consult appreciated: Renal function may worsen d/t episode of hypotension. Baseline Creatinine is 2.15 -Renal and Bladder US shows:B/l renal simple cysts without hydronephrosis, or stones. Urinary bladder is partially distended without wall thickening. Afib -Continue Xarelto 15mg PO QD FEN -No IV fluids -Will follow CMP -NPO, patient is intubated. Per ICU, may try to extubate tomorrow. Prophylaxis -On Xarelto 15mg PO QD -Pantoprazole 40mg IV QD Disposition: Continue care in ICU Visit type - Emergency Visit Emergency Visit: No - New Patient This patient is new to me today: No - Critical Care Critical Care patient: Yes Total Critical Care Time (in minutes): 30 Critical Care Statement: The care of this patient involved high complexity decision making to prevent further life threatening deterioration of the patient 's condition and/or to evaluate & treat vital organ system(s) failure or risk of failure. - Discharge Referral Referred to [facility] Med P.C.: No
--- NOTE | 2017-10-19 13:20 | PN ---
Physical Exam: SUBJECTIVE: Patient is a 77 y/o male with a history of HTN, HLD, CHF, COPD, afib, and cirrhosis who came to the ICU after being found pulseless. Patient is admitted for CHF exacerbation. patient intubated. Propofol stopped, patient not candidate for extubation today. OBJECTIVE: Vital Signs Temperature 99.5 F 10/19/17 06:00 Pulse Rate 65 10/19/17 08:24 Respiratory Rate 28 H 10/19/17 11:30 Blood Pressure 162/66 10/19/17 08:00 O2 Sat by Pulse Oximetry (%) 94 L 10/19/17 08:24 GENERAL: responds to verbal stimulus EYES: PERRL, opens eye lids to command LUNGS: Breath sounds equal, clear to auscultation bilaterally HEART: regular rate and rhythm , no murmurs, rubs, or gallops ABDOMEN: Soft, nontender, nondistended, normoactive bowel sounds NEURO: left hand cash application representative weaker then right, not able to move left LE, EXTREMITIES: 2+ dp pulses, warm, well-perfused, no edema. SKIN: Warm, dry, normal turgor, no rashes or lesions noted CBCD WBC 14.4 K/mm3 (4.0-10.0) H 10/19/17 05:30 RBC 3.77 M/mm3 (4.00-5.60) L 10/19/17 05:30 Hgb 9.4 GM/dL (11.7-16.9) L 10/19/17 05:30 Hct 31.0 % (35.4-49) L 10/19/17 05:30 MCV 82.3 fl (80-96) 10/19/17 05:30 MCHC 30.4 g/dl (32.0-35.9) L 10/19/17 05:30 RDW 16.3 % (11.9-15.9) H 10/19/17 05:30 Plt Count 100 K/MM3 (134-434) L 10/19/17 05:30 MPV 9.7 fl (7.5-11.1) 10/19/17 05:30 CMP Sodium 142 mmol/L (136-145) 10/19/17 05:30 Potassium 4.5 mmol/L (3.5-5.1) 10/19/17 05:30 Chloride 97 mmol/L (98-107) L 10/19/17 05:30 Carbon Dioxide 38 mmol/L (21-32) H 10/19/17 05:30 Anion Gap 7 MMOL/L (8-16) L 10/19/17 05:30 BUN 116 mg/dL (7-18) H* 10/19/17 05:30 Creatinine 2.7 mg/dL (0.7-1.3) H 10/19/17 05:30 Creat Clearance w eGFR 23.15 (>60) 10/19/17 05:30 Calcium 8.7 mg/dL (8.5-10.1) 10/19/17 05:30 Total Bilirubin 0.9 mg/dL (0.2-1.0) 10/19/17 05:30 AST 35 U/L (15-37) 10/19/17 05:30 ALT 12 U/L (12-78) 10/19/17 05:30 Alkaline Phosphatase 60 U/L (45-117) 10/19/17 05:30 Total Protein 6.4 g/dl (6.4-8.2) 10/19/17 05:30 Albumin 3.2 g/dl (3.4-5.0) L 10/19/17 05:30 Intake & Output 10/18/17 10/19/17 10/19/17 23:59 07:59 15:59 Intake Total 50 Output Total 700 600 Balance -700 -550 Weight 67.132 kg Active Medications Albuterol Sulfate (Ventolin 0.083% Nebulizer Soln -) 1 amp NEB Q6H PRN PRN Reason: SHORTNESS OF BREATH Last Admin: 10/19/17 12:04 Dose: 1 amp Aspirin (Asa -) 81 mg PO DAILY [facility] Last Admin: 10/19/17 11:08 Dose: 81 mg Chlorhexidine Gluconate (Peridex -) 15 ml MM BID [facility] Last Admin: 10/19/17 11:11 Dose: 15 ml Furosemide (Lasix Injection -) 80 mg IVPB BID@0600,1400 [facility] Last Admin: 10/19/17 05:45 Dose: 80 mg Propofol (Diprivan -) 1,000,000 mcg in 100 mls @ 2.082 mls/hr IVPB TITR [facility]; Protocol Last Titration: 10/19/17 07:40 Dose: 0 mcg/kg/min, 0 mls/hr Mupirocin (Bactroban Ointment (For Decolonization) -) 1 applic NS BID [facility] Stop: 10/23/17 21:59 Last Admin: 10/18/17 21:34 Dose: 1 applic Pantoprazole Sodium (Protonix Iv) 40 mg IVPUSH DAILY [facility] Rivaroxaban (Xarelto -) 15 mg PO DAILY@1800 [facility] Last Admin: 10/18/17 18:22 Dose: 15 mg ASSESSMENT/PLAN: Patient is a 77 y/o male with a history of HTN, HLD, CHF, COPD, afib, and cirrhosis who came to the ICU after being found pulseless. Patient is admitted for CHF exacerbation. #Neurology syncope - vasovagal vs osthostatic vs arrythmia - EKG non specific st changes, aflutter 5:1 block, incomplete RBB - Echo: LV size thickness and function normal, flattened septum with RV overload, RV systolic fxn reduced, severe pulmonary htn, moderate tricuspid regurg, EF : 55% from echo one year ago - carotid doppler: moderate atherosclerotic disease 60-70 %, left greater then right - cervical spine CT: moderate chronic T 3 compression - [address] head when stable for new left sided weakness #Cardiology demand ischemia - troponin trended down - LE doppler no sign of DVT - CXR: large heart, unfolded aorta, increasing pleural effusion, congestive changes diatolic CHF - furosemide 80 mg IV BID afib - Xarelto 15 mg po daily #Pulmonology acute on chronic hypercapnic respiratory failure - patient intubated - propofol off - ABG ph : 7.40 CO2:58.5 O 2: 74.7 HCO3: 35.7 - Vent TV: 450, Rate 16, PF 50, PEEP 5 O2 50% COPD - albuterol prn q6h #Nephrology PEACE on CKD - baseline Cr 2.15 per primary neprho - f/u Urine urea to determine FeNA - f/u Dr. Barajas for acute management GI ppx: - pantoprazole 40 mg IV daily FEN - Nepro @ 20 cc up to 42 cc, total 1 L per day Dispo: monitor for possible extubation tomorrow Visit type - Emergency Visit Emergency Visit: No - New Patient This patient is new to me today: No - Critical Care Critical Care patient: Yes Total Critical Care Time (in minutes): 42 Critical Care Statement: The care of this patient involved high complexity decision making to prevent further life threatening deterioration of the patient 's condition and/or to evaluate & treat vital organ system(s) failure or risk of failure.
[2017-10-19] MEDS: PANTOPRAZOLE SODIUM 40 MG VIAL IVPUSH SCH (15:15)
[2017-10-19] MEDS: ACETAMINOPHEN 1000 MG/100 ML VIAL (NON FORMULARY) IVPB PRN (15:58)
[2017-10-19] MEDS: MUPIROCIN 2% TOPICAL OINTMENT FOR DECOLONIZATION NS SCH ×2 (16:00→21:36)
--- NOTE | 2017-10-19 17:29 | PN ---
Progress Note, Physician History of Present Illness: Pt seen and examined at bedside. He remains in the ICU. He remains intubated. - Current Medication List Current Medications: Active Medications Acetaminophen (Ofirmev Injection -) 1,000 mg IVPB Q6H PRN PRN Reason: FEVER Last Admin: 10/19/17 15:58 Dose: 1,000 mg Albuterol Sulfate (Ventolin 0.083% Nebulizer Soln -) 1 amp NEB Q6H PRN PRN Reason: SHORTNESS OF BREATH Last Admin: 10/19/17 12:04 Dose: 1 amp Aspirin (Asa -) 81 mg PO DAILY [facility] Last Admin: 10/19/17 11:08 Dose: 81 mg Chlorhexidine Gluconate (Peridex -) 15 ml MM BID [facility] Last Admin: 10/19/17 11:11 Dose: 15 ml Furosemide (Lasix Injection -) 80 mg IVPB BID@0600,1400 [facility] Last Admin: 10/19/17 15:15 Dose: 80 mg Propofol (Diprivan -) 1,000,000 mcg in 100 mls @ 2.082 mls/hr IVPB TITR [facility]; Protocol Last Titration: 10/19/17 07:40 Dose: 0 mcg/kg/min, 0 mls/hr Mupirocin (Bactroban Ointment (For Decolonization) -) 1 applic NS BID [facility] Stop: 10/23/17 21:59 Last Admin: 10/19/17 16:00 Dose: 1 applic Pantoprazole Sodium (Protonix Iv) 40 mg IVPUSH DAILY [facility] Last Admin: 10/19/17 15:15 Dose: 40 mg Rivaroxaban (Xarelto -) 15 mg PO DAILY@1800 [facility] Last Admin: 10/18/17 18:22 Dose: 15 mg - Objective Vital Signs: Vital Signs Temperature 101 F H 10/19/17 16:00 Pulse Rate 76 10/19/17 16:00 Respiratory Rate 28 H 10/19/17 16:11 Blood Pressure 154/51 10/19/17 16:00 O2 Sat by Pulse Oximetry (%) 94 L 10/19/17 08:24 Constitutional: Yes: Calm Eyes: Yes: Conjunctiva Clear Cardiovascular: Yes: S1, S2 Respiratory: Yes: Mechanically Ventilated Gastrointestinal: Yes: Soft Genitourinary: Yes: Ruiz Present Musculoskeletal: Yes: Muscle Weakness Edema: Yes Edema: LLE: Trace, RLE: Trace Integumentary: Yes: Venous Stasis Changes Neurological: Yes: Lethargy Labs: CBC, BMP 10/19/17 05:30 10/19/17 05:30 INR, PTT INR 1.28 (0.83-1.09) H 10/18/17 05:30 - ....Imaging Chest X-ray: Report Reviewed Problem List - Problems (1) CKD (chronic kidney disease) Code(s): N18.9 - CHRONIC KIDNEY DISEASE, UNSPECIFIED (2) COPD (chronic obstructive pulmonary disease) Code(s): J44.9 - CHRONIC OBSTRUCTIVE PULMONARY DISEASE, UNSPECIFIED (3) Syncope Code(s): R55 - SYNCOPE AND COLLAPSE Qualifiers: Syncope type: unspecified Qualified Code(s): R55 - Syncope and collapse Assessment/Plan Current Medications Generic Name Dose Route Start Last Admin Trade Name Freq PRN Reason Stop Dose Admin Acetaminophen 1,000 mg 10/19/17 15:41 10/19/17 15:58 Ofirmev Injection - IVPB 1,000 mg Q6H PRN Administration FEVER Albuterol Sulfate 1 amp 10/19/17 11:11 10/19/17 12:04 Ventolin 0.083% Nebulizer Soln - NEB 1 amp Q6H PRN Administration SHORTNESS OF BREATH Aspirin 81 mg 10/19/17 10:00 10/19/17 11:08 Asa - PO 81 mg DAILY [facility] Administration Chlorhexidine Gluconate 15 ml 10/18/17 22:00 10/19/17 11:11 Peridex - MM 15 ml BID [facility] Administration Furosemide 80 mg 10/18/17 14:00 10/19/17 15:15 Lasix Injection - IVPB 80 mg BID@0600,1400 [facility] Administration Propofol 1,000,000 mcg in 100 mls @ 2.082 mls/hr 10/18/17 00:15 10/19/17 07: 40 Diprivan - IVPB 0 mcg/kg/min TITR [facility] 0 mls/hr Titration Protocol 5 MCG/KG/MIN Mupirocin 1 applic 10/18/17 22:00 10/19/17 16:00 Bactroban Ointment (For Decolonization) - NS 10/23/17 21:59 1 applic BID [facility] Administration Pantoprazole Sodium 40 mg 10/19/17 11:30 10/19/17 15:15 Protonix Iv IVPUSH 40 mg DAILY [facility] Administration Rivaroxaban 15 mg 10/17/17 18:00 10/18/17 18:22 Xarelto - PO 15 mg DAILY@1800 [facility] Administration Impression 1. PEACE 2. CHF 3. volume overload 4. a-fib 5. cirrhosis 6. VISHAL 7. bilateral renal cysts 8. syncope 9. hypoxia 10. cardiopulmonary arrest 11. congesion on cxr 12. severe pulmonary HTN 13. resp failure Plan - renal function is worsening - repeat cxr in am - caution with diuretics - cont vent support and monitor pulse ox - monitor urine output - episode of hypotension may have caused the renal function to worsen - cardiology follow up appreciated - monitor in ICU
[2017-10-19] MEDS: RIVAROXABAN 15 MG TABLET PO SCH (18:07)
[2017-10-20] MEDS: PROPOFOL 1,000,000 MCG/100 ML VIAL IVPB SCH (00:15)
[2017-10-20] MEDS: FUROSEMIDE 100 MG/10 ML INJECTABLE VIAL IVPB SCH ×2 (05:24→10:16)
[2017-10-20 06:09] LABS: HEMATOCRIT 29.1 % (35.4-49); MCH 25.1 pg (25.7-33.7); MCHC 30.9 g/dl (32.0-35.9); MEAN CELL VOLUME 81.1 fl (80-96); MEAN PLT VOLUME 11.1 fl (7.5-11.1); PLATELET COUNT 96 K/MM3 (134-434); RBC 3.59 M/mm3 (4.00-5.60); RDW 16.3 % (11.9-15.9); WHITE BLOOD COUNT 13.3 K/mm3 (4.0-10.0)
[2017-10-20 06:20] LABS: ALBUMIN 2.9 g/dl (3.4-5.0); ANION GAP 8 MMOL/L (8-16); CALCIUM 8.6 mg/dL (8.5-10.1); CHLORIDE 98 mmol/L (98-107); CO2 38 mmol/L (21-32); GLUCOSE,RANDOM 139 mg/dL (74-106); MAGNESIUM 2.9 mg/dL (1.8-2.4); POTASSIUM 4.2 mmol/L (3.5-5.1); SODIUM 144 mmol/L (136-145)
[2017-10-20 06:24] LABS: ALK PHOS 64 U/L (45-117); BILIRUBIN,TOTAL 1.1 mg/dL (0.2-1.0); CREATININE 2.8 mg/dL (0.7-1.3); PHOSPHOROUS 4.5 mg/dL (2.5-4.9); SGOT/AST 22 U/L (15-37); SGPT/ALT 11 U/L (12-78); TOT PROT 6.1 g/dl (6.4-8.2)
[2017-10-20 06:34] LABS: BLOOD UREA NITROGEN 142 mg/dL (7-18)
[2017-10-20] MEDS ORDERED: PT OWN MED DRAWER 7, Y5N ONE (08:11)
--- NOTE | 2017-10-20 08:13 | PN ---
Teaching Attending Note Name of Resident: Rylan Middleton ATTENDING PHYSICIAN STATEMENT I saw and evaluated the patient. I reviewed the resident's note and discussed the case with the resident. I agree with the resident's findings and plan as documented. SUBJECTIVE: Patient is intubated in ICU, Unable to be weaned off the vent. OBJECTIVE: Vital Signs Temperature 99.7 F H 10/20/17 06:00 Pulse Rate 58 L 10/20/17 06:00 Respiratory Rate 20 10/20/17 06:13 Blood Pressure 111/40 10/20/17 06:00 O2 Sat by Pulse Oximetry (%) 98 10/19/17 21:00 CBCD WBC 13.3 K/mm3 (4.0-10.0) H 10/20/17 05:30 RBC 3.59 M/mm3 (4.00-5.60) L 10/20/17 05:30 Hgb 9.0 GM/dL (11.7-16.9) L 10/20/17 05:30 Hct 29.1 % (35.4-49) L 10/20/17 05:30 MCV 81.1 fl (80-96) 10/20/17 05:30 MCHC 30.9 g/dl (32.0-35.9) L 10/20/17 05:30 RDW 16.3 % (11.9-15.9) H 10/20/17 05:30 Plt Count 96 K/MM3 (134-434) L 10/20/17 05:30 MPV 11.1 fl (7.5-11.1) D 10/20/17 05:30 CMP Sodium 144 mmol/L (136-145) 10/20/17 05:30 Potassium 4.2 mmol/L (3.5-5.1) 10/20/17 05:30 Chloride 98 mmol/L (98-107) 10/20/17 05:30 Carbon Dioxide 38 mmol/L (21-32) H 10/20/17 05:30 Anion Gap 8 MMOL/L (8-16) 10/20/17 05:30 BUN 142 mg/dL (7-18) H* D 10/20/17 05:30 Creatinine 2.8 mg/dL (0.7-1.3) H 10/20/17 05:30 Creat Clearance w eGFR 22.20 (>60) 10/20/17 05:30 Random Glucose 139 mg/dL (74-106) H D 10/20/17 05:30 Calcium 8.6 mg/dL (8.5-10.1) 10/20/17 05:30 Total Bilirubin 1.1 mg/dL (0.2-1.0) H 10/20/17 05:30 AST 22 U/L (15-37) D 10/20/17 05:30 ALT 11 U/L (12-78) L 10/20/17 05:30 Alkaline Phosphatase 64 U/L (45-117) 10/20/17 05:30 Total Protein 6.1 g/dl (6.4-8.2) L 10/20/17 05:30 Albumin 2.9 g/dl (3.4-5.0) L 10/20/17 05:30 CARDIAC ENZYMES Creatine Kinase 146 IU/L (39-308) 10/18/17 05:30 Troponin I 1.86 ng/ml (0.00-0.05) H* 10/19/17 06:00 Current Medications Generic Name Dose Route Start Last Admin Trade Name Freq PRN Reason Stop Dose Admin Acetaminophen 1,000 mg 10/19/17 15:41 10/19/17 15:58 Ofirmev Injection - IVPB 1,000 mg Q6H PRN Administration FEVER Albuterol Sulfate 1 amp 10/19/17 11:11 10/19/17 12:04 Ventolin 0.083% Nebulizer Soln - NEB 1 amp Q6H PRN Administration SHORTNESS OF BREATH Aspirin 81 mg 10/19/17 10:00 10/19/17 11:08 Asa - PO 81 mg DAILY [facility] Administration Chlorhexidine Gluconate 15 ml 10/18/17 22:00 10/19/17 21:36 Peridex - MM 15 ml BID [facility] Administration Furosemide 80 mg 10/18/17 14:00 10/20/17 05:24 Lasix Injection - IVPB 80 mg BID@0600,1400 [facility] Administration Propofol 1,000,000 mcg in 100 mls @ 2.082 mls/hr 10/18/17 00:15 10/20/17 00: 15 Diprivan - IVPB 10 mcg/kg/min TITR [facility] 4.164 mls/hr Administration Protocol 5 MCG/KG/MIN Mupirocin 1 applic 10/18/17 22:00 10/19/17 21:36 Bactroban Ointment (For Decolonization) - NS 10/23/17 21:59 1 applic BID [facility] Administration Pantoprazole Sodium 40 mg 10/19/17 11:30 10/19/17 15:15 Protonix Iv IVPUSH 40 mg DAILY [facility] Administration Rivaroxaban 15 mg 10/17/17 18:00 10/19/17 18:07 Xarelto - PO 15 mg DAILY@1800 [facility] Administration Home Medications Medication Instructions Recorded Cholecalciferol (Vitamin D3) 1,000 unit PO DAILY 06/22/12 [Vitamin D] Tiotropium [place] [Spiriva] 1 inh IH DAILY 06/22/12 Fluticasone/Vilanterol [Breo 1 each IH DAILY 06/05/14 Ellipta 100-25 Mcg INH] Sertraline HCl [Zoloft -] 50 mg PO DAILY 06/05/14 Sodium Chloride Nasal [place] [Cottle 2 spray NS BID spraybtl 06/11/14 [place] Nasal [place] -] Furosemide [Lasix -] 80 mg PO BID 09/21/16 Febuxostat [Uloric] 40 mg PO DAILY 10/16/17 Rivaroxaban [Xarelto -] 15 mg PO DAILY 10/16/17 Sertraline HCl [Zoloft -] 50 mg PO DAILY 10/16/17 Spironolactone [Aldactone] 25 mg PO BID 10/16/17 Metolazone 2.5 mg PO WEEKLY 10/17/17 carotid US: Moderate atherosclerotic disease, left greater than right, with stenoses in the 60-79% range involving the internal carotid arteries. Clinical correlation and follow-up studies recommended. Please see above discussion. Head CT: IMPRESSION: No significant interval change. There remains moderate atrophy and chronic microvascular ischemic disease changes without gross evidence of acute intracranial pathology. PE:intubated sedated. in ICu rest of PE per resident's note EKG reviewed .RBBB with no acute ischemic changes ASSESSMENT AND PLAN: Patient is a 77 y/o man with PMHx of CHF,liver cirrhosis, gout , COPD, VISHAL, cor pulmonale, a fib, HTN, HLP, and CKD who presented to ED after having a syncopal episode. # Acute on chronic hypoxic hypercapnic respiratory failure with hx of COPD: patient continues to be intubated sedated in ICU further care per ICU team. Continue nebs treatment. # H/O COPD: cont Nebs and inhalers : continue nebulizer treatments. # acute diastolic CHF exacerbation on IV Lasix continue, follow Echo, # Syncope: hypoxia, vs vasovagal, vs arrhythmias ; carotid US # PEACE on CKD: likely due to heart failure ,continue to monitor renal function # A fib: on xarelto at home. monitor renal function, if worsens will adjust the dose accordingly DVT Px: Xarelto
--- NOTE | 2017-10-20 09:09 | PN ---
Physical Exam: SUBJECTIVE: Patient is a 77 y/o male with a history of HTN, HLD, CHF, COPD, afib, and cirrhosis who is admitted to the ICU for CHF exacerbation. Patient intubated and sedated. Patient had a fever yesterday late afternoon and was given tylenol. Patient had no acute events overnight. Possible extubation today. 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 SKIN: Warm, dry, normal turgor, no rashes or lesions noted CBCD WBC 13.3 K/mm3 (4.0-10.0) H 10/20/17 05:30 RBC 3.59 M/mm3 (4.00-5.60) L 10/20/17 05:30 Hgb 9.0 GM/dL (11.7-16.9) L 10/20/17 05:30 Hct 29.1 % (35.4-49) L 10/20/17 05:30 MCV 81.1 fl (80-96) 10/20/17 05:30 MCHC 30.9 g/dl (32.0-35.9) L 10/20/17 05:30 RDW 16.3 % (11.9-15.9) H 10/20/17 05:30 Plt Count 96 K/MM3 (134-434) L 10/20/17 05:30 MPV 11.1 fl (7.5-11.1) D 10/20/17 05:30 CMP Sodium 144 mmol/L (136-145) 10/20/17 05:30 Potassium 4.2 mmol/L (3.5-5.1) 10/20/17 05:30 Chloride 98 mmol/L (98-107) 10/20/17 05:30 Carbon Dioxide 38 mmol/L (21-32) H 10/20/17 05:30 Anion Gap 8 MMOL/L (8-16) 10/20/17 05:30 BUN 142 mg/dL (7-18) H* D 10/20/17 05:30 Creatinine 2.8 mg/dL (0.7-1.3) H 10/20/17 05:30 Creat Clearance w eGFR 22.20 (>60) 10/20/17 05:30 Calcium 8.6 mg/dL (8.5-10.1) 10/20/17 05:30 Total Bilirubin 1.1 mg/dL (0.2-1.0) H 10/20/17 05:30 AST 22 U/L (15-37) D 10/20/17 05:30 ALT 11 U/L (12-78) L 10/20/17 05:30 Alkaline Phosphatase 64 U/L (45-117) 10/20/17 05:30 Total Protein 6.1 g/dl (6.4-8.2) L 10/20/17 05:30 Albumin 2.9 g/dl (3.4-5.0) L 10/20/17 05:30 Active Medications Acetaminophen (Ofirmev Injection -) 1,000 mg IVPB Q6H PRN PRN Reason: FEVER Last Admin: 10/19/17 15:58 Dose: 1,000 mg Albuterol Sulfate (Ventolin 0.083% Nebulizer Soln -) 1 amp NEB Q6H PRN PRN Reason: SHORTNESS OF BREATH Last Admin: 10/19/17 12:04 Dose: 1 amp Aspirin (Asa -) 81 mg PO DAILY [facility] Last Admin: 10/19/17 11:08 Dose: 81 mg Chlorhexidine Gluconate (Peridex -) 15 ml MM BID [facility] Last Admin: 10/19/17 21:36 Dose: 15 ml Furosemide (Lasix Injection -) 80 mg IVPB BID@0600,1400 [facility] Last Admin: 10/20/17 05:24 Dose: 80 mg Propofol (Diprivan -) 1,000,000 mcg in 100 mls @ 2.082 mls/hr IVPB TITR [facility]; Protocol Last Admin: 10/20/17 00:15 Dose: 10 mcg/kg/min, 4.164 mls/hr Mupirocin (Bactroban Ointment (For Decolonization) -) 1 applic NS BID [facility] Stop: 10/23/17 21:59 Last Admin: 10/19/17 21:36 Dose: 1 applic Pantoprazole Sodium (Protonix Iv) 40 mg IVPUSH DAILY [facility] Last Admin: 10/19/17 15:15 Dose: 40 mg Rivaroxaban (Xarelto -) 15 mg PO DAILY@1800 [facility] Last Admin: 10/19/17 18:07 Dose: 15 mg ASSESSMENT/PLAN: michelle is a 77 y/o male with a history of HTN, HLD, CHF, COPD, afib, and cirrhosis who came to the ICU after being found pulseless. Patient is admitted for CHF exacerbation. #Neurology syncope - vasovagal vs osthostatic vs arrythmia - EKG non specific st changes, aflutter 5:1 block, incomplete RBB - Echo: LV size thickness and function normal, flattened septum with RV overload, RV systolic fxn reduced, severe pulmonary htn, moderate tricuspid regurg, EF : 55% from echo one year ago - carotid doppler: moderate atherosclerotic disease 60-70 %, left greater then right - cervical spine CT: moderate chronic T 3 compression - head CT: no significant interval change, moderate atrophy and chronic microvasular ischemic disease change #Cardiology demand ischemia - troponin trended down - LE doppler no sign of DVT - CXR: large heart, unfolded aorta, increasing pleural effusion, congestive changes diatolic CHF - furosemide 80 mg IV daily afib - Xarelto 15 mg po daily #Pulmonology acute on chronic hypercapnic respiratory failure - patient intubated - propofol restarted - ABG ph : 7.40 CO2:58.5 O 2: 74.7 HCO3: 35.7 - Vent TV: 450, Rate 16, PF 50, PEEP 5 O2 50% COPD - albuterol prn q6h - Chest CT: bilateral pleural effusions, right greater then left, left adrenal mass #Nephrology PEACE on CKD - baseline Cr 2.15 per primary neprho - f/u Urine urea to determine FeNA - f/u Dr. Barajas for acute management GI ppx: - pantoprazole 40 mg IV daily Infectious Disease Possible Ventilator associated PNA - fever TMAX 101 - Brito culture today - CT showed possible PNA - Began Vanc 1 gm and Zosyn 2.25 q6 for renal clearance - f/u Vanc level tomorrow - Chest CT: congestive changed and compressive atelectasis at bases, r/o infiltrates FEN - Nepro @ 20 cc up to 42 cc, total 1 L per day Dispo: monitor for possible extubation tomorrow Visit type - Emergency Visit Emergency Visit: No - New Patient This patient is new to me today: No - Critical Care Critical Care patient: Yes Total Critical Care Time (in minutes): 38 Critical Care Statement: The care of this patient involved high complexity decision making to prevent further life threatening deterioration of the patient 's condition and/or to evaluate & treat vital organ system(s) failure or risk of failure.
--- NOTE | 2017-10-20 09:27 | PN ---
Teaching Attending Note Name of Resident: Janet Sparks ATTENDING PHYSICIAN STATEMENT I saw and evaluated the patient. I reviewed the resident's note and discussed the case with the resident. I agree with the resident's findings and plan as documented. SUBJECTIVE: Pt seen and examined in the ICU. Remains intubated, mental status and neuro exam improved off sedation. On SIMV with 15 PS. OBJECTIVE: Vital Signs Period Temp Pulse Resp BP Sys/Gama Pulse Ox Last 24 Hr 99.2 F-101 F 58-88 16-32 103-158/40-91 95-98 Intake & Output 10/17/17 10/18/17 10/19/17 10/20/17 23:59 23:59 23:59 23:59 Intake Total 785 490 158 524 Output Total 850 1250 1800 200 Balance -03 -095 -6725 324 Weight 66.224 kg 67.132 kg 64.229 kg Gen: intubated, arousable Heart: RRR Lung: scattered rhonchi Abd: soft, nontender Ext: no edema CBC, BMP 10/20/17 05:30 10/20/17 05:30 Active Medications Acetaminophen (Ofirmev Injection -) 1,000 mg IVPB Q6H PRN PRN Reason: FEVER Last Admin: 10/19/17 15:58 Dose: 1,000 mg Albuterol Sulfate (Ventolin 0.083% Nebulizer Soln -) 1 amp NEB Q6H PRN PRN Reason: SHORTNESS OF BREATH Last Admin: 10/19/17 12:04 Dose: 1 amp Aspirin (Asa -) 81 mg PO DAILY [facility] Last Admin: 10/19/17 11:08 Dose: 81 mg Chlorhexidine Gluconate (Peridex -) 15 ml MM BID [facility] Last Admin: 10/19/17 21:36 Dose: 15 ml Furosemide (Lasix Injection -) 80 mg IVPB BID@0600,1400 [facility] Last Admin: 10/20/17 05:24 Dose: 80 mg Propofol (Diprivan -) 1,000,000 mcg in 100 mls @ 2.082 mls/hr IVPB TITR [facility]; Protocol Last Admin: 10/20/17 00:15 Dose: 10 mcg/kg/min, 4.164 mls/hr Mupirocin (Bactroban Ointment (For Decolonization) -) 1 applic NS BID [facility] Stop: 10/23/17 21:59 Last Admin: 10/19/17 21:36 Dose: 1 applic Pantoprazole Sodium (Protonix Iv) 40 mg IVPUSH DAILY [facility] Last Admin: 10/19/17 15:15 Dose: 40 mg Rivaroxaban (Xarelto -) 15 mg PO DAILY@1800 [facility] Last Admin: 10/19/17 18:07 Dose: 15 mg ASSESSMENT AND PLAN: s/p Cardiopulmonary Arrest Acute on Chronic Hypoxic and Hypercapneic Respiratory Failure Acute on Chronic Diastolic Heart Failure Acute on Chronic Renal Failure Severe Pulmonary HTN Atrial Fibrillation Carotid Stenosis Syncope HTN Hyperlipidemia - continue lasix - monitor urine output, creatinine - inhaled bronchodilators - taper FiO2 to keep SpO2>90% - rate control - continue anticoagulation - monitor telemetry for pauses - minimize sedation to assess mental status - spontaneous breathing trials as tolerated, placed on SIMV - DVT/GI prophylaxis - continue ICU monitoring critical care time spent in reviewing chart, evaluating patient and formulating plan 35 min
[2017-10-20] MEDS: CHLORHEXIDINE GLUCONATE 0.12% 15ML CUP MM SCH ×2 (09:34→21:29)
[2017-10-20] MEDS: ASPIRIN 81 MG CHEWABLE TABLETS PO SCH (09:34)
[2017-10-20] MEDS: PANTOPRAZOLE SODIUM 40 MG VIAL IVPUSH SCH (09:34)
[2017-10-20] MEDS: MUPIROCIN 2% TOPICAL OINTMENT FOR DECOLONIZATION NS SCH ×2 (09:34→21:29)
--- NOTE | 2017-10-20 11:26 | PN ---
Physical Exam: SUBJECTIVE: Patient seen and examined in ICU this morning. Yesterday afternoon he was febrile to 101.4F at 1600 yesterday afternoon. No acute overnight events. Patient is intubated, on Propofol sedation, opens his eyes responding to name and nods to answer question. OBJECTIVE: Vital Signs Period Temp Pulse Resp BP Sys/Gama Pulse Ox Last 24 Hr 99.2 F-101 F 58-88 16-32 103-157/40-91 95-98 GENERAL: The patient is arousable, no acute distress. HEAD: Normal with no signs of trauma. EYES: PERRL, sclera anicteric, conjunctiva clear. NECK: Supple without lymphadenopathy LUNGS: Intubated. Breath sounds equal, clear to auscultation bilaterally, no wheezes, faint crackles auscultated B/L HEART: Regular rate and rhythm, S1, S2 with murmur auscultated over left sternal border ABDOMEN: Soft, nontender, nondistended, hypoactive bowel sounds. EXTREMITIES: 2+ pulses, warm, well-perfused, 1+ pitting edema NEUROLOGICAL: Unable to assess as patient was sedated upon my encounter. SKIN: Warm, dry. Noted increased bruising on arms B/L. Laboratory Results - last 24 hr 10/19/17 10/20/17 10/20/17 06:00 05:30 05:30 WBC 13.3 H RBC 3.59 L Hgb 9.0 L Hct 29.1 L MCV 81.1 MCH 25.1 L MCHC 30.9 L RDW 16.3 H Plt Count 96 L MPV 11.1 D Sodium 144 Potassium 4.2 Chloride 98 Carbon Dioxide 38 H Anion Gap 8 BUN 142 H* D Creatinine 2.8 H Creat Clearance w eGFR 22.20 Random Glucose 139 H D Calcium 8.6 Phosphorus 4.5 Magnesium 2.9 H Total Bilirubin 1.1 H AST 22 D ALT 11 L Alkaline Phosphatase 64 Troponin I 1.86 H* Total Protein 6.1 L Albumin 2.9 L Active Medications Generic Name Dose Route Start Last Admin Trade Name Freq PRN Reason Stop Dose Admin Acetaminophen 1,000 mg 10/19/17 15:41 10/19/17 15:58 Ofirmev Injection - IVPB 1,000 mg Q6H PRN Administration FEVER Albuterol Sulfate 1 amp 10/19/17 11:11 10/19/17 12:04 Ventolin 0.083% Nebulizer Soln - NEB 1 amp Q6H PRN Administration SHORTNESS OF BREATH Albuterol/Ipratropium 1 amp 10/20/17 12:00 Duoneb - NEB RQID [facility] Aspirin 81 mg 10/19/17 10:00 10/20/17 09:34 Asa - PO 81 mg DAILY [facility] Administration Chlorhexidine Gluconate 15 ml 10/18/17 22:00 10/20/17 09:34 Peridex - MM 15 ml BID [facility] Administration Furosemide 80 mg 10/20/17 10:00 10/20/17 10:16 Lasix Injection - IVPB 80 mg DAILY [facility] Administration Propofol 1,000,000 mcg in 100 mls @ 2.082 mls/hr 10/18/17 00:15 10/20/17 00: 15 Diprivan - IVPB 10 mcg/kg/min TITR [facility] 4.164 mls/hr Administration Protocol 5 MCG/KG/MIN Mupirocin 1 applic 10/18/17 22:00 10/20/17 09:34 Bactroban Ointment (For Decolonization) - NS 10/23/17 21:59 1 applic BID [facility] Administration Pantoprazole Sodium 40 mg 10/19/17 11:30 10/20/17 09:34 Protonix Iv IVPUSH 40 mg DAILY [facility] Administration Rivaroxaban 15 mg 10/17/17 18:00 10/19/17 18:07 Xarelto - PO 15 mg DAILY@1800 [facility] Administration ASSESSMENT/PLAN: Patient is a 77 year old male with history of hypertension, hyperlipidemia, congestive heart failure, Afib (on xarelto) COPD,cirrhosis, presents after an unwitnessed syncopal episode. Patient in ICU after found pulseless. Achieved ROSC in approx. 1 minute with chest compressions and BVM. Acute Hypoxemic Respiratory Distress -Patient intubated, in ICU. Today he is off propofol. -Lasix 80mg IV QD -Duonebs 1amp Q6H PRn, Tiotropium 2 puffs IH daily, Advair 1 puff BID, -CXR still shows chronic pleural fluid with atelectasis/ infiltrate at right lung base, without significant changes from yesterdays chest xray. ?Ventilator Associated Pneumonia -Patient was febrile yesterday to 101.5 -CT chest shows small left and right pleural effusions. compressive atelectasis at bases with calcifications B/L. Pneumonia cannot be ruled out: left lung base , right middle lobe. -Patient was started on Vancomycin 1gm IV QD, and Zosyn 2.25gm IV Q6H (renal dosed due to his CKD- Cr 2.8 today) -F/U ID consult () -F/U blood cultures Troponinemia -(Dr. Vogel) Cardiology consult appreciated: Likely demand ischemia d/t hypotensive episode overnight. -Troponins trended down 2.60 -> 2.34 Syncopal Episode -Considering vasovagal d/t combined use of spironolactone and metolazone vs. arrhythmia. -CXR showed chronic pleural fluid with atelectasis/ infiltrate at right lung base -EKG showed atrial flutter with 5:1 block, incomplete RBBB with nonspecific ST and T wave abnormalities. -ECHO showed normal LV function and size, moderately diminished RV function, moderate tricuspid insufficiency, severe pulmonary hypertension. -CT head was negative for intracranial injury or cerebral fracture -Cervical CT showed no cervical vertebral fractures, and degenerative C4-C5 stenosis. -Carotid US showed moderate atherosclerosis left > right stenosis 60-79% with internal carotid involvement. -Arterial Duplex showed extensive atherosclerotic disease without occlusion or stenosis. -Abdominal Us shows: small ascites B/L without cholelithiasis, cholecystitis. Distension of hepatic veins suggesting right cardiac dysfunction. -Cardiology consult appreciated: may be vasovagal as patient felt hot and short of breath before passing out. Diuresis with IV Lasix 80mg QD, holding spironolactone for now, monitor daily weights intake and output. -Lower extremity doppler: shows no DVT in either leg. Notable for 2.7 x 1.7 x 1cm left popliteal cyst. -(Dr. Andujar) Neurology consult appreciated: Left leg moves less than right leg, and ?left sided facial nerve defecit. Unable to determine if these changes are acute. -CT head shows no acute interval changes from last study (10/16/17): Atrophy and chronic microvascular changes. Acute on Chronic kidney disease -Cr 2.8 today, increased from 2.7 yesterday. BUN 142 increased from 116 yesterday. -Nephrology consult appreciated: Renal function may worsen d/t episode of hypotension. Baseline Creatinine is 2.15 -Renal and Bladder US shows: B/l renal simple cysts without hydronephrosis, or stones. Urinary bladder is partially distended without wall thickening. Afib -Continue Xarelto 15mg PO QD FEN -No IV fluids -Will follow CMP -NPO, patient is intubated. Prophylaxis -On Xarelto 15mg PO QD -Pantoprazole 40mg IV QD Disposition: Continue care in ICU Visit type - Emergency Visit Emergency Visit: No - New Patient This patient is new to me today: No - Critical Care Critical Care patient: Yes Total Critical Care Time (in minutes): 30 Critical Care Statement: The care of this patient involved high complexity decision making to prevent further life threatening deterioration of the patient 's condition and/or to evaluate & treat vital organ system(s) failure or risk of failure. - Discharge Referral Referred to [facility] Med P.C.: No
--- NOTE | 2017-10-20 11:54 | PN ---
Progress Note (short form) - Note Progress Note: - Note Progress Note: cc: CHF exacerbation, syncope s: intubated, lethargic off sedation Current Medications Generic Name Dose Route Start Last Admin Trade Name Freq PRN Reason Stop Dose Admin Acetaminophen 1,000 mg 10/19/17 15:41 10/19/17 15:58 Ofirmev Injection - IVPB 1,000 mg Q6H PRN Administration FEVER Albuterol Sulfate 1 amp 10/19/17 11:11 10/19/17 12:04 Ventolin 0.083% Nebulizer Soln - NEB 1 amp Q6H PRN Administration SHORTNESS OF BREATH Albuterol/Ipratropium 1 amp 10/20/17 12:00 Duoneb - NEB RQID [facility] Aspirin 81 mg 10/19/17 10:00 10/20/17 09:34 Asa - PO 81 mg DAILY [facility] Administration Chlorhexidine Gluconate 15 ml 10/18/17 22:00 10/20/17 09:34 Peridex - MM 15 ml BID [facility] Administration Furosemide 80 mg 10/20/17 10:00 10/20/17 10:16 Lasix Injection - IVPB 80 mg DAILY [facility] Administration Propofol 1,000,000 mcg in 100 mls @ 2.082 mls/hr 10/18/17 00:15 10/20/17 00: 15 Diprivan - IVPB 10 mcg/kg/min TITR [facility] 4.164 mls/hr Administration Protocol 5 MCG/KG/MIN Mupirocin 1 applic 10/18/17 22:00 10/20/17 09:34 Bactroban Ointment (For Decolonization) - NS 10/23/17 21:59 1 applic BID [facility] Administration Pantoprazole Sodium 40 mg 10/19/17 11:30 10/20/17 09:34 Protonix Iv IVPUSH 40 mg DAILY [facility] Administration Rivaroxaban 15 mg 10/17/17 18:00 10/19/17 18:07 Xarelto - PO 15 mg DAILY@1800 [facility] Administration Vital Signs Temp 99.7 F H 10/20/17 06:00 Pulse 60 10/20/17 08:00 Resp 19 10/20/17 09:36 BP 107/45 10/20/17 08:00 Pulse Ox 98 10/19/17 21:00 Intake & Output 10/19/17 10/19/1718 11:59 23:59 11:59 Intake Total 50 108 524 Output Total 600 1200 200 Balance -550 -1092 324 Weight 148 lb 141 lb 9.6 oz Intake: IV 50 48 32 DIPRIVAN - 1,000,000 mcg 50 48 32 In 100 ml @ 5 MCG/KG/MIN 2.082 mls/hr IVPB TITR [facility] Rx#:[id number] Tube Feeding 40 372 Tube Irrigant 20 120 Output: Urine 600 1200 200 Ruiz 600 1200 200 Other: Voiding Method Indwelling Catheter Indwelling Catheter Bowel Movement No No No Weight Measurement Method Built in [facility] Built in [facility] Constitutional: Yes:intubated, Eyes: Yes: Conjunctiva Clear Neck: Yes: Supple, Trachea Midline Respiratory: Yes: Regular, Rales (bilateral bases), vented Gastrointestinal: Yes: Normal Bowel Sounds, Soft Cardiovascular: Yes: Regular Rate and Rhythm Heart Sounds: Yes: S1, S2 Edema: No Peripheral Pulses: 2+ Left Doralis Pedis, 2+ Right Dorsalis Pedis lethargic no jaundice diaphoresis Laboratory Last Values WBC 13.3 K/mm3 (4.0-10.0) H 10/20/17 05:30 RBC 3.59 M/mm3 (4.00-5.60) L 10/20/17 05:30 Hgb 9.0 GM/dL (11.7-16.9) L 10/20/17 05:30 Hct 29.1 % (35.4-49) L 10/20/17 05:30 MCV 81.1 fl (80-96) 10/20/17 05:30 MCH 25.1 pg (25.7-33.7) L 10/20/17 05:30 MCHC 30.9 g/dl (32.0-35.9) L 10/20/17 05:30 RDW 16.3 % (11.9-15.9) H 10/20/17 05:30 Plt Count 96 K/MM3 (134-434) L 10/20/17 05:30 MPV 11.1 fl (7.5-11.1) D 10/20/17 05:30 Absolute Neuts (auto) 11.6 K/mm3 (1.5-8.0) H 10/18/17 05:30 Neutrophils % 89.7 % (42.8-82.8) H 10/18/17 05:30 Lymphocytes % 1.5 % (8-40) L D 10/18/17 05:30 Monocytes % 8.5 % (3.8-10.2) 10/18/17 05:30 Eosinophils % 0.0 % (0-4.5) 10/18/17 05:30 Basophils % 0.3 % (0-2.0) 10/18/17 05:30 Nucleated RBC % 0 % (0-0) 10/18/17 05:30 Retic Count 1.78 % (0.5-1.5) H 10/17/17 05:30 PT with INR 14.50 SEC (9.7-13.0) H 10/18/17 05:30 INR 1.28 (0.83-1.09) H 10/18/17 05:30 PTT (Actin FS) 29.1 SECONDS (25.2-36.5) 10/18/17 05:30 Anticoagulation Therapy No Result Required. 10/18/17 00:14 Puncture Site Right radial 10/18/17 08:20 ABG pH 7.40 (7.35-7.45) 10/18/17 08:20 ABG pCO2 at Pt Temp 58.5 mmHg (35-45) H D 10/18/17 08:20 ABG pO2 at Pt Temp 74.7 mmHg (70-100) D 10/18/17 08:20 ABG HCO3 35.7 meq/L (22-26) H 10/18/17 08:20 ABG O2 Sat (Measured) 95.5 % (90-98.9) 10/18/17 08:20 ABG O2 Content 12.0 % vol (15-22) L 10/18/17 08:20 ABG Base Excess 9.9 meq/l (-2-2) H 10/18/17 08:20 Gagan Test Positive 10/18/17 08:20 Carboxyhemoglobin 3.1 gm% (0.5-2.0) H 10/16/17 19:49 Methemoglobin 1.6 % (0.4-1.5) H 10/16/17 19:49 O2 Delivery Device Vent 10/18/17 00:14 Oxygen Flow Rate Yes 10/18/17 08:20 Vent Mode 100 10/18/17 00:14 Vent Rate 14 10/18/17 00:14 Mechanical Rate Yes 10/18/17 00:14 PEEP 0.0 cmH2O 10/18/17 00:14 Pressure Support Vent 450 10/18/17 00:14 Sodium 144 mmol/L (136-145) 10/20/17 05:30 Potassium 4.2 mmol/L (3.5-5.1) 10/20/17 05:30 Chloride 98 mmol/L (98-107) 10/20/17 05:30 Carbon Dioxide 38 mmol/L (21-32) H 10/20/17 05:30 Anion Gap 8 MMOL/L (8-16) 10/20/17 05:30 BUN 142 mg/dL (7-18) H* D 10/20/17 05:30 Creatinine 2.8 mg/dL (0.7-1.3) H 10/20/17 05:30 Creat Clearance w eGFR 22.20 (>60) 10/20/17 05:30 Random Glucose 139 mg/dL (74-106) H D 10/20/17 05:30 Lactic Acid 1.6 mmol/L (0.0-2.0) 10/18/17 12:09 Calcium 8.6 mg/dL (8.5-10.1) 10/20/17 05:30 Phosphorus 4.5 mg/dL (2.5-4.9) 10/20/17 05:30 Magnesium 2.9 mg/dL (1.8-2.4) H 10/20/17 05:30 Iron 27 ug/dL (38-169) L 10/17/17 05:30 TIBC 423 ug/dL (250-450) 10/17/17 05:30 Iron Saturation 6 % (15-55) L 10/17/17 05:30 Ferritin 26.5 ng/ml (16.4-293.9) 10/17/17 05:30 Total Bilirubin 1.1 mg/dL (0.2-1.0) H 10/20/17 05:30 AST 22 U/L (15-37) D 10/20/17 05:30 ALT 11 U/L (12-78) L 10/20/17 05:30 Alkaline Phosphatase 64 U/L (45-117) 10/20/17 05:30 Creatine Kinase 146 IU/L (39-308) 10/18/17 05:30 CK-MB (CK-2) 9.58 ng/mL (0.5-3.6) H 10/18/17 05:30 Troponin I 1.86 ng/ml (0.00-0.05) H* 10/19/17 06:00 B-Natriuretic Peptide 50636.17 pg/ml (5-450) H 10/16/17 19:27 Total Protein 6.1 g/dl (6.4-8.2) L 10/20/17 05:30 Albumin 2.9 g/dl (3.4-5.0) L 10/20/17 05:30 TSH 1.30 uIU/ml (0.358-3.74) 10/18/17 05:30 Urine Color Ltyellow 10/18/17 01:25 Urine Appearance Slcloudy 10/18/17 01:25 Urine pH 5.0 (5.0-8.0) 10/18/17 01:25 Ur Specific Aurora 1.009 (1.001-1.035) 10/18/17 01:25 Urine Protein Negative (NEGATIVE) 10/18/17 01:25 Urine Glucose (UA) Negative (NEGATIVE) 10/18/17 01:25 Urine Ketones Negative (NEGATIVE) 10/18/17 01:25 Urine Blood 1+ (NEGATIVE) H 10/18/17 01:25 Urine Nitrite Negative (NEGATIVE) 10/18/17 01:25 Urine Bilirubin Negative (<2.0 mg/dL) 10/18/17 01:25 Urine Urobilinogen Negative mg/dL (0.2-1.0) 10/18/17 01:25 Ur Leukocyte Esterase Negative (NEGATIVE) 10/18/17 01:25 Urine WBC (Auto) 1 /hpf (3-5) 10/18/17 01:25 Urine RBC (Auto) 21 /hpf (0-3) 10/18/17 01:25 Ur Epithelial Cells Rare /HPF (FEW) 10/18/17 01:25 Hyaline Casts 4 /lpf 10/18/17 01:25 Urine Mucus Rare 10/18/17 01:25 Ur Random Sodium 62 MMOL/L 10/18/17 01:25 Ur Random Potassium 33.1 MMOL/L 10/18/17 01:25 Ur Random Chloride 79 MMOL/L 10/18/17 01:25 Urine Creatinine 54.6 mg/dL (20-370) 10/18/17 01:25 echo 09/2016 shows preserved LV fxn with significant RV dilatation and dysfunction, mod TR with RVSP>60 mmHg c/w cor pulmonale. 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, VISHAL, HTN, HLD, afib on Xarelto, cirrhosis p/w syncope, CHF exacerbation Acute respiratory distress - likely in setting of COPD, CHF exacerbation - intubated, on vent, manage per ICU - treatment of CHF exac as below syncope - may have been in setting of feeling short of breath, vasovagal, receiving spironolactone/metolazone - monitoring on tele, managing CHF exac/ COPD as below - echo stable compared to prior - carotid ultrasound with bilateral stenosis, vascular consulted (+) troponin - likely demand in setting of chf, then further demand after ACLS, trop down trending now - cont ac, asa acute on chronic diastolic HF - per patient's he has gained weight, she thinks about 10 lbs - diuresing well here on lasix 80 iv bid but bun/cr rising. d/w critcare, will decrease to lasix 80 iv qd and monitor renal fcn - holding spironolactone, metolazone - monitor daily standing weight, I/O, chem7 - echo stable, nl LV function with cor pulmonale, severe pulm HTN COPD - receiving nebs, now intubated - appreciate pulm recs HTN - controlled afib -continue xarelto -rate ok for now PEACE on CKD - diuresis as above - nephrology f/u
[2017-10-20] MEDS: ALBUTEROL SO4 2.5/IPRATROPIUM 0.5 INH SOL 3 ML VIAL.NEB. NEB SCH ×3 (12:15→20:45)
[2017-10-20] MEDS ORDERED: PIPERACILLIN/TAZOB 2.25 GM 2.25 GM in DEXTROSE 5%-WATER - 50 ML IVPB SCH ×2 (15:00→16:15)
--- NOTE | 2017-10-20 15:13 | PN ---
Progress Note, Physician History of Present Illness: Pt seen and examined at bedside. He remains in the ICU. Pt remains intubated. - Current Medication List Current Medications: Active Medications Acetaminophen (Ofirmev Injection -) 1,000 mg IVPB Q6H PRN PRN Reason: FEVER Last Admin: 10/19/17 15:58 Dose: 1,000 mg Albuterol Sulfate (Ventolin 0.083% Nebulizer Soln -) 1 amp NEB Q6H PRN PRN Reason: SHORTNESS OF BREATH Last Admin: 10/19/17 12:04 Dose: 1 amp Albuterol/Ipratropium (Duoneb -) 1 amp NEB RQID [facility] Last Admin: 10/20/17 12:15 Dose: 1 amp Aspirin (Asa -) 81 mg PO DAILY [facility] Last Admin: 10/20/17 09:34 Dose: 81 mg Chlorhexidine Gluconate (Peridex -) 15 ml MM BID [facility] Last Admin: 10/20/17 09:34 Dose: 15 ml Furosemide (Lasix Injection -) 80 mg IVPB DAILY [facility] Last Admin: 10/20/17 10:16 Dose: 80 mg Propofol (Diprivan -) 1,000,000 mcg in 100 mls @ 2.082 mls/hr IVPB TITR [facility]; Protocol Last Admin: 10/20/17 00:15 Dose: 10 mcg/kg/min, 4.164 mls/hr Vancomycin HCl 1,000 mg/ (Dextrose) 250 mls @ 166.667 mls/hr IVPB ONCE ONE; Protocol Stop: 10/20/17 14:47 Piperacillin Sod/Tazobactam (Sod 2.25 gm/ Dextrose) 50 mls @ 100 mls/hr IVPB Q6H-IV [facility]; Protocol Mupirocin (Bactroban Ointment (For Decolonization) -) 1 applic NS BID [facility] Stop: 10/23/17 21:59 Last Admin: 10/20/17 09:34 Dose: 1 applic Pantoprazole Sodium (Protonix Iv) 40 mg IVPUSH DAILY [facility] Last Admin: 10/20/17 09:34 Dose: 40 mg Rivaroxaban (Xarelto -) 15 mg PO DAILY@1800 [facility] Last Admin: 10/19/17 18:07 Dose: 15 mg - Objective Vital Signs: Vital Signs Temperature 99.8 F H 10/20/17 10:00 Pulse Rate 59 L 10/20/17 12:00 Respiratory Rate 21 10/20/17 14:05 Blood Pressure 129/64 10/20/17 12:00 O2 Sat by Pulse Oximetry (%) 98 10/20/17 09:00 Constitutional: Yes: Calm Eyes: Yes: Conjunctiva Clear Cardiovascular: Yes: S1, S2 Respiratory: Yes: Mechanically Ventilated Gastrointestinal: Yes: Soft Genitourinary: Yes: Ruiz Present Musculoskeletal: Yes: Muscle Weakness Edema: No Neurological: Yes: Lethargy Labs: CBC, BMP 10/20/17 05:30 10/20/17 05:30 INR, PTT INR 1.28 (0.83-1.09) H 10/18/17 05:30 - ....Imaging Chest X-ray: Report Reviewed Problem List - Problems (1) CKD (chronic kidney disease) Code(s): N18.9 - CHRONIC KIDNEY DISEASE, UNSPECIFIED (2) COPD (chronic obstructive pulmonary disease) Code(s): J44.9 - CHRONIC OBSTRUCTIVE PULMONARY DISEASE, UNSPECIFIED (3) Syncope Code(s): R55 - SYNCOPE AND COLLAPSE Qualifiers: Syncope type: unspecified Qualified Code(s): R55 - Syncope and collapse Assessment/Plan Current Medications Generic Name Dose Route Start Last Admin Trade Name Freq PRN Reason Stop Dose Admin Acetaminophen 1,000 mg 10/19/17 15:41 10/19/17 15:58 Ofirmev Injection - IVPB 1,000 mg Q6H PRN Administration FEVER Albuterol Sulfate 1 amp 10/19/17 11:11 10/19/17 12:04 Ventolin 0.083% Nebulizer Soln - NEB 1 amp Q6H PRN Administration SHORTNESS OF BREATH Albuterol/Ipratropium 1 amp 10/20/17 12:00 10/20/17 12:15 Duoneb - NEB 1 amp RQID [facility] Administration Aspirin 81 mg 10/19/17 10:00 10/20/17 09:34 Asa - PO 81 mg DAILY [facility] Administration Chlorhexidine Gluconate 15 ml 10/18/17 22:00 10/20/17 09:34 Peridex - MM 15 ml BID [facility] Administration Furosemide 80 mg 10/20/17 10:00 10/20/17 10:16 Lasix Injection - IVPB 80 mg DAILY [facility] Administration Propofol 1,000,000 mcg in 100 mls @ 2.082 mls/hr 10/18/17 00:15 10/20/17 00: 15 Diprivan - IVPB 10 mcg/kg/min TITR [facility] 4.164 mls/hr Administration Protocol 5 MCG/KG/MIN Vancomycin HCl 1,000 mg/ 250 mls @ 166.667 mls/hr 10/20/17 13:18 Dextrose IVPB 10/20/17 14:47 ONCE ONE Protocol Piperacillin Sod/Tazobactam 50 mls @ 100 mls/hr 10/20/17 15:00 Sod 2.25 gm/ Dextrose IVPB Q6H-IV [facility] Protocol Mupirocin 1 applic 10/18/17 22:00 10/20/17 09:34 Bactroban Ointment (For Decolonization) - NS 10/23/17 21:59 1 applic BID [facility] Administration Pantoprazole Sodium 40 mg 10/19/17 11:30 10/20/17 09:34 Protonix Iv IVPUSH 40 mg DAILY [facility] Administration Rivaroxaban 15 mg 10/17/17 18:00 10/19/17 18:07 Xarelto - PO 15 mg DAILY@1800 [facility] Administration Impression 1. PEACE 2. CHF 3. volume overload 4. a-fib 5. cirrhosis 6. VISHAL 7. bilateral renal cysts 8. syncope 9. hypoxia 10. cardiopulmonary arrest 11. congesion on cxr 12. severe pulmonary HTN 13. resp failure Plan - renal function is worse however pt is making urine - decrease dose of diuretics - repeat cxr in am - keep net negative - discussed with ICU team - discussed with family - may need dialysis if he does not improve - bp is improved - monitor in ICU
[2017-10-20] MEDS ORDERED: DEXTROSE 5%-WATER - 50 ML IVPB ONE (16:23)
[2017-10-20] MEDS ORDERED: PIPERACILLIN/TAZOBACTAM 2.25 GM VIAL IVPB ONE (16:23)
--- NOTE | 2017-10-20 16:23 | PN ---
Progress Note (short form) - Note Progress Note: ID Consult dictated Probable aspiration pneumonia S/P cardiopulmonary arrest Renal failure COPD CHF Cirrhosis Thrombocytopenia Pending cultures empiric Unasyn + stat dose vancomycin Ventilatory/ hemodynamic support Prognosis guarded Case discussed with patient's Critical care time 35min
[2017-10-20] MEDS ORDERED: VANCOMYCIN 1 GM PREMIX - 1 GM/200 ML BAG IVPB ONE (16:30)
[2017-10-20] MEDS: AMPICILLIN NA/SULBACTAM NA 1.5 GM in SODIUM CHLORIDE 100 ML IVPB SCH (16:59)
[2017-10-20] MEDS: RIVAROXABAN 15 MG TABLET PO SCH (16:59)
--- NOTE | 2017-10-20 17:50 | CONS ---
DATE OF CONSULTATION: DATE OF DICTATION: 10/20/2017 INFECTIOUS DISEASE CONSULTATION HISTORY OF PRESENT ILLNESS: The patient is a 77-year-old male with multiple comorbidities evaluated for probable aspiration pneumonia. He had presented to his primary care physician with complaints of increasing lower extremity edema. He had apparently had a syncopal episode at home. He was referred to the emergency room for evaluation. The patient was admitted to the hospital. His hospital course was complicated by cardiopulmonary arrest. Patient was successfully resuscitated after approximately 1 minute. He was transferred to the intensive care unit. At the present time he is intubated in the intensive care unit. He had been receiving sedation. His course has now been further complicated by fever to 101, and elevated white blood cell count. A CAT scan performed shows bilateral pleural effusions with a left lower lobe infiltrate. He is awake but lethargic on the ventilator. His breathing in nonlabored. He has a history of oxygen dependent COPD. According to the , he is not steroid dependent. He wears BiPAP at night. He also has a history of CHF and cirrhosis. PAST MEDICAL HISTORY: Positive for congestive heart failure, COPD, hypertension, hyperlipidemia, atrial fibrillation, cirrhosis, pulmonary hypertension, obstructive sleep apnea, gouty arthritis. ALLERGIES: No known allergies. MEDICATION: Xarelto, Ventolin, propofol, Lasix, aspirin, Protonix. Patient has been given doses of vancomycin and Zosyn. SOCIAL HISTORY: Lives at home with his . Positive history of tobacco and alcohol use. He is a retired [employer] employee. He is originally from [place], has been living in the [place] for many years. SYSTEMS REVIEW: Neurologic: As per HPI. Cardiac: As per HPI. Respiratory: History of oxygen dependent COPD. Gastrointestinal: History of cirrhosis. Genitourinary: Positive for azotemia. LABORATORY DATA: White count 13.3, hematocrit 29.1, platelets 96, BUN 142, creatinine 2.8. Urinalysis 1 white cell. CAT scan shows bilateral pleural effusions with left lower lobe infiltrate. PHYSICAL EXAMINATION: General: On exam, he is awake but lethargic on the ventilator. Vital signs: Temperature 99.8, T-max 101, blood pressure 129/64, pulse 59 regular, respirations 20 per minute. HEENT: Sclerae anicteric. Patient is orally intubated. Cardiovascular: Heart sounds S1, S2. Lungs: Air entry bilaterally. Abdomen: Soft, obese, palpable liver, no palpable spleen. Extremities: Negative for edema. There are ecchymotic areas present upper and lower extremities bilaterally. IMPRESSION: 1. Probable aspiration pneumonia. 2. Status post cardiopulmonary arrest. 3. Renal failure. 4. Chronic obstructive pulmonary disease. 5. Congestive heart failure. 6. Cirrhosis. 7. Thrombocytopenia, possibly related to sepsis. Suspect aspiration pneumonia in the setting of cardiopulmonary arrest. Await cultures. Obtain suction, sputum C and S, empiric antibiotic coverage for aspiration with Unasyn, adjusted for renal insufficiency, will give stat dose of vancomycin for additional stat coverage, continue hemodynamic and ventilatory support, monitor platelet count, discussed with patient's present at the time of the examination. Critical care time spent 35 minutes. Prognosis is guarded. Will follow. Thank you for the kind referral. SHEA HAND M.D. [id number]
[2017-10-21] MEDS: PROPOFOL 1,000,000 MCG/100 ML VIAL IVPB SCH (00:15)
[2017-10-21] MEDS: AMPICILLIN NA/SULBACTAM NA 1.5 GM in SODIUM CHLORIDE 100 ML IVPB SCH ×3 (01:24→17:13)
[2017-10-21] MEDS: ALBUTEROL SO4 0.083% IH SOL 2.5 MG/3 ML VIAL.NEB. NEB PRN (02:00)
[2017-10-21 06:04] LABS: BASO % 0.1 % (0-2.0); HEMATOCRIT 29.9 % (35.4-49); HEMOGLOBIN 9.2 GM/dL (11.7-16.9); LYMPH % 2.1 % (8-40); MCH 25.2 pg (25.7-33.7); MCHC 30.7 g/dl (32.0-35.9); MEAN CELL VOLUME 82.3 fl (80-96); MEAN PLT VOLUME 10.3 fl (7.5-11.1); MONO % 8.7 % (3.8-10.2); NEUT % 89.1 % (42.8-82.8); PLATELET COUNT 101 K/MM3 (134-434); RBC 3.63 M/mm3 (4.00-5.60); RDW 16.7 % (11.9-15.9); WHITE BLOOD COUNT 14.3 K/mm3 (4.0-10.0)
[2017-10-21 07:10] LABS: ALBUMIN 2.7 g/dl (3.4-5.0); ALK PHOS 73 U/L (45-117); ANION GAP 10 MMOL/L (8-16); BILIRUBIN,TOTAL 1.1 mg/dL (0.2-1.0); CALCIUM 8.3 mg/dL (8.5-10.1); CHLORIDE 96 mmol/L (98-107); CO2 36 mmol/L (21-32); CREATININE 3.4 mg/dL (0.7-1.3); GLUCOSE,RANDOM 106 mg/dL (74-106); MAGNESIUM 2.9 mg/dL (1.8-2.4); PHOSPHOROUS 5.1 mg/dL (2.5-4.9); POTASSIUM 4.2 mmol/L (3.5-5.1); SGOT/AST 19 U/L (15-37); SGPT/ALT 8 U/L (12-78); SODIUM 142 mmol/L (136-145); TOT PROT 6.3 g/dl (6.4-8.2)
[2017-10-21 07:48] LABS: BLOOD UREA NITROGEN 159 mg/dL (7-18)
[2017-10-21] MEDS: ALBUTEROL SO4 2.5/IPRATROPIUM 0.5 INH SOL 3 ML VIAL.NEB. NEB SCH ×4 (07:54→20:30)
[2017-10-21] MEDS: ASPIRIN 81 MG CHEWABLE TABLETS PO SCH (09:26)
[2017-10-21] MEDS: FUROSEMIDE 100 MG/10 ML INJECTABLE VIAL IVPB SCH (09:26)
[2017-10-21] MEDS: PANTOPRAZOLE SODIUM 40 MG VIAL IVPUSH SCH (09:26)
[2017-10-21] MEDS: MUPIROCIN 2% TOPICAL OINTMENT FOR DECOLONIZATION NS SCH ×2 (09:27→22:45)
[2017-10-21] MEDS: CHLORHEXIDINE GLUCONATE 0.12% 15ML CUP MM SCH ×2 (09:27→22:35)
--- NOTE | 2017-10-21 10:07 | PN ---
Teaching Attending Note Name of Resident: Janet Sparks ATTENDING PHYSICIAN STATEMENT I saw and evaluated the patient. I reviewed the resident's note and discussed the case with the resident. I agree with the resident's findings and plan as documented. SUBJECTIVE: Pt seen and examined in the ICU. Remains intubated, sedated. Vented on volume assist control 60% Fio2, PEEP 7. CT chest done yesterday showing left basilar infiltrate with air bronchograms. OBJECTIVE: Vital Signs Period Temp Pulse Resp BP Sys/Gama Pulse Ox Last 24 Hr 98.4 F-98.6 F 59-98 17-26 114-135/50-78 98 Intake & Output 10/18/17 10/19/17 10/20/17 10/21/17 23:59 23:59 23:59 23:59 Intake Total 076 971 8798 772 Output Total 1250 1800 650 500 Balance -760 -1642 858 272 Weight 66.224 kg 67.132 kg 64.229 kg 64.592 kg Gen: intubated, sedated Heart: RRR Lung: scattered rhonchi Abd: soft, nontender Ext: no edema CBC, BMP 10/21/17 05:30 10/21/17 05:30 Active Medications Acetaminophen (Ofirmev Injection -) 1,000 mg IVPB Q6H PRN PRN Reason: FEVER Last Admin: 10/19/17 15:58 Dose: 1,000 mg Albuterol Sulfate (Ventolin 0.083% Nebulizer Soln -) 1 amp NEB Q6H PRN PRN Reason: SHORTNESS OF BREATH Last Admin: 10/21/17 02:00 Dose: 1 amp Albuterol/Ipratropium (Duoneb -) 1 amp NEB RQID [facility] Last Admin: 10/21/17 07:54 Dose: 1 amp Aspirin (Asa -) 81 mg PO DAILY [facility] Last Admin: 10/21/17 09:26 Dose: 81 mg Chlorhexidine Gluconate (Peridex -) 15 ml MM BID [facility] Last Admin: 10/21/17 09:27 Dose: 15 ml Propofol (Diprivan -) 1,000,000 mcg in 100 mls @ 2.082 mls/hr IVPB TITR [facility]; Protocol Last Admin: 10/21/17 00:15 Dose: Not Given Ampicillin Sodium/Sulbactam (Sodium 1.5 gm/ Sodium Chloride) 100 mls @ 200 mls/ hr IVPB Q8H-IV [facility] Last Admin: 10/21/17 09:21 Dose: 200 mls/hr Sodium Chloride (Normal Saline -) 1,000 mls @ 75 mls/hr IV ASDIR [facility] Mupirocin (Bactroban Ointment (For Decolonization) -) 1 applic NS BID [facility] Stop: 10/23/17 21:59 Last Admin: 10/21/17 09:27 Dose: 1 applic Pantoprazole Sodium (Protonix Iv) 40 mg IVPUSH DAILY [facility] Last Admin: 10/21/17 09:26 Dose: 40 mg Rivaroxaban (Xarelto -) 15 mg PO DAILY@1800 [facility] Last Admin: 10/20/17 16:59 Dose: 15 mg ASSESSMENT AND PLAN: s/p Cardiopulmonary Arrest Acute on Chronic Hypoxic and Hypercapneic Respiratory Failure Acute on Chronic Diastolic Heart Failure Acute on Chronic Renal Failure Severe Pulmonary HTN Atrial Fibrillation Carotid Stenosis Syncope HTN Hyperlipidemia - antibiotics per ID - f/u cultures - hold further lasix - would start gentle hydration - monitor urine output, creatinine - inhaled bronchodilators - taper FiO2 to keep SpO2>90% - rate control - continue anticoagulation - monitor telemetry for pauses - minimize sedation to assess mental status - spontaneous breathing trials as tolerated - DVT/GI prophylaxis - continue ICU monitoring critical care time spent in reviewing chart, evaluating patient and formulating plan 35 min
[2017-10-21] MEDS ORDERED: SODIUM CHLORIDE 1,000 ML IV SCH (10:15)
--- NOTE | 2017-10-21 10:27 | PN ---
Progress Note (short form) - Note Progress Note: Patient is in ICU , intubated, unable to be weaned off. Vital Signs Temperature 98.4 F 10/21/17 06:00 Pulse Rate 66 10/21/17 06:00 Respiratory Rate 22 10/21/17 09:31 Blood Pressure 114/61 10/21/17 06:00 O2 Sat by Pulse Oximetry (%) 98 10/20/17 20:00 CBCD WBC 14.3 K/mm3 (4.0-10.0) H 10/21/17 05:30 RBC 3.63 M/mm3 (4.00-5.60) L 10/21/17 05:30 Hgb 9.2 GM/dL (11.7-16.9) L 10/21/17 05:30 Hct 29.9 % (35.4-49) L 10/21/17 05:30 MCV 82.3 fl (80-96) 10/21/17 05:30 MCHC 30.7 g/dl (32.0-35.9) L 10/21/17 05:30 RDW 16.7 % (11.9-15.9) H 10/21/17 05:30 Plt Count 101 K/MM3 (134-434) L 10/21/17 05:30 MPV 10.3 fl (7.5-11.1) 10/21/17 05:30 CMP Sodium 142 mmol/L (136-145) 10/21/17 05:30 Potassium 4.2 mmol/L (3.5-5.1) 10/21/17 05:30 Chloride 96 mmol/L (98-107) L 10/21/17 05:30 Carbon Dioxide 36 mmol/L (21-32) H 10/21/17 05:30 Anion Gap 10 MMOL/L (8-16) 10/21/17 05:30 BUN 159 mg/dL (7-18) H* 10/21/17 05:30 Creatinine 3.4 mg/dL (0.7-1.3) H 10/21/17 05:30 Creat Clearance w eGFR 17.75 (>60) 10/21/17 05:30 Random Glucose 106 mg/dL (74-106) D 10/21/17 05:30 Calcium 8.3 mg/dL (8.5-10.1) L 10/21/17 05:30 Total Bilirubin 1.1 mg/dL (0.2-1.0) H 10/21/17 05:30 AST 19 U/L (15-37) 10/21/17 05:30 ALT 8 U/L (12-78) L D 10/21/17 05:30 Alkaline Phosphatase 73 U/L (45-117) 10/21/17 05:30 Total Protein 6.3 g/dl (6.4-8.2) L 10/21/17 05:30 Albumin 2.7 g/dl (3.4-5.0) L 10/21/17 05:30 CARDIAC ENZYMES Creatine Kinase 146 IU/L (39-308) 10/18/17 05:30 Troponin I 1.86 ng/ml (0.00-0.05) H* 10/19/17 06:00 Current Medications Generic Name Dose Route Start Last Admin Trade Name Freq PRN Reason Stop Dose Admin Acetaminophen 1,000 mg 10/19/17 15:41 10/19/17 15:58 Ofirmev Injection - IVPB 1,000 mg Q6H PRN Administration FEVER Albuterol Sulfate 1 amp 10/19/17 11:11 10/21/17 02:00 Ventolin 0.083% Nebulizer Soln - NEB 1 amp Q6H PRN Administration SHORTNESS OF BREATH Albuterol/Ipratropium 1 amp 10/20/17 12:00 10/21/17 07:54 Duoneb - NEB 1 amp RQID TRICIA Administration Aspirin 81 mg 10/19/17 10:00 10/21/17 09:26 Asa - PO 81 mg DAILY TRICIA Administration Chlorhexidine Gluconate 15 ml 10/18/17 22:00 10/21/17 09:27 Peridex - MM 15 ml BID TRICIA Administration Propofol 1,000,000 mcg in 100 mls @ 2.082 mls/hr 10/18/17 00:15 10/21/17 00: 15 Diprivan - IVPB Not Given TITR TRICIA Protocol 5 MCG/KG/MIN Ampicillin Sodium/Sulbactam 100 mls @ 200 mls/hr 10/20/17 18:00 10/21/17 09: 21 Sodium 1.5 gm/ Sodium Chloride IVPB 200 mls/hr Q8H-IV [facility]IA Administration Sodium Chloride 1,000 mls @ 75 mls/hr 10/21/17 10:15 Normal Saline - IV ASDIR TRICIA Mupirocin 1 applic 10/18/17 22:00 10/21/17 09:27 Bactroban Ointment (For Decolonization) - NS 10/23/17 21:59 1 applic BID TRICIA Administration Pantoprazole Sodium 40 mg 10/19/17 11:30 10/21/17 09:26 Protonix Iv IVPUSH 40 mg DAILY TRICIA Administration Rivaroxaban 15 mg 10/17/17 18:00 10/20/17 16:59 Xarelto - PO 15 mg DAILY@1800 TR[facility]IA Administration Home Medications Medication Instructions Recorded Cholecalciferol (Vitamin D3) 1,000 unit PO DAILY 06/22/12 [Vitamin D] Tiotropium [place] [Spiriva] 1 inh IH DAILY 06/22/12 Fluticasone/Vilanterol [Breo 1 each IH DAILY 06/05/14 Ellipta 100-25 Mcg INH] Sertraline HCl [Zoloft -] 50 mg PO DAILY 06/05/14 Sodium Chloride Nasal [place] [[place] 2 spray NS BID spraybtl 06/11/14 [place] Nasal [place] -] Furosemide [Lasix -] 80 mg PO BID 09/21/16 Febuxostat [Uloric] 40 mg PO DAILY 10/16/17 Rivaroxaban [Xarelto -] 15 mg PO DAILY 10/16/17 Sertraline HCl [Zoloft -] 50 mg PO DAILY 10/16/17 Spironolactone [Aldactone] 25 mg PO BID 10/16/17 Metolazone 2.5 mg PO WEEKLY 10/17/17 GENERAL: responds to verbal stimulus EYES: PERRL, opens eye lids to command LUNGS: Intubated , sedated, on OJ , decreased BS BL HEART: regular rate and rhythm , no murmurs, rubs, or gallops ABDOMEN: Soft, nontender, nondistended, normoactive bowel sounds 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 SKIN: Warm, dry, normal turgor, no rashes or lesions noted carotid US: Moderate atherosclerotic disease, left greater than right, with stenoses in the 60-79% range involving the internal carotid arteries. Clinical correlation and follow-up studies recommended. Please see above discussion. Head CT: IMPRESSION: No significant interval change. There remains moderate atrophy and chronic microvascular ischemic disease changes without gross evidence of acute intracranial pathology. EKG reviewed .RBBB with no acute ischemic changes ASSESSMENT AND PLAN: Patient is a 77 y/o man with PMHx of CHF,liver cirrhosis, gout , COPD, VISHAL, cor pulmonale, a fib, HTN, HLP, and CKD who presented to ED after having a syncopal episode. # Acute on chronic hypoxic hypercapnic respiratory failure with hx of COPD: patient is intubated sedated in ICU further care per ICU team. Continue nebs treatment. # H/O COPD: cont Nebs and inhalers : continue nebulizer treatments. # acute diastolic CHF exacerbation on IV Lasix continue, Echo is reviewed. # Syncope: hypoxia, vs vasovagal, vs arrhythmias ; carotid US # PEACE on CKD: patient was started on gentle hydration, # A fib: on xarelto at home, dose is adjusted accordingly DVT Px: Xarelto Visit type - Emergency Visit Emergency Visit: Yes ED Registration Date: 10/17/17 Care time: The patient presented to the Emergency Department on the above date and was hospitalized for further evaluation of their emergent condition. - New Patient This patient is new to me today: No - Critical Care Critical Care patient: No - Discharge Referral Referred to [facility] No
--- NOTE | 2017-10-21 10:58 | PN ---
Physical Exam: SUBJECTIVE: Patient is a 77 y/o male with a history of HTN, HLD, CHF, COPD, afib, and cirrhosis who is admitted to the ICU for CHF exacerbation. Patient intubated and sedated. Patient had a fever yesterday late afternoon and was given tylenol. Patient had no acute events overnight. Possible extubation today. 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 SKIN: Warm, dry, normal turgor, no rashes or lesions noted CBCD WBC 14.3 K/mm3 (4.0-10.0) H 10/21/17 05:30 RBC 3.63 M/mm3 (4.00-5.60) L 10/21/17 05:30 Hgb 9.2 GM/dL (11.7-16.9) L 10/21/17 05:30 Hct 29.9 % (35.4-49) L 10/21/17 05:30 MCV 82.3 fl (80-96) 10/21/17 05:30 MCHC 30.7 g/dl (32.0-35.9) L 10/21/17 05:30 RDW 16.7 % (11.9-15.9) H 10/21/17 05:30 Plt Count 101 K/MM3 (134-434) L 10/21/17 05:30 MPV 10.3 fl (7.5-11.1) 10/21/17 05:30 CMP Sodium 142 mmol/L (136-145) 10/21/17 05:30 Potassium 4.2 mmol/L (3.5-5.1) 10/21/17 05:30 Chloride 96 mmol/L (98-107) L 10/21/17 05:30 Carbon Dioxide 36 mmol/L (21-32) H 10/21/17 05:30 Anion Gap 10 MMOL/L (8-16) 10/21/17 05:30 BUN 159 mg/dL (7-18) H* 10/21/17 05:30 Creatinine 3.4 mg/dL (0.7-1.3) H 10/21/17 05:30 Creat Clearance w eGFR 17.75 (>60) 10/21/17 05:30 Calcium 8.3 mg/dL (8.5-10.1) L 10/21/17 05:30 Total Bilirubin 1.1 mg/dL (0.2-1.0) H 10/21/17 05:30 AST 19 U/L (15-37) 10/21/17 05:30 ALT 8 U/L (12-78) L D 10/21/17 05:30 Alkaline Phosphatase 73 U/L (45-117) 10/21/17 05:30 Total Protein 6.3 g/dl (6.4-8.2) L 10/21/17 05:30 Albumin 2.7 g/dl (3.4-5.0) L 10/21/17 05:30 Active Medications Acetaminophen (Ofirmev Injection -) 1,000 mg IVPB Q6H PRN PRN Reason: FEVER Last Admin: 10/19/17 15:58 Dose: 1,000 mg Albuterol Sulfate (Ventolin 0.083% Nebulizer Soln -) 1 amp NEB Q6H PRN PRN Reason: SHORTNESS OF BREATH Last Admin: 10/21/17 02:00 Dose: 1 amp Albuterol/Ipratropium (Duoneb -) 1 amp NEB RQID TRICIA Last Admin: 10/21/17 07:54 Dose: 1 amp Aspirin (Asa -) 81 mg PO DAILY [facility] Last Admin: 10/21/17 09:26 Dose: 81 mg Chlorhexidine Gluconate (Peridex -) 15 ml MM BID TRICIA Last Admin: 10/21/17 09:27 Dose: 15 ml Propofol (Diprivan -) 1,000,000 mcg in 100 mls @ 2.082 mls/hr IVPB TITR TRICIA; Protocol Last Admin: 10/21/17 00:15 Dose: Not Given Ampicillin Sodium/Sulbactam (Sodium 1.5 gm/ Sodium Chloride) 100 mls @ 200 mls/ hr IVPB Q8H-IV [facility] Last Admin: 10/21/17 09:21 Dose: 200 mls/hr Sodium Chloride (Normal Saline -) 1,000 mls @ 75 mls/hr IV ASDIR [facility] Mupirocin (Bactroban Ointment (For Decolonization) -) 1 applic NS BID [facility] Stop: 10/23/17 21:59 Last Admin: 10/21/17 09:27 Dose: 1 applic Pantoprazole Sodium (Protonix Iv) 40 mg IVPUSH DAILY [facility] Last Admin: 10/21/17 09:26 Dose: 40 mg Rivaroxaban (Xarelto -) 15 mg PO DAILY@1800 [facility] Last Admin: 10/20/17 16:59 Dose: 15 mg ASSESSMENT/PLAN: Patient is a 77 y/o male with a history of HTN, HLD, CHF, COPD, afib, and cirrhosis who came to the ICU after being found pulseless. Patient is admitted for CHF exacerbation. Patient intubated and #Neurology syncope, nonspecified - EKG non specific st changes, aflutter 5:1 block, incomplete RBB - Echo: LV size thickness and function normal, flattened septum with RV overload, RV systolic fxn reduced, severe pulmonary htn, moderate tricuspid regurg, EF : 55% from echo one year ago - carotid doppler: moderate atherosclerotic disease 60-70 %, left greater then right - cervical spine CT: moderate chronic T 3 compression - head CT: no significant interval change, moderate atrophy and chronic microvasular ischemic disease change #Cardiology demand ischemia - troponin trended down - LE doppler no sign of DVT - CXR: large heart, unfolded aorta, increasing pleural effusion, congestive changes - NS @ 77 until tomorrow diatolic CHF - hold lasix, increase in Cr afib - Xarelto 15 mg po daily #Pulmonology acute on chronic hypercapnic respiratory failure - patient intubated - propofol for sedation - Vent TV: 450, Rate 12, PF 50, PEEP 7 O2 50% - continue sedation vacations, attempt weaning trials off vent COPD - albuterol prn q6h - Chest CT: bilateral pleural effusions, right greater then left, left adrenal mass #Nephrology PEACE on CKD - baseline Cr 2.15 per primary neprho - Cr increasing 3.4 - NS @ 77 until tomorrow - patient still makin urine ~ 50 cc this morning - f/u Dr. Barajas for acute management #GI ppx: - pantoprazole 40 mg IV daily #Infectious Disease Possible Ventilator associated PNA - afebrile overnight - f/u cultures - CT showed possible PNA - Unasyn 1.5 q 8h - Chest CT: congestive changed and compressive atelectasis at bases, r/o infiltrates FEN - Nepro @ 20 cc up to 42 cc, total 1 L per day Dispo: monitor on vent with sedation vacations Visit type - Emergency Visit Emergency Visit: No - New Patient This patient is new to me today: No - Critical Care Critical Care patient: Yes Total Critical Care Time (in minutes): 45 Critical Care Statement: The care of this patient involved high complexity decision making to prevent further life threatening deterioration of the patient 's condition and/or to evaluate & treat vital organ system(s) failure or risk of failure.
--- NOTE | 2017-10-21 11:31 | PN ---
Progress Note (short form) - Note Progress Note: Progress Note: cc: CHF exacerbation, syncope s: intubated, lethargic off sedation, no overnight events Current Medications Generic Name Dose Route Start Last Admin Trade Name Freq PRN Reason Stop Dose Admin Acetaminophen 1,000 mg 10/19/17 15:41 10/19/17 15:58 Ofirmev Injection - IVPB 1,000 mg Q6H PRN Administration FEVER Albuterol Sulfate 1 amp 10/19/17 11:11 10/21/17 02:00 Ventolin 0.083% Nebulizer Soln - NEB 1 amp Q6H PRN Administration SHORTNESS OF BREATH Albuterol/Ipratropium 1 amp 10/20/17 12:00 10/21/17 11:25 Duoneb - NEB 1 amp RQID TRICIA Administration Aspirin 81 mg 10/19/17 10:00 10/21/17 09:26 Asa - PO 81 mg DAILY TRICIA Administration Chlorhexidine Gluconate 15 ml 10/18/17 22:00 10/21/17 09:27 Peridex - MM 15 ml BID TRICIA Administration Propofol 1,000,000 mcg in 100 mls @ 2.082 mls/hr 10/18/17 00:15 10/21/17 00: 15 Diprivan - IVPB Not Given TITR TRICIA Protocol 5 MCG/KG/MIN Ampicillin Sodium/Sulbactam 100 mls @ 200 mls/hr 10/20/17 18:00 10/21/17 09: 21 Sodium 1.5 gm/ Sodium Chloride IVPB 200 mls/hr Q8H-IV TRICIA Administration Sodium Chloride 1,000 mls @ 75 mls/hr 10/21/17 10:15 Normal Saline - IV ASDIR TRICIA Mupirocin 1 applic 10/18/17 22:00 10/21/17 09:27 Bactroban Ointment (For Decolonization) - NS 10/23/17 21:59 1 applic BID TRICIA Administration Pantoprazole Sodium 40 mg 10/19/17 11:30 10/21/17 09:26 Protonix Iv IVPUSH 40 mg DAILY TRICIA Administration Rivaroxaban 15 mg 10/17/17 18:00 10/20/17 16:59 Xarelto - PO 15 mg DAILY@1800 TRICIA Administration Vital Signs Temp 98.4 F 10/21/17 10:00 Pulse 62 10/21/17 10:00 Resp 24 10/21/17 10:00 BP 103/40 10/21/17 10:00 Pulse Ox 98 10/20/17 20:00 Intake & Output 10/20/17 10/20/17 10/21/17 11:59 23:59 11:59 Intake Total 524 984 772 Output Total 200 450 500 Balance 324 534 272 Weight 141 lb 9.6 oz 142 lb 6.4 oz Intake: IV 32 30 48 DIPRIVAN - 1,000,000 mcg 32 30 48 In 100 ml @ 5 MCG/KG/MIN 2.082 mls/hr IVPB TITR TRICIA Rx#:[id number] IVPB 250 100 Tube Feeding 372 504 504 Tube Irrigant 120 200 120 Output: Urine 200 450 500 Ruiz 200 450 500 Other: Voiding Method Indwelling Catheter Indwelling Catheter Indwelling Catheter # Unmeasured Voids Ruiz 1 Bowel Movement No No Yes # Bowel Movements 1 2 Body Mass Index (BMI) 22.7 Weight Measurement Method Built in [facility] Built in [facility] Constitutional: Yes:intubated, Eyes: Yes: Conjunctiva Clear Neck: Yes: Supple, Trachea Midline Respiratory: Yes: Regular, Rales (bilateral bases), vented Gastrointestinal: Yes: Normal Bowel Sounds, Soft Cardiovascular: Yes: Regular Rate and Rhythm Heart Sounds: Yes: S1, S2 Edema: No Peripheral Pulses: 2+ Left Doralis Pedis, 2+ Right Dorsalis Pedis lethargic no jaundice diaphoresis Laboratory Last Values WBC 14.3 K/mm3 (4.0-10.0) H 10/21/17 05:30 RBC 3.63 M/mm3 (4.00-5.60) L 10/21/17 05:30 Hgb 9.2 GM/dL (11.7-16.9) L 10/21/17 05:30 Hct 29.9 % (35.4-49) L 10/21/17 05:30 MCV 82.3 fl (80-96) 10/21/17 05:30 MCH 25.2 pg (25.7-33.7) L 10/21/17 05:30 MCHC 30.7 g/dl (32.0-35.9) L 10/21/17 05:30 RDW 16.7 % (11.9-15.9) H 10/21/17 05:30 Plt Count 101 K/MM3 (134-434) L 10/21/17 05:30 MPV 10.3 fl (7.5-11.1) 10/21/17 05:30 Absolute Neuts (auto) 12.8 K/mm3 (1.5-8.0) H 10/21/17 05:30 Neutrophils % 89.1 % (42.8-82.8) H 10/21/17 05:30 Lymphocytes % 2.1 % (8-40) L D 10/21/17 05:30 Monocytes % 8.7 % (3.8-10.2) 10/21/17 05:30 Eosinophils % 0.0 % (0-4.5) 10/21/17 05:30 Basophils % 0.1 % (0-2.0) 10/21/17 05:30 Nucleated RBC % 0 % (0-0) 10/21/17 05:30 Retic Count 1.78 % (0.5-1.5) H 10/17/17 05:30 PT with INR 14.50 SEC (9.7-13.0) H 10/18/17 05:30 INR 1.28 (0.83-1.09) H 10/18/17 05:30 PTT (Actin FS) 29.1 SECONDS (25.2-36.5) 10/18/17 05:30 Anticoagulation Therapy No Result Required. 10/18/17 00:14 Puncture Site Right radial 10/18/17 08:20 ABG pH 7.40 (7.35-7.45) 10/18/17 08:20 ABG pCO2 at Pt Temp 58.5 mmHg (35-45) H D 10/18/17 08:20 ABG pO2 at Pt Temp 74.7 mmHg (70-100) D 10/18/17 08:20 ABG HCO3 35.7 meq/L (22-26) H 10/18/17 08:20 ABG O2 Sat (Measured) 95.5 % (90-98.9) 10/18/17 08:20 ABG O2 Content 12.0 % vol (15-22) L 10/18/17 08:20 ABG Base Excess 9.9 meq/l (-2-2) H 10/18/17 08:20 Gagan Test Positive 10/18/17 08:20 Carboxyhemoglobin 3.1 gm% (0.5-2.0) H 10/16/17 19:49 Methemoglobin 1.6 % (0.4-1.5) H 10/16/17 19:49 O2 Delivery Device Vent 10/18/17 00:14 Oxygen Flow Rate Yes 10/18/17 08:20 Vent Mode 100 10/18/17 00:14 Vent Rate 14 10/18/17 00:14 Mechanical Rate Yes 10/18/17 00:14 PEEP 0.0 cmH2O 10/18/17 00:14 Pressure Support Vent 450 10/18/17 00:14 Sodium 142 mmol/L (136-145) 10/21/17 05:30 Potassium 4.2 mmol/L (3.5-5.1) 10/21/17 05:30 Chloride 96 mmol/L (98-107) L 10/21/17 05:30 Carbon Dioxide 36 mmol/L (21-32) H 10/21/17 05:30 Anion Gap 10 MMOL/L (8-16) 10/21/17 05:30 BUN 159 mg/dL (7-18) H* 10/21/17 05:30 Creatinine 3.4 mg/dL (0.7-1.3) H 10/21/17 05:30 Creat Clearance w eGFR 17.75 (>60) 10/21/17 05:30 Random Glucose 106 mg/dL (74-106) D 10/21/17 05:30 Lactic Acid 1.6 mmol/L (0.0-2.0) 10/18/17 12:09 Calcium 8.3 mg/dL (8.5-10.1) L 10/21/17 05:30 Phosphorus 5.1 mg/dL (2.5-4.9) H 10/21/17 05:30 Magnesium 2.9 mg/dL (1.8-2.4) H 10/21/17 05:30 Iron 27 ug/dL (38-169) L 10/17/17 05:30 TIBC 423 ug/dL (250-450) 10/17/17 05:30 Iron Saturation 6 % (15-55) L 10/17/17 05:30 Ferritin 26.5 ng/ml (16.4-293.9) 10/17/17 05:30 Total Bilirubin 1.1 mg/dL (0.2-1.0) H 10/21/17 05:30 AST 19 U/L (15-37) 10/21/17 05:30 ALT 8 U/L (12-78) L D 10/21/17 05:30 Alkaline Phosphatase 73 U/L (45-117) 10/21/17 05:30 Creatine Kinase 146 IU/L (39-308) 10/18/17 05:30 CK-MB (CK-2) 9.58 ng/mL (0.5-3.6) H 10/18/17 05:30 Troponin I 1.86 ng/ml (0.00-0.05) H* 10/19/17 06:00 B-Natriuretic Peptide 77649.17 pg/ml (5-450) H 10/16/17 19:27 Total Protein 6.3 g/dl (6.4-8.2) L 10/21/17 05:30 Albumin 2.7 g/dl (3.4-5.0) L 10/21/17 05:30 TSH 1.30 uIU/ml (0.358-3.74) 10/18/17 05:30 Urine Color Ltyellow 10/18/17 01:25 Urine Appearance Slcloudy 10/18/17 01:25 Urine pH 5.0 (5.0-8.0) 10/18/17 01:25 Ur Specific [place] 1.009 (1.001-1.035) 10/18/17 01:25 Urine Protein Negative (NEGATIVE) 10/18/17 01:25 Urine Glucose (UA) Negative (NEGATIVE) 10/18/17 01:25 Urine Ketones Negative (NEGATIVE) 10/18/17 01:25 Urine Blood 1+ (NEGATIVE) H 10/18/17 01:25 Urine Nitrite Negative (NEGATIVE) 10/18/17 01:25 Urine Bilirubin Negative (<2.0 mg/dL) 10/18/17 01:25 Urine Urobilinogen Negative mg/dL (0.2-1.0) 10/18/17 01:25 Ur Leukocyte Esterase Negative (NEGATIVE) 10/18/17 01:25 Urine WBC (Auto) 1 /hpf (3-5) 10/18/17 01:25 Urine RBC (Auto) 21 /hpf (0-3) 10/18/17 01:25 Ur Epithelial Cells Rare /HPF (FEW) 10/18/17 01:25 Hyaline Casts 4 /lpf 10/18/17 01:25 Urine Mucus Rare 10/18/17 01:25 Ur Random Sodium 62 MMOL/L 10/18/17 01:25 Ur Random Potassium 33.1 MMOL/L 10/18/17 01:25 Ur Random Chloride 79 MMOL/L 10/18/17 01:25 Urine Creatinine 54.6 mg/dL (20-370) 10/18/17 01:25 Random Vancomycin 13.18 ug/ml 10/21/17 05:30 echo 09/2016 shows preserved LV fxn with significant RV dilatation and dysfunction, mod TR with RVSP>60 mmHg c/w cor pulmonale. 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, VISHAL, HTN, HLD, afib on Xarelto, cirrhosis p/w syncope, CHF exacerbation Acute respiratory distress - likely in setting of COPD, PNA, CHF exacerbation - intubated, on vent, manage per ICU - treatment of CHF exac as below syncope - may have been in setting of feeling short of breath, vasovagal, receiving spironolactone/metolazone - monitoring on tele, managing CHF exac/ COPD as below - echo stable compared to prior - carotid ultrasound with bilateral stenosis, vascular consulted (+) troponin - likely demand in setting of chf, then further demand after ACLS, trop down trending now - cont ac, asa acute on chronic diastolic HF - per patient's he has gained weight, she thinks about 10 lbs - diuresing well here on lasix 80 iv bid but bun/cr rising. likely at baseline vol status vs a little below. d/w critcare, will dc lasix for now and give some ivfs - holding spironolactone, metolazone - monitor daily weight, I/O, chem7 - echo stable, nl LV function with cor pulmonale, severe pulm HTN COPD - receiving nebs, now intubated - appreciate pulm recs HTN - controlled afib -continue xarelto -rate ok for now PEACE on CKD - diuresis as above - nephrology f/u pna: -on abx
--- NOTE | 2017-10-21 11:58 | PN ---
Progress Note, Physician History of Present Illness: Sedated on ventilator Desaturating at times Low grade temp WBC 14 Blood c/s prelim (-) - Current Medication List Current Medications: Active Medications Acetaminophen (Ofirmev Injection -) 1,000 mg IVPB Q6H PRN PRN Reason: FEVER Last Admin: 10/19/17 15:58 Dose: 1,000 mg Albuterol Sulfate (Ventolin 0.083% Nebulizer Soln -) 1 amp NEB Q6H PRN PRN Reason: SHORTNESS OF BREATH Last Admin: 10/21/17 02:00 Dose: 1 amp Albuterol/Ipratropium (Duoneb -) 1 amp NEB RQID [facility] Last Admin: 10/21/17 11:25 Dose: 1 amp Aspirin (Asa -) 81 mg PO DAILY [facility] Last Admin: 10/21/17 09:26 Dose: 81 mg Chlorhexidine Gluconate (Peridex -) 15 ml MM BID [facility] Last Admin: 10/21/17 09:27 Dose: 15 ml Propofol (Diprivan -) 1,000,000 mcg in 100 mls @ 2.082 mls/hr IVPB TITR TRICIA; Protocol Last Admin: 10/21/17 00:15 Dose: Not Given Ampicillin Sodium/Sulbactam (Sodium 1.5 gm/ Sodium Chloride) 100 mls @ 200 mls/ hr IVPB Q8H-IV [facility] Last Admin: 10/21/17 09:21 Dose: 200 mls/hr Sodium Chloride (Normal Saline -) 1,000 mls @ 75 mls/hr IV ASDIR [facility] Mupirocin (Bactroban Ointment (For Decolonization) -) 1 applic NS BID [facility] Stop: 10/23/17 21:59 Last Admin: 10/21/17 09:27 Dose: 1 applic Pantoprazole Sodium (Protonix Iv) 40 mg IVPUSH DAILY [facility] Last Admin: 10/21/17 09:26 Dose: 40 mg Rivaroxaban (Xarelto -) 15 mg PO DAILY@1800 [facility] Last Admin: 10/20/17 16:59 Dose: 15 mg - Objective Vital Signs: Vital Signs Temperature 98.4 F 10/21/17 10:00 Pulse Rate 62 10/21/17 10:00 Respiratory Rate 21 10/21/17 11:32 Blood Pressure 103/40 10/21/17 10:00 O2 Sat by Pulse Oximetry (%) 98 10/20/17 20:00 Constitutional: Yes: No Distress Eyes: Yes: Conjunctiva Clear Cardiovascular: Yes: Regular Rate and Rhythm, S1, S2 Respiratory: Yes: Mechanically Ventilated Gastrointestinal: Yes: Normal Bowel Sounds, Soft. No: Tenderness Extremities: Yes: Other (ecchymosis ext) Edema: No Labs: CBC, BMP 10/21/17 05:30 10/21/17 05:30 INR, PTT INR 1.28 (0.83-1.09) H 10/18/17 05:30 Assessment/Plan S/P cardiopulmonary arrest Respiratory failure Probable aspiration pneumonia Leukocytosis Thrombocytopenia Azotemia Cirrhosis Await c/s Continue Unasyn Redose vancomycin Continue ventilatory support
[2017-10-21] MEDS ORDERED: VANCOMYCIN 1 GM PREMIX - 1 GM/200 ML BAG IVPB ONE (13:00)
--- NOTE | 2017-10-21 14:28 | PN ---
Progress Note, Physician History of Present Illness: Pt seen and examined at bedside. He remains in the ICU. Pt remains intubated. BP is improved. He is still making urine. - Current Medication List Current Medications: Active Medications Acetaminophen (Ofirmev Injection -) 1,000 mg IVPB Q6H PRN PRN Reason: FEVER Last Admin: 10/19/17 15:58 Dose: 1,000 mg Albuterol Sulfate (Ventolin 0.083% Nebulizer Soln -) 1 amp NEB Q6H PRN PRN Reason: SHORTNESS OF BREATH Last Admin: 10/21/17 02:00 Dose: 1 amp Albuterol/Ipratropium (Duoneb -) 1 amp NEB RQID [facility] Last Admin: 10/21/17 11:25 Dose: 1 amp Aspirin (Asa -) 81 mg PO DAILY [facility] Last Admin: 10/21/17 09:26 Dose: 81 mg Chlorhexidine Gluconate (Peridex -) 15 ml MM BID [facility] Last Admin: 10/21/17 09:27 Dose: 15 ml Propofol (Diprivan -) 1,000,000 mcg in 100 mls @ 2.082 mls/hr IVPB TITR [facility]; Protocol Last Admin: 10/21/17 00:15 Dose: Not Given Ampicillin Sodium/Sulbactam (Sodium 1.5 gm/ Sodium Chloride) 100 mls @ 200 mls/ hr IVPB Q8H-IV [facility] Last Admin: 10/21/17 09:21 Dose: 200 mls/hr Sodium Chloride (Normal Saline -) 1,000 mls @ 75 mls/hr IV ASDIR [facility] Last Admin: 10/21/17 12:23 Dose: 75 mls/hr Mupirocin (Bactroban Ointment (For Decolonization) -) 1 applic NS BID [facility] Stop: 10/23/17 21:59 Last Admin: 10/21/17 09:27 Dose: 1 applic Pantoprazole Sodium (Protonix Iv) 40 mg IVPUSH DAILY [facility] Last Admin: 10/21/17 09:26 Dose: 40 mg Rivaroxaban (Xarelto -) 15 mg PO DAILY@1800 [facility] Last Admin: 10/20/17 16:59 Dose: 15 mg - Objective Vital Signs: Vital Signs Temperature 98.2 F 10/21/17 14:00 Pulse Rate 63 10/21/17 14:00 Respiratory Rate 22 10/21/17 14:00 Blood Pressure 118/51 10/21/17 14:00 O2 Sat by Pulse Oximetry (%) 98 10/20/17 20:00 Constitutional: Yes: Calm Eyes: Yes: Conjunctiva Clear HENT: Yes: Atraumatic Neck: Yes: Supple Cardiovascular: Yes: S1, S2 Respiratory: Yes: Mechanically Ventilated Gastrointestinal: Yes: Soft Genitourinary: Yes: Ruiz Present Musculoskeletal: Yes: Muscle Weakness Edema: No Integumentary: Yes: Venous Stasis Changes Neurological: Yes: Lethargy Labs: CBC, BMP 10/21/17 05:30 10/21/17 05:30 INR, PTT INR 1.28 (0.83-1.09) H 10/18/17 05:30 - ....Imaging Chest X-ray: Report Reviewed Problem List - Problems (1) CKD (chronic kidney disease) Code(s): N18.9 - CHRONIC KIDNEY DISEASE, UNSPECIFIED (2) COPD (chronic obstructive pulmonary disease) Code(s): J44.9 - CHRONIC OBSTRUCTIVE PULMONARY DISEASE, UNSPECIFIED (3) Syncope Code(s): R55 - SYNCOPE AND COLLAPSE Qualifiers: Syncope type: unspecified Qualified Code(s): R55 - Syncope and collapse Assessment/Plan Current Medications Generic Name Dose Route Start Last Admin Trade Name Freq PRN Reason Stop Dose Admin Acetaminophen 1,000 mg 10/19/17 15:41 10/19/17 15:58 Ofirmev Injection - IVPB 1,000 mg Q6H PRN Administration FEVER Albuterol Sulfate 1 amp 10/19/17 11:11 10/21/17 02:00 Ventolin 0.083% Nebulizer Soln - NEB 1 amp Q6H PRN Administration SHORTNESS OF BREATH Albuterol/Ipratropium 1 amp 10/20/17 12:00 10/21/17 11:25 Duoneb - NEB 1 amp RQID [facility] Administration Aspirin 81 mg 10/19/17 10:00 10/21/17 09:26 Asa - PO 81 mg DAILY [facility] Administration Chlorhexidine Gluconate 15 ml 10/18/17 22:00 10/21/17 09:27 Peridex - MM 15 ml BID [facility] Administration Propofol 1,000,000 mcg in 100 mls @ 2.082 mls/hr 10/18/17 00:15 10/21/17 00: 15 Diprivan - IVPB Not Given TITR [facility] Protocol 5 MCG/KG/MIN Ampicillin Sodium/Sulbactam 100 mls @ 200 mls/hr 10/20/17 18:00 10/21/17 09: 21 Sodium 1.5 gm/ Sodium Chloride IVPB 200 mls/hr Q8H-IV [facility] Administration Sodium Chloride 1,000 mls @ 75 mls/hr 10/21/17 10:15 10/21/17 12:23 Normal Saline - IV 75 mls/hr ASDIR [facility] Administration Mupirocin 1 applic 10/18/17 22:00 10/21/17 09:27 Bactroban Ointment (For Decolonization) - NS 10/23/17 21:59 1 applic BID [facility] Administration Pantoprazole Sodium 40 mg 10/19/17 11:30 10/21/17 09:26 Protonix Iv IVPUSH 40 mg DAILY [facility] Administration Rivaroxaban 15 mg 10/17/17 18:00 10/20/17 16:59 Xarelto - PO 15 mg DAILY@1800 [facility] Administration Impression 1. PEACE 2. CHF 3. volume overload 4. a-fib 5. cirrhosis 6. VISHAL 7. bilateral renal cysts 8. syncope 9. hypoxia 10. cardiopulmonary arrest 11. congesion on cxr 12. severe pulmonary HTN 13. resp failure Plan - hold diuretics - trial of gentle hydration - monitor urine output - abx for PNA - repeat labs in am - discussed with famil - may need dialysis if he does not improve - bp is improved - monitor in ICU - daily cxr
[2017-10-21] MEDS ORDERED: PT OWN MED DRAWER 7, Y5N ONE (17:07)
[2017-10-21] MEDS: RIVAROXABAN 15 MG TABLET PO SCH (17:13)
[2017-10-22] MEDS ORDERED: PT OWN MED DRAWER 7, Y5N ONE ×3 (01:04→17:44)
[2017-10-22] MEDS: AMPICILLIN NA/SULBACTAM NA 1.5 GM in SODIUM CHLORIDE 100 ML IVPB SCH ×3 (01:09→21:19)
[2017-10-22] MEDS: PROPOFOL 1,000,000 MCG/100 ML VIAL IVPB SCH (01:09)
[2017-10-22 05:35] LABS: BASO % 0.1 % (0-2.0); HEMATOCRIT 28.5 % (35.4-49); HEMOGLOBIN 9.1 GM/dL (11.7-16.9); LYMPH % 2.7 % (8-40); MCH 25.9 pg (25.7-33.7); MCHC 31.8 g/dl (32.0-35.9); MEAN CELL VOLUME 81.5 fl (80-96); MONO % 10.7 % (3.8-10.2); NEUT % 86.5 % (42.8-82.8); PLATELET COUNT 136 K/MM3 (134-434); RDW 16.9 % (11.9-15.9); WHITE BLOOD COUNT 15.1 K/mm3 (4.0-10.0)
[2017-10-22 06:05] LABS: ALBUMIN 2.5 g/dl (3.4-5.0); ANION GAP 11 MMOL/L (8-16); CALCIUM 7.9 mg/dL (8.5-10.1); CHLORIDE 96 mmol/L (98-107); CO2 34 mmol/L (21-32); GLUCOSE,RANDOM 117 mg/dL (74-106); POTASSIUM 4.9 mmol/L (3.5-5.1); SODIUM 141 mmol/L (136-145)
[2017-10-22 06:08] LABS: ALK PHOS 94 U/L (45-117); BILIRUBIN,TOTAL 1.3 mg/dL (0.2-1.0); PHOSPHOROUS 5.8 mg/dL (2.5-4.9); SGOT/AST 21 U/L (15-37); SGPT/ALT 8 U/L (12-78); TOT PROT 6.1 g/dl (6.4-8.2)
[2017-10-22 06:25] LABS: BLOOD UREA NITROGEN 200 mg/dL (7-18)
[2017-10-22] MEDS: ALBUTEROL SO4 2.5/IPRATROPIUM 0.5 INH SOL 3 ML VIAL.NEB. NEB SCH ×4 (07:00→20:32)
[2017-10-22 10:18] LABS: ANISOCYTOSIS 3+; MACROCYTOSIS 0; OVALOCYTE 1+; PLATELET ESTIMATE DECREASED
--- NOTE | 2017-10-22 10:33 | PROC ---
<Krystin Jones - Last Filed: 10/22/17 10:34> Intubation - Intubation Reason for Intubation: Ventilatory Failure Intubation Method: orotracheal Blade used: Mac Tube Size (cm): 8.0 Tube position @ lip (cm): 23 Tube position confirmed by: Direct visualization, CO2 detector, Chest x-ray, Breath sounds Breath Sounds after Intubation: equal Post Intubation Xray: Yes <Octavio Graves MD - Last Filed: 10/23/17 10:21> Procedure Note Procedure: I supervised and was present during the entire procedure. Octavio Graves MD
--- NOTE | 2017-10-22 10:42 | PN ---
Teaching Attending Note Name of Resident: Krystin Jones ATTENDING PHYSICIAN STATEMENT I saw and evaluated the patient. I reviewed the resident's note and discussed the case with the resident. I agree with the resident's findings and plan as documented. SUBJECTIVE: Pt seen and examined in the ICU. Remains intubated, sedated. ETT high, upon direct laryngoscopy, ETT balloon above the vocal cords, subsequently re- intubated. Remains oliguric. OBJECTIVE: Vital Signs Period Temp Pulse Resp BP Sys/Gama Pulse Ox Last 24 Hr 97.4 F-98.7 F 59-69 12-25 89-122/42-53 Intake & Output 10/19/17 10/20/17 10/21/17 10/22/17 23:59 23:59 23:59 23:59 Intake Total 158 1508 1703 1044 Output Total 1800 650 600 200 Balance -8412 425 4559 844 Weight 67.132 kg 64.229 kg 64.592 kg 65.816 kg Gen: intubated, sedated Heart: RRR Lung: scattered rhonchi Abd: soft, nontender Ext: no edema CBC, BMP 10/22/17 05:10 10/22/17 05:10 Active Medications Acetaminophen (Ofirmev Injection -) 1,000 mg IVPB Q6H PRN PRN Reason: FEVER Last Admin: 10/19/17 15:58 Dose: 1,000 mg Albuterol Sulfate (Ventolin 0.083% Nebulizer Soln -) 1 amp NEB Q6H PRN PRN Reason: SHORTNESS OF BREATH Last Admin: 10/21/17 02:00 Dose: 1 amp Albuterol/Ipratropium (Duoneb -) 1 amp NEB RQID [facility] Last Admin: 10/22/17 07:00 Dose: 1 amp Aspirin (Asa -) 81 mg PO DAILY [facility] Last Admin: 10/21/17 09:26 Dose: 81 mg Chlorhexidine Gluconate (Peridex -) 15 ml MM BID [facility] Last Admin: 10/21/17 22:35 Dose: 15 ml Propofol (Diprivan -) 1,000,000 mcg in 100 mls @ 2.082 mls/hr IVPB TITR [facility]; Protocol Last Admin: 10/22/17 01:09 Dose: 10 mcg/kg/min, 4.164 mls/hr Ampicillin Sodium/Sulbactam (Sodium 1.5 gm/ Sodium Chloride) 100 mls @ 200 mls/ hr IVPB Q8H-IV [facility] Last Admin: 10/22/17 01:09 Dose: 200 mls/hr Mupirocin (Bactroban Ointment (For Decolonization) -) 1 applic NS BID [facility] Stop: 10/23/17 21:59 Last Admin: 10/21/17 22:45 Dose: 1 applic Pantoprazole Sodium (Protonix Iv) 40 mg IVPUSH DAILY [facility] Last Admin: 10/21/17 09:26 Dose: 40 mg Rivaroxaban (Xarelto -) 15 mg PO DAILY@1800 [facility] Last Admin: 10/21/17 17:13 Dose: 15 mg ASSESSMENT AND PLAN: s/p Cardiopulmonary Arrest Acute on Chronic Hypoxic and Hypercapneic Respiratory Failure Acute on Chronic Diastolic Heart Failure Acute on Chronic Renal Failure Severe Pulmonary HTN Atrial Fibrillation Carotid Stenosis Syncope HTN Hyperlipidemia - antibiotics per ID - f/u cultures - hold further lasix - monitor urine output, creatinine - may need HD - inhaled bronchodilators - taper FiO2 to keep SpO2>90% - rate control - continue anticoagulation - monitor telemetry for pauses - minimize sedation to assess mental status - spontaneous breathing trials as tolerated - DVT/GI prophylaxis - continue ICU monitoring critical care time spent in reviewing chart, evaluating patient and formulating plan 35 min
--- NOTE | 2017-10-22 10:48 | PN ---
Physical Exam: SUBJECTIVE: Patient seen and examined in ICU. He is still on [facility] ventilation, AC, 12/45/50/PEEP 7. No overnight events. No plans for extubation today. ETT tube was above the cords, re intubated in AM. OBJECTIVE: Vital Signs Period Temp Pulse Resp BP Sys/Gama Pulse Ox Last 24 Hr 97.4 F-98.7 F 59-69 12-25 89-122/42-53 GENERAL: The patient is sedated, intubated. HEAD: Normal with no signs of trauma. EYES: PERRL. ENT: Oropharynx clear without exudates, moist mucous membranes, OG tube. NECK: Trachea midline, full range of motion, supple. LUNGS: Breath sounds equal, clear to auscultation bilaterally, occasional rhonchi, no wheezes. HEART: Irregular rate and rhythm, S1, S2 without murmur, rub or gallop. ABDOMEN: Soft, nontender, nondistended, normoactive bowel sounds, no guarding, no rebound. EXTREMITIES: 2+ pulses, no edema, necrotic fifth toe in left foot. NEUROLOGICAL: Sedated. PSYCH: Normal mood, normal affect. SKIN: Warm, dry, normal turgor, no rashes. Laboratory Results - last 24 hr 10/22/17 10/22/17 05:10 05:10 WBC 15.1 H RBC 3.50 L Hgb 9.1 L Hct 28.5 L MCV 81.5 MCH 25.9 MCHC 31.8 L RDW 16.9 H Plt Count 136 D MPV 11.0 Absolute Neuts (auto) 13.0 H Neutrophils % 86.5 H Lymphocytes % 2.7 L D Monocytes % 10.7 H Eosinophils % 0.0 Basophils % 0.1 Nucleated RBC % 1 H Sodium 141 Potassium 4.9 Chloride 96 L Carbon Dioxide 34 H Anion Gap 11 BUN 200 H* D Creatinine 4.0 H Creat Clearance w eGFR 14.71 Random Glucose 117 H Calcium 7.9 L Phosphorus 5.8 H Magnesium 3.0 H Total Bilirubin 1.3 H AST 21 ALT 8 L Alkaline Phosphatase 94 D Total Protein 6.1 L Albumin 2.5 L Active Medications Generic Name Dose Route Start Last Admin Trade Name Freq PRN Reason Stop Dose Admin Acetaminophen 1,000 mg 10/19/17 15:41 10/19/17 15:58 Ofirmev Injection - IVPB 1,000 mg Q6H PRN Administration FEVER Albuterol Sulfate 1 amp 10/19/17 11:11 10/21/17 02:00 Ventolin 0.083% Nebulizer Soln - NEB 1 amp Q6H PRN Administration SHORTNESS OF BREATH Albuterol/Ipratropium 1 amp 10/20/17 12:00 10/22/17 07:00 Duoneb - NEB 1 amp RQID [facility] Administration Aspirin 81 mg 10/19/17 10:00 10/21/17 09:26 Asa - PO 81 mg DAILY [facility] Administration Chlorhexidine Gluconate 15 ml 10/18/17 22:00 10/21/17 22:35 Peridex - MM 15 ml BID [facility] Administration Propofol 1,000,000 mcg in 100 mls @ 2.082 mls/hr 10/18/17 00:15 10/22/17 01: 09 Diprivan - IVPB 10 mcg/kg/min TITR [facility] 4.164 mls/hr Administration Protocol 5 MCG/KG/MIN Ampicillin Sodium/Sulbactam 100 mls @ 200 mls/hr 10/20/17 18:00 10/22/17 01: 09 Sodium 1.5 gm/ Sodium Chloride IVPB 200 mls/hr Q8H-IV [facility] Administration Mupirocin 1 applic 10/18/17 22:00 10/21/17 22:45 Bactroban Ointment (For Decolonization) - NS 10/23/17 21:59 1 applic BID [facility] Administration Pantoprazole Sodium 40 mg 10/19/17 11:30 10/21/17 09:26 Protonix Iv IVPUSH 40 mg DAILY [facility] Administration Rivaroxaban 15 mg 10/17/17 18:00 10/21/17 17:13 Xarelto - PO 15 mg DAILY@1800 [facility] Administration ASSESSMENT/PLAN: Patient is a 77 y/o male with a history of HTN, HLD, CHF, COPD, afib, who came to the ICU after being found pulseless. Patient is admitted to ICU s/p cardiac arrest, CHF exacerbation, kidney failure. s/p cardiac arrest Acute hypercapneic respiratory failure Acute on chronic diastolic heart failure PEACE on CKD Severe pulmonary HTN elevated troponins A.Fib HTN Hyperlipidemia Plan: -the patient continue to have worsening kidney function, today Cr is 4.0, BUN 200, decreased urine output. Dr Barajas is planning to do HD today, will f/u recs -trialysis catheter was inserted -the patient became hypotensive, boluses of NS were given, consequently started on Levophed, keep MAP above 65 -continue antibiotics for PNA, will f/u ID recomendations, no more Vancomycin recommended, -CXR reviewed, more congestion -sputum culture pending -patient intubated, Vent TV: 450, Rate 12, PF 50, PEEP 7 O2 50%, unchanged today , re intubated (ETT tube to high) -propofol for sedation -neurologically no new deficits, discussed with Dr Andujar -continue Nepro -DVT PPX continue Xarelto -GI PPX cont Protonix IV Dispo: Waiting for HD, will continue ICU monitoring. FULL CODE. Discussed with Dr Graves. Problem List - Problems (1) Acute on chronic respiratory failure with hypoxia and hypercapnia Code(s): J96.21 - ACUTE AND CHRONIC RESPIRATORY FAILURE WITH HYPOXIA; J96.22 - ACUTE AND CHRONIC RESPIRATORY FAILURE WITH HYPERCAPNIA (2) CHF exacerbation Code(s): I50.9 - HEART FAILURE, UNSPECIFIED Qualifiers: Heart failure type: unspecified Qualified Code(s): I50.9 - Heart failure, unspecified (3) CKD (chronic kidney disease) Code(s): N18.9 - CHRONIC KIDNEY DISEASE, UNSPECIFIED (4) COPD (chronic obstructive pulmonary disease) Code(s): J44.9 - CHRONIC OBSTRUCTIVE PULMONARY DISEASE, UNSPECIFIED (5) Chronic venous stasis Code(s): I87.8 - OTHER SPECIFIED DISORDERS OF VEINS (6) Syncope Code(s): R55 - SYNCOPE AND COLLAPSE Qualifiers: Syncope type: unspecified Qualified Code(s): R55 - Syncope and collapse (7) Troponin I above reference range Code(s): R74.8 - ABNORMAL LEVELS OF OTHER SERUM ENZYMES (8) [id number] kidney injury Code(s): N17.9 - ACUTE KIDNEY FAILURE, UNSPECIFIED; N18.9 - CHRONIC KIDNEY DISEASE, UNSPECIFIED Qualifiers: Acute renal failure type: unspecified Chronic kidney disease stage: stage 3 (moderate) Qualified Code(s): N17.9 - Acute kidney failure, unspecified; N18.3 - Chronic kidney disease, stage 3 (moderate) (9) Atrial fibrillation Code(s): I48.91 - UNSPECIFIED ATRIAL FIBRILLATION Qualifiers: Atrial fibrillation type: chronic Qualified Code(s): I48.2 - Chronic atrial fibrillation (10) Elevated troponin Code(s): R74.8 - ABNORMAL LEVELS OF OTHER SERUM ENZYMES Visit type - Emergency Visit Emergency Visit: Yes ED Registration Date: 10/17/17 Care time: The patient presented to the Emergency Department on the above date and was hospitalized for further evaluation of their emergent condition. - New Patient This patient is new to me today: No - Critical Care Critical Care patient: Yes Total Critical Care Time (in minutes): 40 Critical Care Statement: The care of this patient involved high complexity decision making to prevent further life threatening deterioration of the patient 's condition and/or to evaluate & treat vital organ system(s) failure or risk of failure.
[2017-10-22] MEDS: PANTOPRAZOLE SODIUM 40 MG VIAL IVPUSH SCH (10:58)
[2017-10-22] MEDS: ASPIRIN 81 MG CHEWABLE TABLETS PO SCH (10:59)
[2017-10-22] MEDS: MUPIROCIN 2% TOPICAL OINTMENT FOR DECOLONIZATION NS SCH ×2 (11:00→21:17)
[2017-10-22] MEDS: CHLORHEXIDINE GLUCONATE 0.12% 15ML CUP MM SCH ×2 (11:01→21:16)
--- NOTE | 2017-10-22 11:16 | PN ---
Progress Note (short form) - Note Progress Note: Progress Note: cc: CHF exacerbation, syncope s: intubated, sedated, no overnight events Current Medications Generic Name Dose Route Start Last Admin Trade Name Freq PRN Reason Stop Dose Admin Acetaminophen 1,000 mg 10/19/17 15:41 10/19/17 15:58 Ofirmev Injection - IVPB 1,000 mg Q6H PRN Administration FEVER Albuterol Sulfate 1 amp 10/19/17 11:11 10/21/17 02:00 Ventolin 0.083% Nebulizer Soln - NEB 1 amp Q6H PRN Administration SHORTNESS OF BREATH Albuterol/Ipratropium 1 amp 10/20/17 12:00 10/22/17 11:08 Duoneb - NEB 1 amp RQID [facility] Administration Aspirin 81 mg 10/19/17 10:00 10/22/17 10:59 Asa - PO 81 mg DAILY [facility] Administration Chlorhexidine Gluconate 15 ml 10/18/17 22:00 10/22/17 11:01 Peridex - MM 15 ml BID [facility] Administration Propofol 1,000,000 mcg in 100 mls @ 2.082 mls/hr 10/18/17 00:15 10/22/17 01: 09 Diprivan - IVPB 10 mcg/kg/min TITR [facility] 4.164 mls/hr Administration Protocol 5 MCG/KG/MIN Ampicillin Sodium/Sulbactam 100 mls @ 200 mls/hr 10/20/17 18:00 10/22/17 10: 58 Sodium 1.5 gm/ Sodium Chloride IVPB 200 mls/hr Q8H-IV [facility] Administration Mupirocin 1 applic 10/18/17 22:00 10/22/17 11:00 Bactroban Ointment (For Decolonization) - NS 10/23/17 21:59 1 applic BID [facility] Administration Pantoprazole Sodium 40 mg 10/19/17 11:30 10/22/17 10:58 Protonix Iv IVPUSH 40 mg DAILY [facility] Administration Rivaroxaban 15 mg 10/17/17 18:00 10/21/17 17:13 Xarelto - PO 15 mg DAILY@1800 [facility] Administration Vital Signs Temp 98.7 F 10/22/17 08:00 Pulse 62 10/22/17 08:00 Resp 12 10/22/17 10:41 BP 98/51 10/22/17 08:00 Pulse Ox 98 10/20/17 20:00 Intake & Output 10/21/17 10/21/17 10/22/17 11:59 23:59 11:59 Intake Total 226 706 2359 Output Total 500 100 200 Balance 272 831 844 Weight 142 lb 6.4 oz 145 lb 1.6 oz Intake: IV 48 225 944 DIPRIVAN - 1,000,000 mcg 48 44 In 100 ml @ 5 MCG/KG/MIN 2.082 mls/hr IVPB TITR [facility] Rx#:[id number] Normal Saline - 1,000 ml 225 900 @ 75 mls/hr IV ASDIR [facility] Rx#:[id number] IVPB 100 250 100 Tube Feeding 504 336 Tube Irrigant 120 120 Output: Urine 500 100 200 Ruiz 500 100 200 Other: Voiding Method Indwelling Catheter Indwelling Catheter Bowel Movement Yes Yes # Bowel Movements 2 1 Weight Measurement Method Built in [facility] Built in [facility] Constitutional: Yes:intubated, Eyes: Yes: Conjunctiva Clear Neck: Yes: Supple, Trachea Midline Respiratory: Yes: Regular, Rales (bilateral bases), vented Gastrointestinal: Yes: Normal Bowel Sounds, Soft Cardiovascular: Yes: Regular Rate and Rhythm Heart Sounds: Yes: S1, S2 Edema: No Peripheral Pulses: 2+ Left Doralis Pedis, 2+ Right Dorsalis Pedis lethargic no jaundice diaphoresis Laboratory Last Values WBC 15.1 K/mm3 (4.0-10.0) H 10/22/17 05:10 RBC 3.50 M/mm3 (4.00-5.60) L 10/22/17 05:10 Hgb 9.1 GM/dL (11.7-16.9) L 10/22/17 05:10 Hct 28.5 % (35.4-49) L 10/22/17 05:10 MCV 81.5 fl (80-96) 10/22/17 05:10 MCH 25.9 pg (25.7-33.7) 10/22/17 05:10 MCHC 31.8 g/dl (32.0-35.9) L 10/22/17 05:10 RDW 16.9 % (11.9-15.9) H 10/22/17 05:10 Plt Count 136 K/MM3 (134-434) D 10/22/17 05:10 MPV 11.0 fl (7.5-11.1) 10/22/17 05:10 Absolute Neuts (auto) 13.0 K/mm3 (1.5-8.0) H 10/22/17 05:10 Neutrophils % 86.5 % (42.8-82.8) H 10/22/17 05:10 Neutrophils % (Manual) 86.1 % (42.8-82.8) H 10/22/17 05:10 Band Neutrophils % 0.0 % 10/22/17 05:10 Lymphocytes % 2.7 % (8-40) L D 10/22/17 05:10 Lymphocytes % (Manual) 7.9 % (8-40) L 10/22/17 05:10 Monocytes % 10.7 % (3.8-10.2) H 10/22/17 05:10 Monocytes % (Manual) 5 % (3.8-10.2) 10/22/17 05:10 Eosinophils % 0.0 % (0-4.5) 10/22/17 05:10 Eosinophils % (Manual) 0.0 % (0-4.5) 10/22/17 05:10 Basophils % 0.1 % (0-2.0) 10/22/17 05:10 Basophils % (Manual) 0.0 % (0-2.0) 10/22/17 05:10 Myelocytes % (Man) 1 % (0-2) 10/22/17 05:10 Promyelocytes % (Man) 0 % (0-2) 10/22/17 05:10 Blast Cells % (Manual) 0 % (0-0) 10/22/17 05:10 Nucleated RBC % 0 % (0-0) 10/22/17 05:10 Metamyelocytes 0 % (0-2) 10/22/17 05:10 Hypochromia 1+ 10/22/17 05:10 Platelet Estimate Decreased 10/22/17 05:10 Polychromasia 2+ 10/22/17 05:10 Poikilocytosis 1+ 10/22/17 05:10 Anisocytosis 3+ 10/22/17 05:10 Microcytosis 3+ 10/22/17 05:10 Macrocytosis 0 10/22/17 05:10 Ovalocytes 1+ 10/22/17 05:10 Retic Count 1.78 % (0.5-1.5) H 10/17/17 05:30 PT with INR 14.50 SEC (9.7-13.0) H 10/18/17 05:30 INR 1.28 (0.83-1.09) H 10/18/17 05:30 PTT (Actin FS) 29.1 SECONDS (25.2-36.5) 10/18/17 05:30 Anticoagulation Therapy No Result Required. 10/18/17 00:14 Puncture Site Right radial 10/18/17 08:20 ABG pH 7.40 (7.35-7.45) 10/18/17 08:20 ABG pCO2 at Pt Temp 58.5 mmHg (35-45) H D 10/18/17 08:20 ABG pO2 at Pt Temp 74.7 mmHg (70-100) D 10/18/17 08:20 ABG HCO3 35.7 meq/L (22-26) H 10/18/17 08:20 ABG O2 Sat (Measured) 95.5 % (90-98.9) 10/18/17 08:20 ABG O2 Content 12.0 % vol (15-22) L 10/18/17 08:20 ABG Base Excess 9.9 meq/l (-2-2) H 10/18/17 08:20 Gagan Test Positive 10/18/17 08:20 Carboxyhemoglobin 3.1 gm% (0.5-2.0) H 10/16/17 19:49 Methemoglobin 1.6 % (0.4-1.5) H 10/16/17 19:49 O2 Delivery Device Vent 10/18/17 00:14 Oxygen Flow Rate Yes 10/18/17 08:20 Vent Mode 100 10/18/17 00:14 Vent Rate 14 10/18/17 00:14 Mechanical Rate Yes 10/18/17 00:14 PEEP 0.0 cmH2O 10/18/17 00:14 Pressure Support Vent 450 10/18/17 00:14 Sodium 141 mmol/L (136-145) 10/22/17 05:10 Potassium 4.9 mmol/L (3.5-5.1) 10/22/17 05:10 Chloride 96 mmol/L (98-107) L 10/22/17 05:10 Carbon Dioxide 34 mmol/L (21-32) H 10/22/17 05:10 Anion Gap 11 MMOL/L (8-16) 10/22/17 05:10 BUN 200 mg/dL (7-18) H* D 10/22/17 05:10 Creatinine 4.0 mg/dL (0.7-1.3) H 10/22/17 05:10 Creat Clearance w eGFR 14.71 (>60) 10/22/17 05:10 Random Glucose 117 mg/dL (74-106) H 10/22/17 05:10 Lactic Acid 1.6 mmol/L (0.0-2.0) 10/18/17 12:09 Calcium 7.9 mg/dL (8.5-10.1) L 10/22/17 05:10 Phosphorus 5.8 mg/dL (2.5-4.9) H 10/22/17 05:10 Magnesium 3.0 mg/dL (1.8-2.4) H 10/22/17 05:10 Iron 27 ug/dL (38-169) L 10/17/17 05:30 TIBC 423 ug/dL (250-450) 10/17/17 05:30 Iron Saturation 6 % (15-55) L 10/17/17 05:30 Ferritin 26.5 ng/ml (16.4-293.9) 10/17/17 05:30 Total Bilirubin 1.3 mg/dL (0.2-1.0) H 10/22/17 05:10 AST 21 U/L (15-37) 10/22/17 05:10 ALT 8 U/L (12-78) L 10/22/17 05:10 Alkaline Phosphatase 94 U/L (45-117) D 10/22/17 05:10 Creatine Kinase 146 IU/L (39-308) 10/18/17 05:30 CK-MB (CK-2) 9.58 ng/mL (0.5-3.6) H 10/18/17 05:30 Troponin I 1.86 ng/ml (0.00-0.05) H* 10/19/17 06:00 B-Natriuretic Peptide 01132.17 pg/ml (5-450) H 10/16/17 19:27 Total Protein 6.1 g/dl (6.4-8.2) L 10/22/17 05:10 Albumin 2.5 g/dl (3.4-5.0) L 10/22/17 05:10 TSH 1.30 uIU/ml (0.358-3.74) 10/18/17 05:30 Urine Color Ltyellow 10/18/17 01:25 Urine Appearance Slcloudy 10/18/17 01:25 Urine pH 5.0 (5.0-8.0) 10/18/17 01:25 Ur Specific [place] 1.009 (1.001-1.035) 10/18/17 01:25 Urine Protein Negative (NEGATIVE) 10/18/17 01:25 Urine Glucose (UA) Negative (NEGATIVE) 10/18/17 01:25 Urine Ketones Negative (NEGATIVE) 10/18/17 01:25 Urine Blood 1+ (NEGATIVE) H 10/18/17 01:25 Urine Nitrite Negative (NEGATIVE) 10/18/17 01:25 Urine Bilirubin Negative (<2.0 mg/dL) 10/18/17 01:25 Urine Urobilinogen Negative mg/dL (0.2-1.0) 10/18/17 01:25 Ur Leukocyte Esterase Negative (NEGATIVE) 10/18/17 01:25 Urine WBC (Auto) 1 /hpf (3-5) 10/18/17 01:25 Urine RBC (Auto) 21 /hpf (0-3) 10/18/17 01:25 Ur Epithelial Cells Rare /HPF (FEW) 10/18/17 01:25 Hyaline Casts 4 /lpf 10/18/17 01:25 Urine Mucus Rare 10/18/17 01:25 Ur Random Sodium 62 MMOL/L 10/18/17 01:25 Ur Random Potassium 33.1 MMOL/L 10/18/17 01:25 Ur Random Chloride 79 MMOL/L 10/18/17 01:25 Urine Creatinine 54.6 mg/dL (20-370) 10/18/17 01:25 Random Vancomycin 13.18 ug/ml 10/21/17 05:30 echo 09/2016 shows preserved LV fxn with significant RV dilatation and dysfunction, mod TR with RVSP>60 mmHg c/w cor pulmonale. 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, VISHAL, HTN, HLD, afib on Xarelto, cirrhosis p/w syncope, CHF exacerbation Acute respiratory distress - likely in setting of COPD, PNA, CHF exacerbation - intubated, on vent, manage per ICU - treatment of CHF exac as below syncope - may have been in setting of feeling short of breath, vasovagal, receiving spironolactone/metolazone - monitoring on tele, managing CHF exac/ COPD as below - echo stable compared to prior - carotid ultrasound with bilateral stenosis, vascular consulted (+) troponin - likely demand in setting of chf, then further after ACLS, trop down trending now - cont ac, asa acute on chronic diastolic HF - per patient's he has gained weight, she thinks about 10 lbs - diuresing well here on lasix 80 iv bid but bun/cr rising. likely at baseline vol status vs a little below. d/w critcare, lasix stopped and got ivfs overnight. bun/cr still up. Renal following, may need HD. - holding spironolactone, metolazone - monitor daily weight, I/O, chem7 - echo stable, nl LV function with cor pulmonale, severe pulm HTN COPD - intubated - plan per pulm HTN - controlled afib -continue xarelto -rate ok for now PEACE on CKD - diuresing well here on lasix 80 iv bid but bun/cr rising. likely at baseline vol status vs a little below. d/w critcare, lasix stopped and got ivfs overnight. bun/cr still up. Renal following, may need HD. pna: -on abx
--- NOTE | 2017-10-22 13:23 | PN ---
Physical Exam: SUBJECTIVE: Patient seen and examined in ICU this morning. He was afebrile overnight. It was noted that his endotracheal tube baloon was above the vocal chords, and patient was reintubated. He became hypotensive, was given IVNS bolus and started on Levophed. Patient is currently intubated, on Propofol sedation. OBJECTIVE: Vital Signs Period Temp Pulse Resp BP Sys/Gama Pulse Ox Last 24 Hr 97.4 F-98.7 F 59-69 12-29 89-122/42-53 GENERAL: The patient is sedated, in no acute distress. HEAD: Normal with no signs of trauma. EYES: PERRL, sclera anicteric, conjunctiva clear. NECK: Supple without lymphadenopathy LUNGS: Intubated. Breath sounds equal, clear to auscultation bilaterally, no wheezes, faint crackles auscultated B/L HEART: Regular rate and rhythm, S1, S2 with murmur auscultated over left sternal border ABDOMEN: Soft, nontender, nondistended, hypoactive bowel sounds. EXTREMITIES: 2+ pulses, warm, well-perfused, 1+ pitting edema. Hemosiderin deposit pigmentation B/L lower extremities noted. NEUROLOGICAL: Unable to assess as patient was sedated upon my encounter. SKIN: Warm, dry. Noted increased bruising on arms B/L. Dry, cracking skin noted over base of left pinky toe. Laboratory Results - last 24 hr 10/22/17 10/22/17 05:10 05:10 WBC 15.1 H RBC 3.50 L Hgb 9.1 L Hct 28.5 L MCV 81.5 MCH 25.9 MCHC 31.8 L RDW 16.9 H Plt Count 136 D MPV 11.0 Absolute Neuts (auto) 13.0 H Neutrophils % 86.5 H Neutrophils % (Manual) 86.1 H Band Neutrophils % 0.0 Lymphocytes % 2.7 L D Lymphocytes % (Manual) 7.9 L Monocytes % 10.7 H Monocytes % (Manual) 5 Eosinophils % 0.0 Eosinophils % (Manual) 0.0 Basophils % 0.1 Basophils % (Manual) 0.0 Myelocytes % (Man) 1 Promyelocytes % (Man) 0 Blast Cells % (Manual) 0 Nucleated RBC % 0 Metamyelocytes 0 Hypochromia 1+ Platelet Estimate Decreased Polychromasia 2+ Poikilocytosis 1+ Anisocytosis 3+ Microcytosis 3+ Macrocytosis 0 Ovalocytes 1+ Sodium 141 Potassium 4.9 Chloride 96 L Carbon Dioxide 34 H Anion Gap 11 BUN 200 H* D Creatinine 4.0 H Creat Clearance w eGFR 14.71 Random Glucose 117 H Calcium 7.9 L Phosphorus 5.8 H Magnesium 3.0 H Total Bilirubin 1.3 H AST 21 ALT 8 L Alkaline Phosphatase 94 D Total Protein 6.1 L Albumin 2.5 L Active Medications Generic Name Dose Route Start Last Admin Trade Name Freq PRN Reason Stop Dose Admin Acetaminophen 1,000 mg 10/19/17 15:41 10/19/17 15:58 Ofirmev Injection - IVPB 1,000 mg Q6H PRN Administration FEVER Albuterol Sulfate 1 amp 10/19/17 11:11 10/21/17 02:00 Ventolin 0.083% Nebulizer Soln - NEB 1 amp Q6H PRN Administration SHORTNESS OF BREATH Albuterol/Ipratropium 1 amp 10/20/17 12:00 10/22/17 11:08 Duoneb - NEB 1 amp RQID TRICIA Administration Aspirin 81 mg 10/19/17 10:00 10/22/17 10:59 Asa - PO 81 mg DAILY TRICIA Administration Chlorhexidine Gluconate 15 ml 10/18/17 22:00 10/22/17 11:01 Peridex - MM 15 ml BID TRICIA Administration Propofol 1,000,000 mcg in 100 mls @ 2.082 mls/hr 10/18/17 00:15 10/22/17 01: 09 Diprivan - IVPB 10 mcg/kg/min TITR TRICIA 4.164 mls/hr Administration Protocol 5 MCG/KG/MIN Ampicillin Sodium/Sulbactam 100 mls @ 200 mls/hr 10/20/17 18:00 10/22/17 10: 58 Sodium 1.5 gm/ Sodium Chloride IVPB 200 mls/hr Q8H-IV TRICIA Administration Mupirocin 1 applic 10/18/17 22:00 10/22/17 11:00 Bactroban Ointment (For Decolonization) - NS 10/23/17 21:59 1 applic BID TRICIA Administration Pantoprazole Sodium 40 mg 10/19/17 11:30 10/22/17 10:58 Protonix Iv IVPUSH 40 mg DAILY TRICIA Administration Rivaroxaban 15 mg 10/17/17 18:00 10/21/17 17:13 Xarelto - PO 15 mg DAILY@1800 TRICIA Administration ASSESSMENT/PLAN: Patient is a 77 year old male with history of hypertension, hyperlipidemia, congestive heart failure, Afib (on xarelto) COPD,cirrhosis, presents after an unwitnessed syncopal episode. Patient in ICU after found pulseless. Achieved ROSC in approx. 1 minute with chest compressions and BVM. Acute Hypoxemic Respiratory Distress -Patient re-intubated today, in ICU. Today he is sedated with propofol 10mcg/hr. -Levophed 500mls at 7.4 mL/ hr -Lasix 80mg IV QD held due to rising Cr (4.0) -Duonebs 1amp Q6H PRn, Tiotropium 2 puffs IH daily, Advair 1 puff BID, -CXR still shows chronic pleural fluid with atelectasis/ infiltrate at right lung base, without significant changes from yesterdays chest xray. ?Ventilator Associated Pneumonia -Patient was afebrile today. -CT chest shows small left and right pleural effusions. compressive atelectasis at bases with calcifications B/L. Pneumonia cannot be ruled out: left lung base , right middle lobe. -Vancomycin 1gm IV QD discontinued per ID recommendations. -Continue Zosyn 2.25gm IV Q6H (renal dosed due to his CKD- Cr 4.0 today) -ID consult () appreciated: Probable aspiration pneumonia. Will continue Unasyn. Vancomycin discontinued. -F/U blood cultures- Preliminary negative at 48 hours growth -F/U sputum sample culture- Preliminary Pseudomnoas growth Acute on Chronic kidney disease -Cr 4.0 today, increased from 3.4 yesterday. BUN 200 increased from 159 yesterday. -Nephrology consult appreciated: Renal function may worsen d/t episode of hypotension. Baseline Creatinine is 2.15 -Patient started on Hemodialysis today after conversation between [employer] and patient's family. -Renal and Bladder US shows: B/l renal simple cysts without hydronephrosis, or stones. Urinary bladder is partially distended without wall thickening. Troponinemia -(Dr. Vogel) Cardiology consult appreciated: Likely demand ischemia d/t hypotensive episode overnight. -Troponins trended down 2.60 -> 2.34 Syncopal Episode -Considering vasovagal d/t combined use of spironolactone and metolazone vs. arrhythmia. -CXR showed chronic pleural fluid with atelectasis/ infiltrate at right lung base -EKG showed atrial flutter with 5:1 block, incomplete RBBB with nonspecific ST and T wave abnormalities. -ECHO showed normal LV function and size, moderately diminished RV function, moderate tricuspid insufficiency, severe pulmonary hypertension. -CT head was negative for intracranial injury or cerebral fracture -Cervical CT showed no cervical vertebral fractures, and degenerative C4-C5 stenosis. -Carotid US showed moderate atherosclerosis left > right stenosis 60-79% with internal carotid involvement. -Arterial Duplex showed extensive atherosclerotic disease without occlusion or stenosis. -Abdominal Us shows: small ascites B/L without cholelithiasis, cholecystitis. Distension of hepatic veins suggesting right cardiac dysfunction. -Cardiology consult appreciated: may be vasovagal as patient felt hot and short of breath before passing out. Diuresis with IV Lasix 80mg QD, holding spironolactone for now, monitor daily weights intake and output. -Lower extremity doppler: shows no DVT in either leg. Notable for 2.7 x 1.7 x 1cm left popliteal cyst. -(Dr. Andujar) Neurology consult appreciated: Left leg moves less than right leg, and ?left sided facial nerve defecit. Unable to determine if these changes are acute. -CT head shows no acute interval changes from last study (10/16/17): Atrophy and chronic microvascular changes. Afib -Continue Xarelto 15mg PO QD FEN -IV fluid bolus was given today. -Will follow CMP -NPO, patient is intubated. Prophylaxis -On Xarelto 15mg PO QD -Pantoprazole 40mg IV QD Disposition: Continue care in ICU Visit type - Emergency Visit Emergency Visit: No - New Patient This patient is new to me today: No - Critical Care Critical Care patient: Yes Total Critical Care Time (in minutes): 35 Critical Care Statement: The care of this patient involved high complexity decision making to prevent further life threatening deterioration of the patient 's condition and/or to evaluate & treat vital organ system(s) failure or risk of failure. - Discharge Referral Referred to [facility] Med P.C.: No
--- NOTE | 2017-10-22 14:36 | PROC ---
<ToyaEvanbeliaKrystin - Last Filed: 10/22/17 14:36> Central Line Insertion Indication: Other (HD) Risks and Benefits Explained: Yes Consent on Chart: Yes Central Line: Triple Lumen Catheter Anesthesia: 1% Lidocaine Sterile Technique: Yes Ultrasound Guided Assistance: Yes Position: Right Internal Jugular Post Insertion: Yes: Bilateral Breath Sounds Sterile Dressing Applied: Yes <Octavio Graves MD - Last Filed: 10/23/17 10:22> Procedure Note Procedure: I supervised and was present during the entire procedure. Octavio Graves MD
[2017-10-22] MEDS ORDERED: NOREPINEPHRINE BITARTRATE 4 MG/4 ML ML IV ONE (14:50)
[2017-10-22] MEDS: NOREPINEPHRINE BITARTRATE 8,000 MCG in DEXTROSE 5%-WATER - 492 ML IV SCH (15:10)
--- NOTE | 2017-10-22 15:30 | PN ---
Progress Note, Physician History of Present Illness: Pt seen and examined at bedside. He remains in the ICU. Pt remains intubated. Pt is oliguric. - Current Medication List Current Medications: Active Medications Acetaminophen (Ofirmev Injection -) 1,000 mg IVPB Q6H PRN PRN Reason: FEVER Last Admin: 10/19/17 15:58 Dose: 1,000 mg Albuterol Sulfate (Ventolin 0.083% Nebulizer Soln -) 1 amp NEB Q6H PRN PRN Reason: SHORTNESS OF BREATH Last Admin: 10/21/17 02:00 Dose: 1 amp Albuterol/Ipratropium (Duoneb -) 1 amp NEB RQID TRICIA Last Admin: 10/22/17 11:08 Dose: 1 amp Aspirin (Asa -) 81 mg PO DAILY TRICIA Last Admin: 10/22/17 10:59 Dose: 81 mg Chlorhexidine Gluconate (Peridex -) 15 ml MM BID TRICIA Last Admin: 10/22/17 11:01 Dose: 15 ml Propofol (Diprivan -) 1,000,000 mcg in 100 mls @ 2.082 mls/hr IVPB TITR TRICIA; Protocol Last Admin: 10/22/17 01:09 Dose: 10 mcg/kg/min, 4.164 mls/hr Ampicillin Sodium/Sulbactam (Sodium 1.5 gm/ Sodium Chloride) 100 mls @ 200 mls/ hr IVPB Q8H-IV TRICIA Last Admin: 10/22/17 10:58 Dose: 200 mls/hr Norepinephrine Bitartrate 8, (000 mcg/ Dextrose) 500 mls @ 7.4 mls/hr IV ASDIR TRICIA; Protocol Last Titration: 10/22/17 15:22 Dose: 0.06 mcg/kg/min, 14.9 mls/hr Mupirocin (Bactroban Ointment (For Decolonization) -) 1 applic NS BID TRICIA Stop: 10/23/17 21:59 Last Admin: 10/22/17 11:00 Dose: 1 applic Pantoprazole Sodium (Protonix Iv) 40 mg IVPUSH DAILY [facility] Last Admin: 10/22/17 10:58 Dose: 40 mg Rivaroxaban (Xarelto -) 15 mg PO DAILY@1800 TRICIA Last Admin: 10/21/17 17:13 Dose: 15 mg - Objective Vital Signs: Vital Signs Temperature 98.6 F 10/22/17 12:00 Pulse Rate 59 L 10/22/17 15:22 Respiratory Rate 22 10/22/17 14:00 Blood Pressure 89/47 10/22/17 15:22 O2 Sat by Pulse Oximetry (%) 98 10/22/17 07:30 Constitutional: Yes: Calm Eyes: Yes: Conjunctiva Clear Cardiovascular: Yes: S1, S2 Respiratory: Yes: Mechanically Ventilated Gastrointestinal: Yes: Soft Genitourinary: Yes: Ruiz Present, Oliguria Musculoskeletal: Yes: Muscle Weakness Edema: No Integumentary: Yes: Venous Stasis Changes Neurological: Yes: Lethargy Labs: CBC, BMP 10/22/17 05:10 10/22/17 05:10 INR, PTT INR 1.28 (0.83-1.09) H 10/18/17 05:30 - ....Imaging Chest X-ray: Report Reviewed Problem List - Problems (1) CKD (chronic kidney disease) Code(s): N18.9 - CHRONIC KIDNEY DISEASE, UNSPECIFIED (2) COPD (chronic obstructive pulmonary disease) Code(s): J44.9 - CHRONIC OBSTRUCTIVE PULMONARY DISEASE, UNSPECIFIED (3) Syncope Code(s): R55 - SYNCOPE AND COLLAPSE Qualifiers: Syncope type: unspecified Qualified Code(s): R55 - Syncope and collapse Assessment/Plan Current Medications Generic Name Dose Route Start Last Admin Trade Name Freq PRN Reason Stop Dose Admin Acetaminophen 1,000 mg 10/19/17 15:41 10/19/17 15:58 Ofirmev Injection - IVPB 1,000 mg Q6H PRN Administration FEVER Albuterol Sulfate 1 amp 10/19/17 11:11 10/21/17 02:00 Ventolin 0.083% Nebulizer Soln - NEB 1 amp Q6H PRN Administration SHORTNESS OF BREATH Albuterol/Ipratropium 1 amp 10/20/17 12:00 10/22/17 11:08 Duoneb - NEB 1 amp RQID TRICIA Administration Aspirin 81 mg 10/19/17 10:00 10/22/17 10:59 Asa - PO 81 mg DAILY TRICIA Administration Chlorhexidine Gluconate 15 ml 10/18/17 22:00 10/22/17 11:01 Peridex - MM 15 ml BID TRICIA Administration Propofol 1,000,000 mcg in 100 mls @ 2.082 mls/hr 10/18/17 00:15 10/22/17 01: 09 Diprivan - IVPB 10 mcg/kg/min TITR TRICIA 4.164 mls/hr Administration Protocol 5 MCG/KG/MIN Ampicillin Sodium/Sulbactam 100 mls @ 200 mls/hr 10/20/17 18:00 10/22/17 10: 58 Sodium 1.5 gm/ Sodium Chloride IVPB 200 mls/hr Q8H-IV TRICIA Administration Norepinephrine Bitartrate 8, 500 mls @ 7.4 mls/hr 10/22/17 15:00 10/22/17 15: 22 000 mcg/ Dextrose IV 0.06 mcg/kg/min ASDIR TRICIA 14.9 mls/hr Titration Protocol 0.03 MCG/KG/MIN Mupirocin 1 applic 10/18/17 22:00 10/22/17 11:00 Bactroban Ointment (For Decolonization) - NS 10/23/17 21:59 1 applic BID TRICIA Administration Pantoprazole Sodium 40 mg 10/19/17 11:30 10/22/17 10:58 Protonix Iv IVPUSH 40 mg DAILY TRICIA Administration Rivaroxaban 15 mg 10/17/17 18:00 10/21/17 17:13 Xarelto - PO 15 mg DAILY@1800 TRICIA Administration Impression 1. PEACE 2. CHF 3. volume overload 4. a-fib 5. cirrhosis 6. VISHAL 7. bilateral renal cysts 8. syncope 9. hypoxia 10. cardiopulmonary arrest 11. congesion on cxr 12. severe pulmonary HTN 13. resp failure Plan - will arrange for HD today, discussed at length with family including and daughter Genny. Explained risks associated with dialysis. Also called and discussed with primary rn plasma center Dr Dave. - renal function is worsening and urine output is less - cont abx - vent support - cardio follow up - cont to monitor bp, will not take volume off as bp is borderline - monitor urine output - repeat labs in am - monitor in ICU - daily cxr - discussed with ICU team
[2017-10-22] MEDS ORDERED: SODIUM CHLORIDE 0.9% 500 ML INFUS.BAG IV ONE (15:45)
--- NOTE | 2017-10-22 16:24 | PN ---
Teaching Attending Note Name of Resident: Ryaln Middleton ATTENDING PHYSICIAN STATEMENT I saw and evaluated the patient. I reviewed the resident's note and discussed the case with the resident. I agree with the resident's findings and plan as documented. SUBJECTIVE: Patient contineus to be intubated on sedation. OBJECTIVE: Vital Signs Temperature 98.6 F 10/22/17 12:00 Pulse Rate 58 L 10/22/17 15:42 Respiratory Rate 19 10/22/17 15:45 Blood Pressure 92/49 10/22/17 15:42 O2 Sat by Pulse Oximetry (%) 98 10/22/17 07:30 CBCD WBC 15.1 K/mm3 (4.0-10.0) H 10/22/17 05:10 RBC 3.50 M/mm3 (4.00-5.60) L 10/22/17 05:10 Hgb 9.1 GM/dL (11.7-16.9) L 10/22/17 05:10 Hct 28.5 % (35.4-49) L 10/22/17 05:10 MCV 81.5 fl (80-96) 10/22/17 05:10 MCHC 31.8 g/dl (32.0-35.9) L 10/22/17 05:10 RDW 16.9 % (11.9-15.9) H 10/22/17 05:10 Plt Count 136 K/MM3 (134-434) D 10/22/17 05:10 MPV 11.0 fl (7.5-11.1) 10/22/17 05:10 CMP Sodium 141 mmol/L (136-145) 10/22/17 05:10 Potassium 4.9 mmol/L (3.5-5.1) 10/22/17 05:10 Chloride 96 mmol/L (98-107) L 10/22/17 05:10 Carbon Dioxide 34 mmol/L (21-32) H 10/22/17 05:10 Anion Gap 11 MMOL/L (8-16) 10/22/17 05:10 BUN 200 mg/dL (7-18) H* D 10/22/17 05:10 Creatinine 4.0 mg/dL (0.7-1.3) H 10/22/17 05:10 Creat Clearance w eGFR 14.71 (>60) 10/22/17 05:10 Random Glucose 117 mg/dL (74-106) H 10/22/17 05:10 Calcium 7.9 mg/dL (8.5-10.1) L 10/22/17 05:10 Total Bilirubin 1.3 mg/dL (0.2-1.0) H 10/22/17 05:10 AST 21 U/L (15-37) 10/22/17 05:10 ALT 8 U/L (12-78) L 10/22/17 05:10 Alkaline Phosphatase 94 U/L (45-117) D 10/22/17 05:10 Total Protein 6.1 g/dl (6.4-8.2) L 10/22/17 05:10 Albumin 2.5 g/dl (3.4-5.0) L 10/22/17 05:10 CARDIAC ENZYMES Creatine Kinase 146 IU/L (39-308) 10/18/17 05:30 Troponin I 1.86 ng/ml (0.00-0.05) H* 10/19/17 06:00 Current Medications Generic Name Dose Route Start Last Admin Trade Name Freq PRN Reason Stop Dose Admin Acetaminophen 1,000 mg 10/19/17 15:41 10/19/17 15:58 Ofirmev Injection - IVPB 1,000 mg Q6H PRN Administration FEVER Albuterol Sulfate 1 amp 10/19/17 11:11 10/21/17 02:00 Ventolin 0.083% Nebulizer Soln - NEB 1 amp Q6H PRN Administration SHORTNESS OF BREATH Albuterol/Ipratropium 1 amp 10/20/17 12:00 10/22/17 15:46 Duoneb - NEB 1 amp RQID TRICIA Administration Aspirin 81 mg 10/19/17 10:00 10/22/17 10:59 Asa - PO 81 mg DAILY TRICIA Administration Chlorhexidine Gluconate 15 ml 10/18/17 22:00 10/22/17 11:01 Peridex - MM 15 ml BID TRICIA Administration Propofol 1,000,000 mcg in 100 mls @ 2.082 mls/hr 10/18/17 00:15 10/22/17 01: 09 Diprivan - IVPB 10 mcg/kg/min TITR TRICIA 4.164 mls/hr Administration Protocol 5 MCG/KG/MIN Ampicillin Sodium/Sulbactam 100 mls @ 200 mls/hr 10/20/17 18:00 10/22/17 10: 58 Sodium 1.5 gm/ Sodium Chloride IVPB 200 mls/hr Q8H-IV TRICIA Administration Norepinephrine Bitartrate 8, 500 mls @ 7.4 mls/hr 10/22/17 15:00 10/22/17 15: 22 000 mcg/ Dextrose IV 0.06 mcg/kg/min ASDIR TRICIA 14.9 mls/hr Titration Protocol 0.03 MCG/KG/MIN Sodium Chloride 250 mls @ 3,000 mls/hr 10/22/17 15:30 Normal Saline - IV 10/23/17 15:30 PRN PRN Hypotension during Dialysis Mupirocin 1 applic 10/18/17 22:00 10/22/17 11:00 Bactroban Ointment (For Decolonization) - NS 10/23/17 21:59 1 applic BID TRICIA Administration Pantoprazole Sodium 40 mg 10/19/17 11:30 10/22/17 10:58 Protonix Iv IVPUSH 40 mg DAILY TRICIA Administration Rivaroxaban 15 mg 10/17/17 18:00 10/21/17 17:13 Xarelto - PO 15 mg DAILY@1800 TRICIA Administration Sodium Chloride 250 ml 10/22/17 15:45 Normal Saline - IV 10/22/17 15:46 ONCE ONE Home Medications Medication Instructions Recorded Cholecalciferol (Vitamin D3) 1,000 unit PO DAILY 06/22/12 [Vitamin D] Tiotropium Reading [Spiriva] 1 inh IH DAILY 06/22/12 Fluticasone/Vilanterol [Breo 1 each IH DAILY 06/05/14 Ellipta 100-25 Mcg INH] Sertraline HCl [Zoloft -] 50 mg PO DAILY 06/05/14 Sodium Chloride Nasal [place] [[place] 2 spray NS BID spraybtl 06/11/14 [place] Nasal [place] -] Furosemide [Lasix -] 80 mg PO BID 09/21/16 Febuxostat [Uloric] 40 mg PO DAILY 10/16/17 Rivaroxaban [Xarelto -] 15 mg PO DAILY 10/16/17 Sertraline HCl [Zoloft -] 50 mg PO DAILY 10/16/17 Spironolactone [Aldactone] 25 mg PO BID 10/16/17 Metolazone 2.5 mg PO WEEKLY 10/17/17 Constitutional: Yes:intubated, Eyes: Yes: Conjunctiva Clear Neck: Yes: Supple, Trachea Midline Respiratory: Yes: Regular, Rales (bilateral bases), vented Gastrointestinal: Yes: Normal Bowel Sounds, Soft Cardiovascular: Yes: Regular Rate and Rhythm Heart Sounds: Yes: S1, S2 Peripheral Pulses: 2+ Left Doralis Pedis, 2+ Right Dorsalis Pedis lethargic, intubated, sedated no jaundice diaphoresis carotid US: Moderate atherosclerotic disease, left greater than right, with stenoses in the 60-79% range involving the internal carotid arteries. Clinical correlation and follow-up studies recommended. Please see above discussion. Head CT: IMPRESSION: No significant interval change. There remains moderate atrophy and chronic microvascular ischemic disease changes without gross evidence of acute intracranial pathology. EKG reviewed .RBBB with no acute ischemic changes ASSESSMENT AND PLAN: Patient is a 77 y/o man with PMHx of CHF,liver cirrhosis, gout , COPD, VISHAL, cor pulmonale, a fib, HTN, HLP, and CKD who presented to ED after having a syncopal episode. # Acute on chronic hypoxic hypercapnic respiratory failure with hx of COPD: patient is intubated sedated in ICU further care per ICU team. Continue nebs treatment. # H/O COPD: cont Nebs and inhalers : continue nebulizer treatments. # acute diastolic CHF exacerbation on IV Lasix continue, Echo is reviewed. # Syncope: hypoxia, vs vasovagal, vs arrhythmias ; carotid US # PEACE on CKD: as per skiver heel tap to start dialysis today since renal function is worsening and urine output is less # A fib: on xarelto at home, dose is adjusted accordingly DVT Px: Xarelto
[2017-10-22] MEDS: RIVAROXABAN 15 MG TABLET PO SCH (17:51)
[2017-10-22] MEDS ORDERED: SODIUM CHLORIDE 250 ML IV ONE (20:00)
[2017-10-22] MEDS: PIPERACILLIN/TAZOB 2.25 GM 2.25 GM in DEXTROSE 5%-WATER - 50 ML IVPB SCH (20:00)
[2017-10-22] MEDS ORDERED: PIPERACILLIN/TAZOBACTAM 2.25 GM VIAL IVPB ONE (21:11)
[2017-10-22] MEDS ORDERED: DEXTROSE 5%-WATER - 50 ML IVPB ONE (21:11)
[2017-10-23] MEDS ORDERED: DEXTROSE 5%-WATER - 50 ML IVPB ONE ×3 (01:18→16:06)
[2017-10-23] MEDS ORDERED: PIPERACILLIN/TAZOBACTAM 2.25 GM VIAL IVPB ONE ×3 (01:18→16:06)
[2017-10-23] MEDS: PROPOFOL 1,000,000 MCG/100 ML VIAL IVPB SCH (01:27)
[2017-10-23] MEDS: PIPERACILLIN/TAZOB 2.25 GM 2.25 GM in DEXTROSE 5%-WATER - 50 ML IVPB SCH ×4 (01:27→19:00)
[2017-10-23] MEDS ORDERED: NOREPINEPHRINE BITARTRATE 4 MG/4 ML ML IV ONE ×3 (01:32→21:30)
[2017-10-23 06:17] LABS: EOS % 0.1 % (0-4.5); HEMATOCRIT 29.4 % (35.4-49); LYMPH % 4.6 % (8-40); MCH 25.3 pg (25.7-33.7); MCHC 30.6 g/dl (32.0-35.9); MEAN CELL VOLUME 82.6 fl (80-96); MEAN PLT VOLUME 10.8 fl (7.5-11.1); MONO % 10.1 % (3.8-10.2); NEUT % 85.2 % (42.8-82.8); PLATELET COUNT 160 K/MM3 (134-434); RBC 3.56 M/mm3 (4.00-5.60); RDW 17.2 % (11.9-15.9); WHITE BLOOD COUNT 19.7 K/mm3 (4.0-10.0)
[2017-10-23 06:43] LABS: ALBUMIN 2.4 g/dl (3.4-5.0); ANION GAP 9 MMOL/L (8-16); CALCIUM 8.1 mg/dL (8.5-10.1); CHLORIDE 96 mmol/L (98-107); CO2 32 mmol/L (21-32); CREATININE 3.6 mg/dL (0.7-1.3); GLUCOSE,RANDOM 124 mg/dL (74-106); MAGNESIUM 2.6 mg/dL (1.8-2.4); PHOSPHOROUS 5.3 mg/dL (2.5-4.9); POTASSIUM 5.1 mmol/L (3.5-5.1); SGOT/AST 254 U/L (15-37); SGPT/ALT 93 U/L (12-78); SODIUM 137 mmol/L (136-145)
[2017-10-23 06:44] LABS: ALK PHOS 118 U/L (45-117); BILIRUBIN,TOTAL 1.4 mg/dL (0.2-1.0); TOT PROT 6.1 g/dl (6.4-8.2)
[2017-10-23 07:16] LABS: BLOOD UREA NITROGEN 151 mg/dL (7-18)
[2017-10-23] MEDS: ALBUTEROL SO4 2.5/IPRATROPIUM 0.5 INH SOL 3 ML VIAL.NEB. NEB SCH ×4 (07:45→21:00)
--- NOTE | 2017-10-23 08:13 | PN ---
Progress Note (short form) - Note Progress Note: chart reviewed awake intubated s/p HD yesterday started on pressors yesterday Vital Signs Period Temp Pulse Resp BP Sys/Gama Pulse Ox Last 24 Hr 97.5 F-99.2 F 55-81 12-29 66-135/35-70 94-94 intubated cor-rrr lungs decreased bs at bases abd soft,nt ext multliple ecchymoses abrasion right knee ulcer left lateral foot right IJ HD line orally intubated briceno CBC, BMP 10/23/17 05:30 10/23/17 05:30 Microbiology 10/20/17 10:15 Blood - Peripheral Venous Blood Culture - Preliminary NO GROWTH OBTAINED AFTER 48 HOURS, INCUBATION TO CONTINUE FOR 3 DAYS. 10/20/17 10:31 Blood - Peripheral Venous Blood Culture - Preliminary NO GROWTH OBTAINED AFTER 48 HOURS, INCUBATION TO CONTINUE FOR 3 DAYS. 10/20/17 20:17 Sputum - Endotrachea Suction/Ventilator Sputum Culture - Preliminary Pseudomonas Species Pseudomonas Species#2 Pending Organism 10/18/17 01:25 Urine - Urine Briceno Urine Culture - Final NO GROWTH OBTAINED CXRAY not yet done Current Medications Acetaminophen (Ofirmev Injection -) 1,000 mg IVPB Q6H PRN PRN Reason: FEVER Last Admin: 10/19/17 15:58 Dose: 1,000 mg Albuterol Sulfate (Ventolin 0.083% Nebulizer Soln -) 1 amp NEB Q6H PRN PRN Reason: SHORTNESS OF BREATH Last Admin: 10/21/17 02:00 Dose: 1 amp Albuterol/Ipratropium (Duoneb -) 1 amp NEB RQID TRICIA Last Admin: 10/23/17 07:45 Dose: 1 amp Aspirin (Asa -) 81 mg PO DAILY TRICIA Last Admin: 10/22/17 10:59 Dose: 81 mg Chlorhexidine Gluconate (Peridex -) 15 ml MM BID TRICIA Last Admin: 10/22/17 21:16 Dose: 15 ml Propofol (Diprivan -) 1,000,000 mcg in 100 mls @ 2.082 mls/hr IVPB TITR TRICIA; Protocol Last Admin: 10/23/17 01:27 Dose: Not Given Norepinephrine Bitartrate 8, (000 mcg/ Dextrose) 500 mls @ 7.4 mls/hr IV ASDIR TRICIA; Protocol Last Titration: 10/22/17 18:00 Dose: 20 mcg/kg/min, 4,936.2 mls/hr Sodium Chloride (Normal Saline -) 250 mls @ 3,000 mls/hr IV PRN PRN PRN Reason: Hypotension during Dialysis Stop: 10/23/17 15:30 Piperacillin Sod/Tazobactam (Sod 2.25 gm/ Dextrose) 50 mls @ 100 mls/hr IVPB Q8H-IV TRICIA; Protocol Last Admin: 10/23/17 01:27 Dose: 100 mls/hr Mupirocin (Bactroban Ointment (For Decolonization) -) 1 applic NS BID [facility] Stop: 10/23/17 21:59 Last Admin: 10/22/17 21:17 Dose: 1 applic Pantoprazole Sodium (Protonix Iv) 40 mg IVPUSH DAILY [facility] Last Admin: 10/22/17 10:58 Dose: 40 mg Rivaroxaban (Xarelto -) 15 mg PO DAILY@1800 [facility] Last Admin: 10/22/17 17:51 Dose: 15 mg a/p s/p arrest resp failure renal failure s/p HD yesterday rising WBC switched to zosyn yesterday would repeat blood cultures redose vancomycin today after HD over 35 minutes spent in the care of this critically ill ICU patient
[2017-10-23] MEDS: ACETAMINOPHEN 1000 MG/100 ML VIAL (NON FORMULARY) IVPB PRN (09:15)
[2017-10-23] MEDS: ASPIRIN 81 MG CHEWABLE TABLETS PO SCH (09:17)
[2017-10-23] MEDS: PANTOPRAZOLE SODIUM 40 MG VIAL IVPUSH SCH (09:17)
[2017-10-23 10:22] LABS: ANISOCYTOSIS 2+; MACROCYTOSIS 0; OVALOCYTE 1+; PLATELET ESTIMATE NORMAL
--- NOTE | 2017-10-23 10:27 | PN ---
Teaching Attending Note Name of Resident: Janet Sparks ATTENDING PHYSICIAN STATEMENT I saw and evaluated the patient. I reviewed the resident's note and discussed the case with the resident. I agree with the resident's findings and plan as documented. SUBJECTIVE: Pt seen and examined in the ICU. Started on levophed gtt for hypotension. Tolerated HD yesterday. Vented on volume assist control with 50% FiO2, PEEP 7. OBJECTIVE: Vital Signs Period Temp Pulse Resp BP Sys/Gama Pulse Ox Last 24 Hr 97.5 F-100.6 F 55-81 12-29 66-135/35-70 93-94 Intake & Output 10/20/17 10/21/17 10/22/17 10/23/17 23:59 23:59 23:59 23:59 Intake Total 1508 1703 2394 768 Output Total 650 600 275 75 Balance 858 1103 2119 693 Weight 64.229 kg 64.592 kg 65.816 kg 65.363 kg Gen: intubated, sedated Heart: RRR Lung: scattered rhonchi Abd: soft, nontender Ext: distal edema CBC, BMP 10/23/17 05:30 10/23/17 05:30 Active Medications Acetaminophen (Ofirmev Injection -) 1,000 mg IVPB Q6H PRN PRN Reason: FEVER Last Admin: 10/23/17 09:15 Dose: 1,000 mg Albuterol Sulfate (Ventolin 0.083% Nebulizer Soln -) 1 amp NEB Q6H PRN PRN Reason: SHORTNESS OF BREATH Last Admin: 10/21/17 02:00 Dose: 1 amp Albuterol/Ipratropium (Duoneb -) 1 amp NEB RQID [facility] Last Admin: 10/23/17 07:45 Dose: 1 amp Aspirin (Asa -) 81 mg PO DAILY [facility] Last Admin: 10/23/17 09:17 Dose: 81 mg Chlorhexidine Gluconate (Peridex -) 15 ml MM BID [facility] Last Admin: 10/22/17 21:16 Dose: 15 ml Propofol (Diprivan -) 1,000,000 mcg in 100 mls @ 2.082 mls/hr IVPB TITR [facility]; Protocol Last Admin: 10/23/17 01:27 Dose: Not Given Norepinephrine Bitartrate 8, (000 mcg/ Dextrose) 500 mls @ 7.4 mls/hr IV ASDIR [facility]; Protocol Last Titration: 10/23/17 08:11 Dose: 4 mcg/kg/min, 987.24 mls/hr Sodium Chloride (Normal Saline -) 250 mls @ 3,000 mls/hr IV PRN PRN PRN Reason: Hypotension during Dialysis Stop: 10/23/17 15:30 Piperacillin Sod/Tazobactam (Sod 2.25 gm/ Dextrose) 50 mls @ 100 mls/hr IVPB Q8H-IV [facility]; Protocol Last Admin: 10/23/17 09:17 Dose: 100 mls/hr Mupirocin (Bactroban Ointment (For Decolonization) -) 1 applic NS BID [facility] Stop: 10/23/17 21:59 Last Admin: 10/22/17 21:17 Dose: 1 applic Pantoprazole Sodium (Protonix Iv) 40 mg IVPUSH DAILY [facility] Last Admin: 10/23/17 09:17 Dose: 40 mg Rivaroxaban (Xarelto -) 15 mg PO DAILY@1800 [facility] Last Admin: 10/22/17 17:51 Dose: 15 mg ASSESSMENT AND PLAN: s/p Cardiopulmonary Arrest Acute on Chronic Hypoxic and Hypercapneic Respiratory Failure Acute on Chronic Diastolic Heart Failure Acute on Chronic Renal Failure Severe Pulmonary HTN Atrial Fibrillation COPD Carotid Stenosis Syncope HTN Hyperlipidemia - antibiotics per ID - HD per renal - monitor urine output, creatinine - inhaled bronchodilators - taper FiO2, PEEP to keep SpO2>90% - rate control - continue anticoagulation - minimize sedation to assess mental status - spontaneous breathing trials as tolerated - DVT/GI prophylaxis - continue ICU monitoring critical care time spent in reviewing chart, evaluating patient and formulating plan 35 min
[2017-10-23] MEDS: MUPIROCIN 2% TOPICAL OINTMENT FOR DECOLONIZATION NS SCH (10:30)
[2017-10-23] MEDS: CHLORHEXIDINE GLUCONATE 0.12% 15ML CUP MM SCH ×2 (10:30→22:00)
--- NOTE | 2017-10-23 11:40 | PN ---
Progress Note (short form) - Note Progress Note: Progress Note: cc: CHF exacerbation, syncope s: intubated, sedated. had HD yesterday. now on levo. Current Medications Generic Name Dose Route Start Last Admin Trade Name Freq PRN Reason Stop Dose Admin Acetaminophen 1,000 mg 10/19/17 15:41 10/23/17 09:15 Ofirmev Injection - IVPB 1,000 mg Q6H PRN Administration FEVER Albuterol Sulfate 1 amp 10/19/17 11:11 10/21/17 02:00 Ventolin 0.083% Nebulizer Soln - NEB 1 amp Q6H PRN Administration SHORTNESS OF BREATH Albuterol/Ipratropium 1 amp 10/20/17 12:00 10/23/17 07:45 Duoneb - NEB 1 amp RQID [facility] Administration Aspirin 81 mg 10/19/17 10:00 10/23/17 09:17 Asa - PO 81 mg DAILY [facility] Administration Chlorhexidine Gluconate 15 ml 10/18/17 22:00 10/22/17 21:16 Peridex - MM 15 ml BID [facility] Administration Propofol 1,000,000 mcg in 100 mls @ 2.082 mls/hr 10/18/17 00:15 10/23/17 01: 27 Diprivan - IVPB Not Given TITR [facility] Protocol 5 MCG/KG/MIN Norepinephrine Bitartrate 8, 500 mls @ 7.4 mls/hr 10/22/17 15:00 10/23/17 08: 11 000 mcg/ Dextrose IV 4 mcg/kg/min ASDIR [facility] 987.24 mls/hr Titration Protocol 0.03 MCG/KG/MIN Sodium Chloride 250 mls @ 3,000 mls/hr 10/22/17 15:30 Normal Saline - IV 10/23/17 15:30 PRN PRN Hypotension during Dialysis Piperacillin Sod/Tazobactam 50 mls @ 100 mls/hr 10/22/17 20:00 10/23/17 09:17 Sod 2.25 gm/ Dextrose IVPB 100 mls/hr Q8H-IV [facility] Administration Protocol Mupirocin 1 applic 10/18/17 22:00 10/22/17 21:17 Bactroban Ointment (For Decolonization) - NS 10/23/17 21:59 1 applic BID [facility] Administration Pantoprazole Sodium 40 mg 08/30/18 11:30 10/23/17 09:17 Protonix Iv IVPUSH 40 mg DAILY [facility] Administration Rivaroxaban 15 mg 10/17/17 18:00 10/22/17 17:51 Xarelto - PO 15 mg DAILY@1800 [facility] Administration Vital Signs Temp 100.6 F H 10/23/17 08:00 Pulse 74 10/23/17 08:11 Resp 26 H 10/23/17 10:21 BP 112/58 10/23/17 08:11 Pulse Ox 93 L 10/23/17 08:53 Intake & Output 10/22/17 10/22/17 10/23/17 11:59 23:59 11:59 Intake Total 1044 1350 768 Output Total 200 75 75 Balance 844 1275 693 Weight 145 lb 1.6 oz 144 lb 1.6 oz Intake: IV 944 1150 44 DIPRIVAN - 1,000,000 mcg 44 44 In 100 ml @ 5 MCG/KG/MIN 2.082 mls/hr IVPB TITR [facility] Rx#:[id number] Normal Saline - 1,000 ml 900 150 @ 75 mls/hr IV ASDIR [facility] Rx#:[id number] RH 1000 IVPB 100 100 100 Tube Feeding 504 Tube Irrigant 100 120 Output: Urine 200 75 75 Ruiz 200 75 75 Other: Voiding Method Indwelling Catheter Indwelling Catheter Bowel Movement No Yes # Bowel Movements 1 1 Weight Measurement Method Built in [facility] Built in [facility] Constitutional: Yes:intubated, Eyes: Yes: Conjunctiva Clear Neck: Yes: Supple, Trachea Midline Respiratory: Yes: Regular, scattered rhonchi anteriorly, vented Gastrointestinal: Yes: Normal Bowel Sounds, Soft Cardiovascular: Yes: Regular Rate and Rhythm Heart Sounds: Yes: S1, S2 Edema: No Peripheral Pulses: pos dp pt lethargic no jaundice diaphoresis Laboratory Last Values WBC 19.7 K/mm3 (4.0-10.0) H 10/23/17 05:30 RBC 3.56 M/mm3 (4.00-5.60) L 10/23/17 05:30 Hgb 9.0 GM/dL (11.7-16.9) L 10/23/17 05:30 Hct 29.4 % (35.4-49) L 10/23/17 05:30 MCV 82.6 fl (80-96) 10/23/17 05:30 MCH 25.3 pg (25.7-33.7) L 10/23/17 05:30 MCHC 30.6 g/dl (32.0-35.9) L 10/23/17 05:30 RDW 17.2 % (11.9-15.9) H 10/23/17 05:30 Plt Count 160 K/MM3 (134-434) 10/23/17 05:30 MPV 10.8 fl (7.5-11.1) 10/23/17 05:30 Absolute Neuts (auto) 16.8 K/mm3 (1.5-8.0) H 10/23/17 05:30 Neutrophils % 85.2 % (42.8-82.8) H 10/23/17 05:30 Neutrophils % (Manual) 81.5 % (42.8-82.8) 10/23/17 05:30 Band Neutrophils % 1.0 % 10/23/17 05:30 Lymphocytes % 4.6 % (8-40) L D 10/23/17 05:30 Lymphocytes % (Manual) 7.2 % (8-40) L 10/23/17 05:30 Monocytes % 10.1 % (3.8-10.2) 10/23/17 05:30 Monocytes % (Manual) 8 % (3.8-10.2) 10/23/17 05:30 Eosinophils % 0.1 % (0-4.5) D 10/23/17 05:30 Eosinophils % (Manual) 0.0 % (0-4.5) 10/23/17 05:30 Basophils % 0.0 % (0-2.0) 10/23/17 05:30 Basophils % (Manual) 0.0 % (0-2.0) 10/23/17 05:30 Myelocytes % (Man) 1 % (0-2) 10/23/17 05:30 Promyelocytes % (Man) 0 % (0-2) 10/23/17 05:30 Blast Cells % (Manual) 0 % (0-0) 10/23/17 05:30 Nucleated RBC % 2 % (0-0) H 10/23/17 05:30 Metamyelocytes 1 % (0-2) D 10/23/17 05:30 Hypochromia 0 10/23/17 05:30 Platelet Estimate Normal 10/23/17 05:30 Polychromasia 1+ 10/23/17 05:30 Poikilocytosis 1+ 10/23/17 05:30 Anisocytosis 2+ 10/23/17 05:30 Microcytosis 1+ 10/23/17 05:30 Macrocytosis 0 10/23/17 05:30 Ovalocytes 1+ 10/23/17 05:30 Retic Count 1.78 % (0.5-1.5) H 10/17/17 05:30 PT with INR 14.50 SEC (9.7-13.0) H 10/18/17 05:30 INR 1.28 (0.83-1.09) H 10/18/17 05:30 PTT (Actin FS) 29.1 SECONDS (25.2-36.5) 10/18/17 05:30 Anticoagulation Therapy No Result Required. 10/18/17 00:14 Puncture Site Right radial 10/18/17 08:20 ABG pH 7.40 (7.35-7.45) 10/18/17 08:20 ABG pCO2 at Pt Temp 58.5 mmHg (35-45) H D 10/18/17 08:20 ABG pO2 at Pt Temp 74.7 mmHg (70-100) D 10/18/17 08:20 ABG HCO3 35.7 meq/L (22-26) H 10/18/17 08:20 ABG O2 Sat (Measured) 95.5 % (90-98.9) 10/18/17 08:20 ABG O2 Content 12.0 % vol (15-22) L 10/18/17 08:20 ABG Base Excess 9.9 meq/l (-2-2) H 10/18/17 08:20 Gagan Test Positive 10/18/17 08:20 Carboxyhemoglobin 3.1 gm% (0.5-2.0) H 10/16/17 19:49 Methemoglobin 1.6 % (0.4-1.5) H 10/16/17 19:49 O2 Delivery Device Vent 10/18/17 00:14 Oxygen Flow Rate Yes 10/18/17 08:20 Vent Mode 100 10/18/17 00:14 Vent Rate 14 10/18/17 00:14 Mechanical Rate Yes 10/18/17 00:14 PEEP 0.0 cmH2O 10/18/17 00:14 Pressure Support Vent 450 10/18/17 00:14 Sodium 137 mmol/L (136-145) 10/23/17 05:30 Potassium 5.1 mmol/L (3.5-5.1) 10/23/17 05:30 Chloride 96 mmol/L (98-107) L 10/23/17 05:30 Carbon Dioxide 32 mmol/L (21-32) 10/23/17 05:30 Anion Gap 9 MMOL/L (8-16) 10/23/17 05:30 BUN 151 mg/dL (7-18) H* D 10/23/17 05:30 Creatinine 3.6 mg/dL (0.7-1.3) H 10/23/17 05:30 Creat Clearance w eGFR 16.61 (>60) 10/23/17 05:30 Random Glucose 124 mg/dL (74-106) H 10/23/17 05:30 Lactic Acid 1.6 mmol/L (0.0-2.0) 10/18/17 12:09 Calcium 8.1 mg/dL (8.5-10.1) L 10/23/17 05:30 Phosphorus 5.3 mg/dL (2.5-4.9) H 10/23/17 05:30 Magnesium 2.6 mg/dL (1.8-2.4) H 10/23/17 05:30 Iron 27 ug/dL (38-169) L 10/17/17 05:30 TIBC 423 ug/dL (250-450) 10/17/17 05:30 Iron Saturation 6 % (15-55) L 10/17/17 05:30 Ferritin 26.5 ng/ml (16.4-293.9) 10/17/17 05:30 Total Bilirubin 1.4 mg/dL (0.2-1.0) H 10/23/17 05:30 AST 254 U/L (15-37) H D 10/23/17 05:30 ALT 93 U/L (12-78) H D 10/23/17 05:30 Alkaline Phosphatase 118 U/L (45-117) H D 10/23/17 05:30 Creatine Kinase 146 IU/L (39-308) 10/18/17 05:30 CK-MB (CK-2) 9.58 ng/mL (0.5-3.6) H 10/18/17 05:30 Troponin I 1.86 ng/ml (0.00-0.05) H* 10/19/17 06:00 B-Natriuretic Peptide 92942.17 pg/ml (5-450) H 10/16/17 19:27 Total Protein 6.1 g/dl (6.4-8.2) L 10/23/17 05:30 Albumin 2.4 g/dl (3.4-5.0) L 10/23/17 05:30 TSH 1.30 uIU/ml (0.358-3.74) 10/18/17 05:30 Urine Color Ltyellow 10/18/17 01:25 Urine Appearance Slcloudy 10/18/17 01:25 Urine pH 5.0 (5.0-8.0) 10/18/17 01:25 Ur Specific [place] 1.009 (1.001-1.035) 10/18/17 01:25 Urine Protein Negative (NEGATIVE) 10/18/17 01:25 Urine Glucose (UA) Negative (NEGATIVE) 10/18/17 01:25 Urine Ketones Negative (NEGATIVE) 10/18/17 01:25 Urine Blood 1+ (NEGATIVE) H 10/18/17 01:25 Urine Nitrite Negative (NEGATIVE) 10/18/17 01:25 Urine Bilirubin Negative (<2.0 mg/dL) 10/18/17 01:25 Urine Urobilinogen Negative mg/dL (0.2-1.0) 10/18/17 01:25 Ur Leukocyte Esterase Negative (NEGATIVE) 10/18/17 01:25 Urine WBC (Auto) 1 /hpf (3-5) 10/18/17 01:25 Urine RBC (Auto) 21 /hpf (0-3) 10/18/17 01:25 Ur Epithelial Cells Rare /HPF (FEW) 10/18/17 01:25 Hyaline Casts 4 /lpf 10/18/17 01:25 Urine Mucus Rare 10/18/17 01:25 Ur Random Sodium 62 MMOL/L 10/18/17 01:25 Ur Random Potassium 33.1 MMOL/L 10/18/17 01:25 Ur Random Chloride 79 MMOL/L 10/18/17 01:25 Urine Creatinine 54.6 mg/dL (20-370) 10/18/17 01:25 Random Vancomycin 13.18 ug/ml 10/21/17 05:30 echo 09/2016 shows preserved LV fxn with significant RV dilatation and dysfunction, mod TR with RVSP>60 mmHg c/w cor pulmonale. 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, VISHAL, HTN, HLD, afib on Xarelto, cirrhosis p/w syncope, CHF exacerbation Acute respiratory distress - likely in setting of COPD, PNA, CHF exacerbation - intubated, on vent, manage per ICU - treatment of CHF exac as below syncope - may have been in setting of feeling short of breath, vasovagal, receiving spironolactone/metolazone - monitoring on tele, managing CHF exac/ COPD as below - echo stable compared to prior - carotid ultrasound with bilateral stenosis, vascular consulted (+) troponin - likely demand in setting of chf, ACLS, sepsis trop down trending now - cont ac (for afib) acute on chronic diastolic HF - per patient's he has gained weight, she thinks about 10 lbs - diuresing well here on lasix 80 iv bid but bun/cr rising so was stopped and given ivfs but renal fcn continued to decline so had HD 9/2. - holding diuretics - monitor daily weight, I/O, chem7 - echo stable, nl LV function with cor pulmonale, severe pulm HTN COPD - intubated - plan per pulm htn: -hypotensive, on levo now afib -continue xarelto -rate ok for now PEACE on CKD - diuresing well here on lasix 80 iv bid but bun/cr rising so was stopped and given ivfs but renal fcn continued to decline so had HD 9/2. Renal following. pna, septic shock: -on abx, levo
--- NOTE | 2017-10-23 13:11 | PN ---
Progress Note, Physician History of Present Illness: Pt seen and examined at bedside. He remains in the ICU. He tolerated HD yesterday. He remains on levophed. He remains oliguric. - Current Medication List Current Medications: Active Medications Acetaminophen (Ofirmev Injection -) 1,000 mg IVPB Q6H PRN PRN Reason: FEVER Last Admin: 10/23/17 09:15 Dose: 1,000 mg Albuterol Sulfate (Ventolin 0.083% Nebulizer Soln -) 1 amp NEB Q6H PRN PRN Reason: SHORTNESS OF BREATH Last Admin: 10/21/17 02:00 Dose: 1 amp Albuterol/Ipratropium (Duoneb -) 1 amp NEB RQID [facility] Last Admin: 10/23/17 11:10 Dose: 1 amp Aspirin (Asa -) 81 mg PO DAILY [facility] Last Admin: 10/23/17 09:17 Dose: 81 mg Chlorhexidine Gluconate (Peridex -) 15 ml MM BID [facility] Last Admin: 10/22/17 21:16 Dose: 15 ml Propofol (Diprivan -) 1,000,000 mcg in 100 mls @ 2.082 mls/hr IVPB TITR [facility]; Protocol Last Admin: 10/23/17 01:27 Dose: Not Given Norepinephrine Bitartrate 8, (000 mcg/ Dextrose) 500 mls @ 7.4 mls/hr IV ASDIR [facility]; Protocol Last Titration: 10/23/17 08:11 Dose: 4 mcg/kg/min, 987.24 mls/hr Sodium Chloride (Normal Saline -) 250 mls @ 3,000 mls/hr IV PRN PRN PRN Reason: Hypotension during Dialysis Stop: 10/23/17 15:30 Piperacillin Sod/Tazobactam (Sod 2.25 gm/ Dextrose) 50 mls @ 100 mls/hr IVPB Q8H-IV [facility]; Protocol Last Admin: 10/23/17 09:17 Dose: 100 mls/hr Mupirocin (Bactroban Ointment (For Decolonization) -) 1 applic NS BID [facility] Stop: 10/23/17 21:59 Last Admin: 10/22/17 21:17 Dose: 1 applic Pantoprazole Sodium (Protonix Iv) 40 mg IVPUSH DAILY [facility] Last Admin: 10/23/17 09:17 Dose: 40 mg Rivaroxaban (Xarelto -) 15 mg PO DAILY@1800 [facility] Last Admin: 10/22/17 17:51 Dose: 15 mg - Objective Vital Signs: Vital Signs Temperature 100.6 F H 10/23/17 08:00 Pulse Rate 74 10/23/17 08:11 Respiratory Rate 24 10/23/17 11:50 Blood Pressure 112/58 10/23/17 08:11 O2 Sat by Pulse Oximetry (%) 93 L 10/23/17 12:22 Constitutional: Yes: Calm Eyes: Yes: Conjunctiva Clear HENT: Yes: Atraumatic Cardiovascular: Yes: S1, S2 Respiratory: Yes: Mechanically Ventilated Gastrointestinal: Yes: Soft Genitourinary: Yes: Ruiz Present, Oliguria Musculoskeletal: Yes: Muscle Weakness Edema: No Integumentary: Yes: Other (bruising of arms) Neurological: Yes: Lethargy Labs: CBC, BMP 10/23/17 05:30 10/23/17 05:30 INR, PTT INR 1.28 (0.83-1.09) H 10/18/17 05:30 - ....Imaging Chest X-ray: Report Reviewed Problem List - Problems (1) CKD (chronic kidney disease) Code(s): N18.9 - CHRONIC KIDNEY DISEASE, UNSPECIFIED (2) COPD (chronic obstructive pulmonary disease) Code(s): J44.9 - CHRONIC OBSTRUCTIVE PULMONARY DISEASE, UNSPECIFIED (3) Syncope Code(s): R55 - SYNCOPE AND COLLAPSE Qualifiers: Syncope type: unspecified Qualified Code(s): R55 - Syncope and collapse Assessment/Plan Current Medications Generic Name Dose Route Start Last Admin Trade Name Paul PRN Reason Stop Dose Admin Acetaminophen 1,000 mg 10/19/17 15:41 10/23/17 09:15 Ofirmev Injection - IVPB 1,000 mg Q6H PRN Administration FEVER Albuterol Sulfate 1 amp 10/19/17 11:11 10/21/17 02:00 Ventolin 0.083% Nebulizer Soln - NEB 1 amp Q6H PRN Administration SHORTNESS OF BREATH Albuterol/Ipratropium 1 amp 10/20/17 12:00 10/23/17 11:10 Duoneb - NEB 1 amp RQID [facility] Administration Aspirin 81 mg 10/19/17 10:00 10/23/17 09:17 Asa - PO 81 mg DAILY [facility] Administration Chlorhexidine Gluconate 15 ml 10/18/17 22:00 10/22/17 21:16 Peridex - MM 15 ml BID [facility] Administration Propofol 1,000,000 mcg in 100 mls @ 2.082 mls/hr 10/18/17 00:15 10/23/17 01: 27 Diprivan - IVPB Not Given TITR [facility] Protocol 5 MCG/KG/MIN Norepinephrine Bitartrate 8, 500 mls @ 7.4 mls/hr 10/22/17 15:00 10/23/17 08: 11 000 mcg/ Dextrose IV 4 mcg/kg/min ASDIR [facility] 987.24 mls/hr Titration Protocol 0.03 MCG/KG/MIN Sodium Chloride 250 mls @ 3,000 mls/hr 10/22/17 15:30 Normal Saline - IV 10/23/17 15:30 PRN PRN Hypotension during Dialysis Piperacillin Sod/Tazobactam 50 mls @ 100 mls/hr 10/22/17 20:00 10/23/17 09:17 Sod 2.25 gm/ Dextrose IVPB 100 mls/hr Q8H-IV [facility] Administration Protocol Mupirocin 1 applic 10/18/17 22:00 10/22/17 21:17 Bactroban Ointment (For Decolonization) - NS 10/23/17 21:59 1 applic BID [facility] Administration Pantoprazole Sodium 40 mg 10/19/17 11:30 10/23/17 09:17 Protonix Iv IVPUSH 40 mg DAILY [facility] Administration Rivaroxaban 15 mg 10/17/17 18:00 10/22/17 17:51 Xarelto - PO 15 mg DAILY@1800 [facility] Administration Impression 1. PEACE 2. CHF 3. volume overload 4. a-fib 5. cirrhosis 6. VISHAL 7. bilateral renal cysts 8. syncope 9. hypoxia 10. cardiopulmonary arrest 11. congesion on cxr 12. severe pulmonary HTN 13. resp failure Plan - will dialyze again today - monitor urine output - cont with levophed - will not UF volume as bp is low - discussed with family - discussed with ICU team - monitor in ICU - daily cxr
--- NOTE | 2017-10-23 13:59 | PN ---
Progress Note (short form) - Note Progress Note: Patient is in ICu ,no new changes, unable to wean him off the vent. He tolerated HD yesterday. He remains Oliguric ,on levophed. Temperature 100.6 F H 10/23/17 08:00 Pulse Rate 74 10/23/17 08:11 Respiratory Rate 24 10/23/17 11:50 Blood Pressure 112/58 10/23/17 08:11 O2 Sat by Pulse Oximetry (%) 93 L 10/23/17 12:22 Constitutional: Yes:intubated, Eyes: Yes: Conjunctiva Clear Neck: Yes: Supple, Trachea Midline Respiratory: Yes: Regular, Rales bibasilary vented Gastrointestinal: Yes: Normal Bowel Sounds, Soft Cardiovascular: Yes: Regular Rate and Rhythm, S1S2 positive Heart Sounds: Yes: S1, S2 Peripheral Pulses: 2+ DP pulses BL lethargic, intubated, sedated CBCD WBC 19.7 K/mm3 (4.0-10.0) H 10/23/17 05:30 RBC 3.56 M/mm3 (4.00-5.60) L 10/23/17 05:30 Hgb 9.0 GM/dL (11.7-16.9) L 10/23/17 05:30 Hct 29.4 % (35.4-49) L 10/23/17 05:30 MCV 82.6 fl (80-96) 10/23/17 05:30 MCHC 30.6 g/dl (32.0-35.9) L 10/23/17 05:30 RDW 17.2 % (11.9-15.9) H 10/23/17 05:30 Plt Count 160 K/MM3 (134-434) 10/23/17 05:30 MPV 10.8 fl (7.5-11.1) 10/23/17 05:30 CMP Sodium 137 mmol/L (136-145) 10/23/17 05:30 Potassium 5.1 mmol/L (3.5-5.1) 10/23/17 05:30 Chloride 96 mmol/L (98-107) L 10/23/17 05:30 Carbon Dioxide 32 mmol/L (21-32) 10/23/17 05:30 Anion Gap 9 MMOL/L (8-16) 10/23/17 05:30 BUN 151 mg/dL (7-18) H* D 10/23/17 05:30 Creatinine 3.6 mg/dL (0.7-1.3) H 10/23/17 05:30 Creat Clearance w eGFR 16.61 (>60) 10/23/17 05:30 Random Glucose 124 mg/dL (74-106) H 10/23/17 05:30 Calcium 8.1 mg/dL (8.5-10.1) L 10/23/17 05:30 Total Bilirubin 1.4 mg/dL (0.2-1.0) H 10/23/17 05:30 AST 254 U/L (15-37) H D 10/23/17 05:30 ALT 93 U/L (12-78) H D 10/23/17 05:30 Alkaline Phosphatase 118 U/L (45-117) H D 10/23/17 05:30 Total Protein 6.1 g/dl (6.4-8.2) L 10/23/17 05:30 Albumin 2.4 g/dl (3.4-5.0) L 10/23/17 05:30 CARDIAC ENZYMES Creatine Kinase 146 IU/L (39-308) 10/18/17 05:30 Troponin I 1.86 ng/ml (0.00-0.05) H* 10/19/17 06:00 Current Medications Generic Name Dose Route Start Last Admin Trade Name Freq PRN Reason Stop Dose Admin Acetaminophen 1,000 mg 10/19/17 15:41 10/23/17 09:15 Ofirmev Injection - IVPB 1,000 mg Q6H PRN Administration FEVER Albumin Human 12.5 gm 10/23/17 13:15 Albumin Human 25% IVPB Q30M [facility] Albuterol Sulfate 1 amp 10/19/17 11:11 10/21/17 02:00 Ventolin 0.083% Nebulizer Soln - NEB 1 amp Q6H PRN Administration SHORTNESS OF BREATH Albuterol/Ipratropium 1 amp 10/20/17 12:00 10/23/17 11:10 Duoneb - NEB 1 amp RQID [facility] Administration Aspirin 81 mg 10/19/17 10:00 10/23/17 09:17 Asa - PO 81 mg DAILY [facility] Administration Chlorhexidine Gluconate 15 ml 10/18/17 22:00 10/22/17 21:16 Peridex - MM 15 ml BID [facility] Administration Propofol 1,000,000 mcg in 100 mls @ 2.082 mls/hr 10/18/17 00:15 10/23/17 01: 27 Diprivan - IVPB Not Given TITR [facility] Protocol 5 MCG/KG/MIN Norepinephrine Bitartrate 8, 500 mls @ 7.4 mls/hr 10/22/17 15:00 10/23/17 08: 11 000 mcg/ Dextrose IV 4 mcg/kg/min ASDIR [facility] 987.24 mls/hr Titration Protocol 0.03 MCG/KG/MIN Sodium Chloride 250 mls @ 3,000 mls/hr 10/22/17 15:30 Normal Saline - IV 10/23/17 15:30 PRN PRN Hypotension during Dialysis Piperacillin Sod/Tazobactam 50 mls @ 100 mls/hr 10/22/17 20:00 10/23/17 09:17 Sod 2.25 gm/ Dextrose IVPB 100 mls/hr Q8H-IV [facility] Administration Protocol Sodium Chloride 250 mls @ 3,000 mls/hr 10/23/17 13:11 Normal Saline - IV 10/24/17 13:11 PRN PRN Hypotension during Dialysis Mupirocin 1 applic 10/18/17 22:00 10/22/17 21:17 Bactroban Ointment (For Decolonization) - NS 10/23/17 21:59 1 applic BID TRICIA Administration Pantoprazole Sodium 40 mg 10/19/17 11:30 10/23/17 09:17 Protonix Iv IVPUSH 40 mg DAILY TRICIA Administration Rivaroxaban 15 mg 10/17/17 18:00 10/22/17 17:51 Xarelto - PO 15 mg DAILY@1800 TRICIA Administration Home Medications Medication Instructions Recorded Cholecalciferol (Vitamin D3) 1,000 unit PO DAILY 06/22/12 [Vitamin D] Tiotropium [place] [Spiriva] 1 inh IH DAILY 06/22/12 Fluticasone/Vilanterol [Breo 1 each IH DAILY 06/05/14 Ellipta 100-25 Mcg INH] Sertraline HCl [Zoloft -] 50 mg PO DAILY 06/05/14 Sodium Chloride Nasal [place] [[place] 2 spray NS BID spraybtl 06/11/14 [place] Nasal [place] -] Furosemide [Lasix -] 80 mg PO BID 09/21/16 Febuxostat [Uloric] 40 mg PO DAILY 10/16/17 Rivaroxaban [Xarelto -] 15 mg PO DAILY 10/16/17 Sertraline HCl [Zoloft -] 50 mg PO DAILY 10/16/17 Spironolactone [Aldactone] 25 mg PO BID 10/16/17 Metolazone 2.5 mg PO WEEKLY 10/17/17 carotid US: Moderate atherosclerotic disease, left greater than right, with stenoses in the 60-79% range involving the internal carotid arteries. Clinical correlation and follow-up studies recommended. Please see above discussion. Head CT: IMPRESSION: No significant interval change. There remains moderate atrophy and chronic microvascular ischemic disease changes without gross evidence of acute intracranial pathology. EKG reviewed .RBBB with no acute ischemic changes ASSESSMENT AND PLAN: Patient is a 77 y/o man with PMHx of CHF,liver cirrhosis, gout , COPD, VISHAL, cor pulmonale, a fib, HTN, HLP, and CKD who presented to ED after having a syncopal episode. # Acute on chronic hypoxic hypercapnic respiratory failure with hx of COPD: Cardio and pulm is on the case patient is intubated sedated in ICU, No further improvement, further care per ICU team. Continue nebs treatment. # H/o of COPD: cont Nebs and inhalers :continue nebulizer treatments. # acute diastolic CHF exacerbation s/p Lasix IV , Echo is reviewed. # Syncope: hypoxia, vs vasovagal, vs arrhythmias ; carotid US # PEACE on CKD: as per sales engineer , started HD yesterday , no change in outcome , A fib: on xarelto at home, dose is adjusted accordingly DVT Px: Xarelto Visit type - Emergency Visit Emergency Visit: Yes ED Registration Date: 10/17/17 Care time: The patient presented to the Emergency Department on the above date and was hospitalized for further evaluation of their emergent condition. - New Patient This patient is new to me today: No - Critical Care Critical Care patient: No - Discharge Referral Referred to [facility] No
--- NOTE | 2017-10-23 15:55 | PN ---
Physical Exam: SUBJECTIVE: Patient is a 77 y/o male with a history of HTN, HLD, CHF, COPD, afib, and cirrhosis who is admitted to the ICU for CHF exacerbation. Patient on norepinephrine, still unable to be weaned from vent. Afebrile overnight OBJECTIVE: Vital Signs Temperature 98.5 F 10/23/17 14:00 Pulse Rate 72 10/23/17 14:00 Respiratory Rate 23 10/23/17 14:37 Blood Pressure 105/44 10/23/17 14:00 O2 Sat by Pulse Oximetry (%) 93 L 10/23/17 12:22 GENERAL: responds to verbal stimulus EYES: PERRL, opens eye lids to command LUNGS: Breath sounds equal, clear to auscultation bilaterally HEART: regular rate and rhythm , no murmurs, rubs, or gallops ABDOMEN: Soft, nontender, nondistended, normoactive bowel sounds NEURO: left hand photography coordinator weaker then right, EXTREMITIES: 2+ dp pulses, warm, well-perfused, no edema. SKIN: Warm, dry, normal turgor, no rashes or lesions noted CBCD WBC 19.7 K/mm3 (4.0-10.0) H 10/23/17 05:30 RBC 3.56 M/mm3 (4.00-5.60) L 10/23/17 05:30 Hgb 9.0 GM/dL (11.7-16.9) L 10/23/17 05:30 Hct 29.4 % (35.4-49) L 10/23/17 05:30 MCV 82.6 fl (80-96) 10/23/17 05:30 MCHC 30.6 g/dl (32.0-35.9) L 10/23/17 05:30 RDW 17.2 % (11.9-15.9) H 10/23/17 05:30 Plt Count 160 K/MM3 (134-434) 10/23/17 05:30 MPV 10.8 fl (7.5-11.1) 10/23/17 05:30 CMP Sodium 137 mmol/L (136-145) 10/23/17 05:30 Potassium 5.1 mmol/L (3.5-5.1) 10/23/17 05:30 Chloride 96 mmol/L (98-107) L 10/23/17 05:30 Carbon Dioxide 32 mmol/L (21-32) 10/23/17 05:30 Anion Gap 9 MMOL/L (8-16) 10/23/17 05:30 BUN 151 mg/dL (7-18) H* D 10/23/17 05:30 Creatinine 3.6 mg/dL (0.7-1.3) H 10/23/17 05:30 Creat Clearance w eGFR 16.61 (>60) 10/23/17 05:30 Calcium 8.1 mg/dL (8.5-10.1) L 10/23/17 05:30 Total Bilirubin 1.4 mg/dL (0.2-1.0) H 10/23/17 05:30 AST 254 U/L (15-37) H D 10/23/17 05:30 ALT 93 U/L (12-78) H D 10/23/17 05:30 Alkaline Phosphatase 118 U/L (45-117) H D 10/23/17 05:30 Total Protein 6.1 g/dl (6.4-8.2) L 10/23/17 05:30 Albumin 2.4 g/dl (3.4-5.0) L 10/23/17 05:30 Active Medications Acetaminophen (Ofirmev Injection -) 1,000 mg IVPB Q6H PRN PRN Reason: FEVER Last Admin: 10/23/17 09:15 Dose: 1,000 mg Albumin Human (Albumin Human 25%) 12.5 gm IVPB Q30M [facility] Stop: 10/23/17 14:46 Albuterol Sulfate (Ventolin 0.083% Nebulizer Soln -) 1 amp NEB Q6H PRN PRN Reason: SHORTNESS OF BREATH Last Admin: 10/21/17 02:00 Dose: 1 amp Albuterol/Ipratropium (Duoneb -) 1 amp NEB RQID [facility] Last Admin: 10/23/17 11:10 Dose: 1 amp Aspirin (Asa -) 81 mg PO DAILY [facility] Last Admin: 10/23/17 09:17 Dose: 81 mg Chlorhexidine Gluconate (Peridex -) 15 ml MM BID [facility] Last Admin: 10/22/17 21:16 Dose: 15 ml Propofol (Diprivan -) 1,000,000 mcg in 100 mls @ 2.082 mls/hr IVPB TITR [facility]; Protocol Last Admin: 10/23/17 01:27 Dose: Not Given Norepinephrine Bitartrate 8, (000 mcg/ Dextrose) 500 mls @ 7.4 mls/hr IV ASDIR [facility]; Protocol Last Titration: 10/23/17 08:11 Dose: 4 mcg/kg/min, 987.24 mls/hr Sodium Chloride (Normal Saline -) 250 mls @ 3,000 mls/hr IV PRN PRN PRN Reason: Hypotension during Dialysis Stop: 10/23/17 15:30 Piperacillin Sod/Tazobactam (Sod 2.25 gm/ Dextrose) 50 mls @ 100 mls/hr IVPB Q8H-IV [facility]; Protocol Last Admin: 10/23/17 09:17 Dose: 100 mls/hr Sodium Chloride (Normal Saline -) 250 mls @ 3,000 mls/hr IV PRN PRN PRN Reason: Hypotension during Dialysis Stop: 10/24/17 13:11 Mupirocin (Bactroban Ointment (For Decolonization) -) 1 applic NS BID [facility] Stop: 10/23/17 21:59 Last Admin: 10/22/17 21:17 Dose: 1 applic Pantoprazole Sodium (Protonix Iv) 40 mg IVPUSH DAILY [facility] Last Admin: 10/23/17 09:17 Dose: 40 mg Rivaroxaban (Xarelto -) 15 mg PO DAILY@1800 [facility] Last Admin: 10/22/17 17:51 Dose: 15 mg ASSESSMENT/PLAN: Patient is a 77 y/o male with a history of HTN, HLD, CHF, COPD, afib, and cirrhosis who came to the ICU after being found pulseless. Patient is admitted for CHF exacerbation. Patient intubated and #Neurology syncope, nonspecified - EKG non specific st changes, aflutter 5:1 block, incomplete RBB - Echo: LV size thickness and function normal, flattened septum with RV overload, RV systolic fxn reduced, severe pulmonary htn, moderate tricuspid regurg, EF : 55% from echo one year ago - carotid doppler: moderate atherosclerotic disease 60-70 %, left greater then right - cervical spine CT: moderate chronic T 3 compression - head CT: no significant interval change, moderate atrophy and chronic microvasular ischemic disease change - sedated on propofol #Cardiology demand ischemia: resolved - troponin trended down - LE doppler no sign of DVT - CXR: large heart, unfolded aorta, increasing pleural effusion, congestive changes diatolic CHF - hold lasix, increase in Cr afib - Xarelto 15 mg po daily #Pulmonology acute on chronic hypercapnic respiratory failure - patient intubated - propofol for sedation - Vent TV: 450, Rate 12, PF 50, PEEP 7 O2 50% - continue sedation vacations, attempt weaning trials off vent - daily CXR COPD - albuterol prn q6h - Chest CT: bilateral pleural effusions, right greater then left, left adrenal mass #Nephrology [place] on CKD - baseline Cr 2.15 per primary neprho - Cr increasing 3.4 - oliguric, dialysis yesterday and today - f/u Dr. Barajas for acute management #GI ppx: - pantoprazole 40 mg IV daily transaminitis - likely 2/2 to hypotension, ischemic damage - patient on levophed now - f/u hepatitis panel #Infectious Disease Possible Ventilator associated PNA - afebrile overnight - sputum cultures : Pseudomonas - f/u repeat blood cx - Zosyn ( day 2) - Chest CT: congestive changed and compressive atelectasis at bases, r/o infiltrates FEN - Nepro @ 20 cc up to 42 cc, total 1 L per day - Corrected Ca 9.4 Dispo: attempt to wean off pressors Visit type - Emergency Visit Emergency Visit: No - New Patient This patient is new to me today: No - Critical Care Critical Care patient: Yes Total Critical Care Time (in minutes): 50 Critical Care Statement: The care of this patient involved high complexity decision making to prevent further life threatening deterioration of the patient 's condition and/or to evaluate & treat vital organ system(s) failure or risk of failure.
[2017-10-23] MEDS ORDERED: PT OWN MED DRAWER 7, Y5N ONE (17:30)
[2017-10-23] MEDS: RIVAROXABAN 15 MG TABLET PO SCH (17:31)
[2017-10-23] MEDS ORDERED: SODIUM CHLORIDE 250 ML IV PRN ×2 (19:42→19:43)
[2017-10-23] MEDS: ALBUMIN HUMAN 25% 12.5 GM/50 ML VIAL IVPB SCH ×4 (19:45→21:15)
[2017-10-23] MEDS: NOREPINEPHRINE BITARTRATE 8,000 MCG in DEXTROSE 5%-WATER - 492 ML IV SCH (23:18)
[2017-10-24] MEDS ORDERED: DEXTROSE 5%-WATER - 50 ML IVPB ONE ×2 (01:34→09:35)
[2017-10-24] MEDS ORDERED: PIPERACILLIN/TAZOBACTAM 2.25 GM VIAL IVPB ONE ×2 (01:34→09:35)
[2017-10-24] MEDS: PROPOFOL 1,000,000 MCG/100 ML VIAL IVPB SCH (01:37)
[2017-10-24] MEDS: PIPERACILLIN/TAZOB 2.25 GM 2.25 GM in DEXTROSE 5%-WATER - 50 ML IVPB SCH ×2 (01:37→09:42)
[2017-10-24] MEDS: ACETAMINOPHEN 1000 MG/100 ML VIAL (NON FORMULARY) IVPB PRN (02:18)
[2017-10-24 06:20] LABS: BASO % 0.3 % (0-2.0); EOS % 0.1 % (0-4.5); HEMOGLOBIN 8.7 GM/dL (11.7-16.9); LYMPH % 6.7 % (8-40); MEAN CELL VOLUME 83.5 fl (80-96); MEAN PLT VOLUME 10.3 fl (7.5-11.1); MONO % 9.8 % (3.8-10.2); NEUT % 83.1 % (42.8-82.8); PLATELET COUNT 171 K/MM3 (134-434); RBC 3.47 M/mm3 (4.00-5.60); RDW 17.2 % (11.9-15.9); WHITE BLOOD COUNT 20.7 K/mm3 (4.0-10.0)
[2017-10-24 06:46] LABS: ALBUMIN 2.1 g/dl (3.4-5.0); ANION GAP 13 MMOL/L (8-16); BLOOD UREA NITROGEN 97 mg/dL (7-18); CALCIUM 7.8 mg/dL (8.5-10.1); CHLORIDE 95 mmol/L (98-107); CO2 29 mmol/L (21-32); CREATININE 2.9 mg/dL (0.7-1.3); GLUCOSE,RANDOM 119 mg/dL (74-106); MAGNESIUM 2.3 mg/dL (1.8-2.4); PHOSPHOROUS 5.7 mg/dL (2.5-4.9); POTASSIUM 5.3 mmol/L (3.5-5.1); SGOT/AST 247 U/L (15-37); SGPT/ALT 112 U/L (12-78); SODIUM 137 mmol/L (136-145)
[2017-10-24 06:48] LABS: ALK PHOS 124 U/L (45-117); BILIRUBIN,TOTAL 1.2 mg/dL (0.2-1.0); TOT PROT 5.5 g/dl (6.4-8.2)
[2017-10-24] MEDS: ALBUTEROL SO4 2.5/IPRATROPIUM 0.5 INH SOL 3 ML VIAL.NEB. NEB SCH ×3 (09:00→16:49)
[2017-10-24] MEDS ORDERED: SODIUM CHLORIDE 250 ML IV PRN (09:11)
[2017-10-24] MEDS: ASPIRIN 81 MG CHEWABLE TABLETS PO SCH (09:42)
[2017-10-24] MEDS: PANTOPRAZOLE SODIUM 40 MG VIAL IVPUSH SCH (09:42)
[2017-10-24] MEDS: CHLORHEXIDINE GLUCONATE 0.12% 15ML CUP MM SCH (09:43)
[2017-10-24] MEDS ORDERED: VASOPRESSIN 50 UNITS in SODIUM CHLORIDE 97.5 ML IVPB SCH ×3 (10:45→11:45)
[2017-10-24 11:27] LABS: ANISOCYTOSIS 1+
[2017-10-24 11:28] LABS: MACROCYTOSIS 1+
--- NOTE | 2017-10-24 11:33 | PN ---
Teaching Attending Note Name of Resident: Janet Sparks ATTENDING PHYSICIAN STATEMENT I saw and evaluated the patient. I reviewed the resident's note and discussed the case with the resident. I agree with the resident's findings and plan as documented. SUBJECTIVE: Pt seen and examined in the ICU. Remains intubated, sedated on levophed gtt. Vented on volume assist control with 60% FiO2, PEEP 8. Febrile overnight. OBJECTIVE: Vital Signs Period Temp Pulse Resp BP Sys/Gama Pulse Ox Last 24 Hr 98.5 F-101.9 F 72-87 18-24 91-122/38-59 93-93 Intake & Output 10/21/17 10/22/17 10/23/17 10/24/17 23:59 23:59 23:59 23:59 Intake Total 1703 2394 818 1334 Output Total 600 275 175 50 Balance 1103 2119 643 1284 Weight 64.592 kg 65.816 kg 65.363 kg 65.816 kg Gen: intubated, sedated Heart: RRR, +systolic murmur Lung: scattered rhonchi Abd: soft, nontender Ext: no edema, area of ischemia left foot CBC, BMP 10/24/17 05:30 10/24/17 05:30 Active Medications Acetaminophen (Ofirmev Injection -) 1,000 mg IVPB Q6H PRN PRN Reason: FEVER Last Admin: 10/24/17 02:18 Dose: 1,000 mg Albumin Human (Albumin Human 25%) 12.5 gm IVPB Q30M [facility] Albuterol Sulfate (Ventolin 0.083% Nebulizer Soln -) 1 amp NEB Q6H PRN PRN Reason: SHORTNESS OF BREATH Last Admin: 10/21/17 02:00 Dose: 1 amp Albuterol/Ipratropium (Duoneb -) 1 amp NEB RQID [facility] Last Admin: 10/24/17 09:00 Dose: 1 amp Aspirin (Asa -) 81 mg PO DAILY [facility] Last Admin: 10/24/17 09:42 Dose: 81 mg Chlorhexidine Gluconate (Peridex -) 15 ml MM BID [facility] Last Admin: 10/24/17 09:43 Dose: 15 ml Propofol (Diprivan -) 1,000,000 mcg in 100 mls @ 2.082 mls/hr IVPB TITR [facility]; Protocol Last Admin: 10/24/17 01:37 Dose: Not Given Norepinephrine Bitartrate 8, (000 mcg/ Dextrose) 500 mls @ 7.4 mls/hr IV ASDIR [facility]; Protocol Last Titration: 10/24/17 09:43 Dose: 20 mcg/kg/min, 4,936.2 mls/hr Piperacillin Sod/Tazobactam (Sod 2.25 gm/ Dextrose) 50 mls @ 100 mls/hr IVPB Q8H-IV [facility]; Protocol Last Admin: 10/24/17 09:42 Dose: 100 mls/hr Sodium Chloride (Normal Saline -) 250 mls @ 3,000 mls/hr IV PRN PRN PRN Reason: Hypotension during Dialysis Stop: 10/24/17 19:42 Sodium Chloride (Normal Saline -) 250 mls @ 3,000 mls/hr IV PRN PRN PRN Reason: Hypotension during Dialysis Stop: 10/25/17 09:11 Vasopressin 50 units/ Sodium (Chloride) 100 mls @ 4 mls/hr IVPB [facility]; Protocol Pantoprazole Sodium (Protonix Iv) 40 mg IVPUSH DAILY [facility] Last Admin: 10/24/17 09:42 Dose: 40 mg Rivaroxaban (Xarelto -) 15 mg PO DAILY@1800 [facility] Last Admin: 10/23/17 17:31 Dose: 15 mg ASSESSMENT AND PLAN: s/p Cardiopulmonary Arrest Acute on Chronic Hypoxic and Hypercapneic Respiratory Failure Acute on Chronic Diastolic Heart Failure Acute on Chronic Renal Failure requiring HD Severe Pulmonary HTN Pneumonia Septic Shock Atrial Fibrillation COPD Carotid Stenosis Syncope HTN Hyperlipidemia - antibiotics per ID - send urinalysis, urine culture, stool for C diff - HD per renal - monitor urine output, creatinine - inhaled bronchodilators - taper FiO2, PEEP to keep SpO2>90% - rate control - continue anticoagulation - minimize sedation to assess mental status - spontaneous breathing trials as tolerated - DVT/GI prophylaxis - continue ICU monitoring - prognosis guarded critical care time spent in reviewing chart, evaluating patient and formulating plan 35 min
[2017-10-24 11:42] VITALS: BMI 23.3
[2017-10-24] MEDS: ALBUMIN HUMAN 25% 12.5 GM/50 ML VIAL IVPB SCH ×4 (12:00→13:30)
--- NOTE | 2017-10-24 13:27 | PN ---
Physical Exam: SUBJECTIVE: Patient seen and examined at bedside in ICU this morning. He was febrile overnight to Tmax 101.9. He is currently intubated at FiO2 60%, PEEP 8, saturating 92%. He is on Vasopressin 4 units/ hour, Norepinepherine 20mcg/ minute, and propofol 15 mcg/hour. He was dialyzed again today with 0.5L removed today. Still unsuccessful in weaning from ventilator. OBJECTIVE: Vital Signs Period Temp Pulse Resp BP Sys/Gama Pulse Ox Last 24 Hr 98.5 F-101.9 F 72-87 18-24 84-122/38-59 93-93 GENERAL: The patient is sedated, in no acute distress. HEAD: Normal with no signs of trauma. EYES: PERRL, sclera anicteric, conjunctiva clear. NECK: Supple without lymphadenopathy LUNGS: Intubated. Breath sounds equal, upper lung lobes clear to auscultation bilaterally, poor air entery B/L lower lung lobes, Faint crackles auscultated B/ L. NO wheezes B/L. HEART: Regular rate and rhythm, S1, S2 with murmur auscultated over left sternal border ABDOMEN: Soft, nontender, nondistended, hypoactive bowel sounds. EXTREMITIES: 2+ pulses, warm, well-perfused, 1+ pitting edema. Hemosiderin deposit pigmentation B/L lower extremities noted. NEUROLOGICAL: Unable to assess as patient was sedated upon my encounter. SKIN: Warm, dry. Noted increased bruising on arms B/L. Dry, cracking skin noted over base of left pinky toe. Laboratory Results - last 24 hr 10/24/17 10/24/17 05:30 05:30 WBC 20.7 H RBC 3.47 L Hgb 8.7 L Hct 29.0 L MCV 83.5 MCH 25.0 L MCHC 30.0 L RDW 17.2 H Plt Count 171 MPV 10.3 Absolute Neuts (auto) 17.2 H Total Counted 100 Neutrophils % 83.1 H Neutrophils % (Manual) 74.0 Band Neutrophils % 6.0 Lymphocytes % 6.7 L D Lymphocytes % (Manual) 10.0 D Monocytes % 9.8 Monocytes % (Manual) 5 Eosinophils % 0.1 Basophils % 0.3 D Myelocytes % (Man) 1 Nucleated RBC % 2 H Metamyelocytes 4 H D Hypochromia 1+ Polychromasia 1+ Anisocytosis 1+ Microcytosis 1+ Macrocytosis 1+ Sodium 137 Potassium 5.3 H Chloride 95 L Carbon Dioxide 29 Anion Gap 13 BUN 97 H D Creatinine 2.9 H Creat Clearance w eGFR 21.32 Random Glucose 119 H Calcium 7.8 L Phosphorus 5.7 H Magnesium 2.3 Total Bilirubin 1.2 H AST 247 H ALT 112 H D Alkaline Phosphatase 124 H Total Protein 5.5 L Albumin 2.1 L Active Medications Generic Name Dose Route Start Last Admin Trade Name Freq PRN Reason Stop Dose Admin Acetaminophen 1,000 mg 10/19/17 15:41 10/24/17 02:18 Ofirmev Injection - IVPB 1,000 mg Q6H PRN Administration FEVER Albumin Human 12.5 gm 10/24/17 12:00 Albumin Human 25% IVPB 10/24/17 13:31 Q30M [facility] Albuterol Sulfate 1 amp 10/19/17 11:11 10/21/17 02:00 Ventolin 0.083% Nebulizer Soln - NEB 1 amp Q6H PRN Administration SHORTNESS OF BREATH Albuterol/Ipratropium 1 amp 10/20/17 12:00 10/24/17 11:59 Duoneb - NEB 1 amp RQID [facility] Administration Aspirin 81 mg 10/19/17 10:00 10/24/17 09:42 Asa - PO 81 mg DAILY [facility] Administration Chlorhexidine Gluconate 15 ml 10/18/17 22:00 10/24/17 09:43 Peridex - MM 15 ml BID [facility] Administration Propofol 1,000,000 mcg in 100 mls @ 2.082 mls/hr 10/18/17 00:15 10/24/17 01: 37 Diprivan - IVPB Not Given TITR [facility] Protocol 5 MCG/KG/MIN Norepinephrine Bitartrate 8, 500 mls @ 7.4 mls/hr 10/22/17 15:00 10/24/17 09: 43 000 mcg/ Dextrose IV 20 mcg/kg/min ASD[facility] 4,936.2 mls/hr Titration Protocol 0.03 MCG/KG/MIN Piperacillin Sod/Tazobactam 50 mls @ 100 mls/hr 10/22/17 20:00 10/24/17 09:42 Sod 2.25 gm/ Dextrose IVPB 100 mls/hr Q8H-IV [facility] Administration Protocol Sodium Chloride 250 mls @ 3,000 mls/hr 10/24/17 09:11 Normal Saline - IV 10/25/17 09:11 PRN PRN Hypotension during Dialysis Vasopressin 50 units/ Sodium 100 mls @ 4 mls/hr 10/24/17 11:45 10/24/17 12:45 Chloride IVPB 2 units/hr [facility] 4 mls/hr Administration Protocol 2 UNITS/HR Mupirocin 1 applic 10/24/17 13:00 Bactroban Ointment (For Decolonization) - NS 10/29/17 12:59 BID [facility] Pantoprazole Sodium 40 mg 10/19/17 11:30 10/24/17 09:42 Protonix Iv IVPUSH 40 mg DAILY [facility] Administration Rivaroxaban 15 mg 10/17/17 18:00 10/23/17 17:31 Xarelto - PO 15 mg DAILY@1800 [facility] Administration ASSESSMENT/PLAN: Patient is a 77 year old male with history of hypertension, hyperlipidemia, congestive heart failure, Afib (on xarelto) COPD,cirrhosis, presents after an unwitnessed syncopal episode. Patient in ICU after found pulseless. Achieved ROSC in approx. 1 minute with chest compressions and BVM. Acute Hypoxemic Respiratory Distress -Patient intubated in ICU. Today he is sedated with propofol 15mcg/hr. -Levophed 20 mcg/ minute -Lasix 80mg IV QD held due to rising Cr (2.9 today) -Duonebs 1amp Q6H PRn, Tiotropium 2 puffs IH daily, Advair 1 puff BID, -CXR still shows chronic pleural fluid with atelectasis/ infiltrate at right lung base, without significant changes from yesterdays chest xray. ?Ventilator Associated Pneumonia -Patient was febrile overnight. -CT chest shows small left and right pleural effusions. compressive atelectasis at bases with calcifications B/L. Pneumonia cannot be ruled out: left lung base , right middle lobe. -Vancomycin 1gm IV QD discontinued per ID recommendations. -Continue Zosyn 2.25gm IV Q6H (renal dosed due to his CKD- Cr 4.0 today) -ID consult () appreciated: Probable aspiration pneumonia. Will continue Zosyn 2.25gm Q8H IV (day2). Vancomycin discontinued. -F/U blood cultures- Preliminary negative at 96 hours growth. Second set of cultures negative at 24 hours. -F/U sputum sample culture- Pseudomnoas Aeruginosa growth. Acute on Chronic kidney disease -Patient dialyzed today, as he is hyperkalemic to 5.3 (day 3 of HD). 0.5L removed today. -Cr 2.9 today, decreased from 3.6 yesterday. BUN 97 decreased from 151 yesterday. -Nephrology consult appreciated (Dr. Barajas): Renal function may worsen d/t episode of hypotension. Baseline Creatinine is 2.15 -Patient started on Hemodialysis today after conversation between Nuclear Monitoring Technician and patient's family. -Renal and Bladder US shows: B/l renal simple cysts without hydronephrosis, or stones. Urinary bladder is partially distended without wall thickening. Troponinemia -(Dr. Vogel) Cardiology consult appreciated: Likely demand ischemia d/t hypotensive episode overnight. -Troponins trended down 2.60 -> 2.34 Syncopal Episode -Considering vasovagal d/t combined use of spironolactone and metolazone vs. arrhythmia. -CXR showed chronic pleural fluid with atelectasis/ infiltrate at right lung base -EKG showed atrial flutter with 5:1 block, incomplete RBBB with nonspecific ST and T wave abnormalities. -ECHO showed normal LV function and size, moderately diminished RV function, moderate tricuspid insufficiency, severe pulmonary hypertension. -CT head was negative for intracranial injury or cerebral fracture -Cervical CT showed no cervical vertebral fractures, and degenerative C4-C5 stenosis. -Carotid US showed moderate atherosclerosis left > right stenosis 60-79% with internal carotid involvement. -Arterial Duplex showed extensive atherosclerotic disease without occlusion or stenosis. -Abdominal Us shows: small ascites B/L without cholelithiasis, cholecystitis. Distension of hepatic veins suggesting right cardiac dysfunction. -Cardiology consult appreciated: may be vasovagal as patient felt hot and short of breath before passing out. Diuresis with IV Lasix 80mg QD, holding spironolactone for now, monitor daily weights intake and output. -Lower extremity doppler: shows no DVT in either leg. Notable for 2.7 x 1.7 x 1cm left popliteal cyst. -(Dr. Andujar) Neurology consult appreciated: Left leg moves less than right leg, and ?left sided facial nerve defecit. Unable to determine if these changes are acute. -CT head shows no acute interval changes from last study (10/16/17): Atrophy and chronic microvascular changes. Afib -Continue Xarelto 15mg PO QD FEN -IV fluid bolus was given today. -Will follow CMP -NPO, patient is intubated. Prophylaxis -On Xarelto 15mg PO QD -Pantoprazole 40mg IV QD Disposition: Continue care in ICU. Discussion with family regarding goals of care. Visit type - Emergency Visit Emergency Visit: No - New Patient This patient is new to me today: No - Critical Care Critical Care patient: Yes Total Critical Care Time (in minutes): 35 Critical Care Statement: The care of this patient involved high complexity decision making to prevent further life threatening deterioration of the patient 's condition and/or to evaluate & treat vital organ system(s) failure or risk of failure. - Discharge Referral Referred to [facility] No
[2017-10-24] MEDS ORDERED: MUPIROCIN 2% TOPICAL OINTMENT FOR DECOLONIZATION NS SCH (14:00)
--- NOTE | 2017-10-24 14:17 | PN ---
Physical Exam: SUBJECTIVE: Patient is a 77 y/o male with a history of HTN, HLD, CHF, COPD, afib, and cirrhosis who is admitted to the ICU for CHF exacerbation. Patient on norepinephrine and vasopressin still unable to be weaned from vent. 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 b/l motteled looking SKIN: Warm, dry, normal turgor, no rashes or lesions noted CBCD WBC 20.7 K/mm3 (4.0-10.0) H 10/24/17 05:30 RBC 3.47 M/mm3 (4.00-5.60) L 10/24/17 05:30 Hgb 8.7 GM/dL (11.7-16.9) L 10/24/17 05:30 Hct 29.0 % (35.4-49) L 10/24/17 05:30 MCV 83.5 fl (80-96) 10/24/17 05:30 MCHC 30.0 g/dl (32.0-35.9) L 10/24/17 05:30 RDW 17.2 % (11.9-15.9) H 10/24/17 05:30 Plt Count 171 K/MM3 (134-434) 10/24/17 05:30 MPV 10.3 fl (7.5-11.1) 10/24/17 05:30 CMP Sodium 137 mmol/L (136-145) 10/24/17 05:30 Potassium 5.3 mmol/L (3.5-5.1) H 10/24/17 05:30 Chloride 95 mmol/L (98-107) L 10/24/17 05:30 Carbon Dioxide 29 mmol/L (21-32) 10/24/17 05:30 Anion Gap 13 MMOL/L (8-16) 10/24/17 05:30 BUN 97 mg/dL (7-18) H D 10/24/17 05:30 Creatinine 2.9 mg/dL (0.7-1.3) H 10/24/17 05:30 Creat Clearance w eGFR 21.32 (>60) 10/24/17 05:30 Calcium 7.8 mg/dL (8.5-10.1) L 10/24/17 05:30 Total Bilirubin 1.2 mg/dL (0.2-1.0) H 10/24/17 05:30 AST 247 U/L (15-37) H 10/24/17 05:30 ALT 112 U/L (12-78) H D 10/24/17 05:30 Alkaline Phosphatase 124 U/L (45-117) H 10/24/17 05:30 Total Protein 5.5 g/dl (6.4-8.2) L 10/24/17 05:30 Albumin 2.1 g/dl (3.4-5.0) L 10/24/17 05:30 Microbiology 10/20/17 20:17 Sputum - Endotrachea Suction/Ventilator Gram Stain - Final 10/20/17 20:17 Sputum - Endotrachea Suction/Ventilator Sputum Culture - Preliminary Pseudomonas Aeruginosa Pseudomonas Aeruginosa#2 Pending Organism 10/20/17 10:15 Blood - Peripheral Venous Blood Culture - Preliminary NO GROWTH OBTAINED AFTER 96 HOURS, INCUBATION TO CONTINUE FOR 1 DAYS. 10/20/17 10:31 Blood - Peripheral Venous Blood Culture - Preliminary NO GROWTH OBTAINED AFTER 96 HOURS, INCUBATION TO CONTINUE FOR 1 DAYS. 10/23/17 09:05 Blood - Peripheral Venous Blood Culture - Preliminary NO GROWTH OBTAINED AFTER 24 HOURS, INCUBATION TO CONTINUE FOR 4 DAYS. 10/23/17 09:00 Blood - Peripheral Venous Blood Culture - Preliminary NO GROWTH OBTAINED AFTER 24 HOURS, INCUBATION TO CONTINUE FOR 4 DAYS. Active Medications Acetaminophen (Ofirmev Injection -) 1,000 mg IVPB Q6H PRN PRN Reason: FEVER Last Admin: 10/24/17 02:18 Dose: 1,000 mg Albuterol Sulfate (Ventolin 0.083% Nebulizer Soln -) 1 amp NEB Q6H PRN PRN Reason: SHORTNESS OF BREATH Last Admin: 10/21/17 02:00 Dose: 1 amp Albuterol/Ipratropium (Duoneb -) 1 amp NEB RQID [facility] Last Admin: 10/24/17 11:59 Dose: 1 amp Aspirin (Asa -) 81 mg PO DAILY [facility] Last Admin: 10/24/17 09:42 Dose: 81 mg Chlorhexidine Gluconate (Peridex -) 15 ml MM BID [facility] Last Admin: 10/24/17 09:43 Dose: 15 ml Propofol (Diprivan -) 1,000,000 mcg in 100 mls @ 2.082 mls/hr IVPB TITR [facility]; Protocol Last Admin: 10/24/17 01:37 Dose: Not Given Norepinephrine Bitartrate 8, (000 mcg/ Dextrose) 500 mls @ 7.4 mls/hr IV ASDIR [facility]; Protocol Last Titration: 10/24/17 09:43 Dose: 20 mcg/kg/min, 4,936.2 mls/hr Piperacillin Sod/Tazobactam (Sod 2.25 gm/ Dextrose) 50 mls @ 100 mls/hr IVPB Q8H-IV [facility]; Protocol Last Admin: 10/24/17 09:42 Dose: 100 mls/hr Sodium Chloride (Normal Saline -) 250 mls @ 3,000 mls/hr IV PRN PRN PRN Reason: Hypotension during Dialysis Stop: 10/25/17 09:11 Vasopressin 50 units/ Sodium (Chloride) 100 mls @ 4 mls/hr IVPB ASDIR [facility]; Protocol Last Titration: 10/24/17 13:35 Dose: 3 units/hr, 6 mls/hr Mupirocin (Bactroban Ointment (For Decolonization) -) 1 applic NS BID [facility] Stop: 10/29/17 13:59 Pantoprazole Sodium (Protonix Iv) 40 mg IVPUSH DAILY [facility] Last Admin: 10/24/17 09:42 Dose: 40 mg Rivaroxaban (Xarelto -) 15 mg PO DAILY@1800 [facility] Last Admin: 10/23/17 17:31 Dose: 15 mg ASSESSMENT/PLAN: Patient is a 77 y/o male with a history of HTN, HLD, CHF, COPD, afib, and cirrhosis who came to the ICU after being found pulseless. Patient is admitted for CHF exacerbation. Patient intubated and #Neurology syncope, nonspecified - EKG non specific st changes, aflutter 5:1 block, incomplete RBB - Echo: LV size thickness and function normal, flattened septum with RV overload, RV systolic fxn reduced, severe pulmonary htn, moderate tricuspid regurg, EF : 55% from echo one year ago - carotid doppler: moderate atherosclerotic disease 60-70 %, left greater then right - cervical spine CT: moderate chronic T 3 compression - head CT: no significant interval change, moderate atrophy and chronic microvasular ischemic disease change - sedated on propofol #Cardiology demand ischemia: resolved - troponin trended down - LE doppler no sign of DVT - CXR: large heart, unfolded aorta, increasing pleural effusion, congestive changes diatolic CHF - hold lasix, increase in Cr afib - Xarelto 15 mg po daily hypotension - on vasopressin and levophed, try to wean #Pulmonology acute on chronic hypercapnic respiratory failure - patient intubated - propofol for sedation - Vent TV: 450, Rate 12, PF 50, PEEP 8 O2 60% - daily CXR COPD - albuterol prn q6h - Chest CT: bilateral pleural effusions, right greater then left, left adrenal mass #Nephrology PEACE on CKD - baseline Cr 2.15 per primary neprho - Cr increasing 3.4 - oliguric, dialysis today. .5 L taken off - f/u Dr. Barajas for acute management #GI ppx: - pantoprazole 40 mg IV daily transaminitis - likely 2/2 to hypotension, ischemic damage - patient on levophed now - f/u hepatitis panel - f/u US abdomen #Infectious Disease Possible Ventilator associated PNA - afebrile overnight - sputum cultures : Pseudomonas - f/u bansal cultures - Zosyn ( day 3) - Chest CT: congestive changed and compressive atelectasis at bases, r/o infiltrates FEN - Nepro @ 20 cc up to 42 cc, total 1 L per day - Corrected Ca 9.3 Dispo: attempt to wean off pressors Visit type - Emergency Visit Emergency Visit: No - New Patient This patient is new to me today: No - Critical Care Critical Care patient: Yes Total Critical Care Time (in minutes): 40 Critical Care Statement: The care of this patient involved high complexity decision making to prevent further life threatening deterioration of the patient 's condition and/or to evaluate & treat vital organ system(s) failure or risk of failure.
--- NOTE | 2017-10-24 14:27 | PN ---
Progress Note (short form) - Note Progress Note: being dialyzed intubated Vital Signs Period Temp Pulse Resp BP Sys/Gama Pulse Ox Last 24 Hr 98.5 F-101.9 F 74-87 18-24 81-122/38-59 93-93 cor-rrr lungs decreased bs at bases abd soft,nt ext no edema CBC, BMP 10/24/17 05:30 10/24/17 05:30 Microbiology 10/20/17 20:17 Sputum - Endotrachea Suction/Ventilator Gram Stain - Final 10/20/17 20:17 Sputum - Endotrachea Suction/Ventilator Sputum Culture - Preliminary Pseudomonas Aeruginosa Pseudomonas Aeruginosa#2 Pending Organism 10/20/17 10:15 Blood - Peripheral Venous Blood Culture - Preliminary NO GROWTH OBTAINED AFTER 96 HOURS, INCUBATION TO CONTINUE FOR 1 DAYS. 10/20/17 10:31 Blood - Peripheral Venous Blood Culture - Preliminary NO GROWTH OBTAINED AFTER 96 HOURS, INCUBATION TO CONTINUE FOR 1 DAYS. 10/23/17 09:05 Blood - Peripheral Venous Blood Culture - Preliminary NO GROWTH OBTAINED AFTER 24 HOURS, INCUBATION TO CONTINUE FOR 4 DAYS. 10/23/17 09:00 Blood - Peripheral Venous Blood Culture - Preliminary NO GROWTH OBTAINED AFTER 24 HOURS, INCUBATION TO CONTINUE FOR 4 DAYS. 10/18/17 01:25 Urine - Urine Ruiz Urine Culture - Final NO GROWTH OBTAINED CXRAY RLL infiltrate Current Medications Acetaminophen (Ofirmev Injection -) 1,000 mg IVPB Q6H PRN PRN Reason: FEVER Last Admin: 10/24/17 02:18 Dose: 1,000 mg Albuterol Sulfate (Ventolin 0.083% Nebulizer Soln -) 1 amp NEB Q6H PRN PRN Reason: SHORTNESS OF BREATH Last Admin: 10/21/17 02:00 Dose: 1 amp Albuterol/Ipratropium (Duoneb -) 1 amp NEB RQID [facility] Last Admin: 10/24/17 11:59 Dose: 1 amp Aspirin (Asa -) 81 mg PO DAILY [facility] Last Admin: 10/24/17 09:42 Dose: 81 mg Chlorhexidine Gluconate (Peridex -) 15 ml MM BID [facility] Last Admin: 10/24/17 09:43 Dose: 15 ml Propofol (Diprivan -) 1,000,000 mcg in 100 mls @ 2.082 mls/hr IVPB TITR [facility]; Protocol Last Admin: 10/24/17 01:37 Dose: Not Given Norepinephrine Bitartrate 8, (000 mcg/ Dextrose) 500 mls @ 7.4 mls/hr IV ASDIR [facility]; Protocol Last Titration: 10/24/17 09:43 Dose: 20 mcg/kg/min, 4,936.2 mls/hr Piperacillin Sod/Tazobactam (Sod 2.25 gm/ Dextrose) 50 mls @ 100 mls/hr IVPB Q8H-IV [facility]; Protocol Last Admin: 10/24/17 09:42 Dose: 100 mls/hr Sodium Chloride (Normal Saline -) 250 mls @ 3,000 mls/hr IV PRN PRN PRN Reason: Hypotension during Dialysis Stop: 10/25/17 09:11 Vasopressin 50 units/ Sodium (Chloride) 100 mls @ 4 mls/hr IVPB [facility]; Protocol Last Titration: 10/24/17 13:35 Dose: 3 units/hr, 6 mls/hr Mupirocin (Bactroban Ointment (For Decolonization) -) 1 applic NS BID [facility] Stop: 10/29/17 13:59 Pantoprazole Sodium (Protonix Iv) 40 mg IVPUSH DAILY [facility] Last Admin: 10/24/17 09:42 Dose: 40 mg Rivaroxaban (Xarelto -) 15 mg PO DAILY@1800 [facility] Last Admin: 10/23/17 17:31 Dose: 15 mg a/p s/p arrest resp failure renal failure s/p HD yesterday rising WBC continue zosyn repeat cultures pending
--- NOTE | 2017-10-24 16:42 | PN ---
Progress Note, Physician History of Present Illness: Pt seen and examined at bedside. He remains in the ICU. He remains intubated. Pt is oliguric. - Current Medication List Current Medications: Active Medications Acetaminophen (Ofirmev Injection -) 1,000 mg IVPB Q6H PRN PRN Reason: FEVER Last Admin: 10/24/17 02:18 Dose: 1,000 mg Albuterol Sulfate (Ventolin 0.083% Nebulizer Soln -) 1 amp NEB Q6H PRN PRN Reason: SHORTNESS OF BREATH Last Admin: 10/21/17 02:00 Dose: 1 amp Albuterol/Ipratropium (Duoneb -) 1 amp NEB RQID [facility] Last Admin: 10/24/17 11:59 Dose: 1 amp Aspirin (Asa -) 81 mg PO DAILY [facility] Last Admin: 10/24/17 09:42 Dose: 81 mg Chlorhexidine Gluconate (Peridex -) 15 ml MM BID [facility] Last Admin: 10/24/17 09:43 Dose: 15 ml Propofol (Diprivan -) 1,000,000 mcg in 100 mls @ 2.082 mls/hr IVPB TITR [facility]; Protocol Last Admin: 10/24/17 01:37 Dose: Not Given Norepinephrine Bitartrate 8, (000 mcg/ Dextrose) 500 mls @ 7.4 mls/hr IV ASDIR [facility]; Protocol Last Titration: 10/24/17 16:08 Dose: 15 mcg/kg/min, 3,702.15 mls/hr Piperacillin Sod/Tazobactam (Sod 2.25 gm/ Dextrose) 50 mls @ 100 mls/hr IVPB Q8H-IV [facility]; Protocol Last Admin: 10/24/17 09:42 Dose: 100 mls/hr Sodium Chloride (Normal Saline -) 250 mls @ 3,000 mls/hr IV PRN PRN PRN Reason: Hypotension during Dialysis Stop: 10/25/17 09:11 Vasopressin 50 units/ Sodium (Chloride) 100 mls @ 4 mls/hr IVPB ASDIR [facility]; Protocol Last Titration: 10/24/17 14:00 Dose: 4 units/hr, 8 mls/hr Mupirocin (Bactroban Ointment (For Decolonization) -) 1 applic NS BID [facility] Stop: 10/29/17 13:59 Pantoprazole Sodium (Protonix Iv) 40 mg IVPUSH DAILY [facility] Last Admin: 10/24/17 09:42 Dose: 40 mg Rivaroxaban (Xarelto -) 15 mg PO DAILY@1800 [facility] Last Admin: 10/23/17 17:31 Dose: 15 mg - Objective Vital Signs: Vital Signs Temperature 99.9 F H 10/24/17 12:00 Pulse Rate 84 10/24/17 16:08 Respiratory Rate 20 10/24/17 14:30 Blood Pressure 105/54 10/24/17 16:08 O2 Sat by Pulse Oximetry (%) 93 L 10/24/17 13:42 Constitutional: Yes: Calm Eyes: Yes: Conjunctiva Clear HENT: Yes: Atraumatic Cardiovascular: Yes: S1, S2 Respiratory: Yes: Mechanically Ventilated Gastrointestinal: Yes: Soft Genitourinary: Yes: Ruiz Present Musculoskeletal: Yes: Muscle Weakness Edema: Yes Edema: LUE: 1+, RUE: 1+, LLE: Trace, RLE: Trace Integumentary: Yes: Bruising Neurological: Yes: Lethargy Labs: CBC, BMP 10/24/17 05:30 10/24/17 05:30 INR, PTT INR 1.28 (0.83-1.09) H 10/18/17 05:30 - ....Imaging Chest X-ray: Report Reviewed Problem List - Problems (1) CKD (chronic kidney disease) Code(s): N18.9 - CHRONIC KIDNEY DISEASE, UNSPECIFIED (2) COPD (chronic obstructive pulmonary disease) Code(s): J44.9 - CHRONIC OBSTRUCTIVE PULMONARY DISEASE, UNSPECIFIED (3) Syncope Code(s): R55 - SYNCOPE AND COLLAPSE Qualifiers: Syncope type: unspecified Qualified Code(s): R55 - Syncope and collapse Assessment/Plan Current Medications Generic Name Dose Route Start Last Admin Trade Name Freq PRN Reason Stop Dose Admin Acetaminophen 1,000 mg 10/19/17 15:41 10/24/17 02:18 Ofirmev Injection - IVPB 1,000 mg Q6H PRN Administration FEVER Albuterol Sulfate 1 amp 10/19/17 11:11 10/21/17 02:00 Ventolin 0.083% Nebulizer Soln - NEB 1 amp Q6H PRN Administration SHORTNESS OF BREATH Albuterol/Ipratropium 1 amp 10/20/17 12:00 10/24/17 11:59 Duoneb - NEB 1 amp RQID [facility] Administration Aspirin 81 mg 10/19/17 10:00 10/24/17 09:42 Asa - PO 81 mg DAILY [facility] Administration Chlorhexidine Gluconate 15 ml 10/18/17 22:00 10/24/17 09:43 Peridex - MM 15 ml BID [facility] Administration Propofol 1,000,000 mcg in 100 mls @ 2.082 mls/hr 10/18/17 00:15 10/24/17 01: 37 Diprivan - IVPB Not Given TITR [facility] Protocol 5 MCG/KG/MIN Norepinephrine Bitartrate 8, 500 mls @ 7.4 mls/hr 10/22/17 15:00 10/24/17 16: 08 000 mcg/ Dextrose IV 15 mcg/kg/min ASDIR [facility] 3,702.15 mls/hr Titration Protocol 0.03 MCG/KG/MIN Piperacillin Sod/Tazobactam 50 mls @ 100 mls/hr 10/22/17 20:00 10/24/17 09:42 Sod 2.25 gm/ Dextrose IVPB 100 mls/hr Q8H-IV [facility] Administration Protocol Sodium Chloride 250 mls @ 3,000 mls/hr 10/24/17 09:11 Normal Saline - IV 10/25/17 09:11 PRN PRN Hypotension during Dialysis Vasopressin 50 units/ Sodium 100 mls @ 4 mls/hr 10/24/17 11:45 10/24/17 14:00 Chloride IVPB 4 units/hr ASDIR [facility] 8 mls/hr Titration Protocol 2 UNITS/HR Mupirocin 1 applic 10/24/17 14:00 Bactroban Ointment (For Decolonization) - NS 10/29/17 13:59 BID TR[facility] Pantoprazole Sodium 40 mg 10/19/17 11:30 10/24/17 09:42 Protonix Iv IVPUSH 40 mg DAILY [facility] Administration Rivaroxaban 15 mg 10/17/17 18:00 10/23/17 17:31 Xarelto - PO 15 mg DAILY@1800 [facility] Administration Impression 1. PEACE 2. CHF 3. volume overload 4. a-fib 5. cirrhosis 6. VISHAL 7. bilateral renal cysts 8. syncope 9. hypoxia 10. cardiopulmonary arrest 11. congesion on cxr 12. severe pulmonary HTN 13. resp failure 14. hyperkalemai Plan - will arrange for HD today as he is hyperkalemic - cxr reviewed - family meeting for GOC - pressors for hypotension, maintain a MAP of 65 - repeat labs in am - nepro for feeds - discussed with ICU team - monitor in ICU - daily cxr
--- NOTE | 2017-10-24 17:36 | PN ---
Progress Note (short form) - Note Progress Note: At approximately 5:15pm, pt with hypotensive with BP 55/31 (MAP 36), with dropping 02 sat into low 80's/high 70's. -levo titrated up to 15mcg -vaso titrated up to 6mcg BP rechecked at 5:20pm, 63/36 (MAP 42). -levo subsequently titrated up to 30mcg, vaso kept at 6mcg -BP recheck at 5:30pm 78/42 (MAP 50) Family at bedside. Discussed plan concerning pressors, in agreement will continue to follow
[2017-10-24] MEDS ORDERED: NOREPINEPHRINE BITARTRATE 4 MG/4 ML ML IV ONE (17:45)
--- NOTE | 2017-10-24 18:25 | PN ---
Teaching Attending Note Name of Resident: Rylan Middleton ATTENDING PHYSICIAN STATEMENT I saw and evaluated the patient. I reviewed the resident's note and discussed the case with the resident. I agree with the resident's findings and plan as documented. SUBJECTIVE: In ICU. intubated, oliguric. OBJECTIVE: Vital Signs Temperature 99.9 F H 10/24/17 12:00 Pulse Rate 65 10/24/17 17:47 Respiratory Rate 20 10/24/17 14:30 Blood Pressure 71/43 10/24/17 17:47 O2 Sat by Pulse Oximetry (%) 93 L 10/24/17 13:42 CBCD WBC 20.7 K/mm3 (4.0-10.0) H 10/24/17 05:30 RBC 3.47 M/mm3 (4.00-5.60) L 10/24/17 05:30 Hgb 8.7 GM/dL (11.7-16.9) L 10/24/17 05:30 Hct 29.0 % (35.4-49) L 10/24/17 05:30 MCV 83.5 fl (80-96) 10/24/17 05:30 MCHC 30.0 g/dl (32.0-35.9) L 10/24/17 05:30 RDW 17.2 % (11.9-15.9) H 10/24/17 05:30 Plt Count 171 K/MM3 (134-434) 10/24/17 05:30 MPV 10.3 fl (7.5-11.1) 10/24/17 05:30 CMP Sodium 137 mmol/L (136-145) 10/24/17 05:30 Potassium 5.3 mmol/L (3.5-5.1) H 10/24/17 05:30 Chloride 95 mmol/L (98-107) L 10/24/17 05:30 Carbon Dioxide 29 mmol/L (21-32) 10/24/17 05:30 Anion Gap 13 MMOL/L (8-16) 10/24/17 05:30 BUN 97 mg/dL (7-18) H D 10/24/17 05:30 Creatinine 2.9 mg/dL (0.7-1.3) H 10/24/17 05:30 Creat Clearance w eGFR 21.32 (>60) 10/24/17 05:30 Random Glucose 119 mg/dL (74-106) H 10/24/17 05:30 Calcium 7.8 mg/dL (8.5-10.1) L 10/24/17 05:30 Total Bilirubin 1.2 mg/dL (0.2-1.0) H 10/24/17 05:30 AST 247 U/L (15-37) H 10/24/17 05:30 ALT 112 U/L (12-78) H D 10/24/17 05:30 Alkaline Phosphatase 124 U/L (45-117) H 10/24/17 05:30 Total Protein 5.5 g/dl (6.4-8.2) L 10/24/17 05:30 Albumin 2.1 g/dl (3.4-5.0) L 10/24/17 05:30 CARDIAC ENZYMES Creatine Kinase 146 IU/L (39-308) 10/18/17 05:30 Troponin I 1.86 ng/ml (0.00-0.05) H* 10/19/17 06:00 Current Medications Generic Name Dose Route Start Last Admin Trade Name Freq PRN Reason Stop Dose Admin Acetaminophen 1,000 mg 10/19/17 15:41 10/24/17 02:18 Ofirmev Injection - IVPB 1,000 mg Q6H PRN Administration FEVER Albuterol Sulfate 1 amp 10/19/17 11:11 10/21/17 02:00 Ventolin 0.083% Nebulizer Soln - NEB 1 amp Q6H PRN Administration SHORTNESS OF BREATH Albuterol/Ipratropium 1 amp 10/20/17 12:00 10/24/17 16:49 Duoneb - NEB 1 amp RQID [facility] Administration Aspirin 81 mg 10/19/17 10:00 10/24/17 09:42 Asa - PO 81 mg DAILY [facility] Administration Chlorhexidine Gluconate 15 ml 10/18/17 22:00 10/24/17 09:43 Peridex - MM 15 ml BID [facility] Administration Propofol 1,000,000 mcg in 100 mls @ 2.082 mls/hr 10/18/17 00:15 10/24/17 01: 37 Diprivan - IVPB Not Given TITR [facility] Protocol 5 MCG/KG/MIN Norepinephrine Bitartrate 8, 500 mls @ 7.4 mls/hr 10/22/17 15:00 10/24/17 17: 44 000 mcg/ Dextrose IV 30 mcg/kg/min ASDIR [facility] 7,404.3 mls/hr Titration Protocol 0.03 MCG/KG/MIN Piperacillin Sod/Tazobactam 50 mls @ 100 mls/hr 10/22/17 20:00 10/24/17 09:42 Sod 2.25 gm/ Dextrose IVPB 100 mls/hr Q8H-IV [facility] Administration Protocol Sodium Chloride 250 mls @ 3,000 mls/hr 10/24/17 09:11 Normal Saline - IV 10/25/17 09:11 PRN PRN Hypotension during Dialysis Vasopressin 50 units/ Sodium 100 mls @ 4 mls/hr 10/24/17 11:45 10/24/17 17:47 Chloride IVPB 6 units/hr ASDIR [facility] 12 mls/hr Titration Protocol 2 UNITS/HR Mupirocin 1 applic 10/24/17 14:00 10/24/17 17:49 Bactroban Ointment (For Decolonization) - NS 10/29/17 13:59 1 applic BID [facility] Administration Pantoprazole Sodium 40 mg 10/19/17 11:30 10/24/17 09:42 Protonix Iv IVPUSH 40 mg DAILY [facility] Administration Rivaroxaban 15 mg 10/17/17 18:00 10/23/17 17:31 Xarelto - PO 15 mg DAILY@1800 [facility] Administration Home Medications Medication Instructions Recorded Cholecalciferol (Vitamin D3) 1,000 unit PO DAILY 06/22/12 [Vitamin D] Tiotropium [place] [Spiriva] 1 inh IH DAILY 06/22/12 Fluticasone/Vilanterol [Breo 1 each IH DAILY 06/05/14 Ellipta 100-25 Mcg INH] Sertraline HCl [Zoloft -] 50 mg PO DAILY 06/05/14 Sodium Chloride Nasal [place] [[place] 2 spray NS BID spraybtl 06/11/14 [place] Nasal [place] -] Furosemide [Lasix -] 80 mg PO BID 09/21/16 Febuxostat [Uloric] 40 mg PO DAILY 10/16/17 Rivaroxaban [Xarelto -] 15 mg PO DAILY 10/16/17 Sertraline HCl [Zoloft -] 50 mg PO DAILY 10/16/17 Spironolactone [Aldactone] 25 mg PO BID 10/16/17 Metolazone 2.5 mg PO WEEKLY 10/17/17 PE:intubated sedated on the vent. unable to wean him off the vent. rest of pE per resident's carotid US: Moderate atherosclerotic disease, left greater than right, with stenoses in the 60-79% range involving the internal carotid arteries. Clinical correlation and follow-up studies recommended. Please see above discussion. Head CT: IMPRESSION: No significant interval change. There remains moderate atrophy and chronic microvascular ischemic disease changes without gross evidence of acute intracranial pathology. EKG reviewed .RBBB with no acute ischemic changes ASSESSMENT AND PLAN: Patient is a 77 y/o man with PMHx of CHF,liver cirrhosis, gout , COPD, VISHAL, cor pulmonale, a fib, HTN, HLP, and CKD who presented to ED after having a syncopal episode. # Acute on chronic hypoxic hypercapnic respiratory failure with hx of COPD: Cardio and pulm is on the case, unable to get patient extubated ,sedated in ICU , No further improvement, further care per ICU team. No new changes # H/o of COPD: cont Nebs and inhalers :continue nebulizer treatments. # acute diastolic CHF exacerbation s/p Lasix IV , Echo is reviewed. # Syncope: hypoxia, vs vasovagal, vs arrhythmias ; carotid US # PEACE on CKD: as per [place] , started HD yesterday , no change in outcome , A fib: on xarelto at home, dose is adjusted accordingly DVT Px: Xarelto
[2017-10-24 19:07] VITALS: BP 66/47; PULSE 50; TEMP 99.1
--- NOTE | 2017-10-24 19:26 | CONS ---
DATE OF CONSULTATION: 10/24/2017 Dr. Vogel and followup appreciated. History and chart reviewed. A 77-year-old gentleman who was admitted on October 17, 2017. He has long-standing history of oxygen-dependent COPD, with chronic hypoxemia, recurring respiratory failure, hypertension, hyperlipidemia, tricuspid regurgitation, pulmonary hypertension, permanent atrial fibrillation. The patient was admitted with an apparent syncopal episode at home, and paramedics were called and patient brought to the hospital. During hospitalization, he apparently had a cardiopulmonary arrest and was resuscitated and intubated, was found to be hypoxic. He had periods of hypotension and currently is on vasopressors. He is sedated and remains intubated. During hospitalization, he developed progressive renal failure and currently is being dialyzed. He is also known to have gout. During hospitalization, he was found to have positive troponins. Patient also has history of obstructive sleep apnea syndrome and had been on CPAP. Presently, his hemodynamics appear stable. He is not arousable at the present time. CURRENT MEDICATIONS: 1. Norepinephrine bitartrate 0.03 mcg/kg per minute. 2. Acetaminophen 1000 mg IV piggyback q.6 h. p.r.n. 3. Piperacillin and tazobactam IV q.8 h. 4. Mupirocin 1 application b.i.d. 5. Xarelto 15 mg p.o. daily. 6. Albuterol sulfate (Ventolin) via nebulizer q.6 h. p.r.n. 7. Duoneb 1 ampule via nebulizer q.i.d. 8. Sodium chloride 150 mL IV p.r.n. for hypertension. 9. Diprivan IV piggyback. 10. Peridex 15 mL b.i.d. 11. Aspirin 81 mg p.o. daily. 12. Vasopressin 4 mL per hour. 13. Pantoprazole 40 mg IV daily. EXAMINATION: General: A 77-year-old unresponsive intubated gentleman. There was no pallor. There was peripheral cyanosis, mild clubbing of the nails. No jaundice. Neck: There was 1 to 2 cm elevation of JVD. Hepatojugular reflux was positive. Neck veins were slightly pulsatile, carotids were pounding. No bruits were heard and no thyromegaly was present. Heart: There was marked left parasternal heave. Heart sounds were obscure. No murmur or gallops were heard. Lungs: Markedly decreased breath sounds, especially at the bases. No expiratory wheezing was heard. Abdomen: Soft. No tenderness was elicited. There was no rebound tenderness. No hepatosplenomegaly was appreciated. Bowel sounds were present but decreased. Extremities: There was bilateral chronic stasis changes. There was cyanosis of the toes. Femoral pulses were 2+. Dorsalis pedis and posterior tibial pulses were not palpable. LABORATORY DATA: October 24, 2017, CBC: WBC count 20,700, hemoglobin was 8.7 g/dL, microcytic cell indices, platelet count was 171,000, left shift. Sodium 137, potassium 5.3, chloride 95, CO2 29, BUN 97, creatinine 2.9 mg/dL, random glucose 119, total bilirubin 1.2, AST 247, ALT 112, alkaline phosphatase 124. Troponin was 1.86 on October 19. ECG of October 18, 2017: Atrial rhythm was uncertain, possibility of accelerated junctional rhythm cannot be excluded. Occasional ventricular premature beats, which were single. Incomplete right bundle-branch block. Diffuse ST and T-wave abnormalities. X-ray of chest of October 24, 2017: Since prior study of October 23, the endotracheal tube, nasogastric tube, and right jugular line persist. Congestive and infiltrative changes with pleural fluid is again noted. There is a prominent mediastinum. Impression: No acute change since prior study. IMPRESSION: 1. Recent cardiopulmonary arrest. 2. Advanced chronic obstructive pulmonary disease with chronic hypoxemia. 3. Respiratory failure. 4. Leukocytosis. Possibility of superimposed infection needs exclusion. 5. History of atrial fibrillation. 6. History of hypotension, multifactorial. 7. Pulmonary hypertension (severe). 8. Tricuspid regurgitation. 9. Cor pulmonale. 10. History of hypertension. 11. Positive troponins, possibility of demand ischemia cannot be excluded. 12. Acute kidney injury with renal failure, dialysis dependent. RECOMMENDATIONS: 1. Continue current medications. 2. Followup ECG and troponin levels. PROGNOSIS: Critical. Harsh CARRILLO/[id number]
[2017-10-26 00:07] LABS: HBSAG SCREEN Negative (Negative); HEP A AB, IGM Negative (Negative); HEP B CORE AB, TOT Positive (Negative)
== END 2017-10-24 20:28 | disposition expired | DRG 207 ==
LOC: JER 18:38 → INTOOBSV 21:06 → JERBED 21:06 → J4W 23:36 → OBSVTOIN 10-17 14:50 → JICU 10-17 23:15
PROVIDERS: ADMIT Internal Medicine; ATTEND Internal Medicine
PROC: 5A12012 Performance of Cardiac Output, Single, Manual (ICD-10-PCS; 2017-10-18)
PROC: 5A1955Z Respiratory Ventilation, Greater than 96 Consecutive Hours (ICD-10-PCS; principal; 2017-10-22)
PROC: 0BH17EZ Insertion of Endotracheal Airway into Trachea, Via Natural or Artificial Opening (ICD-10-PCS; 2017-10-22)
PROC: 05HM33Z Insertion of Infusion Device into Right Internal Jugular Vein, Percutaneous Approach (ICD-10-PCS; 2017-10-22)
PROC: 5A1D90Z Performance of Urinary Filtration, Continuous, Greater than 18 hours Per Day (ICD-10-PCS; 2017-10-24)
DX: J96.21 Acute and chronic respiratory failure with hypoxia (principal); I50.33 Acute on chronic diastolic (congestive) heart failure; A41.9 Sepsis, unspecified organism; R65.21 Severe sepsis with septic shock; J69.0 Pneumonitis due to inhalation of food and vomit; I13.0 Hypertensive heart and chronic kidney disease with heart failure and stage 1 through stage 4 chronic kidney disease, or unspecified chronic kidney disease; I24.8 Other forms of acute ischemic heart disease; N17.9 Acute kidney failure, unspecified; R64 Cachexia; J96.22 Acute and chronic respiratory failure with hypercapnia; R55 Syncope and collapse; J44.9 Chronic obstructive pulmonary disease, unspecified; I95.9 Hypotension, unspecified; E87.70 Fluid overload, unspecified; N28.1 Cyst of kidney, acquired; I27.20 Pulmonary hypertension, unspecified; E87.5 Hyperkalemia; G47.33 Obstructive sleep apnea (adult) (pediatric); R74.0 Nonspecific elevation of levels of transaminase and lactic acid dehydrogenase [LDH]; E78.5 Hyperlipidemia, unspecified; I48.2 Chronic atrial fibrillation; R74.8 Abnormal levels of other serum enzymes; D69.6 Thrombocytopenia, unspecified; D72.829 Elevated white blood cell count, unspecified; I46.9 Cardiac arrest, cause unspecified; Z68.23 Body mass index [BMI] 23.0-23.9, adult; D64.9 Anemia, unspecified; N18.3 Chronic kidney disease, stage 3 (moderate)
CPT/HCPCS: 31500; 36415; 36600; 70450-TC; 71045-TC-FY; 71250-TC; 72125-TC; 76700-TC; 76775-TC; 76856-TC; 80048; 80053; 81003; 81015; 82375; 82436; 82550; 82553; 82570; 82728; 82803; 83050; 83540; 83550; 83605; 83735; 83880; 84100; 84133; 84300; 84443; 84484; 85025; 85027; 85044; 85610; 85730; 86704; 86706; 86708; 86803; 87040; 87070; 87086; 87186; 87205; 87340; 93005; 93010; 93306-TC; 93880-TC; 93926-TC; 93970-TC; 94002; 94640; 94660; 99282-25; G0378; G0480; J0131; J7030; J7620; P9047